=== PATIENT | male | born 1940 | race Caucasian/White ===

== ENCOUNTER 2017-07-24 05:40 | Inpatient (IN) | payer OTHER ==
[~2017-07-24] VITALS: Ht 185.4 cm; Wt 111.0 kg
[2017-07-24] VITALS (10 sets, daily range): BP systolic 148–201; BP diastolic 68–97; PULSE 90–119; TEMP 36.9–38.6; O2SAT 91–95; Ht 185.4 cm; Wt 111.0 kg
[~2017-07-24 05:40] MED LIST: AMLO-110 PO; CARB25TA12 PO; CHOL200010 PO; IBUP-1450 PO; TERA1CAP63 PO; TRAM-10 PO
[2017-07-24 06:09] LABS: BASO % 0.4 %; BASO ABS # 0.04 K/uL (0-0.2); EOS % 0.2 %; EOS ABS # 0.02 K/uL (0-0.5); HEMOGLOBIN 15.6 g/dL (14.0-18.0); IG# 0.03 K/uL (0.00-0.02); MEAN CELL VOLUME 90.3 fL (80-100); MEAN CORPUSCULAR HGB CONC 35.5 g/dl (32-36); MEAN PLATELET VOLUME 9.7 fL (7.4-10.4); MONO % 15.1 %; MONO ABS # 1.52 K/uL (0.11-0.59); NEUT ABS # 7.23 K/uL (1.4-6.5); PLATELET COUNT 113 K/uL (130-400); RED CELL DISTRIBUTION WIDTH CV 13.7 % (11.5-14.5); RED CELL DISTRIBUTION WIDTH SD 45.1 fL (36.4-46.3); WHITE BLOOD COUNT 10.04 K/uL (4.8-10.8)
[2017-07-24 06:17] LABS: INR 1.1 (0.9-1.1)
[2017-07-24 06:27] LABS: ALBUMIN 3.6 gm/dl (3.4-5.0); ALT/SGPT 40 U/L (12-78); AST/SGOT 33 U/L (15-37); BLOOD UREA NITROGEN 20 mg/dl (7-18); CALCIUM 8.7 mg/dl (8.5-10.1); CARBON DIOXIDE 23 mmol/L (21-32); CREATININE 1.28 mg/dl (0.60-1.40); GLUCOSE 167 mg/dl (70-99); POTASSIUM 3.7 mmol/L (3.5-5.1); SODIUM 135 mmol/L (136-145)
[2017-07-24 06:38] LABS: ALKALINE PHOSPHATASE 57 U/L (45-117); TOTAL PROTEIN 7.5 gm/dl (6.4-8.2)
[2017-07-24] MEDS ORDERED: ALBUT/IPRATROP 3MG/0.5MG NEB 3 ML VIAL INH STA (06:56)
--- NOTE | 2017-07-24 06:56 | EMERGENCY ROOM VISIT NOTE ---
History Report prepared by Raul: Kasey Kimball Under the Supervision of: Johnie GrijalvaO. First contact with patient: 06:01 Chief Complaint: WEAKNESS Stated Complaint: BALANCE ISSUES,RESPIRATORY ISSUES Nursing Triage Summary: Pt reports balance issues with dizziness for the past 4 days. Denies falls, reporting "I am careful and haven't actually fallen". Pt also complaining of cough and chills for four days. Denies chest pain, SOB, or any other pains/complaints. History of Present Illness The patient is a 77 year old male who presents to the Emergency Room with complaints of persistent general weakness for four days. He also reports shortness of breath for four days as well. He reports balance issues and overdrive. He has a history of osteoarthritis. He reports respiratory issues. He denies any history of balance issues in the past. He notes that he normally uses a cane to assist in ambulating. He notes that getting up is the worst part , but then he sways from side to side when he initially stands. He notes that once he begins walking it gets easier. He notes a loose cough. He notes chills, though he has not recorded his body temperature. He denies any sensation of the room spinning. He denies any numbness or tingling. He denies any changes to his vision. He reports a family history of heart problems, though denies any personal history. He denies any recent diarrhea, black stools, bloody stools, stuffy nose, or congestion. He denies any urinary symptoms or leg swelling. He takes Tramadol. He denies any asthma or lung problems. He denies any history of smoking, though notes exposure to second hand smoke in his past. He denies any blood thinner use. He regularly takes Amlodipine. Source of History: patient Onset: four days Position: other (general) Quality: other (weakness) Timing: other (persistent) Associated Symptoms: + chills, + cough, + SOB, No diarrhea, No urinary symptoms, No numbness Note: He denies any sensation of the room spinning. He denies any tingling or changes to his vision. He denies any black stools, bloody stools, stuffy nose, leg swelling, or congestion Review of Systems See HPI for pertinent positives & negatives. A total of 10 systems reviewed and were otherwise negative. Past Medical & Surgical Medical Problems: (1) Hypertension (2) Osteoarthritis (3) Sinusitis Surgical Problems: (1) Hx of inguinal hernia repair (2) Hx of sinus surgery Family History Hypertension Social History Smoking Status: Never Smoker Smokeless Tobacco Use: No Alcohol Use: none Drug Use: none Marital Status: Housing Status: lives with family Occupation Status: employed Current/Historical Medications Scheduled Amlodipine (Norvasc), 5 MG PO AFTERNOON Cholecalciferol (Vitamin D), 2,000 INTUNIT PO AFTERNOON Fluticasone Propionate (Nasal) (Flonase Allergy Relief), 2 SPRAY KARI DAILY Terazosin Hcl (Hytrin), 10 MG PO AFTERNOON Scheduled PRN Tramadol (Ultram), 50 MG PO Q6 PRN for Pain Allergies Coded Allergies: Lisinopril (Unverified Allergy, Severe, UNKNOWN, 07/24/17) Aspirin (Verified Allergy, Mild, DYSPHAGIA/TROUBLE STANDING STRAIGHT UP, ) GLO Inhibitors (Verified Allergy, Unknown, ANGIOEDEMA/MYLAGIAS, 07/24/17) Physical Exam Vital Signs Date Time Temp Pulse Resp B/P (MAP) Pulse Ox O2 Delivery O2 Flow Rate FiO2 07/24/17 10:36 103 20 93 07/24/17 10:31 189/96 07/24/17 10:06 100 20 143/90 92 07/24/17 09:36 101 20 93 07/24/17 09:31 172/87 07/24/17 09:06 102 19 94 07/24/17 09:01 166/79 07/24/17 08:45 157/92 07/24/17 08:36 113 18 93 07/24/17 08:28 100/87 07/24/17 08:27 164/93 07/24/17 08:27 101 21 164/93 108 100/87 07/24/17 08:06 110 21 96 07/24/17 08:01 149/76 07/24/17 07:45 109 25 93 07/24/17 07:31 129/76 07/24/17 07:15 105 23 93 07/24/17 07:05 151/70 07/24/17 06:53 92 Room Air 07/24/17 06:49 109 26 164/84 93 Room Air 07/24/17 06:45 113 18 94 07/24/17 06:06 110 07/24/17 06:05 95 23 148/90 96 Room Air 07/24/17 05:45 36.8 108 20 147/74 93 Room Air Physical Exam GENERAL: alert, well appearing, well nourished, no distress, non-toxic EYE EXAM: normal conjunctiva, PERRL and EOM's grossly intact OROPHARYNX: no exudate, no erythema, lips, buccal mucosa, and tongue normal and mucous membranes are moist NECK: supple, no nuchal rigidity, no adenopathy, non-tender LUNGS: Clear to auscultation. Normal chest wall mechanics. No wheezes, rhonchi, or rales. HEART: no murmurs, S1 normal and S2 normal, tachycardia ABDOMEN: abdomen soft, non-tender, normo-active bowel sounds, no masses, no rebound or guarding. BACK: Back is symmetrical on inspection and there is no deformity, no midline tenderness, no CVA tenderness. SKIN: no rashes and no bruising UPPER EXTREMITIES: upper extremities are grossly normal. Full range of motion, normal pulses. LOWER EXTREMITIES: No pitting edema. Full range of motion, normal pulses. NEURO EXAM: Normal sensorium, cranial nerves II-XII grossly intact, normal speech, no gross weakness of arms, no gross weakness of legs. No pronator drift noted, patient with difficulty with finger to nose on the left, difficulty with heel to wells left to right. No facial droop. Medical Decision & Procedures ER Provider Diagnostic Interpretation: HEAD CT NONCONTRAST CT DOSE: 1459.56 mGycm HISTORY: off balance TECHNIQUE: Multiaxial CT images of the head were performed without the use of intravenous contrast. Automated exposure control was utilized for this study. A dose lowering technique was utilized adhering to the principles of ALARA. Comparison: None. Findings: Small fluid level within the right maxillary sinus. Partial opacification of the ethmoid air cells and mild mucosal thickening within the left maxillary sinus. The mastoid air cells are clear. Motion artifact. Prominence of the right retrocerebellar space which measures 4.9 x 1.9 cm. This is consistent with an arachnoid cyst. The calvarium and skull base are intact. The ventricles and sulci are within normal limits. There is no mass, hematoma, midline shift, or acute infarct. Impression: 1. Motion artifact. No definite acute intracranial abnormality. 2. Mild acute on chronic paranasal sinusitis. Electronically signed by: Enzo Hancock M.D. 07/24/2017 7:07 AM Dictated Date/Time: 07/24/2017 7:04 AM CHEST 2 VIEWS ROUTINE CLINICAL HISTORY: cough, dizziness COMPARISON STUDY: October 2008 FINDINGS: The cardiac and mediastinal contours are normal. There is no evidence of focal pulmonary consolidation. There is no evidence of failure. No pleural effusions are visualized.[ IMPRESSION: No active disease in the chest. Electronically signed by: Judson Vogt M.D. 07/24/2017 6:48 AM Dictated Date/Time: 07/24/2017 6:48 AM Laboratory Results Test 07/24/17 06:02 07/24/17 06:10 07/24/17 06:50 07/24/17 08:50 Prothrombin Time 11.4 SECONDS (9.0-12.0) Prothromb Time International Ratio 1.1 (0.9-1.1) D-Dimer 490 ug/L FEU (0-500) Estimated Average Glucose 123 mg/dl Hemoglobin A1c 5.9 % (4.5-5.6) Magnesium Level 1.9 mg/dl (1.8-2.4) Troponin I < 0.015 ng/ml (0-0.045) Pro-B-Type Natriuretic Peptide 200 pg/ml (0-1800) Thyroid Stimulating Hormone (TSH) 1.850 uIu/ml (0.300-4.500) Bedside Lactic Acid Venous 1.29 mmol/L (0.90-1.70) Influenza Type A Antigen Neg for Influ A (NEG) Influenza Type B Antigen Neg for Influ B (NEG) Urine Color DK YELLOW Urine Appearance CLEAR (CLEAR) Urine pH 5.0 (4.5-7.5) Urine Specific Geary 1.027 (1.000-1.030) Urine Protein NEG (NEG) Urine Glucose (UA) NEG (NEG) Urine Ketones NEG (NEG) Urine Occult Blood NEG (NEG) Urine Nitrite NEG (NEG) Urine Bilirubin NEG (NEG) Urine Urobilinogen NEG (NEG) Urine Leukocyte Esterase NEG (NEG) Urine Opiates Screen NEG (NEG) Urine Methadone, Qualitative NEG (NEG) Urine Barbiturates NEG (NEG) Urine Phencyclidine (PCP) Level NEG (NEG) Ur Amphetamine/Methamphetamine NEG (NEG) MDMA (Ecstasy) Screen NEG (NEG) Urine Benzodiazepines Screen NEG (NEG) Urine Cocaine Metabolite NEG (NEG) Urine Marijuana (THC) NEG (NEG) Laboratory results per my review. Medications Administered Medications (Trade) Dose Ordered Sig/Diana Route Start Time Stop Time Status Last Admin Dose Admin Albuterol/ Ipratropium (Duoneb) 3 ml NOW STAT INH 07/24/17 06:56 07/24/17 06:57 DC 07/24/17 07:16 3 ML Sodium Chloride 1,000 ml @ 125 mls/hr Q8H STAT IV 07/24/17 08:37 07/24/17 17:13 DC 07/24/17 09:12 125 MLS/HR ECG Per My Interpretation Indication: weakness Rate (beats per minute): 112 Rhythm: sinus tachycardia Findings: PVC, no acute ischemic change, other (Normal axis. Normal intervals. Baseline artifact noted. ) ED Course 0617: The patient was evaluated in room A11B. A complete history and physical exam was performed. 0656: Ordered DuoNeb 3 ml INH 0816: Patient states no change following nebulizer treatment. Updated on results so far as well as delays in radiology reading. 0855: Patient with orthostatic changes on bedside testing. Patient felt very off balance with standing. Initial blood pressure dropped, however quickly improved after sitting for several minutes. Patient was able to stand with assistance in order to provide a urine specimen. Discussed with patient concern given worsening symptoms of being off balance, as well as findings on neuro exam at bedside. Discussed possible need for additional neuro testing to rule out TIA/CVA. Will attempt to gently hydrate the patient in the interim. Patient denies ever having prior echo or other cardiac testing also. Medical Decision Prior records/ancillary studies reviewed. Triage Nursing notes reviewed. The patient's history was concerning for respiratory difficulties. Differential diagnosis: Etiologies such as infections, reactive airway disease, pneumonia, pneumothorax , COPD, CHF, cardiac ischemia, pulmonary embolism, musculoskeletal, gastrointestinal, as well as others were entertained. Differential diagnosis: Etiologies such as metabolic, infection, hypo/hyperglycemia, electrolyte abnormalities, cardiac sources, intracerebral event, toxicologic, neurologic, as well as others were entertained. Patient with concerning presentation for worsening ataxia and difficulty walking over the last 4 days. Patient noted to have orthostatic hypotension, however did not appear clinically dehydrated, have prerenal azotemia, and stated he was eating and drinking normally. Patient with issues of chronic sinusitis, however denied having lightheadedness/dizziness/vertigo associated with this previously. States this is a chronic problem. Patient's other labs reassuring, no evidence of acute infectious etiology, negative chest x-ray negative urine. I do not suspect bacteremia/sepsis. Given patient with slight difficulty with finger to nose and heel to wells testing, concern for possible TIA/CVA or posterior circulation problem. Discussed with patient concern for need for additional evaluation and likely imaging to better evaluate vasculature and cerebellum. Discussed possible need for additional cardiology evaluation to unlikely echo. Patient states has never had chest pain/ palpitations/shortness of breath with any of the lightheadedness or dizziness, no prior history of coronary artery disease or dysrhythmia. No dysrhythmia noted on telemetry. Troponin and EKG negative and I do not suspect ACS. Patient with no other symptoms to suggest acute vascular etiology such as dissection or leaking AAA. Patient with equal pulses bilaterally, no blood pressure discrepancies, and no other symptoms more suggestive of this diagnosis. Patient with mild persistent tachycardia, which seemed initially possibly related to patient's nervousness about being here. Following orthostatic vital signs, perhaps more related to occult dehydration. I do not suspect cough related to congestive heart failure or PE. Patient without hypoxia. No other recent travel or other infectious disease exposures. Patient not otherwise amino compromise. Patient and family agreeable with plan for additional evaluation, as they are concerned that if he would return home he may fall and get hurt due to his worsening ataxia. Medication Reconcilliation Current Medication List: was personally reviewed by me Blood Pressure Screening Patient's blood pressure: Elevated blood pressure Blood pressure disposition: Referred to PCP Impression Primary Impression: Lightheadedness Additional Impressions: Upper respiratory infection Orthostatic hypotension Ataxia Scribe Attestation The scribe's documentation has been prepared under my direction and personally reviewed by me in its entirety. I confirm that the note above accurately reflects all work, treatment, procedures, and medical decision making performed by me. Departure Information Referrals Dino Rajan M.D. (PCP) Patient Instructions My [facility] Problem Qualifiers Additional Impressions: Upper respiratory infection URI type: unspecified URI Qualified Codes: J06.9 - Acute upper respiratory infection, unspecified
[2017-07-24 07:31] LABS: INFLUENZA B ANTIGEN Neg for Influ B (NEG)
[2017-07-24] MEDS ORDERED: FLUT0.15 NAE (07:49)
[2017-07-24] MEDS ORDERED: TRAM-10 PO (07:51)
[2017-07-24] MEDS ORDERED: SODIUM CHLORIDE 0.9% 1000ML 1,000 ML IV STA (08:37)
--- NOTE | 2017-07-24 08:38 | DIAGNOSTIC IMAGING REPORT ---
HEAD CT NONCONTRAST CT DOSE: 1459.56 mGycm HISTORY: off balance TECHNIQUE: Multiaxial CT images of the head were performed without the use of intravenous contrast. Automated exposure control was utilized for this study. A dose lowering technique was utilized adhering to the principles of ALARA. Comparison: None. Findings: Small fluid level within the right maxillary sinus. Partial opacification of the ethmoid air cells and mild mucosal thickening within the left maxillary sinus. The mastoid air cells are clear. Motion artifact. Prominence of the right retrocerebellar space which measures 4.9 x 1.9 cm. This is consistent with an arachnoid cyst. The calvarium and skull base are intact. The ventricles and sulci are within normal limits. There is no mass, hematoma, midline shift, or acute infarct. Impression: 1. Motion artifact. No definite acute intracranial abnormality. 2. Mild acute on chronic paranasal sinusitis. Electronically signed by: Enzo Hancock M.D. 07/24/2017 7:07 AM Dictated Date/Time: 07/24/2017 7:04 AM
--- NOTE | 2017-07-24 08:38 | DIAGNOSTIC IMAGING REPORT ---
CHEST 2 VIEWS ROUTINE CLINICAL HISTORY: cough, dizziness COMPARISON STUDY: October 2008 FINDINGS: The cardiac and mediastinal contours are normal. There is no evidence of focal pulmonary consolidation. There is no evidence of failure. No pleural effusions are visualized.[ IMPRESSION: No active disease in the chest. Electronically signed by: Judson Vogt M.D. 07/24/2017 6:48 AM Dictated Date/Time: 07/24/2017 6:48 AM
[2017-07-24] MEDS ORDERED: LORAZEPAM 2 MG/ML 1 ML VIAL IV PRN (10:45)
[2017-07-24] MEDS ORDERED: ONDANSETRON INJ 2 MG/ML 2 ML VIAL IV PRN (10:45)
[2017-07-24] MEDS ORDERED: POLYETHYLENE (MIRALAX) 17 GM PACK PO PRN (10:45)
[2017-07-24] MEDS ORDERED: NITROGLYCERIN 0.4 MG SL PER TAB CHARGE SL PRN (10:45)
[2017-07-24] MEDS ORDERED: PHARMACIST DISCHARGE MED REC CONSULT PRN (10:45)
[2017-07-24] MEDS ORDERED: GLUCOSE 10 TABS/TUBE PO PRN (11:00)
[2017-07-24] MEDS ORDERED: DEXTROSE 50% 50 ML SYR IV PRN (11:00)
[2017-07-24] MEDS ORDERED: GLUCAGON FOR INJ 1 MG VIAL SQ PRN (11:00)
[2017-07-24] MEDS ORDERED: GLUCOSE 40% GEL 15 GM TUBE PO PRN (11:00)
[2017-07-24] MEDS ORDERED: TRAMADOL HCL 50 MG TAB PO PRN (11:15)
[2017-07-24] MEDS ORDERED: ACETAMINOPHEN 325 MG TAB ONE (11:20)
--- NOTE | 2017-07-24 11:52 | DIAGNOSTIC IMAGING REPORT ---
BILATERAL CAROTID DOPPLER STUDY HISTORY: Stroke COMPARISON: None. TECHNIQUE: Real-time, grayscale, and color Doppler sonography of the carotid arteries was performed. Imaging reviewed in the transverse and longitudinal planes. All measurements were calculated based on NASCET criteria. FINDINGS: Antegrade flow is seen in the bilateral vertebral arteries. The brachial pressures were not performed. Mild calcified plaque within the bilateral carotid bifurcations. There are few enlarged and abnormal appearing left lymph nodes. The largest measures 1.8 x 1.2 x 1.0 cm and is partially necrotic The peak systolic velocity within the right ICA is 63 cm/s. The right systolic ratio is 0.7. The peak systolic velocity within the left ICA is 101 cm/s. The left systolic ratio is 1.1. Mild stenosis within the bilateral external carotid arteries demonstrating pieces systolic velocities of 141 cm/s on the right and 136 cm/s on the left. IMPRESSION: 1. No hemodynamically significant stenosis seen within the bilateral common or internal carotid arteries. 2. Left cervical lymphadenopathy. The dominant lymph node is partially necrotic. Dedicated neck CT is recommended for further evaluation and to exclude a malignancy. In addition, ultrasound-guided fine-needle aspiration of the dominant lymph node could also be performed. 3. These findings were called/faxed to the referring physician following dictation. Electronically signed by: Enzo Hancock M.D. 07/24/2017 11:50 AM Dictated Date/Time: 07/24/2017 11:47 AM
[2017-07-24 11:53] LABS: HEMOGLOBIN A1C 5.9 % (4.5-5.6)
[2017-07-24] MEDS ORDERED: SODIUM CHLORIDE 0.9% 1000ML 1,000 ML IV SCH ×2 (13:15→13:45)
--- NOTE | 2017-07-24 14:33 | History and Physical ---
History & Physical Date & Time of Service: Jul 24, 2017 at 11:08 Chief Complaint: Balance Issues,Respiratory Issues Primary Care Physician: Dino Rajan M.D. History of Present Illness Source: patient, clinic records, hospital records Pt is 77 y/o M with PMH chronic sinusitis, HTN, BPH presented to ER with complaint of feeling off balance. Patient reports for approximately 6 months has noticed some off balance with walking. Reports history of right knee OA & sometimes uses a cane to assist in ambulation. Patient states the past 4 days has noticed he has been having increased balance problems even with using cane. Has not noticed more off balanced tp one side or the other, he feels it is both sides. Sometimes he he walks into the huyn[place]. Denies falls or head injury. Patient with history of chronic sinusitis and postnasal drip and chronic cough. Denies any increased symptoms. 05/16/17 treated with Augmentin for acute sinusitis and patient reports improvement of sinus symptoms. Patient denies any recent known fever or chills. Denies other recent illnesses. History shingles 2001. Patient reports chronic rash to bilateral arms during the wintertime. Denies any other rashes. Denies any recent travel, Denies headache , facial/temporal pain dizziness, vision changes, ear pain, tinnitus, diaphoresis, N/V/D/C, lightheadedness, syncope, neck pain, CP, SOB, orthopnea, palpitations, hemoptysis, epistaxis, sore throat, choking, otalgia, rhinorrhea, abdominal pain, paresthesias, weakness, extremity weakness, extremity edema, urinary symptoms. No hx previous brain imaging. Hx sinus CT 09/2015: FINDINGS: Visualized portions of the intracranial contents demonstrate a vangie cisterna magna or arachnoid cyst within the posterior fossa which is of no clinical significance. Past Medical/Surgical History Medical Problems: (1) Hypertension Status: Chronic (2) Osteoarthritis Status: Chronic (3) Sinusitis Status: Chronic Surgical Problems: (1) Hx of inguinal hernia repair Status: Resolved (2) Hx of sinus surgery Status: Resolved Family History FH: thyroid disease Hypertension Stroke Social History Smoking Status: Never Smoker Smokeless Tobacco Use: No Alcohol Use: none Drug Use: none Marital Status: Housing status: lives with family Occupational Status: employed Immunizations History of Influenza Vaccine: No History of Tetanus Vaccine?: Unknown History of Pneumococcal: Yes History of Hepatitis B Vaccine: No Allergies Coded Allergies: Lisinopril (Unverified Allergy, Severe, UNKNOWN, 07/24/17) Aspirin (Verified Allergy, Mild, DYSPHAGIA/TROUBLE STANDING STRAIGHT UP, ) GLO Inhibitors (Verified Allergy, Unknown, ANGIOEDEMA/MYLAGIAS, 07/24/17) Home Medications Scheduled Amlodipine (Norvasc), 5 MG PO AFTERNOON Cholecalciferol (Vitamin D), 2,000 INTUNIT PO AFTERNOON Fluticasone Propionate (Nasal) (Flonase Allergy Relief), 2 SPRAY KARI DAILY Terazosin Hcl (Hytrin), 10 MG PO AFTERNOON Scheduled PRN Tramadol (Ultram), 50 MG PO Q6 PRN for Pain Review of Systems See HPI for pertinent positives & negatives. All other systems reviewed and were otherwise negative Physical Exam Vital Signs Date Time Temp Pulse Resp B/P (MAP) Pulse Ox O2 Delivery O2 Flow Rate FiO2 07/24/17 10:36 103 20 93 07/24/17 10:31 189/96 07/24/17 10:06 100 20 143/90 92 07/24/17 09:36 101 20 93 07/24/17 09:31 172/87 07/24/17 09:06 102 19 94 07/24/17 09:01 166/79 07/24/17 08:45 157/92 07/24/17 08:36 113 18 93 07/24/17 08:28 100/87 07/24/17 08:27 164/93 07/24/17 08:27 101 21 164/93 108 100/87 07/24/17 08:06 110 21 96 07/24/17 08:01 149/76 07/24/17 07:45 109 25 93 07/24/17 07:31 129/76 07/24/17 07:15 105 23 93 07/24/17 07:05 151/70 07/24/17 06:53 92 Room Air 07/24/17 06:49 109 26 164/84 93 Room Air 07/24/17 06:45 113 18 94 07/24/17 06:06 110 07/24/17 06:05 95 23 148/90 96 Room Air 07/24/17 05:45 36.8 108 20 147/74 93 Room Air General Appearance: WD/WN, no apparent distress Head: normocephalic, atraumatic Eyes: normal inspection, PERRL, EOMI, sclerae normal ENT: hearing grossly normal, pharynx normal, + pertinent finding (mildly dry mucous membranes) Neck: supple, no JVD, trachea midline Respiratory/Chest: lungs clear, normal breath sounds, no respiratory distress, no accessory muscle use Cardiovascular: no murmur, + tachycardia (104) Abdomen/GI: normal bowel sounds, non tender, soft Extremities/Musculoskelatal: no calf tenderness, normal capillary refill, no pedal edema, normal range of motion, non-tender Neurologic/Psych: alert, normal mood/affect, oriented x 3, + pertinent finding (No aphasia, no facial drooping, no extremity weakness. negative romberg. slow with finger to nose and heel to wells bilaterally. slow gait without over ataxia during time of exam) Skin: normal color, warm/dry, + pertinent finding (+papules to bilateral forearms) Diagnostics Laboratory Results Results Past 24 Hours Test 07/24/17 06:02 07/24/17 06:10 07/24/17 06:50 07/24/17 08:50 Range/Units White Blood Count 10.04 4.8-10.8 K/uL Red Blood Count 4.87 4.7-6.1 M/uL Hemoglobin 15.6 14.0-18.0 g/dL Hematocrit 44.0 42-52 % Mean Corpuscular Volume 90.3 80-100 fL Mean Corpuscular Hemoglobin 32.0 25-34 pg Mean Corpuscular Hemoglobin Concent 35.5 32-36 g/dl Platelet Count 113 130-400 K/uL Mean Platelet Volume 9.7 7.4-10.4 fL Neutrophils (%) (Auto) 72.0 % Lymphocytes (%) (Auto) 12.0 % Monocytes (%) (Auto) 15.1 % Eosinophils (%) (Auto) 0.2 % Basophils (%) (Auto) 0.4 % Neutrophils # (Auto) 7.23 1.4-6.5 K/uL Lymphocytes # (Auto) 1.20 1.2-3.4 K/uL Monocytes # (Auto) 1.52 0.11-0.59 K/uL Eosinophils # (Auto) 0.02 0-0.5 K/uL Basophils # (Auto) 0.04 0-0.2 K/uL RDW Standard Deviation 45.1 36.4-46.3 fL RDW Coefficient of Variation 13.7 11.5-14.5 % Immature Granulocyte % (Auto) 0.3 % Immature Granulocyte # (Auto) 0.03 0.00-0.02 K/uL Prothrombin Time 11.4 9.0-12.0 SECONDS Prothromb Time International Ratio 1.1 0.9-1.1 D-Dimer 490 0-500 ug/L FEU Sodium Level 135 136-145 mmol/L Potassium Level 3.7 3.5-5.1 mmol/L Chloride Level 103 98-107 mmol/L Carbon Dioxide Level 23 21-32 mmol/L Anion Gap 9.0 3-11 mmol/L Blood Urea Nitrogen 20 7-18 mg/dl Creatinine 1.28 0.60-1.40 mg/dl Estimated GFR () 61.3 Estimated GFR (Non- 52.9 BUN/Creatinine Ratio 15.5 10-20 Random Glucose 167 70-99 mg/dl Calcium Level 8.7 8.5-10.1 mg/dl Magnesium Level 1.9 1.8-2.4 mg/dl Total Bilirubin 0.7 0.2-1 mg/dl Aspartate Amino Transf (AST/SGOT) 33 15-37 U/L Alanine Aminotransferase (ALT/SGPT) 40 12-78 U/L Alkaline Phosphatase 57 45-117 U/L Troponin I < 0.015 0-0.045 ng/ml Pro-B-Type Natriuretic Peptide 200 0-1800 pg/ml Total Protein 7.5 6.4-8.2 gm/dl Albumin 3.6 3.4-5.0 gm/dl Globulin 3.9 2.5-4.0 gm/dl Albumin/Globulin Ratio 0.9 0.9-2 Thyroid Stimulating Hormone (TSH) 1.850 0.300-4.500 uIu/ml Bedside Lactic Acid Venous 1.29 0.90-1.70 mmol/L Influenza Type A Antigen Neg for Influ A NEG Influenza Type B Antigen Neg for Influ B NEG Urine Color DK YELLOW Urine Appearance CLEAR CLEAR Urine pH 5.0 4.5-7.5 Urine Specific Walnut 1.027 1.000-1.030 Urine Protein NEG NEG Urine Glucose (UA) NEG NEG Urine Ketones NEG NEG Urine Occult Blood NEG NEG Urine Nitrite NEG NEG Urine Bilirubin NEG NEG Urine Urobilinogen NEG NEG Urine Leukocyte Esterase NEG NEG Test 07/24/17 10:16 Range/Units Diagnostic Radiology CT HEAD: Findings: Small fluid level within the right maxillary sinus. Partial opacification of the ethmoid air cells and mild mucosal thickening within the left maxillary sinus. The mastoid air cells are clear. Motion artifact. Prominence of the right retrocerebellar space which measures 4.9 x 1.9 cm. This is consistent with an arachnoid cyst. The calvarium and skull base are intact. The ventricles and sulci are within normal limits. There is no mass, hematoma, midline shift, or acute infarct. CXR: IMPRESSION: No active disease in the chest. EKG EKG: sinus tachycardia, rate 112, PVCs Impression Assessment and Plan ATAXIA Pt reports ataxia x 6 months, worsening past 4 days. Denies headache, dizziness , syncope, head injury. Noted to have orthostatic hypotension in ER. CT HEAD: Motion artifact. Prominence of the right retrocerebellar space which measures 4.9 x 1.9 cm, consistent with an arachnoid cyst. There is no hematoma, midline shift, or acute infarct. -MRI, U/S carotids to r/o stroke -B12, thiamine, folate labs, RPR, Tox screen added -Neurology consult -Spoke with Dr. Oakley -neurosurgery at [facility] [place] who suggested no acute surgical intervention, likely repeat head imaging in 3 months, and follow-up with neurotrauma after hospital discharge ORTHOSTATIC HYPOTENSION Patient noticed to be orthostatic in the ER, IVF started -IVF -Continue to monitor FEVER Possible acute sinusitis. Patient developed temp 38.3 C in ER. CXR: No infiltrate. WBC: 10. U/A: Negative. -Blood cultures added -CBC in a.m. -Augmentin -Continue to follow POSSIBLE ACUTE SINUSITIS ON CHRONIC SINUSITIS Pt reports chronic postnasal drip and cough, denies worsening. Treated with Augmentin on 05/19/17 for acute sinusitis. History sinus surgery in the past, followed by Dr. Espitia. CT head: Acute on chronic paranasal sinusitis -Augmentin HYPERGLYCEMIA Glucose 167 -HA1c added -NovoLog sliding scale per protocol HTN -Continue amlodipine BPH -Continue terazosin OA RIGHT KNEE -Continue tramadol as needed pain DVT Prophylaxis -SCD Disposition admit tele Full Code as per discussion with pt Follows with Dr Rajan for routine care Pt was seen with Dr Shah. See addendum Dr. Shah addendum I have seen and examined the patient and have discussed with HAI Valderrama in regard to the patient's neurological workup for the ataxia and spoke with Dr. Baltazar in regards to patient's arachnoid cyst. At this time, labs have been sent to attempt to identify vitamin deficiencies vs RPR that could relate to the ataxia. Patient reports that he cannot tolerate MRI studies despite being offered Ativan. No obvious ataxia on physical exam today and patient reports that he is walking better. Neurology inpatient consult also requested. However patient also having leukocytosis above 11,000, fever, tachycardia, hypertension. Patient initially given Augmentin for possible acute sinuitis. Will expand to Zosyn as it is unclear to another source of infection. No meningeal signs for meningitis. No pneumonia on chest X ray. No bacteria in urine. Echocardiogram does not show vegetations. Will send CT neck as ultrasound carotid concerning for "necrotic" lymph node. Check lactic acid and procalcitonin Have re-affirmed code status with patient as full code. Patient's son Raoul , at bedside Resuscitation Status Full Code VTE Prophylaxis Will order VTE Prophylaxis: Yes Additional Copies To Dino Rajan M.D.
--- NOTE | 2017-07-24 14:53 | ECHOCARDIOGRAM REPORT ---
*NOTICE TO RECEIVING [employer] This information is strictly Confidential and protected under [place] law. [place] law prohibits you from making any further disclosure of this information unless further disclosure is expressly permitted by the written consent of the person to whom it pertains or is authorized by law. A general authorization for the release of medical or other information is not sufficient for this purpose. Hospital accepts no responsibility if the information is made available to any other person, INCLUDING THE PATIENT. Interpretation Summary * Name: BETTINA HOOVER Study Date: 07/24/2017 01:13 PM BP: 150/80 mmHg * Patient Location: [facility]\S\[id number]\S\[id number] HR: 91 * : 1940 (M/d/yyyy) Gender: Male Height: 73 in * Age: 77 yrs Ethnicity: [place] Weight: 248 lb * Ordering Physician: Cait Valderrama * Referring Physician: Self, Referred * Performed By: Anjelica Garza RCS * * Reason For Study: ATAXIA / R/O STROKE * BSA: 2.4 m2 * -- Conclusions -- * Normal LV chamber size with moderate concentric LVH. * Normal LV systolic function, EF 55-60%. * No segmental left ventricular wall motion abnormalities are noted. * Grade I diastolic dysfunction. * No significant valvular pathology. * A patent foramen ovale is present and there is low risk for embolism. Procedure Details * A complete two-dimensional transthoracic echocardiogram was performed (2D, M-mode, Doppler and color flow Doppler). * A saline contrast injection was performed to assess for cardiac shunting. * The injection was performed through an intravenous line in the right arm. * The attending nurse who injected the saline contrast was CUCA THOMPSON RN. * A total of 20 cc of agitated saline was given. Left Ventricle * The left ventricle is normal in size. * There is moderate concentric left ventricular hypertrophy. * Left ventricular systolic function is normal. * No segmental left ventricular wall motion abnormalities are noted. * Ejection Fraction = 60-65%. * The left ventricular wall motion is normal. Right Ventricle * The right ventricular cavity size is normal (basal dimension <4.2 cm in right ventricular apical 4-chamber view). * The right ventricular systolic function is normal as assessed by tricuspid annular plane systolic excursion (TAPSE) (normal >1.5 cm). Atria * The left atrial size is normal. * Right atrial size is normal. * A patent foramen ovale is present. * A patent foramen ovale is present and there is low risk for embolism. * Injection of contrast documented an interatrial shunt. Mitral Valve * The mitral valve is normal in structure and function. Tricuspid Valve * The tricuspid valve is normal in structure and function. Aortic Valve * The aortic valve is normal in structure and function. Pulmonic Valve * The pulmonary valve is not well seen, but the Doppler examination is normal without significant regurgitation or stenosis. Great Vessels * The aortic root is normal size. Pericardium/Pleural * There is no pericardial effusion. Left Ventricular Diastolic Function * Grade I diastolic dysfunction, (abnormal relaxation pattern). MMode 2D Measurements and Calculations IVSd 1.6 cm IVSs 2.3 cm LVIDd 4.2 cm LVIDs 3.2 cm LVPWd 1.5 cm LVPWs 1.5 cm IVS/LVPW 1.0 FS 24.3 % EDV(Teich) 77.4 ml ESV(Teich) 39.7 ml EF(Teich) 48.7 % EDV(cubed) 72.7 ml ESV(cubed) 31.5 ml EF(cubed) 56.6 % % IVS thick 48.3 % % LVPW thick -4.10 % LV mass(C)d 261.2 grams LV mass(C)dI 110.8 grams/m\S\2 LV mass(C)s 254.5 grams LV mass(C)sI 107.9 grams/m\S\2 SV(Teich) 37.7 ml SI(Teich) 16.0 ml/m\S\2 SV(cubed) 41.2 ml SI(cubed) 17.5 ml/m\S\2 Ao root diam 3.7 cm Ao root area 11.0 cm\S\2 ACS 2.3 cm LA dimension 3.2 cm LA/Ao 0.86 LVOT diam 2.1 cm LVOT area 3.3 cm\S\2 LVAd ap4 38.4 cm\S\2 LVLd ap4 9.1 cm EDV(MOD-sp4) 128.7 ml EDV(sp4-el) 138.0 ml LVAs ap4 23.9 cm\S\2 LVLs ap4 7.3 cm ESV(MOD-sp4) 63.7 ml ESV(sp4-el) 66.3 ml EF(MOD-sp4) 50.5 % EF(sp4-el) 52.0 % LVAd ap2 35.0 cm\S\2 LVLd ap2 8.4 cm EDV(MOD-sp2) 117.9 ml EDV(sp2-el) 123.5 ml LVAs ap2 22.6 cm\S\2 LVLs ap2 7.3 cm ESV(MOD-sp2) 60.0 ml ESV(sp2-el) 59.8 ml EF(MOD-sp2) 49.1 % EF(sp2-el) 51.6 % LVLd %diff -8.03 % EDV(MOD-bp) 127.3 ml LVLs %diff -0.60 % ESV(MOD-bp) 61.3 ml EF(MOD-bp) 51.8 % SV(MOD-sp4) 65.0 ml SI(MOD-sp4) 27.6 ml/m\S\2 SV(MOD-sp2) 57.9 ml SI(MOD-sp2) 24.5 ml/m\S\2 SV(MOD-bp) 66.0 ml SI(MOD-bp) 28.0 ml/m\S\2 SV(sp4-el) 71.7 ml SI(sp4-el) 30.4 ml/m\S\2 SV(sp2-el) 63.7 ml SI(sp2-el) 27.0 ml/m\S\2 Doppler Measurements and Calculations MV E max marcy 59.3 cm/sec MV A max marcy 67.4 cm/sec MV E/A 0.88 MV P1/2t max marcy 71.3 cm/sec MV P1/2t 81.6 msec MVA(P1/2t) 2.7 cm\S\2 MV dec slope 255.8 cm/sec\S\2 MV dec time 0.31 sec Ao V2 max 120.4 cm/sec Ao max PG 5.8 mmHg Ao max PG (full) 3.1 mmHg YAYA(V,A) 2.3 cm\S\2 YAYA(V,D) 2.3 cm\S\2 AI max marcy 462.3 cm/sec AI max PG 85.5 mmHg AI dec slope 289.6 cm/sec\S\2 AI P1/2t 467.6 msec LV V1 max PG 2.7 mmHg LV V1 max 82.6 cm/sec PA V2 max 114.4 cm/sec PA max PG 5.3 mmHg PI max marcy 202.2 cm/sec PI max PG 16.4 mmHg PI dec slope 222.3 cm/sec\S\2 PI P1/2t 266.5 msec
[2017-07-24] MEDS: AMLODIPINE BESYLATE 5 MG TAB PO SCH (15:41)
[2017-07-24] MEDS: FLUTICASONE PROPIONATE NA SPR 16 GM BTL NAE SCH (15:42)
[2017-07-24] MEDS: CHOLECALCIFEROL 1000 INTER.UNIT TAB PO SCH (15:42)
[2017-07-24] MEDS ORDERED: AMOXICILLIN/CLAVULANATE TAB 875 MG TAB PO SCH (17:00)
[2017-07-24] MEDS: ACETAMINOPHEN 325 MG TAB PO PRN ×2 (17:02→21:21)
[2017-07-24] MEDS: INSULIN ASPART 100 UNITS/ML 3 ML PEN SC SCH ×2 (17:03→20:33)
[2017-07-24] MEDS ORDERED: HYDROCHLOROTHIAZIDE 25 MG TAB PO STA (17:13)
[2017-07-24] MEDS ORDERED: HydrALAZINE HCL 20 MG/ML VIAL IV. PRN (17:15)
[2017-07-24] MEDS ORDERED: COUGH DROP (SUGAR FREE) LOZ 24 LOZ/1 BOX LOZ ONE (18:19)
[2017-07-24] MEDS ORDERED: PIPERACILL/TAZOBAC CONSULT ACTIVE PRN (18:45)
[2017-07-24] MEDS ORDERED: OPTIRAY 320 IV PRN (19:00)
[2017-07-24] MEDS ORDERED: PIPERACILL/TAZOBAC IV 3.375 GM in NSS 100 ML IV STA (19:05)
[2017-07-24 19:30] LABS: BASO % 0.4 %; BASO ABS # 0.04 K/uL (0-0.2); EOS % 0.2 %; EOS ABS # 0.02 K/uL (0-0.5); HEMATOCRIT 40.8 % (42-52); HEMOGLOBIN 14.4 g/dL (14.0-18.0); IG# 0.03 K/uL (0.00-0.02); LYMPH % 14.3 %; LYMPH ABS # 1.32 K/uL (1.2-3.4); MEAN CELL VOLUME 90.7 fL (80-100); MEAN PLATELET VOLUME 9.9 fL (7.4-10.4); MONO ABS # 1.11 K/uL (0.11-0.59); NEUT % 72.8 %; NEUT ABS # 6.72 K/uL (1.4-6.5); PLATELET COUNT 117 K/uL (130-400); RED CELL DISTRIBUTION WIDTH CV 13.6 % (11.5-14.5); RED CELL DISTRIBUTION WIDTH SD 45.3 fL (36.4-46.3); WHITE BLOOD COUNT 9.24 K/uL (4.8-10.8)
--- NOTE | 2017-07-24 19:39 | NEUROLOGY CONSULTATION ---
DATE OF CONSULTATION: 07/24/2017 PRIMARY PHYSICIAN: Dr. Rajan. REASON FOR CONSULTATION: Instability. Mr. Del Valle is a 77-year-old right-handed male with a history of chronic sinusitis, hypertension, BPH. He has noted for at least 6 months a sense of being off balance. He does report some difficulty getting out of chairs, climbing stairs, but notes no difficulty with proximal muscle tasks of the upper extremities. He indicates that he will lose his balance non-unidirectionally, it is not associated with any lightheadedness or vertigo. He denies any numbness or tingling in his feet. Denies any significant spine pain. There is no incontinence of urine or stool. No diplopia, dysarthria, dysphagia, unilateral weakness, numbness, hearing loss. His weight has been stable. He has had a cough for about a day or two. No headache. No chest pain, palpitation, shortness of breath. The patient has previously had CT imaging of the sinuses 09/2015, which showed negative cisterna magna or arachnoid cyst. MEDICAL HISTORY: Hypertension, osteoarthritis, sinusitis, inguinal hernia repair, history of sinus surgery. FAMILY HISTORY: No family history of imbalance. Family history of thyroid disease, hypertension, stroke. SOCIAL HISTORY: The patient is a nonsmoker, nondrinker. ALLERGIES: LISINOPRIL, ASPIRIN, GLO INHIBITORS. HOME MEDICATIONS: Hytrin, Flonase, vitamin D, Norvasc, p.r.n. tramadol. CT of the head noncontrast appears to show a giant cisterna magna on the right versus an arachnoid cyst. Carotid ultrasound shows mild calcified plaque, few enlarged and abnormal appearing left lymph nodes. The patient indicates he has had a prior biopsy of a lymph node on the left side. White count 10.0, 15.6/44, platelet count 113. PT 11.4, INR 1.1. Chemistry profile, hemoglobin A1c 5.9, random glucose 167, sodium 135. TSH 1.85. B12 of 492, folate 8.52, thiamine is pending. Urinalysis negative. Toxicology negative. Influenza A and B are negative. PHYSICAL EXAMINATION: GENERAL: The patient is awake and alert. Speech and language are unremarkable. VITAL SIGNS: 37.7, 109, 201/90. NECK: No carotid bruits. A left cervical mass is appreciated which the patient indicates is the site of the prior biopsy. NEUROLOGIC: Pupils are equal. Optic nerves difficult to visualize. Normal royal, motility. No nystagmus. Normal facial sensation and facial symmetry. Gross hearing intact. Tongue is midline. Speech is nondysarthric. Motor, some distal atrophy of the lower extremities. Feet are high arched and there are bilateral hammertoes. His reflexes are mildly brisk at the triceps. Knee jerks are trace. Ankle jerks absent. Toes downgoing. Proprioception is poor in the toes. Vibration sense is present at the ankles. There is mid calf level to temperature. Llmtew-iw-kady is tremulous. Xojj-gk-okzy is dystaxic consistent with sensory dystaxia. Gait is fairly unremarkable. Romberg is positive. IMPRESSION: This patient appears to have a neuropathy as the etiology for his imbalance. B12 is normal. We will check methylmalonic acid, immunofixation, CHRISTIAN, await the results of TSH and folic acid. This could be a heritable neuropathy given the chronic changes in his legs, although he has no family history of the same. I doubt this is of central etiology,he is not symptomatic for the posterior fossa cyst or giant cisterna magna but I do believe the patient needs an MRI at some point. He categorically denies an MRI while an inpatient in our facility and it may be reasonable to have him have a followup MRI of the brain as an outpatient in an open unit. The patient will also likely need a nerve conduction EMG as an outpatient. Essential tremor, not specifically discussed. WILFREDO Bassett MD [facility]
[2017-07-24 19:41] LABS: MEAN CORPUSCULAR HGB CONC 35.3 g/dl (32-36)
[2017-07-24 20:05] LABS: ALBUMIN 3.3 gm/dl (3.4-5.0); CALCIUM 8.6 mg/dl (8.5-10.1); CREATININE 1.22 mg/dl (0.60-1.40); POTASSIUM 3.6 mmol/L (3.5-5.1)
[2017-07-24 20:06] LABS: TOTAL PROTEIN 6.9 gm/dl (6.4-8.2)
--- NOTE | 2017-07-24 21:16 | DIAGNOSTIC IMAGING REPORT ---
SOFT TISSUE NECK WITH CLINICAL HISTORY: 77 years-old Male presenting with lymphadenopathy. TECHNIQUE: Multidetector CT of the neck was performed after the administration of intravenous contrast. IV contrast: 117 mL of Optiray 320. A dose lowering technique was used consistent with the principles of ALARA (as low as reasonably achievable). COMPARISON: None. CT DOSE (mGy.cm): The estimated cumulative dose is 653.38 mGy.cm. FINDINGS: Serger topogram: Unremarkable. A marker is noted over the left submandibular region. At this site, there is subcutaneous infiltration and multiple pathologically enlarged avidly enhancing lymph nodes in the submandibular station. The largest node measures 2 x 2.3 cm. These nodes have a globular morphology without a normal fatty hilum. Prominent but not pathologically enlarged lymph nodes noted in the right submandibular region. Pathologically enlarged lymph nodes noted more inferiorly in the left neck measuring up to 1.5 cm in the long axis (series 3 image 237). These involve wilfrid levels 1B, 2, 3, and 5A on the left. No pathologically enlarged lymph nodes on the right by CT size criteria. No suspicious nodular enhancement along the airway allowing for degradation of evaluation of the oral cavity due to amalgam. No effacement of the valleculae or piriform sinuses. The vocal folds are symmetric. Cervical spine normal. 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 Extensive mucosal thickening in the paranasal sinuses without evidence of osseous erosion or sclerosis. IMPRESSION: 1. Pathologically enlarged lymph nodes in the left neck as detailed above, including at the site of clinical concern. This is most suspicious for metastatic involvement of lymph nodes due to a head and neck primary malignancy. However, no suspicious nodular enhancement is identified to suggest a site of primary disease. Less likely, this could be reactive or due to lymphoproliferative disease. Fine-needle aspiration to be considered as well as ENT consult. 2. Extensive paranasal sinus mucosal thickening. Acute sinusitis is not excluded. Electronically signed by: Orestes Salas M.D. 07/24/2017 9:15 PM Dictated Date/Time: 07/24/2017 9:04 PM
[2017-07-25] MEDS ORDERED: PIPERACILL/TAZOBAC IV 3.375 GM in DEXTROSE 5% 100ML 100 ML IV SCH (02:00)
[2017-07-25] MEDS: PIPERACILL/TAZOBAC IV 3.375 GM in SODIUM CHLORIDE 0.9% 100ML 100 ML IV SCH ×2 (02:16→09:42)
[2017-07-25 04:42] VITALS: BP_SYST 109; BP_SYST 113; BP_SYST 131; BP_DIAS 67; BP_DIAS 70; PULSE 100; PULSE 103; PULSE 94; TEMP 37; O2SAT 90
[2017-07-25 06:46] LABS: BASO % 0.3 %; BASO ABS # 0.03 K/uL (0-0.2); EOS % 0.6 %; EOS ABS # 0.06 K/uL (0-0.5); HEMATOCRIT 40.3 % (42-52); HEMOGLOBIN 14.1 g/dL (14.0-18.0); IG# 0.01 K/uL (0.00-0.02); LYMPH % 16.7 %; MEAN CORPUSCULAR HEMOGLOBIN 31.8 pg (25-34); MEAN PLATELET VOLUME 9.9 fL (7.4-10.4); MONO % 15.8 %; MONO ABS # 1.52 K/uL (0.11-0.59); NEUT % 66.5 %; NEUT ABS # 6.37 K/uL (1.4-6.5); PLATELET COUNT 122 K/uL (130-400); RED CELL DISTRIBUTION WIDTH CV 13.7 % (11.5-14.5); WHITE BLOOD COUNT 9.59 K/uL (4.8-10.8)
[2017-07-25 07:09] VITALS: BP_SYST 126; BP_SYST 152; BP_DIAS 69; BP_DIAS 72; BP_DIAS 78; PULSE 101; PULSE 105; PULSE 95; TEMP 37; O2SAT 90
[2017-07-25 07:15] LABS: CALCIUM 8.4 mg/dl (8.5-10.1); CREATININE 1.06 mg/dl (0.60-1.40); POTASSIUM 3.3 mmol/L (3.5-5.1)
[2017-07-25] MEDS: INSULIN ASPART 100 UNITS/ML 3 ML PEN SC SCH (08:20)
[2017-07-25] MEDS: AMLODIPINE BESYLATE 5 MG TAB PO SCH (08:20)
[2017-07-25] MEDS: FLUTICASONE PROPIONATE NA SPR 16 GM BTL NAE SCH (08:21)
[2017-07-25] MEDS ORDERED: FLUTICASONE PROPIONATE NA SPR 16 GM BTL NAE SCH (09:00)
[2017-07-25 11:14] VITALS: BP 116/72; PULSE 98; TEMP 36.8; O2SAT 93
[2017-07-25] MEDS ORDERED: POTASSIUM CHLORIDE 20 MEQ TABCR PO STA (12:33)
--- NOTE | 2017-07-25 13:11 | Neurology Progress Notes ---
Neurology Progress Note Date of Service Jul 25, 2017. Subjective Oliverio is a 77 year old male PMH chronic sinusitis, HTN, BPH He has noted for at least 6 months a sense of being off balance. He does report some difficulty getting out of chairs, climbing stairs, but no UE weakness. denies CP, SOB abdominal pain, No diplopia, dysarthria, dysphagia, unilateral weakness, numbness, hearing loss.headache, vision changes, N, V, falls. Today he states he is feeling better PT/OT worked with him today and was able to ambulate with a walker and cane up stairs with minimal difficulty. Objective Date Time Temp Pulse Resp B/P (MAP) Pulse Ox O2 Delivery O2 Flow Rate FiO2 07/25/17 12:02 Room Air 07/25/17 11:14 36.8 98 18 116/72 (87) 93 Room Air 07/25/17 08:01 Room Air 07/25/17 07:09 37.0 95 18 152/78 (102) 90 Room Air 101 126/72 (90) 105 126/69 (88) 07/25/17 04:42 37.0 94 20 131/70 (90) 90 Room Air 100 113/67 (82) 103 109/67 (81) 07/25/17 04:00 Room Air 07/25/17 00:00 Room Air 07/24/17 23:08 36.9 110 18 151/71 (97) 91 Room Air 07/24/17 22:22 37.7 07/24/17 20:00 Room Air 07/24/17 19:44 38.6 119 22 174/81 (112) 91 Room Air 07/24/17 18:06 38.0 94 20 158/68 (98) 92 07/24/17 17:10 201/90 (127) 07/24/17 16:58 37.7 07/24/17 16:10 109 198/97 (130) 07/24/17 16:10 118 185/83 (117) 07/24/17 16:09 107 174/74 (107) 07/24/17 16:00 Room Air 07/24/17 15:24 37.0 90 18 165/81 (109) 95 Room Air 07/24/17 13:00 37.4 98 18 148/80 94 Room Air Last 24 Hours Test 07/24/17 13:00 4/5/18 13:01 07/24/17 16:20 07/24/17 17:45 Vitamin B12 Level 492 pg/mL Folate 8.52 ng/mL Bedside Glucose 185 mg/dl Test 07/24/17 19:20 07/24/17 20:27 07/25/17 05:57 White Blood Count 9.24 K/uL 9.59 K/uL Red Blood Count 4.50 M/uL 4.43 M/uL Hemoglobin 14.4 g/dL 14.1 g/dL Hematocrit 40.8 % 40.3 % Mean Corpuscular Volume 90.7 fL 91.0 fL Mean Corpuscular Hemoglobin 32.0 pg 31.8 pg Mean Corpuscular Hemoglobin Concent 35.3 g/dl 35.0 g/dl Platelet Count 117 K/uL 122 K/uL Mean Platelet Volume 9.9 fL 9.9 fL Neutrophils (%) (Auto) 72.8 % 66.5 % Lymphocytes (%) (Auto) 14.3 % 16.7 % Monocytes (%) (Auto) 12.0 % 15.8 % Eosinophils (%) (Auto) 0.2 % 0.6 % Basophils (%) (Auto) 0.4 % 0.3 % Neutrophils # (Auto) 6.72 K/uL 6.37 K/uL Lymphocytes # (Auto) 1.32 K/uL 1.60 K/uL Monocytes # (Auto) 1.11 K/uL 1.52 K/uL Eosinophils # (Auto) 0.02 K/uL 0.06 K/uL Basophils # (Auto) 0.04 K/uL 0.03 K/uL RDW Standard Deviation 45.3 fL 46.0 fL RDW Coefficient of Variation 13.6 % 13.7 % Immature Granulocyte % (Auto) 0.3 % 0.1 % Immature Granulocyte # (Auto) 0.03 K/uL 0.01 K/uL Sodium Level 136 mmol/L 136 mmol/L Potassium Level 3.6 mmol/L 3.3 mmol/L Chloride Level 106 mmol/L 104 mmol/L Carbon Dioxide Level 23 mmol/L 24 mmol/L Anion Gap 7.0 mmol/L 8.0 mmol/L Blood Urea Nitrogen 19 mg/dl 16 mg/dl Creatinine 1.22 mg/dl 1.06 mg/dl Est Creatinine Clear Calc Drug Dose 64.6 ml/min 73.8 ml/min Estimated GFR () 65.0 77.0 Estimated GFR (Non- 56.0 66.4 BUN/Creatinine Ratio 15.2 14.9 Random Glucose 125 mg/dl 117 mg/dl Lactic Acid Level 1.1 mmol/L Calcium Level 8.6 mg/dl 8.4 mg/dl Total Bilirubin 0.5 mg/dl Aspartate Amino Transf (AST/SGOT) 27 U/L Alanine Aminotransferase (ALT/SGPT) 34 U/L Alkaline Phosphatase 51 U/L Total Protein 6.9 gm/dl Albumin 3.3 gm/dl Globulin 3.6 gm/dl Albumin/Globulin Ratio 0.9 Procalcitonin 0.28 ng/ml Lyme Disease IgG Antibody POS Lyme Disease IgM Antibody NEG Bedside Glucose 123 mg/dl Triglycerides Level 69 mg/dl Cholesterol Level 136 mg/dl HDL Cholesterol 41 mg/dl LDL Cholesterol, Calculated 81 mg/dl VLDL Cholesterol, Calculated 14 mg/dl Cholesterol/HDL Ratio 3.3 Imaging: CT head and neck- . Pathologically enlarged lymph nodes in the left neck as detailed above, including at the site of clinical concern. This is most suspicious for metastatic involvement of lymph nodes due to a head and neck primary malignancy.However, no suspicious nodular enhancement is identified to suggest a site of primary disease. Less likely, this could be reactive or due to lymphoproliferative disease. Fine-needle aspiration to be considered as well as ENT consult. Extensive paranasal sinus mucosal thickening. Acute sinusitis is not excluded. carotid doppler- . No hemodynamically significant stenosis seen within the bilateral common or internal carotid arteries. Left cervical lymphadenopathy. The dominant lymph node is partially necrotic. Dedicated neck CT is recommended for further evaluation and to exclude a malignancy. In addition, ultrasound- guided fine-needle aspiration of the dominant lymph node could also be performed. These findings were called/faxed to the referring physician following dictation. TTE- Normal LV chamber size with moderate concentric LVH. * Normal LV systolic function, EF 55-60%. * No segmental left ventricular wall motion abnormalities are noted. * Grade I diastolic dysfunction. * No significant valvular pathology. * A patent foramen ovale is present and there is low risk for embolism. Exam: Physical Exam: Constitutional:appearance nourished, healthy and normal Ears, Nose, Mouth and Throat: mucous membranes moist, no injection and skin normal, eyes normal Cardiovascular: normal S-1 and S-2 and regular rate and rhythm Respiratory: clear to auscultation (CTA) and no rales, rhonchi or wheeze Musculoskeletal: no peripheral edema and distant distal pulses Skin: no stigmata of neurocutaneous disease noted and normal and intact Eyes: extraocular muscles intact (EOMI) and pupils equal, round and reactive to light (PERRL) NEUROLOGIC EXAMINATION: Mental status: Alert and interactive Oriented to full date and location Oriented to person Speech fluent with no evidence of aphasia Cranial Nerves smile eye brow raise symmetric Sensory: decrease sensation vibration ankles to toes, GT proprioception absent, light touch intact cool touch to wells Coordination: finger to nose no bi pass Gait/Stance: Posture sitting in bed Motor: Negative for pronator drift of out stretched arms with eyes closed. 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 5/5 bilaterally, hip flex plantar flex ext 5/5 bilaterally Current Inpatient Medications Medications (Trade) Dose Ordered Sig/Diana Route Start Time Stop Time Status Last Admin Dose Admin Acetaminophen (Tylenol Tab) 650 mg Q4H PRN PO 07/24/17 10:45 08/23/17 10:44 07/24/17 21:21 650 MG Ondansetron HCl (Zofran Inj) 4 mg Q6H PRN IV 07/24/17 10:45 08/23/17 10:44 Nitroglycerin (Nitrostat Tab) 0.4 mg UD PRN SL 07/24/17 10:45 08/23/17 10:44 Polyethylene (Miralax Powder Packet) 17 gm DAILY PRN PO 07/24/17 10:45 08/23/17 10:44 Lorazepam (Ativan Inj) 1 mg Q8 PRN IV 07/24/17 10:45 08/23/17 10:44 Amlodipine Besylate (Norvasc Tab) 5 mg DAILY PO 07/24/17 13:45 08/23/17 13:44 07/25/17 08:20 5 MG Terazosin HCl (Hytrin Cap) 10 mg DAILY PO 07/24/17 14:00 08/23/17 13:59 07/25/17 08:20 10 MG Tramadol HCl (Ultram Tab) 50 mg Q6 PRN PO 07/24/17 11:15 08/23/17 11:14 07/24/17 15:48 50 MG Cholecalciferol (Vitamin D Tab) 2,000 inter.unit DAILY@1500 PO 07/24/17 15:00 08/23/17 14:59 07/24/17 15:42 2,000 INTER.UNIT Fluticasone Propionate (Flonase Nasal [place]) 2 sprays DAILY KARI 07/24/17 15:00 08/24/17 14:59 07/25/17 08:21 2 SPRAYS Hydralazine HCl (HydrALAZINE INJ) 10 mg Q6H PRN IV. 07/24/17 17:15 08/23/17 17:14 07/24/17 17:41 10 MG Miscellaneous Information (Consult) 1 ea UD PRN N/A 07/24/17 18:45 08/23/17 18:44 Ioversol (Optiray 320) 100 ml UD PRN IV 07/24/17 19:00 07/28/17 18:59 Piperacillin Sod/ Tazobactam Sod 3.375 gm/Sodium Chloride 115 ml @ 28.75 mls/ hr Q8H IV 07/25/17 02:00 07/27/17 01:59 07/25/17 09:42 28.75 MLS/HR Impression 77 year old male with progress gait dysfunction Plan 1. peripheral neuropathy - out patient EMG 2. PT/OT for discharge needs 3. CHRISTIAN, immunofixation, methylmalonic acid, pending 4. - RPR, lyme +previous infection - acute, folate, B12 normal 5. work up needed for lymph node findings. no acute weight loss reported 6. out patient MRI - patient refusing in hospital due to claustrophobia 7. TTE- small ASD 8. will continue to follow I have seen and discussed above patient with Dr Nani Bassett, neurology pt seen and examined. Please sched outpt eval in 2-3 weeks with my office. I will likely order an MRI brain in open unit to [facility] for central etiology of gait dysfunction. The giant cisterna magna or arachnoid cyst is not responsible for his gait disorder. Etiology of neuropathy, unclear, on exam he has distal atrophy and high-arched feet suggestive of chronicity. This could be paraneoplastic so agree with further pursuit of adenopathy. WILFREDO Bassett MD
--- NOTE | 2017-07-25 13:57 | Progress Note ---
Progress Note Date of Service Jul 25, 2017. Progress Note ID Consult Dictated #[id number] A/P: 1. Fever 2. Lymphadenopathy - suspicious for metastatic disease -Can continue abx pending culture but concerned for non infectious cause -Will need biopsy lymph node, -Can narrow to Augmentin if concerned for sinusitis -thank you
--- NOTE | 2017-07-25 14:36 | INFECT. DISEASE CONSULTATION ---
DATE OF CONSULTATION: 07/25/2017 HISTORY OF PRESENT ILLNESS: This is a 77-year-old gentleman who was admitted to the hospital after he was noticing some ataxia with ambulation. This has been ongoing for some months. He is currently using a cane with ambulation. He also has had recent sinusitis and was treated with Augmentin earlier in 2018. He is also complaining of a dry nonproductive cough, which was relatively acute. Since admission to the hospital, he has been found to be febrile with a T-max of 38.3. Overnight, he has had persistently elevated temperatures, but denies any fevers at home. He has been taking [id number] cold medicine and he thinks that this may have been masking his symptoms. He denies any hemoptysis. He denies any weight loss. He denies any difficulty with eating or swallowing. He denies any headache or visual complaints. He denies any shortness of breath or wheezing. He has no chest pain. He has no nausea, vomiting or diarrhea. Currently, he states he is feeling better and he is anxious to be discharged. He is also being followed by neurology. In the ER, his flu swab was negative. A chest x-ray was negative and RPR was negative. Urinalysis was negative. His white blood cell count is normal at 9.5. He was placed empirically on Zosyn after a carotid ultrasound showed a necrotic lymph node. He then had a CAT scan of the neck, which showed pathologic lymphadenopathy in the left side of the neck which is concerning for metastatic disease from a primary head and neck cancer. Fine needle aspiration was recommended. His remaining review of systems is unremarkable. PAST MEDICAL HISTORY: Significant for hypertension, osteoarthritis, and recent sinusitis. PAST SURGICAL HISTORY: Significant for hernia repair and sinus surgery. FAMILY HISTORY: Noncontributory. SOCIAL HISTORY: Negative for tobacco use, alcohol use or drug use. ALLERGIES: HE HAS ALLERGIES TO LISINOPRIL AND ASPIRIN. MEDICATIONS: Include Zosyn, hydralazine, vitamin D, Flonase, Hytrin, Norvasc, Ultram, Tylenol, Zofran, MiraLax and Ativan. PHYSICAL EXAMINATION: VITAL SIGNS: He currently is afebrile. His T-max is 38.6, pulse 90, respiratory rate 18, blood pressure 116/72, and oxygen saturation is 93% on room air. GENERAL: He is awake, alert and oriented x3. He is in no acute distress. HEENT: Mucous membranes are moist. There is left-sided neck swelling. HEART: Regular. LUNGS: Clear. ABDOMEN: Soft. EXTREMITIES: There is no edema. SKIN: Without rash. LABORATORY STUDIES: CBC reveals a white blood cell count 9.5, hemoglobin 14.1 and platelets are 122. Chemistry panel reveals a sodium of 136, potassium 3.3, chloride 104, bicarbonate 24, BUN 16, creatinine 1, and glucose 117. LFTs were normal. UA is negative. Urine drug screen is negative. An RPR is negative. Flu swab is negative. Lyme IgG screen was positive and IgM was negative. Blood cultures are pending. IMAGING: As above. ASSESSMENT AND PLAN: Lymphadenopathy, concerning for metastatic disease. I do not see any indication to continue antibiotics at this time; however, if there is a concern for sinusitis, certainly he could be transitioned to oral Augmentin; however, additional workup of his lymph node with biopsy is recommended.
[2017-07-25 15:12] VITALS: BP_SYST 122; BP_SYST 128; BP_SYST 129; BP_DIAS 65; BP_DIAS 71; BP_DIAS 74; PULSE 101; PULSE 105; PULSE 92; TEMP 36.8; O2SAT 92
--- NOTE | 2017-07-25 15:53 | Progress Note ---
Internal Med Progress Note Date of Service: Jul 25, 2017. Provider Documentation: SUBJECTIVE: No acute distress. Patient able to ambulate in the hallway with walker. OBJECTIVE: General Appearance: no apparent distress Head: normocephalic, atraumatic Eyes: normal inspection, EOMI, sclerae normal ENT: hearing grossly normal, pharynx normal Neck: left cervical lymph node, no JVD, trachea midline Respiratory/Chest: lungs clear, normal breath sounds, no respiratory distress, no accessory muscle use Cardiovascular: 95 bpm, no murmur Abdomen/GI: normal bowel sounds, non tender, soft Extremities/Musculoskelatal: no calf tenderness, normal capillary refill, no pedal edema, normal range of motion, non-tender Neurologic/Psych: alert, normal mood/affect, oriented x 3, no focal deficits, ambulatory without falling Skin: normal color, warm/dry ASSESSMENT & PLAN: Head CT 07/24/17 Small fluid level within the right maxillary sinus. Partial opacification of the ethmoid air cells and mild mucosal thickening within the left maxillary sinus. The mastoid air cells are clear. Motion artifact. Prominence of the right retrocerebellar space which measures 4.9 x 1.9 cm. This is consistent with an arachnoid cyst. The calvarium and skull base are intact. The ventricles and sulci are within normal limits. There is no mass, hematoma, midline shift, or acute infarct. Carotid Ultrasound 07/24/17 1. No hemodynamically significant stenosis seen within the bilateral common or internal carotid arteries. 2. Left cervical lymphadenopathy. The dominant lymph node is partially necrotic. Dedicated neck CT is recommended for further evaluation and to exclude a malignancy. In addition, ultrasound-guided fine-needle aspiration of the dominant lymph node could also be performed Neck CT A marker is noted over the left submandibular region. At this site, there is subcutaneous infiltration and multiple pathologically enlarged avidly enhancing lymph nodes in the submandibular station. The largest node measures 2 x 2.3 cm. These nodes have a globular morphology without a normal fatty hilum. Prominent but not pathologically enlarged lymph nodes noted in the right submandibular region. Pathologically enlarged lymph nodes noted more inferiorly in the left neck measuring up to 1.5 cm in the long axis (series 3 image 237). These involve wilfrid levels 1B, 2, 3, and 5A on the left. No pathologically enlarged lymph nodes on the right by CT size criteria. No suspicious nodular enhancement along the airway allowing for degradation of evaluation of the oral cavity due to amalgam. No effacement of the valleculae or piriform sinuses. The vocal folds are symmetric. Cervical spine normal. 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 Extensive mucosal thickening in the paranasal sinuses without evidence of osseous erosion or sclerosis. CXR 07/24/17: No active disease in the chest Echocardiogram 07/24/17 * Normal LV chamber size with moderate concentric LVH. * Normal LV systolic function, EF 55-60%. * No segmental left ventricular wall motion abnormalities are noted. * Grade I diastolic dysfunction. * No significant valvular pathology. * A patent foramen ovale is present and there is low risk for embolism. Hospital Course: 77 y/o M with PMH chronic sinusitis, HTN, BPH presented to ER on 07/25/17 with complaint of feeling off balance. In initial evaluation the ED provider was concerned that this presentation was for worsening ataxia and difficulty walking over the last 4 days. However on physical exam by hospitalist medical team to admit the patient, the patient did not have obvious ataxic gait. Patient was noted on head CT to have prominence of the right retrocerebellar space which measures 4.9 x 1.9 cm consistent with an arachnoid cyst and case discussed by telephone with neurosurgeon Dr. Baltazar of [facility] in [place] whether this is clinically relevant to the patient's possible ataxia. Dr. Baltazar recommended no acute surgical intervention, and likely repeat head imaging in 3 months, and follow-up with neurotrauma after hospital discharge When patient was transitioned from the emergency room to the medical stafford patient was noted to have febrile temperature 38.3 Celsius (100.9 F), tachycardic, and hypertensive. No bacteria in the urine. Echocardiogram did not show obvious vegetations. Patient subsequently started on Zosyn with blood cultures drawn. Patient's vital signs normalized over night. He also felt that since being evaluated in the hospital his walking has been better. As per Physical Therapy evaluation 07/25/17: pt doing much better ataxia has resolved. Recommend he return home, should walk halls as angela until d/c. No further PT indicated. Patient was evaluated by Neurology service. Patient declined MRI of brain for the ataxia workup due to claustrophobia. Neurology service recommends outpatient MRI if tolerated. Neurology service recommends outpatient EMG for peripheral neuropathy Pertinent neurology labs (negative RPR, previous Lyme exposure as IgG positive but IgM negative, normal folate and B12 levels, pending CHRISTIAN, immunofixation, methylmalonic acid) Infectious disease service does not recommend continuing IV antibiotics as patient was found to have left cervical lymphadenopathy and there is potential concern for malignancy Patient does have a palpable left cervical mass likely lymph node that as per patient has been present for a long time. He reports of having that area biopsied and there is an outpatient report of a lymph node biopsy submitted by Dr. Brett Chandra of ENT which found the specimen to be benign. Patient never had surgical excision of the mass. While various radiographic impressions have recommended for biopsy of current imaging findings of left cervical lymphadenopathyin the hospital, the patient at this time have discussed with hospitalist physician that he would like to think about whether he would want to pursue biopsy workup and discuss with the primary care doctor. Patient is feeling better with his walking and would like to be discharged. Patient is advised that if he experiences any acute symptoms of fever, headache , or shortness of breath, he should return to the hospital emergency room immediately. His blood culture results have not returned yet and he will follow up these results as outpatient. Will discharge with prescription for Augmentin in case there is a bacterial sinusitis or upper airway/above the neck infection Discharge Instructions 07/29/2017 1:20 PM Rashawn Shepard MD [facility] appointment line neurotrauma (neurosurgery appointment) tentatively for 08/13/17 at 9:15 AM at [facility] on [address] [place] [address] (take the D elevator to the 2nd Floor) Patient is advised that if he experiences any acute symptoms of fever, headache , or shortness of breath, he should return to the hospital emergency room immediately. His blood culture results have not returned yet and he will follow up these results as outpatient. Vital Signs: Date Time Temp Pulse Resp B/P (MAP) Pulse Ox O2 Delivery O2 Flow Rate FiO2 07/25/17 15:12 36.8 92 18 122/65 (84) 92 Room Air 101 129/74 (92) 105 128/71 (90) 07/25/17 12:02 Room Air 07/25/17 11:14 36.8 98 18 116/72 (87) 93 Room Air 07/25/17 08:01 Room Air 07/25/17 07:09 37.0 95 18 152/78 (102) 90 Room Air 101 126/72 (90) 105 126/69 (88) 07/25/17 04:42 37.0 94 20 131/70 (90) 90 Room Air 100 113/67 (82) 103 109/67 (81) 07/25/17 04:00 Room Air 07/25/17 00:00 Room Air 07/24/17 23:08 36.9 110 18 151/71 (97) 91 Room Air 07/24/17 22:22 37.7 07/24/17 20:00 Room Air 07/24/17 19:44 38.6 119 22 174/81 (112) 91 Room Air 07/24/17 18:06 38.0 94 20 158/68 (98) 92 07/24/17 17:10 201/90 (127) Lab Results: Results Past 24 Hours Test 07/24/17 17:45 07/24/17 19:20 07/24/17 20:27 07/25/17 05:57 Range/Units White Blood Count 9.24 9.59 4.8-10.8 K/uL Red Blood Count 4.50 4.43 4.7-6.1 M/uL Hemoglobin 14.4 14.1 14.0-18.0 g/dL Hematocrit 40.8 40.3 42-52 % Mean Corpuscular Volume 90.7 91.0 80-100 fL Mean Corpuscular Hemoglobin 32.0 31.8 25-34 pg Mean Corpuscular Hemoglobin Concent 35.3 35.0 32-36 g/dl Platelet Count 117 122 130-400 K/uL Mean Platelet Volume 9.9 9.9 7.4-10.4 fL Neutrophils (%) (Auto) 72.8 66.5 % Lymphocytes (%) (Auto) 14.3 16.7 % Monocytes (%) (Auto) 12.0 15.8 % Eosinophils (%) (Auto) 0.2 0.6 % Basophils (%) (Auto) 0.4 0.3 % Neutrophils # (Auto) 6.72 6.37 1.4-6.5 K/uL Lymphocytes # (Auto) 1.32 1.60 1.2-3.4 K/uL Monocytes # (Auto) 1.11 1.52 0.11-0.59 K/uL Eosinophils # (Auto) 0.02 0.06 0-0.5 K/uL Basophils # (Auto) 0.04 0.03 0-0.2 K/uL RDW Standard Deviation 45.3 46.0 36.4-46.3 fL RDW Coefficient of Variation 13.6 13.7 11.5-14.5 % Immature Granulocyte % (Auto) 0.3 0.1 % Immature Granulocyte # (Auto) 0.03 0.01 0.00-0.02 K/uL Sodium Level 136 136 136-145 mmol/L Potassium Level 3.6 3.3 3.5-5.1 mmol/L Chloride Level 106 104 98-107 mmol/L Carbon Dioxide Level 23 24 21-32 mmol/L Anion Gap 7.0 8.0 3-11 mmol/L Blood Urea Nitrogen 19 16 7-18 mg/dl Creatinine 1.22 1.06 0.60-1.40 mg/dl Est Creatinine Clear Calc Drug Dose 64.6 73.8 ml/min Estimated GFR () 65.0 77.0 Estimated GFR (Non- 56.0 66.4 BUN/Creatinine Ratio 15.2 14.9 10-20 Random Glucose 125 117 70-99 mg/dl Lactic Acid Level 1.1 0.4-2.0 mmol/L Calcium Level 8.6 8.4 8.5-10.1 mg/dl Total Bilirubin 0.5 0.2-1 mg/dl Aspartate Amino Transf (AST/SGOT) 27 15-37 U/L Alanine Aminotransferase (ALT/SGPT) 34 12-78 U/L Alkaline Phosphatase 51 45-117 U/L Total Protein 6.9 6.4-8.2 gm/dl Albumin 3.3 3.4-5.0 gm/dl Globulin 3.6 2.5-4.0 gm/dl Albumin/Globulin Ratio 0.9 0.9-2 Procalcitonin 0.28 0-0.5 ng/ml Lyme Disease IgG Antibody POS NEG Lyme Disease IgM Antibody NEG NEG Bedside Glucose 123 70-99 mg/dl Triglycerides Level 69 0-150 mg/dl Cholesterol Level 136 0-200 mg/dl HDL Cholesterol 41 mg/dl LDL Cholesterol, Calculated 81 mg/dl VLDL Cholesterol, Calculated 14 mg/dl Cholesterol/HDL Ratio 3.3
[2017-07-25] MEDS: CHOLECALCIFEROL 1000 INTER.UNIT TAB PO SCH (16:14)
--- NOTE | 2017-07-25 16:58 | Discharge Instructions ---
Discharge Instructions Date of Service Jul 25, 2017. Admission Reason for Admission: Ataxia Discharge Discharge Diagnosis / Problem: balance problem, left cervical lymphadenopathy, fever, HTN Discharge Goals Goal(s): Improve function Activity Recommendations Activity Limitations: per Instructions/Follow-up section Exercise/Sports Limitations: until after follow-up appointment Shower/Bathe: no limitations . Instructions / Follow-Up Instructions / Follow-Up Head CT 07/24/17 Small fluid level within the right maxillary sinus. Partial opacification of the ethmoid air cells and mild mucosal thickening within the left maxillary sinus. The mastoid air cells are clear. Motion artifact. Prominence of the right retrocerebellar space which measures 4.9 x 1.9 cm. This is consistent with an arachnoid cyst. The calvarium and skull base are intact. The ventricles and sulci are within normal limits. There is no mass, hematoma, midline shift, or acute infarct. Carotid Ultrasound 07/24/17 1. No hemodynamically significant stenosis seen within the bilateral common or internal carotid arteries. 2. Left cervical lymphadenopathy. The dominant lymph node is partially necrotic. Dedicated neck CT is recommended for further evaluation and to exclude a malignancy. In addition, ultrasound-guided fine-needle aspiration of the dominant lymph node could also be performed Neck CT A marker is noted over the left submandibular region. At this site, there is subcutaneous infiltration and multiple pathologically enlarged avidly enhancing lymph nodes in the submandibular station. The largest node measures 2 x 2.3 cm. These nodes have a globular morphology without a normal fatty hilum. Prominent but not pathologically enlarged lymph nodes noted in the right submandibular region. Pathologically enlarged lymph nodes noted more inferiorly in the left neck measuring up to 1.5 cm in the long axis (series 3 image 237). These involve wilfrid levels 1B, 2, 3, and 5A on the left. No pathologically enlarged lymph nodes on the right by CT size criteria. No suspicious nodular enhancement along the airway allowing for degradation of evaluation of the oral cavity due to amalgam. No effacement of the valleculae or piriform sinuses. The vocal folds are symmetric. Cervical spine normal. 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 Extensive mucosal thickening in the paranasal sinuses without evidence of osseous erosion or sclerosis. CXR 07/24/17: No active disease in the chest Echocardiogram 07/24/17 * Normal LV chamber size with moderate concentric LVH. * Normal LV systolic function, EF 55-60%. * No segmental left ventricular wall motion abnormalities are noted. * Grade I diastolic dysfunction. * No significant valvular pathology. * A patent foramen ovale is present and there is low risk for embolism. Hospital Course: 77 y/o M with PMH chronic sinusitis, HTN, BPH presented to ER on 07/25/17 with complaint of feeling off balance. In initial evaluation the ED provider was concerned that this presentation was for worsening ataxia and difficulty walking over the last 4 days. However on physical exam by hospitalist medical team to admit the patient, the patient did not have obvious ataxic gait. Patient was noted on head CT to have prominence of the right retrocerebellar space which measures 4.9 x 1.9 cm consistent with an arachnoid cyst and case discussed by telephone with neurosurgeon Dr. Baltazar of [facility] in [place] whether this is clinically relevant to the patient's possible ataxia. Dr. Baltazar recommended no acute surgical intervention, and likely repeat head imaging in 3 months, and follow-up with neurotrauma after hospital discharge When patient was transitioned from the emergency room to the medical stafford patient was noted to have febrile temperature 38.3 Celsius (100.9 F), tachycardic, and hypertensive. No bacteria in the urine. Echocardiogram did not show obvious vegetations. Patient subsequently started on Zosyn with blood cultures drawn. Patient's vital signs normalized over night. He also felt that since being evaluated in the hospital his walking has been better. As per Physical Therapy evaluation 07/25/17: pt doing much better ataxia has resolved. Recommend he return home, should walk halls as angela until d/c. No further PT indicated. Patient was evaluated by Neurology service. Patient declined MRI of brain for the ataxia workup due to claustrophobia. Neurology service recommends outpatient MRI if tolerated. Neurology service recommends outpatient EMG for peripheral neuropathy Pertinent neurology labs (negative RPR, previous Lyme exposure as IgG positive but IgM negative, normal folate and B12 levels, pending CHRISTIAN, immunofixation, methylmalonic acid) Infectious disease service does not recommend continuing IV antibiotics as patient was found to have left cervical lymphadenopathy and there is potential concern for malignancy Patient does have a palpable left cervical mass likely lymph node that as per patient has been present for a long time. He reports of having that area biopsied and there is an outpatient report of a lymph node biopsy submitted by Dr. Brett Chandra of ENT which found the specimen to be benign. Patient never had surgical excision of the mass. While various radiographic impressions have recommended for biopsy of current imaging findings of left cervical lymphadenopathyin the hospital, the patient at this time have discussed with hospitalist physician that he would like to think about whether he would want to pursue biopsy workup and discuss with the primary care doctor. Patient is feeling better with his walking and would like to be discharged. Patient is advised that if he experiences any acute symptoms of fever, headache , or shortness of breath, he should return to the hospital emergency room immediately. His blood culture results have not returned yet and he will follow up these results as outpatient. Will discharge with prescription for Augmentin in case there is a bacterial sinusitis or upper airway/above the neck infection Discharge Instructions 07/29/2017 1:20 PM Rashawn Shepard MD [facility] appointment line neurotrauma (neurosurgery appointment) tentatively for 08/13/17 at 9:15 AM at [facility] on [address] [place] [address] (take the D elevator to the 2nd Floor) Patient is advised that if he experiences any acute symptoms of fever, headache , or shortness of breath, he should return to the hospital emergency room immediately. His blood culture results have not returned yet and he will follow up these results as outpatient. Current Hospital Diet Patient's current hospital diet: Regular Diet Discharge Diet Recommended Diet: Regular Diet Pending Studies Studies pending at discharge: yes List of pending studies: pending CHRISTIAN, immunofixation, methylmalonic acid, blood cultures Laboratory Results Hemoglobin A1c Test 07/24/17 06:02 Range/Units Estimated Average Glucose 123 mg/dl Hemoglobin A1c 5.9 H 4.5-5.6 % Lipid Panel Test 07/25/17 05:57 Range/Units Triglycerides Level 69 0-150 mg/dl Cholesterol Level 136 0-200 mg/dl HDL Cholesterol 41 mg/dl Cholesterol/HDL Ratio 3.3 LDL Cholesterol, Calculated 81 mg/dl Medical Emergencies . Who to Call and When: Medical Emergencies: If at any time you feel your situation is an emergency, please call 911 immediately. . Non-Emergent Contact Non-Emergency issues call your: Primary Care Provider Call Non-Emergent contact if: you have any medication questions . . "Provider Documentation" section prepared by Last Shah. .
[2017-07-25] MEDS ORDERED: AMOX500T PO (17:02)
--- NOTE | 2017-07-25 17:15 | Discharge Summary ---
Discharge Summary Date of Service Jul 25, 2017. Discharge Summary Admission Date: Jul 24, 2017 at 10:43 Discharge Date: Jul 25, 2017 Discharge Disposition: Home Principal Diagnosis: balance problem, left cervical lymphadenopathy, fever, HTN, chronic sinusitis Pending Studies/Follow-Up: pending CHRISTIAN, immunofixation, methylmalonic acid, blood cultures Medication Reconciliation New Medications: Amoxicillin & Pot Clavulanate (Augmentin 500MG) 1 Tab Tab 500 MG PO Q8H for 5 Days, #15 TAB Continued Medications: Amlodipine (Norvasc) 5 Mg Tab 5 MG PO AFTERNOON Cholecalciferol (Vitamin D) 2,000 Unit Cap 2000 INTUNIT PO AFTERNOON Fluticasone Propionate (Nasal) (Flonase Allergy Relief) 50 Mcg/Act Spr 2 SPRAY KARI DAILY Terazosin Hcl (Hytrin) 10 Mg Cap 10 MG PO AFTERNOON Tramadol (Ultram) 50 Mg Tab 50 MG PO Q6 PRN for Pain Admission Information HPI (per Admitting provider): Pt is 77 y/o M with PMH chronic sinusitis, HTN, BPH presented to ER with complaint of feeling off balance. Patient reports for approximately 6 months has noticed some off balance with walking. Reports history of right knee OA & sometimes uses a cane to assist in ambulation. Patient states the past 4 days has noticed he has been having increased balance problems even with using cane. Has not noticed more off balanced tp one side or the other, he feels it is both sides. Sometimes he he walks into the [place]. Denies falls or head injury. Patient with history of chronic sinusitis and postnasal drip and chronic cough. Denies any increased symptoms. 05/16/17 treated with Augmentin for acute sinusitis and patient reports improvement of sinus symptoms. Patient denies any recent known fever or chills. Denies other recent illnesses. History shingles 2001. Patient reports chronic rash to bilateral arms during the wintertime. Denies any other rashes. Denies any recent travel, Denies headache , facial/temporal pain dizziness, vision changes, ear pain, tinnitus, diaphoresis, N/V/D/C, lightheadedness, syncope, neck pain, CP, SOB, orthopnea, palpitations, hemoptysis, epistaxis, sore throat, choking, otalgia, rhinorrhea, abdominal pain, paresthesias, weakness, extremity weakness, extremity edema, urinary symptoms. No hx previous brain imaging. Hx sinus CT 09/2015: FINDINGS: Visualized portions of the intracranial contents demonstrate a vangie cisterna magna or arachnoid cyst within the posterior fossa which is of no clinical significance. Physical Exam (per Admitting): General Appearance: WD/WN, no apparent distress Head: normocephalic, atraumatic Eyes: normal inspection, PERRL, EOMI, sclerae normal ENT: hearing grossly normal, pharynx normal, + pertinent finding (mildly dry mucous membranes) Neck: supple, no JVD, trachea midline Respiratory/Chest: lungs clear, normal breath sounds, no respiratory distress, no accessory muscle use Cardiovascular: no murmur, + tachycardia (104) Abdomen/GI: normal bowel sounds, non tender, soft Extremities/Musculoskelatal: no calf tenderness, normal capillary refill, no pedal edema, normal range of motion, non-tender Neurologic/Psych: alert, normal mood/affect, oriented x 3, + pertinent finding (No aphasia, no facial drooping, no extremity weakness. negative romberg. slow with finger to nose and heel to wells bilaterally. slow gait without over ataxia during time of exam) Skin: normal color, warm/dry, + pertinent finding (+papules to bilateral forearms) Hospital Course Head CT 07/24/17 Small fluid level within the right maxillary sinus. Partial opacification of the ethmoid air cells and mild mucosal thickening within the left maxillary sinus. The mastoid air cells are clear. Motion artifact. Prominence of the right retrocerebellar space which measures 4.9 x 1.9 cm. This is consistent with an arachnoid cyst. The calvarium and skull base are intact. The ventricles and sulci are within normal limits. There is no mass, hematoma, midline shift, or acute infarct. Carotid Ultrasound 07/24/17 1. No hemodynamically significant stenosis seen within the bilateral common or internal carotid arteries. 2. Left cervical lymphadenopathy. The dominant lymph node is partially necrotic. Dedicated neck CT is recommended for further evaluation and to exclude a malignancy. In addition, ultrasound-guided fine-needle aspiration of the dominant lymph node could also be performed Neck CT A marker is noted over the left submandibular region. At this site, there is subcutaneous infiltration and multiple pathologically enlarged avidly enhancing lymph nodes in the submandibular station. The largest node measures 2 x 2.3 cm. These nodes have a globular morphology without a normal fatty hilum. Prominent but not pathologically enlarged lymph nodes noted in the right submandibular region. Pathologically enlarged lymph nodes noted more inferiorly in the left neck measuring up to 1.5 cm in the long axis (series 3 image 237). These involve wilfrid levels 1B, 2, 3, and 5A on the left. No pathologically enlarged lymph nodes on the right by CT size criteria. No suspicious nodular enhancement along the airway allowing for degradation of evaluation of the oral cavity due to amalgam. No effacement of the valleculae or piriform sinuses. The vocal folds are symmetric. Cervical spine normal. 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 Extensive mucosal thickening in the paranasal sinuses without evidence of osseous erosion or sclerosis. CXR 07/24/17: No active disease in the chest Echocardiogram 07/24/17 * Normal LV chamber size with moderate concentric LVH. * Normal LV systolic function, EF 55-60%. * No segmental left ventricular wall motion abnormalities are noted. * Grade I diastolic dysfunction. * No significant valvular pathology. * A patent foramen ovale is present and there is low risk for embolism. Hospital Course: 77 y/o M with PMH chronic sinusitis, HTN, BPH presented to ER on 07/25/17 with complaint of feeling off balance. In initial evaluation the ED provider was concerned that this presentation was for worsening ataxia and difficulty walking over the last 4 days. However on physical exam by hospitalist medical team to admit the patient, the patient did not have obvious ataxic gait. Patient was noted on head CT to have prominence of the right retrocerebellar space which measures 4.9 x 1.9 cm consistent with an arachnoid cyst and case discussed by telephone with neurosurgeon Dr. Baltazar of [facility] in [place] whether this is clinically relevant to the patient's possible ataxia. Dr. Baltazar recommended no acute surgical intervention, and likely repeat head imaging in 3 months, and follow-up with neurotrauma after hospital discharge When patient was transitioned from the emergency room to the medical stafford patient was noted to have febrile temperature 38.3 Celsius (100.9 F), tachycardic, and hypertensive. No bacteria in the urine. Echocardiogram did not show obvious vegetations. Patient subsequently started on Zosyn with blood cultures drawn. Patient's vital signs normalized over night. He also felt that since being evaluated in the hospital his walking has been better. As per Physical Therapy evaluation 07/25/17: pt doing much better ataxia has resolved. Recommend he return home, should walk halls as angela until d/c. No further PT indicated. Patient was evaluated by Neurology service. Patient declined MRI of brain for the ataxia workup due to claustrophobia. Neurology service recommends outpatient MRI if tolerated. Neurology service recommends outpatient EMG for peripheral neuropathy Pertinent neurology labs (negative RPR, previous Lyme exposure as IgG positive but IgM negative, normal folate and B12 levels, pending CHRISTIAN, immunofixation, methylmalonic acid) Infectious disease service does not recommend continuing IV antibiotics as patient was found to have left cervical lymphadenopathy and there is potential concern for malignancy Patient does have a palpable left cervical mass likely lymph node that as per patient has been present for a long time. He reports of having that area biopsied and there is an outpatient report of a lymph node biopsy submitted by Dr. Brett Chandra of ENT which found the specimen to be benign. Patient never had surgical excision of the mass. While various radiographic impressions have recommended for biopsy of current imaging findings of left cervical lymphadenopathyin the hospital, the patient at this time have discussed with hospitalist physician that he would like to think about whether he would want to pursue biopsy workup and discuss with the primary care doctor. Patient is feeling better with his walking and would like to be discharged. Patient is advised that if he experiences any acute symptoms of fever, headache , or shortness of breath, he should return to the hospital emergency room immediately. His blood culture results have not returned yet and he will follow up these results as outpatient. Will discharge with prescription for Augmentin in case there is a bacterial sinusitis or upper airway/above the neck infection Discharge Instructions 07/29/2017 1:20 PM Rashawn Shepard MD [facility] appointment line neurotrauma (neurosurgery appointment) tentatively for 08/13/17 at 9:15 AM at [facility] on [address] [place] [address] (take the D elevator to the 2nd Floor) Patient is advised that if he experiences any acute symptoms of fever, headache , or shortness of breath, he should return to the hospital emergency room immediately. His blood culture results have not returned yet and he will follow up these results as outpatient. Total time spent on discharge = 40 minutes This includes examination of the patient, discharge planning, medication reconciliation, and communication with other providers. Discharge Instructions see above
[2017-07-25 17:20] VITALS: BP 128/71; PULSE 105; TEMP 36.8; O2SAT 92
== END 2017-07-25 18:15 | disposition home or self-care (01) | DRG 153 ==
LOC: C.EDB 05:42 → C.MED 10:43 → EDBEDREQ 11:04 → ENRESERV 11:19
PROVIDERS: ADMIT Hospitalist; ATTEND Hospitalist
DX: J01.90 Acute sinusitis, unspecified (principal); R27.0 Ataxia, unspecified; R50.9 Fever, unspecified; R73.9 Hyperglycemia, unspecified; I10 Essential (primary) hypertension; M17.11 Unilateral primary osteoarthritis, right knee; R59.1 Generalized enlarged lymph nodes; Z82.49 Family history of ischemic heart disease and other diseases of the circulatory system; Z82.3 Family history of stroke

== ENCOUNTER 2017-08-03 23:54 | Inpatient (IN) | payer OTHER ==
[~2017-08-03] VITALS: Ht 185.4 cm; Wt 111.2 kg
[~2017-08-03 23:54] MED LIST changes: -CARB25TA12 PO; +FLUT0.15 NAE; -IBUP-1450 PO
[2017-08-04] MEDS ORDERED: SODIUM CHLORIDE 0.9% 500ML 500 ML IV STA (00:16)
[2017-08-04] MEDS ORDERED: HYDROCODONE/HOMATROPINE SYRUP 5MG/1.5MG 5ML UDP PO STA (00:16)
--- NOTE | 2017-08-04 00:22 | EMERGENCY ROOM VISIT NOTE ---
History Report prepared by Raul: Kasey Kimball Under the Supervision of: Dr. Jordan Banda M.D. First contact with patient: 00:09 Chief Complaint: COUGH Stated Complaint: COUGH History of Present Illness The patient is a 77 year old male who presents to the Emergency Room with complaints of worsening general cough for one week. He was recently seen in the ED for two day due to weakness and balance issues. He reports having the cough while here in the ED, though it was untreated. He denies taking any cough medication. He reports his cough is worsened when he lies down. He denies any shortness of breath, abdominal pain, calf pain, or leg swelling. He has a history of chronic sinusitis. He denies any personal or family history of blood clots. He denies any history of smoking. He denies any history of DM. He has been on Augmentin. Source of History: patient Onset: one week Position: other (general ) Quality: other (cough) Timing: worsening Modifying Factors (Worsening): other (lying down) Associated Symptoms: No SOB, No abdominal pain Note: Denies any leg swelling or calf pain. Review of Systems See HPI for pertinent positives & negatives. A total of 10 systems reviewed and were otherwise negative. Past Medical & Surgical Medical Problems: (1) Hypertension (2) Osteoarthritis (3) Sinusitis Surgical Problems: (1) H/O hernia repair (2) Hx of inguinal hernia repair (3) Hx of sinus surgery Family History FH: thyroid disease FHx: heart disease Hypertension Stroke Social History Smoking Status: Former Smoker Alcohol Use: none Drug Use: none Marital Status: Housing Status: lives with family Occupation Status: employed Current/Historical Medications Scheduled Amlodipine (Norvasc), 5 MG PO AFTERNOON Cholecalciferol (Vitamin D), 2,000 INTUNIT PO AFTERNOON Fluticasone Propionate (Nasal) (Flonase Allergy Relief), 2 SPRAY KARI DAILY Terazosin Hcl (Hytrin), 10 MG PO AFTERNOON Scheduled PRN Tramadol (Ultram), 50 MG PO Q6 PRN for Pain Allergies Coded Allergies: Lisinopril (Unverified Allergy, Severe, UNKNOWN, 07/24/17) Aspirin (Verified Allergy, Mild, DYSPHAGIA/TROUBLE STANDING STRAIGHT UP, ) GLO Inhibitors (Verified Allergy, Unknown, ANGIOEDEMA/MYLAGIAS, 07/24/17) Physical Exam Vital Signs Date Time Temp Pulse Resp B/P (MAP) Pulse Ox O2 Delivery O2 Flow Rate FiO2 08/04/17 02:12 92 Nasal Cannula 2.0 08/04/17 02:11 103 20 151/67 90 Room Air 08/04/17 01:05 101 24 154/64 91 Room Air 08/04/17 00:08 92 Room Air 08/03/17 23:56 37.3 111 20 143/71 92 Room Air Physical Exam GENERAL: Patient is elderly and mildly anxious-appearing and in no acute distress. EYES: No scleral icterus, unremarkable pupils. ENT: Mucous membranes moist, no nasal congestion. Mild pharyngitis with posterior pharyngeal exudate/phlegm. NECK: No masses appreciated, no meningismus, trachea is midline. RESPIRATORY: No dyspnea. Productive cough with junky lung sounds bilateral bases. CARDIOVASCULAR: Tachycardic rate and regular rhythm. No murmurs, rubs, gallops appreciated. GASTROINTESTINAL: Abdomen soft, nontender, no peritonitis. Bowel sounds positive. No masses appreciated. BACK: No midline tenderness, no CVA tenderness EXTREMITIES: Normal motion all extremities, no cyanosis, no edema. NEUROLOGIC: Alert and oriented, no acute motor or sensory deficits, no focal weakness, cranial nerves grossly intact. SKIN: No rash, no jaundice, no diaphoresis. Medical Decision & Procedures ER Provider Diagnostic Interpretation: Radiology results and stated below per my review and radiologist interpretation: CTA CHEST: No pulmonary embolism. Left lower lobe opacity likely representing aspiration/pneumonia. Supraclavicular, level II neck, and mediastinal lymph node enlargement, likely reactive. Radiologist: Renetta Donato MD Study ready at 01:01 and initial results transmitted at 01:11 Laboratory Results 08/04/17 00:30 Red Blood Count 4.48, Mean Corpuscular Volume 91.1, Mean Corpuscular Hemoglobin 32.6, Mean Corpuscular Hemoglobin Concent 35.8, Mean Platelet Volume 10.1, Neutrophils (%) (Auto) 77.5, Lymphocytes (%) (Auto) 11.0, Monocytes (%) (Auto) 9.6, Eosinophils (%) (Auto) 1.4, Basophils (%) (Auto) 0.2, Neutrophils # (Auto) 11.09, Lymphocytes # (Auto) 1.57, Monocytes # (Auto) 1.37, Eosinophils # (Auto) 0.20, Basophils # (Auto) 0.03 08/04/17 00:30 Test 08/04/17 00:30 08/04/17 00:38 08/04/17 01:36 White Blood Count 14.30 K/uL (4.8-10.8) Red Blood Count 4.48 M/uL (4.7-6.1) Hemoglobin 14.6 g/dL (14.0-18.0) Hematocrit 40.8 % (42-52) Mean Corpuscular Volume 91.1 fL (80-100) Mean Corpuscular Hemoglobin 32.6 pg (25-34) Mean Corpuscular Hemoglobin Concent 35.8 g/dl (32-36) Platelet Count 180 K/uL (130-400) Mean Platelet Volume 10.1 fL (7.4-10.4) Neutrophils (%) (Auto) 77.5 % Lymphocytes (%) (Auto) 11.0 % Monocytes (%) (Auto) 9.6 % Eosinophils (%) (Auto) 1.4 % Basophils (%) (Auto) 0.2 % Neutrophils # (Auto) 11.09 K/uL (1.4-6.5) Lymphocytes # (Auto) 1.57 K/uL (1.2-3.4) Monocytes # (Auto) 1.37 K/uL (0.11-0.59) Eosinophils # (Auto) 0.20 K/uL (0-0.5) Basophils # (Auto) 0.03 K/uL (0-0.2) RDW Standard Deviation 44.4 fL (36.4-46.3) RDW Coefficient of Variation 13.4 % (11.5-14.5) Immature Granulocyte % (Auto) 0.3 % Immature Granulocyte # (Auto) 0.04 K/uL (0.00-0.02) Est Creatinine Clear Calc Drug Dose 64.4 ml/min Estimated GFR () 65.0 Estimated GFR (Non- 56.0 BUN/Creatinine Ratio 17.1 (10-20) Calcium Level 9.1 mg/dl (8.5-10.1) Troponin I < 0.015 ng/ml (0-0.045) Procalcitonin 0.21 ng/ml (0-0.5) Bedside Hemoglobin 14.6 g/dl (14.0-18.0) Bedside Hematocrit 43 % (42-52) Bedside Sodium 138 mEq/L (135-144) Bedside Potassium 4.0 mEq/L (3.3-5.0) Bedside Chloride 102 mEq/L (101-112) Bedside Total CO2 24 mEq/l (24-31) Anion Gap 17.0 mmol/L (16-25) Bedside Blood Urea Nitrogen 22 mg/dl (7-18) Bedside Creatinine 1.1 mg/dl (0.6-1.3) Bedside Glucose (other) 135 mg/dl (70-99) Bedside Ionized Calcium (Lex) 1.13 mmol/l (1.12-1.32) Bedside Lactic Acid Venous 1.01 mmol/L (0.90-1.70) Laboratory results as reviewed by me. Medications Administered Medications (Trade) Dose Ordered Sig/Diana Route Start Time Stop Time Status Last Admin Dose Admin Sodium Chloride 500 ml @ 999 mls/hr Q31M STAT IV 08/04/17 00:16 08/04/17 00:46 DC 08/04/17 00:31 999 MLS/HR Hydrocodone Bit/ Homatropine Methylb (Hycodan Syrup) 5 ml NOW STAT PO 08/04/17 00:16 08/04/17 00:18 DC 08/04/17 00:31 5 ML Levofloxacin (Levaquin / D5W) 750 mg NOW STAT IV 08/04/17 01:17 08/04/17 01:18 DC 08/04/17 01:55 750 MG Vancomycin HCl 2000 mg/Sodium Chloride 540 ml @ 200 mls/hr ONE STAT IV 08/04/17 01:17 08/04/17 03:58 DC 08/04/17 02:27 200 MLS/HR ED Course 0011: The patient was evaluated in room A3. A complete history and physical exam was performed. 0120: I reassessed the patient at this time. He said his cough is mildly improved, though he is feeling slightly short of breath. 0131: I spoke with Dr. Nj, [facility] hospitalist. We discussed the patient' s case. The [facility] for further [facility]. Medical Decision Differential: Infectious, Reactive Airway Disease, Pneumonia, Pneumothorax, COPD , CHF, ACS, Pulmonary Embolism, MSK, GI, Dissection, amongst other etiologies entertained. 77 yr old male arrives for evaluation of worsening cough. Recent admission for generalized weakness without clear findings though since with increasing cough along with worse weakness to point where cough is keeping from sleeping. He is tachycardic, mildly hypoxic and has recent admission thus went directly to CT PE as need to rule out PE. This reveals LLL infiltrate. In setting of above vitals, wbc elevation and infection he is septic though no evidence septic shock. Blood cultures and Lactic acid obtained. With normal LA and not hypotensive he does not meet 30ml/kg fluid resus criteria which I feel would be inappropriate fluid bolus. He has already been on augmentin without improvement. He was started in Vanco/Levaquin for broad spectrum coverage. Hospitalist consulted for further management and evaluation. Medication Reconcilliation Current Medication List: was personally reviewed by me Blood Pressure Screening Patient's blood pressure: Elevated blood pressure Monitored by hospitalist Consults Time Called: 0122 Consulting Physician: Dr. Nj [facility] Returned Call: [phone] Nj [facility]. We discussed the patient's case. The patient will be [facility] for further management. Impression Primary Impression: PNA (pneumonia) Additional Impressions: Sepsis Failure of outpatient treatment Scribe Attestation The scribe's documentation has been prepared under my direction and personally reviewed by me in its entirety. I confirm that the note above accurately reflects all work, treatment, procedures, and medical decision making performed by me. Departure Information Dispostion Being Evaluated By Hospitalist Referrals Dino Rajan M.D. (PCP) Patient Instructions My [facility] Problem Qualifiers
[2017-08-04] MEDS ORDERED: OPTIRAY 320 IV PRN (00:30)
[2017-08-04 00:46] LABS: BASO % 0.2 %; BASO ABS # 0.03 K/uL (0-0.2); EOS % 1.4 %; HEMATOCRIT 40.8 % (42-52); HEMOGLOBIN 14.6 g/dL (14.0-18.0); IG# 0.04 K/uL (0.00-0.02); LYMPH ABS # 1.57 K/uL (1.2-3.4); MEAN CELL VOLUME 91.1 fL (80-100); MEAN CORPUSCULAR HEMOGLOBIN 32.6 pg (25-34); MEAN CORPUSCULAR HGB CONC 35.8 g/dl (32-36); MEAN PLATELET VOLUME 10.1 fL (7.4-10.4); MONO % 9.6 %; MONO ABS # 1.37 K/uL (0.11-0.59); NEUT % 77.5 %; NEUT ABS # 11.09 K/uL (1.4-6.5); PLATELET COUNT 180 K/uL (130-400); RED CELL DISTRIBUTION WIDTH CV 13.4 % (11.5-14.5); RED CELL DISTRIBUTION WIDTH SD 44.4 fL (36.4-46.3)
[2017-08-04 00:52] LABS: ISTAT CREATININE 1.1 mg/dl (0.6-1.3); ISTAT IONIZED CALCIUM 1.13 mmol/l (1.12-1.32)
[2017-08-04 01:04] LABS: BLOOD UREA NITROGEN 21 mg/dl (7-18); CALCIUM 9.1 mg/dl (8.5-10.1); CARBON DIOXIDE 25 mmol/L (21-32); CREATININE 1.22 mg/dl (0.60-1.40); GLUCOSE 130 mg/dl (70-99); SODIUM 136 mmol/L (136-145)
[2017-08-04] MEDS ORDERED: VANCOMYCIN IV 2,000 MG in SODIUM CHLORIDE 0.9% 500ML 500 ML IV STA (01:17)
[2017-08-04] MEDS ORDERED: LEVAQUIN 750MG / 150ML D5W IV STA (01:17)
[2017-08-04] MEDS ORDERED: VANCOMYCIN CONSULT ACTIVE PRN ×2 (01:30→02:30)
--- NOTE | 2017-08-04 01:33 | History and Physical ---
History & Physical Date & Time of Service: Aug 04, 2017 at 01:32 Chief Complaint: COUGH Primary Care Physician: Dino Rajan M.D. History of Present Illness Source: patient Pt is a 77 yr male with PMH chronic sinusitis, HTN, BPH, chronic balance issues , Left cervical lymphadenopathy and other problems presents with history of persistent cough since 2 weeks duration. Patient was recently discharged from [facility] after being evaluated for balance issues/Ataxia. Patient states since prior admission, patient has been having persistent cough with clear expectoration. Patient was discharged on Augmentin for sinusitis and he reports completing the course. Patient states having low-grade intermittent fever associated with chills. Denies any history of chest pain, SOB, dizziness, pedal edema, diaphoresis, wheezing, hemoptysis, headache, change in vision, nausea, vomiting, abdominal pain, diarrhea, dysuria, recent travel, sick contact. Past Medical/Surgical History Medical Problems: (1) Ataxia (2) Disc herniation (3) Hypertension (4) Lightheadedness (5) Orthostatic hypotension (6) Osteoarthritis (7) Paresthesia and pain of left extremity (8) Sinusitis (9) Sleep difficulties (10) Spinal stenosis (11) Upper respiratory infection Surgical Problems: (1) Hx of inguinal hernia repair (2) Hx of sinus surgery Family History FH: thyroid disease Hypertension Stroke Reviewed as above Social History Smoking Status: Former Smoker Smokeless Tobacco Use: No Alcohol Use: none Drug Use: none Marital Status: Housing status: lives with family Occupational Status: employed Immunizations History of Influenza Vaccine: No History of Tetanus Vaccine?: Unknown History of Pneumococcal: Yes History of Hepatitis B Vaccine: No Allergies Coded Allergies: Lisinopril (Unverified Allergy, Severe, UNKNOWN, 07/24/17) Aspirin (Verified Allergy, Mild, DYSPHAGIA/TROUBLE STANDING STRAIGHT UP, ) GLO Inhibitors (Verified Allergy, Unknown, ANGIOEDEMA/MYLAGIAS, 07/24/17) Home Medications Scheduled Amlodipine (Norvasc), 5 MG PO AFTERNOON Cholecalciferol (Vitamin D), 2,000 INTUNIT PO AFTERNOON Fluticasone Propionate (Nasal) (Flonase Allergy Relief), 2 SPRAY KARI DAILY Terazosin Hcl (Hytrin), 10 MG PO AFTERNOON Scheduled PRN Tramadol (Ultram), 50 MG PO Q6 PRN for Pain Review of Systems See HPI for pertinent positives & negatives. A total of 10 systems reviewed and were otherwise negative. Physical Exam Vital Signs Date Time Temp Pulse Resp B/P (MAP) Pulse Ox O2 Delivery O2 Flow Rate FiO2 08/04/17 00:08 92 Room Air 08/03/17 23:56 37.3 111 20 143/71 92 Room Air General Appearance: WD/WN, no apparent distress Head: normocephalic, atraumatic Eyes: normal inspection, PERRL, EOMI, sclerae normal ENT: normal ENT inspection, hearing grossly normal Neck: supple, trachea midline Respiratory/Chest: normal breath sounds, no respiratory distress, no accessory muscle use Cardiovascular: regular rate, rhythm, no edema, no murmur, + tachycardia Abdomen/GI: normal bowel sounds, non tender, soft Back: normal inspection Extremities/Musculoskelatal: normal inspection, no pedal edema Neurologic/Psych: director life insurance II-XII nml as tested, no motor/sensory deficits, alert, normal mood/affect, oriented x 3 Skin: normal color, warm/dry Diagnostics Laboratory Results Results Past 24 Hours Test 08/04/17 00:30 08/04/17 00:38 Range/Units White Blood Count 14.30 4.8-10.8 K/uL Red Blood Count 4.48 4.7-6.1 M/uL Hemoglobin 14.6 14.0-18.0 g/dL Hematocrit 40.8 42-52 % Mean Corpuscular Volume 91.1 80-100 fL Mean Corpuscular Hemoglobin 32.6 25-34 pg Mean Corpuscular Hemoglobin Concent 35.8 32-36 g/dl Platelet Count 180 130-400 K/uL Mean Platelet Volume 10.1 7.4-10.4 fL Neutrophils (%) (Auto) 77.5 % Lymphocytes (%) (Auto) 11.0 % Monocytes (%) (Auto) 9.6 % Eosinophils (%) (Auto) 1.4 % Basophils (%) (Auto) 0.2 % Neutrophils # (Auto) 11.09 1.4-6.5 K/uL Lymphocytes # (Auto) 1.57 1.2-3.4 K/uL Monocytes # (Auto) 1.37 0.11-0.59 K/uL Eosinophils # (Auto) 0.20 0-0.5 K/uL Basophils # (Auto) 0.03 0-0.2 K/uL RDW Standard Deviation 44.4 36.4-46.3 fL RDW Coefficient of Variation 13.4 11.5-14.5 % Immature Granulocyte % (Auto) 0.3 % Immature Granulocyte # (Auto) 0.04 0.00-0.02 K/uL Sodium Level 136 136-145 mmol/L Potassium Level 4.0 3.5-5.1 mmol/L Chloride Level 104 98-107 mmol/L Carbon Dioxide Level 25 21-32 mmol/L Anion Gap 7.0 17.0 16-25 mmol/L Blood Urea Nitrogen 21 7-18 mg/dl Creatinine 1.22 0.60-1.40 mg/dl Est Creatinine Clear Calc Drug Dose 64.4 ml/min Estimated GFR () 65.0 Estimated GFR (Non- 56.0 BUN/Creatinine Ratio 17.1 10-20 Random Glucose 130 70-99 mg/dl Calcium Level 9.1 8.5-10.1 mg/dl Troponin I < 0.015 0-0.045 ng/ml Bedside Hemoglobin 14.6 14.0-18.0 g/dl Bedside Hematocrit 43 42-52 % Bedside Sodium 138 135-144 mEq/L Bedside Potassium 4.0 3.3-5.0 mEq/L Bedside Chloride 102 101-112 mEq/L Bedside Total CO2 24 24-31 mEq/l Bedside Blood Urea Nitrogen 22 7-18 mg/dl Bedside Creatinine 1.1 0.6-1.3 mg/dl Bedside Glucose (other) 135 70-99 mg/dl Bedside Ionized Calcium (Lex) 1.13 1.12-1.32 mmol/l Microbiology Results 08/04/17 Blood Culture, Ordered Pending 08/04/17 Blood Culture, Ordered Pending Diagnostic Radiology CT chest: Preliminary reading suggestive of left lower lobe pneumonia Impression Assessment and Plan HCAP SIRS H/O chronic sinusitis CT suggestive of left lower lobe pneumonia Failed outpatient Augmentin therapy Start broad spectrum IV Antibiotics (Vanco, Zosyn, Levaquin) Oxygen support PRN , Duonebs PRN Blood/Sputum cultures HTN: continue amlodipine BPH: continue Tamsulosin Chronic Ataxia/balance issues Fall precautions PT/OT Left cervical lymphadenopathy: Work up as outpatient DVT Px: Heparin SQ Code Status: Full Code Resuscitation Status VTE Prophylaxis Will order VTE Prophylaxis: Yes
[2017-08-04] MEDS ORDERED: SODIUM CHLORIDE 0.9% 1000ML 1,000 ML IV ONE (02:15)
[2017-08-04] MEDS ORDERED: ACETAMINOPHEN 325 MG TAB PO PRN (02:15)
[2017-08-04] MEDS ORDERED: LEVOFLOXACIN CONSULT ACTIVE PRN (02:27)
[2017-08-04] MEDS ORDERED: TRAMADOL HCL 50 MG TAB PO PRN (02:30)
[2017-08-04] MEDS ORDERED: SODIUM CHLORIDE 0.9% 500ML 500 ML IV ONE (02:30)
[2017-08-04] MEDS ORDERED: PIPERACILL/TAZOBAC CONSULT ACTIVE PRN (02:30)
[2017-08-04] MEDS ORDERED: ALBUT/IPRATROP 3MG/0.5MG NEB 3 ML VIAL INH PRN ×2 (02:30→04:00)
[2017-08-04] MEDS ORDERED: PIPERACILL/TAZOBAC IV 3.375 GM in NSS 100 ML IV ONE (03:15)
[2017-08-04 03:30] VITALS: BP 143/74; PULSE 97; TEMP 37.1; O2SAT 93; Ht 185.4 cm; Wt 111.2 kg
[2017-08-04] MEDS: SODIUM CHLORIDE 0.9% 1000ML 1,000 ML IV SCH ×3 (03:35→23:55)
[2017-08-04] MEDS ORDERED: NURSING VERBAL MED ORDER ONE (04:00)
[2017-08-04] MEDS: HEPARIN SOD 5000 UNIT/0.5 ML CARP SQ SCH ×3 (05:33→21:38)
--- NOTE | 2017-08-04 06:34 | DIAGNOSTIC IMAGING REPORT ---
CT ANGIOGRAM OF THE CHEST CLINICAL HISTORY: Tachycardia. Persistent cough. POSSIBLE PULMONARY EMBOLISM. COMPARISON STUDY: Chest x-ray dated 07/24/2017 TECHNIQUE: Following the IV administration of 92 mL of [id number]-320, CT angiogram of the thorax was performed from the thoracic inlet to the lung bases utilizing the pulmonary embolus protocol. Images are reviewed in the axial, sagittal, and coronal planes. IV contrast was administered without complication. MIP imaging was performed. A dose lowering technique was utilized adhering to the principles of ALARA. CT DOSE: 684.49 mGy.cm FINDINGS: There are mildly enlarged submental lymph nodes. There is a mildly enlarged 12 mm right paratracheal lymph node. There are mildly enlarged prevascular lymph nodes. There is a mildly enlarged subcarinal lymph node. There is a mildly enlarged lymph node located posterior to the distal descending thoracic aorta There was no evidence of thoracic aortic dilatation. There were no pulmonary artery filling defects to indicate acute pulmonary embolism. No pleural effusions are visualized. There are left lower lobe airspace opacity suspicious for pneumonia. There is a hiatal hernia. There is mild hepatic steatosis. There is mild left adrenal thickening. IMPRESSION: 1. No evidence of acute pulmonary embolism 2. Left lower lobe airspace opacities consistent with pneumonia 3. Mild adenopathy Electronically signed by: Judson Vogt M.D. 08/04/2017 6:33 AM Dictated Date/Time: 08/04/2017 6:28 AM
[2017-08-04 07:36] VITALS: BP 127/74; PULSE 91; TEMP 37.2; O2SAT 94
[2017-08-04] MEDS: AMLODIPINE BESYLATE 5 MG TAB PO SCH (07:41)
[2017-08-04] MEDS: FLUTICASONE PROPIONATE NA SPR 16 GM BTL NAE SCH ×2 (07:41→21:37)
[2017-08-04] MEDS: PIPERACILL/TAZOBAC IV 3.375 GM in NSS 100ML IV SCH ×3 (07:45→23:55)
--- NOTE | 2017-08-04 09:40 | Pharmacy Progress Note ---
Pharmacy Abx Initial Consult Date of Service Aug 04, 2017. Pharmacy Dosing Scope Date of Consult: 08/04/17 Consultation requested by: Dr. Nj Pharmacy is consulted to initiate vancomycin, Levaquin and Zosyn IV dosing therapy, order appropriate labs and adjust drug dose/frequency. Subjective The patient is a 77 year old male admitted on Aug 04, 2017 at 02:18. Objective Height (Feet): 6 Height (Inches): 1.00 Weight (Kilograms): 110.800 (BMI = 32.6) Vital Signs (Past 12Hrs) Vital Signs Past 12 Hours Date Time Temp Pulse Resp B/P (MAP) Pulse Ox O2 Delivery O2 Flow Rate FiO2 08/04/17 08:00 Room Air 08/04/17 07:36 37.2 91 18 127/74 (91) 94 Nasal Cannula 2.0 08/04/17 03:30 37.1 97 18 143/74 93 Nasal Cannula 2.0 08/04/17 02:12 92 Nasal Cannula 2.0 08/04/17 02:11 103 20 151/67 90 Room Air 08/04/17 01:05 101 24 154/64 91 Room Air 08/04/17 00:08 92 Room Air 08/03/17 23:56 37.3 111 20 143/71 92 Room Air Lab Results (24Hrs) Laboratory Tests (24 Hours) Test 08/04/17 00:30 White Blood Count 14.30 K/uL (4.8-10.8) H Red Blood Count 4.48 M/uL (4.7-6.1) L Hemoglobin 14.6 g/dL (14.0-18.0) Hematocrit 40.8 % (42-52) L Mean Corpuscular Volume 91.1 fL (80-100) Mean Corpuscular Hemoglobin 32.6 pg (25-34) Mean Corpuscular Hemoglobin Concent 35.8 g/dl (32-36) Platelet Count 180 K/uL (130-400) Mean Platelet Volume 10.1 fL (7.4-10.4) Neutrophils (%) (Auto) 77.5 % Lymphocytes (%) (Auto) 11.0 % Monocytes (%) (Auto) 9.6 % Eosinophils (%) (Auto) 1.4 % Basophils (%) (Auto) 0.2 % Neutrophils # (Auto) 11.09 K/uL (1.4-6.5) H Lymphocytes # (Auto) 1.57 K/uL (1.2-3.4) Monocytes # (Auto) 1.37 K/uL (0.11-0.59) H Eosinophils # (Auto) 0.20 K/uL (0-0.5) Basophils # (Auto) 0.03 K/uL (0-0.2) Procalcitonin 0.21 ng/ml (0-0.5) Micro Results Date/Time Source Procedure Growth Status 08/04/17 01:34 Blood Blood Culture Pending Received 08/04/17 01:30 Blood Blood Culture Pending Received Risk Factors for Resistance * Hospitalization for 48 hours or more within the past 90 days * Antimicrobial use within the last 90 days : Augmentin Assessment & Plan Assessment 77 year old male admitted for HAP, with risk factors for MDRO as noted above CTA of chest indicates pneumonia is present Procalcitonin 0.21 - literature would support that levels less than 0.25 may not require antibiotics but this could have been drawn too early Plan Vancomycin IV * Loading dose: 2000 mg (18 mg/kg) was given in the ER * Maintenance dose: 1750 mg IV (15.6 mg/kg) every 14 hours was initiated by overnight pharmacist * Goal trough level for pneumonia : 15 to 20 mcg/mL * Trough level ordered for 08/05/17 prior to the 4th dose * Okay to continue above dose but I have placed 08/05 @ 2000 dose on hold until the level is evaluated by pharmacy as level could be slightly supratherapeutic on this dose * MRSA swab ordered to evaluate if MRSA coverage is necessary Piperacillin/tazobactam * Continue 3.375 g IV extended infusion every 8 hours for CrCl greater than 20 mL/min Levaquin * 750 mg IV q24h for pneumonia and CrCl > 50 mL/min Consider trending procalcitonin levels to determine if antibiotics are indicated Pharmacy will continue to follow and will adjust dose/frequency as necessary. Thank you.
[2017-08-04 11:26] VITALS: BP 144/73; PULSE 87; TEMP 37.2; O2SAT 91
[2017-08-04 15:28] VITALS: BP 159/75; PULSE 92; TEMP 37.3; O2SAT 92
--- NOTE | 2017-08-04 15:44 | Progress Note ---
Subjective Date of Service: Aug 04, 2017. Subjective Pt evaluation today including: conversation w/ patient, physical exam, lab review, review of studies, review of inpatient medication list Saw/examined the patient in room 262 +coughing with little/no sputum production at times has coughing fits Feels fevers/chills +weakness and ambulatory issues persist from previous admission as well Denies chest pain/edema/palpitations/shortness of breath Problem List Medical Problems: (1) Ataxia Status: Acute (2) Disc herniation Status: Acute (3) Failure of outpatient treatment Status: Acute (4) Lightheadedness Status: Acute (5) Orthostatic hypotension Status: Acute (6) Paresthesia and pain of left extremity Status: Acute (7) PNA (pneumonia) Status: Acute (8) Sepsis Status: Acute (9) Sleep difficulties Status: Acute (10) Spinal stenosis Status: Acute (11) Upper respiratory infection Status: Acute Review of Systems Constitutional: + fever, + chills, + weakness, + fatigue Respiratory: + cough, No sputum, No wheezing, No shortness of breath, No dyspnea on exertion, No dyspnea at rest, No hemoptysis Cardiac: No chest pain, No orthopnea, No edema, No palpitations Abdomen: No pain, No nausea, No vomiting, No diarrhea, No constipation, No GI bleeding Neurologic: + weakness, + balance problems, No memory loss, No paralysis, No numbness/tingling, No vertigo Medications Current Inpatient Medications Medications (Trade) Dose Ordered Sig/Diana Route Start Time Stop Time Status Last Admin Dose Admin Ioversol (Optiray 320) 100 ml UD PRN IV 08/04/17 00:30 08/08/17 00:29 Heparin Sodium (Porcine) (Heparin Sq 5000 Unit/0.5ml) 5,000 unit Q8 SQ 08/04/17 06:00 09/03/17 05:59 Acetaminophen (Tylenol Tab) 650 mg Q4H PRN PO 08/04/17 02:15 09/03/17 02:14 Ondansetron HCl (Zofran Inj) 4 mg Q6H PRN IV 08/04/17 02:15 09/03/17 02:14 Sodium Chloride 1,000 ml @ 100 mls/hr Q10H IV 08/04/17 03:30 09/03/17 03:29 08/04/17 03:35 100 MLS/HR Levofloxacin (Consult) 1 ea DAILY PRN N/A 08/04/17 02:27 09/03/17 02:26 Amlodipine Besylate (Norvasc Tab) 5 mg DAILY PO 08/04/17 09:00 09/03/17 08:59 08/04/17 07:41 5 MG Fluticasone Propionate (Flonase Nasal [place]) 2 sprays BID KARI 08/04/17 09:00 09/03/17 08:59 08/04/17 07:41 2 SPRAYS Terazosin HCl (Hytrin Cap) 10 mg HS PO 08/04/17 21:00 09/03/17 20:59 Tramadol HCl (Ultram Tab) 50 mg Q6 PRN PO 08/04/17 02:30 09/03/17 02:29 Miscellaneous Information (Consult) 1 ea UD PRN N/A 08/04/17 02:30 09/03/17 02:29 Miscellaneous Information (Consult) 1 ea UD PRN N/A 08/04/17 02:30 09/03/17 02:29 Piperacillin Sod/ Tazobactam Sod 3.375 gm/Sodium Chloride 115 ml @ 28.75 mls/ hr Q8H IV 08/04/17 08:00 08/11/17 07:59 08/04/17 07:45 28.75 MLS/HR Levofloxacin 750 mg/Prmx 150 ml @ 100 mls/hr DAILY@0200 IV 08/05/17 02:00 08/10/17 03:29 Vancomycin HCl 1750 mg/Sodium Chloride 535 ml @ 200 mls/hr Q14H IV 08/04/17 16:00 08/11/17 15:59 Future Hold Albuterol/ Ipratropium (Duoneb) 3 ml QID PRN INH 08/04/17 04:00 09/03/17 03:59 Objective Vital Signs Date Time Temp Pulse Resp B/P (MAP) Pulse Ox O2 Delivery O2 Flow Rate FiO2 08/04/17 12:00 Room Air 08/04/17 11:26 37.2 87 20 144/73 (96) 91 Room Air 08/04/17 08:00 Room Air 08/04/17 07:36 37.2 91 18 127/74 (91) 94 Nasal Cannula 2.0 4/16/18 03:30 37.1 97 18 143/74 93 Nasal Cannula 2.0 08/04/17 02:12 92 Nasal Cannula 2.0 08/04/17 02:11 103 20 151/67 90 Room Air 08/04/17 01:05 101 24 154/64 91 Room Air 08/04/17 00:08 92 Room Air 08/03/17 23:56 37.3 111 20 143/71 92 Room Air Physical Exam General Appearance: WD/WN, no apparent distress Respiratory/Chest: chest non-tender, lungs clear, normal breath sounds, no respiratory distress, no accessory muscle use Cardiovascular: regular rate, rhythm, no edema, no murmur Abdomen: normal bowel sounds, non tender, soft Extremities: normal range of motion, non-tender, normal inspection, no pedal edema, no calf tenderness Neurologic/Psychiatric: no motor/sensory deficits, alert, normal mood/affect Laboratory Results Last 24 Hours Test 08/04/17 00:30 08/04/17 00:38 08/04/17 01:36 White Blood Count 14.30 K/uL Red Blood Count 4.48 M/uL Hemoglobin 14.6 g/dL Hematocrit 40.8 % Mean Corpuscular Volume 91.1 fL Mean Corpuscular Hemoglobin 32.6 pg Mean Corpuscular Hemoglobin Concent 35.8 g/dl Platelet Count 180 K/uL Mean Platelet Volume 10.1 fL Neutrophils (%) (Auto) 77.5 % Lymphocytes (%) (Auto) 11.0 % Monocytes (%) (Auto) 9.6 % Eosinophils (%) (Auto) 1.4 % Basophils (%) (Auto) 0.2 % Neutrophils # (Auto) 11.09 K/uL Lymphocytes # (Auto) 1.57 K/uL Monocytes # (Auto) 1.37 K/uL Eosinophils # (Auto) 0.20 K/uL Basophils # (Auto) 0.03 K/uL RDW Standard Deviation 44.4 fL RDW Coefficient of Variation 13.4 % Immature Granulocyte % (Auto) 0.3 % Immature Granulocyte # (Auto) 0.04 K/uL Sodium Level 136 mmol/L Potassium Level 4.0 mmol/L Chloride Level 104 mmol/L Carbon Dioxide Level 25 mmol/L Anion Gap 7.0 mmol/L 17.0 mmol/L Blood Urea Nitrogen 21 mg/dl Creatinine 1.22 mg/dl Est Creatinine Clear Calc Drug Dose 64.4 ml/min Estimated GFR () 65.0 Estimated GFR (Non- 56.0 BUN/Creatinine Ratio 17.1 Random Glucose 130 mg/dl Calcium Level 9.1 mg/dl Troponin I < 0.015 ng/ml Procalcitonin 0.21 ng/ml Bedside Hemoglobin 14.6 g/dl Bedside Hematocrit 43 % Bedside Sodium 138 mEq/L Bedside Potassium 4.0 mEq/L Bedside Chloride 102 mEq/L Bedside Total CO2 24 mEq/l Bedside Blood Urea Nitrogen 22 mg/dl Bedside Creatinine 1.1 mg/dl Bedside Glucose (other) 135 mg/dl Bedside Ionized Calcium (Lex) 1.13 mmol/l Bedside Lactic Acid Venous 1.01 mmol/L Assessment and Plan This is a 77 year old male with a past medical history of BPH, HTN, vitamin D deficiency, with recent admission to [facility] due to ambulatory dysfunction and discovery of lymphadenopathy with suspicion for metastatic disease; was discharged on Augmentin for sinusitis, presents today with worsening cough and found to have likely pneumonia HCAP - elevated white count, tachycardia - recent admission and failed outpatient abx. (Augmentin) - started on Zosyn, Vancomycin, Levaquin - MRSA nasal swab negative, will d/c Vanco, continue Zosyn + Levaquin for now - can likely transition to a single oral agent after 1-2 more days of IV abx. Ambulatory Dysfunction in the setting of Arachnoid Cyst - PT/OT - may need rehab placement - neurosurgery follow-up on August 13 for the arachnoid cyst - unlikely any further treatment necessary HTN - continue current medications Left Cervical Lymphadenopathy - Work up as outpatient DVT ppx - subq heparin FULL CODE
[2017-08-04] MEDS ORDERED: VANCOMYCIN IV 1,750 MG in SODIUM CHLORIDE 0.9% 500ML 500 ML IV SCH (16:00)
[2017-08-04] MEDS: ONDANSETRON INJ 2 MG/ML 2 ML VIAL IV PRN ×2 (16:01→22:41)
[2017-08-04 19:42] VITALS: BP 144/72; PULSE 99; TEMP 37.1; O2SAT 90
[2017-08-04 20:09] VITALS: O2SAT 90
[2017-08-05] VITALS (9 sets, daily range): BP systolic 144–179; BP diastolic 76–85; PULSE 85–94; TEMP 36.5–37.2; O2SAT 90–94
[2017-08-05] MEDS ORDERED: DEXTROMETHORPHAN POLYMR COMPLX 30 MG/5 ML UDP PO PRN (02:00)
[2017-08-05] MEDS ORDERED: LEVOFLOXACIN 750MG / D5W IV SCH ×2 (02:00→04:00)
[2017-08-05] MEDS: DEXTROMETHORPHAN POLYMR COMPLX 30 MG/5 ML UDP PO PRN ×3 (03:19→18:55)
[2017-08-05] MEDS: HEPARIN SOD 5000 UNIT/0.5 ML CARP SQ SCH ×3 (06:00→20:44)
[2017-08-05] MEDS: PIPERACILL/TAZOBAC IV 3.375 GM in NSS 100ML IV SCH ×3 (07:35→23:54)
[2017-08-05 07:44] LABS: HEMATOCRIT 38.2 % (42-52); HEMOGLOBIN 13.2 g/dL (14.0-18.0); MEAN CORPUSCULAR HEMOGLOBIN 31.4 pg (25-34); MEAN CORPUSCULAR HGB CONC 34.6 g/dl (32-36); MEAN PLATELET VOLUME 9.8 fL (7.4-10.4); PLATELET COUNT 180 K/uL (130-400); RED CELL DISTRIBUTION WIDTH CV 13.2 % (11.5-14.5); RED CELL DISTRIBUTION WIDTH SD 44.2 fL (36.4-46.3); WHITE BLOOD COUNT 9.11 K/uL (4.8-10.8)
[2017-08-05] MEDS: AMLODIPINE BESYLATE 5 MG TAB PO SCH (08:09)
[2017-08-05] MEDS: FLUTICASONE PROPIONATE NA SPR 16 GM BTL NAE SCH ×2 (08:09→20:42)
[2017-08-05 08:13] LABS: CALCIUM 8.6 mg/dl (8.5-10.1); CREATININE 0.98 mg/dl (0.60-1.40); POTASSIUM 3.9 mmol/L (3.5-5.1)
[2017-08-05] MEDS: SODIUM CHLORIDE 0.9% 1000ML 1,000 ML IV SCH ×2 (09:12→18:55)
--- NOTE | 2017-08-05 12:51 | Pulmonary Consultation ---
History General Date of Service: Aug 05, 2017. Stated Complaint: Pneumonia, Sepsis HPI Dear Dr. Stock: Thank you for your kind referral of Mr. Hardin to pulmonary service. This is 77 -year-old gentleman with a history of neuropathy recently admitted to the hospital for any imbalance, the patient spent 2 days in the hospital and discharge 6 days ago. The patient return back again to the hospital due to persistent cough and chills that has been ongoing for the past few days. The patient denies any fever at home. His cough was nonproductive. Denies any shortness of breath however he is minimally ambulatory due to his neuropathy. The patient did not have any chest pain orthopnea and no sputum production. There is no hemoptysis reported. Patient denies any URI symptoms. He lives with his at home neither 1 of them is a smoker. The patient did have history of smoking over 45 years ago. 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 The patient does not use any inhalers, nor oxygen. On his arrival, the patient was noted to have persistent cough, and he underwent extensive workup including chest x-ray followed by CAT scan which showed left lower lobe infiltrate. Minimal lymphadenopathy compatible with pneumonia. The patient did not have any fever but he does have leukocytosis. Left shift but no bandemia. He did not have pneumonia in the past. He has not been admitted to the hospital for respiratory issues. No history of asthma either has not been on inhalers in the past. Historian: patient, other (Records) Onset: last week Complaint Status: improved Review of Systems Constitutional: reports: no symptoms Eyes: reports: no symptoms ENT: reports: no symptoms Cardiovascular: reports: no symptoms Respiratory: reports: cough, shortness of breath Gastrointestinal: reports: no symptoms Genitourinary - Male: reports: no symptoms Integumentary: reports: no symptoms Neurologic: reports: no symptoms Psychiatric: reports: no symptoms Past Medical History Past Medical History: Gait imbalance, thought to be related to peripheral neuropathy, spinal stenosis , history of septal deviation corrected by ENT, denies any evaluation in the past for sleep apnea. Family History FH: thyroid disease FHx: heart disease Hypertension Stroke Social History Hx Tobacco Use In Past Year?: No Smoking Status: Never Smoker Marital status: Housing status: lives with family Occupational Status: employed Immunizations History of Influenza Vaccine: No History of Tetanus Vaccine?: Unknown History of Pneumococcal: Yes History of Hepatitis B Vaccine: No History of MDRO History of MDRO: No Allergies Coded Allergies: Lisinopril (Unverified Allergy, Severe, UNKNOWN, 07/24/17) Aspirin (Verified Allergy, Mild, DYSPHAGIA/TROUBLE STANDING STRAIGHT UP, ) GLO Inhibitors (Verified Allergy, Unknown, ANGIOEDEMA/MYLAGIAS, 07/24/17) Current Medications Reported Home Medications Medications Dose Route/Sig Max Daily Dose Days Date Category Ultram (Tramadol HCl) 50 Mg Tab 50 Mg PO Q6 PRN 07/24/17 Reported Flonase Allergy Relief (Fluticasone Propionate (Nasal)) 50 Mcg/Act Spr 2 [place] KARI DAILY 07/24/17 Reported Vitamin D (Cholecalciferol) 2,000 Unit Cap 2,000 Intunit PO AFTERNOON 12/04/15 Reported Norvasc (Amlodipine Besylate) 5 Mg Tab 5 Mg PO AFTERNOON 11/01/08 Reported Hytrin (Terazosin HCl) 10 Mg Cap 10 Mg PO AFTERNOON 10/25/08 Reported Physical Physical Exam Vital Signs: Date Time Temp Pulse Resp B/P (MAP) Pulse Ox O2 Delivery O2 Flow Rate FiO2 08/05/17 12:00 90 Room Air 08/05/17 11:07 37.1 89 20 158/78 (104) 90 Room Air 08/05/17 08:00 91 Room Air 08/05/17 07:07 37.0 87 19 151/83 (105) 91 Room Air 08/05/17 04:00 Room Air 08/05/17 04:00 36.5 85 19 147/79 (101) 92 Room Air 08/05/17 00:06 36.9 94 19 161/80 (107) 91 Room Air 08/05/17 00:00 Room Air 08/04/17 20:09 90 Room Air 08/04/17 19:42 37.1 99 18 144/72 (96) 90 Room Air 08/04/17 16:00 Room Air 08/04/17 15:28 37.3 92 159/75 (103) 92 Room Air General Appearance: WELL-APPEARING, NO APPARENT DISTRESS Eyes: PERRLA, EOMI ENT: NORMAL THROAT EXAM Neck: TRACHEA MIDLINE Respiratory: CLEAR TO AUSCULTATION Cardiovasular: NORMAL S1S2, NO M/G/R, NO MURMUR Abdomen: NON TENDER, NO MASSES, NO GUARDING Upper Extremities: NO EDEMA Neuro: ALERT, ORIENTED x 3, NORMAL MOTOR EXAM Psychiatric: NORMAL AFFECT Diagnostics Labs Results Past 24 Hours Test 08/05/17 07:24 Range/Units White Blood Count 9.11 4.8-10.8 K/uL Red Blood Count 4.20 4.7-6.1 M/uL Hemoglobin 13.2 14.0-18.0 g/dL Hematocrit 38.2 42-52 % Mean Corpuscular Volume 91.0 80-100 fL Mean Corpuscular Hemoglobin 31.4 25-34 pg Mean Corpuscular Hemoglobin Concent 34.6 32-36 g/dl RDW Standard Deviation 44.2 36.4-46.3 fL RDW Coefficient of Variation 13.2 11.5-14.5 % Platelet Count 180 130-400 K/uL Mean Platelet Volume 9.8 7.4-10.4 fL Sodium Level 139 136-145 mmol/L Potassium Level 3.9 3.5-5.1 mmol/L Chloride Level 109 98-107 mmol/L Carbon Dioxide Level 23 21-32 mmol/L Anion Gap 7.0 3-11 mmol/L Blood Urea Nitrogen 12 7-18 mg/dl Creatinine 0.98 0.60-1.40 mg/dl Est Creatinine Clear Calc Drug Dose 79.8 ml/min Estimated GFR () 84.6 Estimated GFR (Non- 73.0 BUN/Creatinine Ratio 12.0 10-20 Random Glucose 104 70-99 mg/dl Calcium Level 8.6 8.5-10.1 mg/dl Magnesium Level 2.3 1.8-2.4 mg/dl Microbiology Results 08/04/17 Gram Stain - Final, Resulted 08/04/17 Sputum Culture, Resulted Pending Diagnostic Radiology Chest x-ray and CAT scan of the chest both were reviewed personally which showed multiple areas of infiltrate mainly in the left lower lobe. Small lymphadenopathy in the mediastinum. Otherwise is normal. Impression Assessment and Plan 1. Left lower lobe pneumonia, the patient however spent only 2 days in the hospital but cannot rule out the possibility of healthcare acquired pneumonia. 2. The patient had persistent cough mainly at nighttime. It is concerning that the patient might have obstructive sleep apnea that has gone undiagnosed. It was brought up to him in the past and he underwent septal deviation surgery in which he felt his respiratory status has improved afterward. 3. Gait imbalance with peripheral neuropathy. Plan: 1. Continue with broad-spectrum antibiotic. 2. If the cultures are not revealing including sputum culture, the patient can be changed to Levaquin p.o. in 24 hours. 3. Afterward the patient can be discharged home for total of 7 days of antibiotics. 4. The patient will need home sleep study once he is discharged. 5. It can be arranged as an outpatient. 6. No need for bronchoscopy for evaluation of pneumonia.. Thank you for your kind referral.
[2017-08-05] MEDS ORDERED: VANCOMYCIN TROUGH ONE (19:30)
--- NOTE | 2017-08-05 20:13 | Progress Note ---
Progress Note Date of Service Aug 05, 2017. Progress Note subjective: Patient denies worsening shortness of breath. He is able to walk without significant problems This is a 77 year old male with a past medical history of BPH, HTN, vitamin D deficiency, with recent admission to [facility] due to ambulatory dysfunction and discovery of lymphadenopathy with suspicion for metastatic disease; was discharged on Augmentin for sinusitis, presents today with worsening cough and found to have pneumonia Pneumonia - community acquired vs hospital acquired (had recently been in the hospital for 2 days prior to this admission -on admission patient was on Zosyn /Vancomycin/ Levaquin and de-escalated to Zosyn and Levaquin as MRSA swab negative -blood culture negative -sputum culture with moderate gram negative bacilli - continue IV Zosyn, continue Levaquin -patient has been seen by pulmonary service and they did not recommend bronchoscopy at this time Left Cervical Lymphadenopathy: Work up as outpatient Ambulatory Dysfunction -previous hospital admission did not identify particular source of this problem -history of Arachnoid Cyst is benign as per previous neurosurgery consultation from last hospital visit, neurosurgery follow-up on August 13 for the arachnoid cyst - unlikely any further treatment necessary -patient appears to be walking well today - PT/OT HTN: continue current medications DVT ppx - subq heparin
[2017-08-06 00:03] VITALS: BP 147/80; PULSE 93
[2017-08-06 03:51] VITALS: BP 149/75; PULSE 83; TEMP 36.9; O2SAT 91
[2017-08-06] MEDS: SODIUM CHLORIDE 0.9% 1000ML 1,000 ML IV SCH (04:57)
[2017-08-06] MEDS: HEPARIN SOD 5000 UNIT/0.5 ML CARP SQ SCH ×2 (06:00→13:17)
[2017-08-06 07:17] VITALS: BP 148/80; PULSE 86; TEMP 36.7; O2SAT 91
[2017-08-06] MEDS: FLUTICASONE PROPIONATE NA SPR 16 GM BTL NAE SCH (07:53)
[2017-08-06] MEDS: AMLODIPINE BESYLATE 5 MG TAB PO SCH (07:53)
[2017-08-06 08:00] VITALS: O2SAT 91
[2017-08-06] MEDS: PIPERACILL/TAZOBAC IV 3.375 GM in NSS 100ML IV SCH (08:00)
[2017-08-06] MEDS ORDERED: LEVOFLOXACIN 750 MG TAB PO SCH (08:00)
--- NOTE | 2017-08-06 09:28 | Clinical Documentation Query ---
WALTER Agrawal : CLINICAL DOCUMENTATION QUERY Patient is a 77 year old male admitted for evaluation of worsening cough, subsequently determined to have pneumonia. Documentation currently stands at "community acquired vs hospital acquired". Although this is of etiologic, epidemiologic, and treatment pathway significance, this is information not amenable to coding. However, consideration of the possibility of a gram negative organism as the causal bacterium does impact accurate DRG assignment. As appropriate, whether CAP or HCAP, consider additional documenation as suggested below. Thank you. In your clinical opinion is this patient being managed for: ( ) (Possible/Suspected) Gram-negative CAP vs HCAP pneumonia ( ) Not Agree (x ) Other explanation of clinical findings (Please Explain) ( ) Unable to determine (Please Define) ( ) Need to Discuss I have spoken with pulmonary service and the gram negative sputum is normal oral sierra as per the final sputum reading. There is no positive blood culture to indicate identity of the bacteria which could have caused the pneumonia The HCAP diagnosis made because there is clinical correlation with recent hospital stay. In any case, pulmonary service recommends discharging the patient on oral antibiotic today The medical record reflects the following clinical findings, treatment, and risk factors. Clinical Indicators: As above Treatment: Zosyn, Levaquin, pulmonary consultation Risk Factors: Age, possible metastatic disease, recent antibiotics, recent hospital admission Please clarify and document your clinical opinion in the progress notes and discharge summary. Terms such as "probable", "suspected", "likely", "questionable", "possible", or "still to be ruled out" are acceptable. IF IN AGREEMENT, YOU MUST DOCUMENT ABOVE DIAGNOSTIC STATEMENT IN DAILY PROGRESS NOTES AND DISCHARGE SUMMARY. This document is not part of the patient's record. Thank You, Venkatesh Hernández, TONI [phone]
[2017-08-06] MEDS ORDERED: NURSING VERBAL MED ORDER ONE ×2 (10:30)
[2017-08-06 11:46] VITALS: BP 158/80; PULSE 84; TEMP 36.9; O2SAT 92
--- NOTE | 2017-08-06 12:22 | Pulmonology Progress Note ---
Pulmonary Progress Note Date of Service Aug 06, 2017. Attending Dr. Parikh Subjective The patient improved clinically, his cough has been occasional, he has no events overnight, denies any sputum production. He has been ambulatory. No chest pain reported. No fever and no constitutional symptoms. Cultures has been negative. Objective Physical exam of 08/06/2017, the patient has been asymptomatic today, vital signs were stable, he does have minimal crackles at the left base, the rest of his lungs are distant breath sounds. S1-S2 regular rate and rhythm. No JVP, no edema. Assessment & Plan 1. Left lower lobe pneumonia, received broad-spectrum antibiotics for over 24 hours, cultures negative, agree with changing to Levaquin p.o. 2. The patient has high probability to obstructive sleep apnea, he would need to be evaluated as an outpatient, although he did have septoplasty but it is not adequate to control his symptoms. 3. Discharge patient home. 4. Please arrange for outpatient pulmonary follow-up with sleep specialist. Thank you for your kind referral. Will sign off the case. Data Medications: Current Inpatient Medications Medications (Trade) Dose Ordered Sig/Diana Route Start Time Stop Time Status Last Admin Dose Admin Ioversol (Optiray 320) 100 ml UD PRN IV 08/04/17 00:30 08/08/17 00:29 Heparin Sodium (Porcine) (Heparin Sq 5000 Unit/0.5ml) 5,000 unit Q8 SQ 08/04/17 06:00 09/03/17 05:59 Acetaminophen (Tylenol Tab) 650 mg Q4H PRN PO 08/04/17 02:15 09/03/17 02:14 Ondansetron HCl (Zofran Inj) 4 mg Q6H PRN IV 08/04/17 02:15 09/03/17 02:14 08/04/17 22:41 4 MG Levofloxacin (Consult) 1 ea DAILY PRN N/A 08/04/17 02:27 09/03/17 02:26 Amlodipine Besylate (Norvasc Tab) 5 mg DAILY PO 08/04/17 09:00 09/03/17 08:59 08/06/17 07:53 5 MG Fluticasone Propionate (Flonase Nasal [place]) 2 sprays BID KARI 08/04/17 09:00 09/03/17 08:59 08/06/17 07:53 2 SPRAYS Terazosin HCl (Hytrin Cap) 10 mg HS PO 08/04/17 21:00 09/03/17 20:59 08/05/17 20:44 10 MG Tramadol HCl (Ultram Tab) 50 mg Q6 PRN PO 08/04/17 02:30 09/03/17 02:29 08/05/17 23:55 50 MG Albuterol/ Ipratropium (Duoneb) 3 ml QID PRN INH 08/04/17 04:00 09/03/17 03:59 Levofloxacin (Levaquin Tab) 750 mg DAILY@11 PO 08/06/17 08:00 08/10/17 11:01 08/06/17 07:53 750 MG Vital Signs: Date Time Temp Pulse Resp B/P (MAP) Pulse Ox O2 Delivery O2 Flow Rate FiO2 08/06/17 11:46 36.9 84 20 158/80 (106) 92 08/06/17 10:41 36.7 86 18 91 Room Air 08/06/17 08:00 91 Room Air 08/06/17 07:17 36.7 86 18 148/80 (102) 91 Room Air 08/06/17 04:00 Room Air 08/06/17 03:51 36.9 83 18 149/75 (99) 91 Room Air 08/06/17 00:40 Room Air 08/06/17 00:03 93 147/80 (102) 08/05/17 23:10 36.9 91 20 179/84 (115) 08/05/17 20:00 Room Air 08/05/17 19:52 37.2 89 20 170/85 (113) 94 Room Air 148/76 (100) 08/05/17 16:13 37.2 90 18 144/79 (100) 90 Room Air 08/05/17 16:00 Room Air
[2017-08-06] MEDS ORDERED: LVQ750 PO (12:37)
--- NOTE | 2017-08-06 12:45 | Progress Note ---
Internal Med Progress Note Date of Service: Aug 06, 2017. Provider Documentation: SUBJECTIVE: Patient denies acute shortness of breath or chest pain OBJECTIVE: General: no acute distress Lungs: breathing on room air, no wheezing, no use of accessory muscles Neck: no JVD Heart: regular rate Abdomen; soft, nontender, + bowel sounds Extremities; no gross edema ASSESSMENT & PLAN: Hospital Course and Plan admission CXR IMPRESSION: 1. No evidence of acute pulmonary embolism 2. Left lower lobe airspace opacities consistent with pneumonia 3. Mild adenopathy on admission patient was on Zosyn /Vancomycin/ Levaquin and de-escalated to Zosyn and Levaquin as MRSA swab negative -blood culture negative -sputum culture with moderate gram negative bacilli but final read is normal oral sierra This is a patient with left lower lobe pneumonia and received Zosyn and Levaquin during this hospital stay. 08/06/17: Pulmonary service recommends discharging the patient on oral Levaquin 08/06/17: Pulmonary service assessment that the patient has high probability to obstructive sleep apnea, he would need to be evaluated as an outpatient Other Health Issues Left Cervical Lymphadenopathy: Work up as outpatient Ambulatory Dysfunction -previous hospital admission did not identify particular source of this problem -history of Arachnoid Cyst is benign as per previous neurosurgery consultation from last hospital visit, neurosurgery follow-up as outpatient HTN: continue current medications Discharge home with follow up to 08/11/2017 11:00 AM Maria T Oden, [facility] Please call Pulmonary outpatient clinic associated [address], [address] [place] [id number] Friday through Friday, from 8:30 am to 5:00 pm Vital Signs: Date Time Temp Pulse Resp B/P (MAP) Pulse Ox O2 Delivery O2 Flow Rate FiO2 08/06/17 11:46 36.9 84 20 158/80 (106) 92 08/06/17 10:41 36.7 86 18 91 Room Air 08/06/17 08:00 91 Room Air 08/06/17 07:17 36.7 86 18 148/80 (102) 91 Room Air 08/06/17 04:00 Room Air 08/06/17 03:51 36.9 83 18 149/75 (99) 91 Room Air 08/06/17 00:40 Room Air 08/06/17 00:03 93 147/80 (102) 08/05/17 23:10 36.9 91 20 179/84 (115) 08/05/17 20:00 Room Air 08/05/17 19:52 37.2 89 20 170/85 (113) 94 Room Air 148/76 (100) 08/05/17 16:13 37.2 90 18 144/79 (100) 90 Room Air 08/05/17 16:00 Room Air
--- NOTE | 2017-08-06 13:27 | Consultant Recommendations ---
Golf Sales Manager Recommendations Date of Service Aug 06, 2017. Golf Sales Manager Recommendations Pulmonary Follow Up August 18, 2017 at 08:30am with Yaneli Mason PA-C, Dr. Stevens [facility] [place] [id number].
--- NOTE | 2017-08-06 13:32 | Discharge Instructions ---
Discharge Instructions Date of Service Aug 06, 2017. Admission Reason for Admission: Pneumonia, Sepsis Discharge Discharge Diagnosis / Problem: Pneumonia Discharge Goals Goal(s): Improve function, Increase independence, Improve disease control Activity Recommendations Activity Limitations: per Instructions/Follow-up section Shower/Bathe: no limitations . Instructions / Follow-Up Instructions / Follow-Up Hospital Course and Plan admission CXR IMPRESSION: 1. No evidence of acute pulmonary embolism 2. Left lower lobe airspace opacities consistent with pneumonia 3. Mild adenopathy on admission patient was on Zosyn /Vancomycin/ Levaquin and de-escalated to Zosyn and Levaquin as MRSA swab negative -blood culture negative -sputum culture with moderate gram negative bacilli but final read is normal oral sierra This is a patient with left lower lobe pneumonia and received Zosyn and Levaquin during this hospital stay. 08/06/17: Pulmonary service recommends discharging the patient on oral Levaquin 08/06/17: Pulmonary service assessment that the patient has high probability to obstructive sleep apnea, he would need to be evaluated as an outpatient Other Health Issues Left Cervical Lymphadenopathy: Work up as outpatient Ambulatory Dysfunction -previous hospital admission did not identify particular source of this problem -history of Arachnoid Cyst is benign as per previous neurosurgery consultation from last hospital visit, neurosurgery follow-up as outpatient HTN: continue current medications Discharge home with follow up to 08/11/2017 11:00 AM Maria T Oden DO [facility] Please call Pulmonary outpatient clinic associated [facility] - [address], [address] [place] [address] Friday through Friday, from 8:30 am to 5:00 pm Current Hospital Diet Patient's current hospital diet: AHA Diet (Heart Healthy) Discharge Diet Recommended Diet: AHA Diet (Heart Healthy) Pending Studies Studies pending at discharge: no Laboratory Results Hemoglobin A1c Test 07/24/17 06:02 Range/Units Estimated Average Glucose 123 mg/dl Hemoglobin A1c 5.9 H 4.5-5.6 % Lipid Panel Test 07/25/17 05:57 Range/Units Triglycerides Level 69 0-150 mg/dl Cholesterol Level 136 0-200 mg/dl HDL Cholesterol 41 mg/dl Cholesterol/HDL Ratio 3.3 LDL Cholesterol, Calculated 81 mg/dl Medical Emergencies . Who to Call and When: Medical Emergencies: If at any time you feel your situation is an emergency, please call 911 immediately. . Non-Emergent Contact Non-Emergency issues call your: Primary Care Provider, Supervisor Pigment Making Call Non-Emergent contact if: you have any medication questions . . "Provider Documentation" section prepared by [employer]. . Physical Metallurgist Recommendations Physical Metallurgist Recommendations: Pulmonary Follow Up August 18, 2017 at 08:30am with Yaneli Mason PA-C, Dr. Stevens [facility] [id number] [facility] [place] [id number]. [phone]
--- NOTE | 2017-08-06 13:34 | Discharge Summary ---
Discharge Summary Date of Service Aug 06, 2017. Discharge Summary Admission Date: Aug 04, 2017 at 02:18 Discharge Date: Aug 06, 2017 Discharge Disposition: Home Principal Diagnosis: left lower lobe pneumonia Secondary Diagnoses/Problems: Left Cervical Lymphadenopathy Ambulatory Dysfunction HTN Medication Reconciliation New Medications: Levofloxacin (Levofloxacin) 750 Mg Tab 750 MG PO DAILY@11 for 4 Days, #4 TAB Continued Medications: Amlodipine (Norvasc) 5 Mg Tab 5 MG PO AFTERNOON Cholecalciferol (Vitamin D) 2,000 Unit Cap 2000 INTUNIT PO AFTERNOON Fluticasone Propionate (Nasal) (Flonase Allergy Relief) 50 Mcg/Act Spr 2 SPRAY KARI DAILY Terazosin Hcl (Hytrin) 10 Mg Cap 10 MG PO AFTERNOON Tramadol (Ultram) 50 Mg Tab 50 MG PO Q6 PRN for Pain Admission Information HPI (per Admitting provider): Pt is a 77 yr male with PMH chronic sinusitis, HTN, BPH, chronic balance issues , Left cervical lymphadenopathy and other problems presents with history of persistent cough since 2 weeks duration. Patient was recently discharged from [facility] after being evaluated for balance issues/Ataxia. Patient states since prior admission, patient has been having persistent cough with clear expectoration. Patient was discharged on Augmentin for sinusitis and he reports completing the course. Patient states having low-grade intermittent fever associated with chills. Denies any history of chest pain, SOB, dizziness, pedal edema, diaphoresis, wheezing, hemoptysis, headache, change in vision, nausea, vomiting, abdominal pain, diarrhea, dysuria, recent travel, sick contact. Physical Exam (per Admitting): General Appearance: WD/WN, no apparent distress Head: normocephalic, atraumatic Eyes: normal inspection, PERRL, EOMI, sclerae normal ENT: normal ENT inspection, hearing grossly normal Neck: supple, trachea midline Respiratory/Chest: normal breath sounds, no respiratory distress, no accessory muscle use Cardiovascular: regular rate, rhythm, no edema, no murmur, + tachycardia Abdomen/GI: normal bowel sounds, non tender, soft Back: normal inspection Extremities/Musculoskelatal: normal inspection, no pedal edema Neurologic/Psych: steel loader II-XII nml as tested, no motor/sensory deficits, alert , normal mood/affect, oriented x 3 Skin: normal color, warm/dry Hospital Course Hospital Course and Plan admission CXR IMPRESSION: 1. No evidence of acute pulmonary embolism 2. Left lower lobe airspace opacities consistent with pneumonia 3. Mild adenopathy on admission patient was on Zosyn /Vancomycin/ Levaquin and de-escalated to Zosyn and Levaquin as MRSA swab negative -blood culture negative -sputum culture with moderate gram negative bacilli but final read is normal oral sierra This is a patient with left lower lobe pneumonia and received Zosyn and Levaquin during this hospital stay. 08/06/17: Pulmonary service recommends discharging the patient on oral Levaquin 08/06/17: Pulmonary service assessment that the patient has high probability to obstructive sleep apnea, he would need to be evaluated as an outpatient Other Health Issues Left Cervical Lymphadenopathy: Work up as outpatient Ambulatory Dysfunction -previous hospital admission did not identify particular source of this problem -history of Arachnoid Cyst is benign as per previous neurosurgery consultation from last hospital visit, neurosurgery follow-up as outpatient HTN: continue current medications Discharge home with follow up to 08/11/2017 11:00 AM Maria T Oden, [facility] Please call Pulmonary outpatient clinic associated [place] [id number] [facility], [address] [place] [address] Friday through Friday, from 8:30 am to 5:00 pm Total time spent on discharge = 40 minutes This includes examination of the patient, discharge planning, medication reconciliation, and communication with other providers. Discharge Instructions see above
== END 2017-08-06 16:32 | disposition home or self-care (01) | DRG 195 ==
LOC: C.EDB 23:55 → C.MS2W 08-04 02:18 → ENRESERV 08-04 02:33 → C.MS2W 08-04 02:48
PROVIDERS: ADMIT Internal Medicine; ATTEND Hospitalist
DX: J18.1 Lobar pneumonia, unspecified organism (principal); Y95 Nosocomial condition; J32.9 Chronic sinusitis, unspecified; G47.33 Obstructive sleep apnea (adult) (pediatric); I10 Essential (primary) hypertension; N40.0 Benign prostatic hyperplasia without lower urinary tract symptoms; G62.9 Polyneuropathy, unspecified; G93.0 Cerebral cysts; R26.0 Ataxic gait; R26.89 Other abnormalities of gait and mobility; R59.0 Localized enlarged lymph nodes; E55.9 Vitamin D deficiency, unspecified; Z87.891 Personal history of nicotine dependence; Z88.6 Allergy status to analgesic agent; Z88.8 Allergy status to other drugs, medicaments and biological substances; Z83.49 Family history of other endocrine, nutritional and metabolic diseases; Z82.49 Family history of ischemic heart disease and other diseases of the circulatory system; Z82.3 Family history of stroke

== ENCOUNTER 2021-05-15 13:37 | Inpatient (IN) ==
[2021-05-15 14:48] LABS: Basophils # (auto) 0.07 K/uL (0-0.2); Basophils % (auto) 1.3 %; Eosinophils # (auto) 0.29 K/uL (0-0.5); Eosinophils % (auto) 5.3 %; Hematocrit (blood only) 45.1 % (42-52); Hemoglobin 15.6 g/dL (14.0-18.0); Immature Granulocytes # (auto) 0.02 K/uL (0.00-0.02); Immature Granulocytes % (auto) 0.4 %; Lymphocytes # (auto) 1.91 K/uL (1.2-3.4); Lymphocytes % (auto) 34.7 %; Mean Corpuscular Hemoglobin 32.6 pg (25-34); Mean Corpuscular Hgb Conc 34.6 g/dL (32-36); Mean Corpuscular Volume 94.2 fL (80-100); Mean Platelet Volume 10.7 fL (7.4-10.4); Monocytes # (auto) 0.65 K/uL (0.11-0.59); Monocytes % (auto) 11.8 %; Neutrophils # (auto) 2.57 K/uL (1.4-6.5); Neutrophils % (auto) 46.5 %; Platelet Count 163 K/uL (130-400); RDW Coefficient of Variation 13.1 % (11.5-14.5); RDW Standard Deviation 45.4 fL (36.4-46.3); Red Blood Count 4.79 M/uL (4.7-6.1); White Blood Count 5.51 K/uL (4.8-10.8)
[2021-05-15 15:09] LABS: Albumin Globulin Ratio 1.5 (0.9-2); Albumin Level 4.3 gm/dl (3.4-5.0); BUN Creatinine Ratio 19.4 (10-20); Bilirubin,Total 0.5 mg/dl (0.2-1.0); Creatinine Clr Calc Pharmacy 78.4 ml/min; Est GFR (African American) 88.3 ml/min; Est GFR (Non-African American) 76.2 ml/min; Globulin 2.9 gm/dl (2.5-4.0); Potassium 4.1 mmol/L (3.5-5.1); Total Protein 7.2 gm/dl (6.0-8.3)
--- NOTE | 2021-05-15 16:12 | Emergency Department Note ---
Impression & Plan Left sided numbness, Hypertension, Impairment of balance ED Provider Note NAME: BETTINA HOOVER AGE: 80 SEX: M : 1940 ARRIVES VIA: Walk-In INFORMANT: [Patient] ED PROVIDER(S): [Emmanuel East MD] CHIEF COMPLAINT: Neuro symptoms HISTORY OF PRESENT ILLNESS: The patient is an 80-year-old male presents to the ER with about 2 days of left hand and left foot/toe numbness. He felt his left lower lip was numb for short time but that has resolved. No left arm or left leg weakness but he has noticed some worsening balance issues. The patient has not had a headache, there has been no cough, cold or congestion. No shortness of breath. No change in his urination. No diarrhea. The patient denies ever having a stroke. The patient has not noticed issues with facial drooping or speech slurring. His concentration seems normal. REVIEW OF SYSTEMS: See HPI for pertinent positives and negatives. A total of ten systems were reviewed and were otherwise negative. PMHx/PSHx: See Below SOCIAL HISTORY: See Below. PHYSICAL EXAM: GENERAL: Patient is in no acute distress. HEENT: No acute trauma, normocephalic atraumatic, mucous membranes moist, no babs al congestion, no scleral icterus. NECK: No stridor, no adenopathy, no meningismus, trachea is midline. LUNGS: Clear to auscultation bilaterally, no wheeze, no rhonchi, breath sounds equal. HEART: Without murmurs gallops or rubs, regular rate and rhythm. ABDOMEN: Soft, nontender, bowel sounds positive, no hernias, no peritonitis. EXTREMITIES: No cyanosis or edema, full range of motion of all the joints without pain or difficulty, no signs for acute trauma. NEUROLOGIC: Oriented x 3, no facial droop or speech slur. No cerebellar deficit or extremity drift. SKIN: No rash, no jaundice, no diaphoresis. DIFFERENTIAL DIAGNOSIS: Infection, UTI, dehydration, metabolic abnormality, hypo/hyperglycemia, electrolyte disturbance, anemia, hypoxia, cardiac sources, intracerebral event, toxicologic issues, stroke, TIA, as well as other pathologies. EMERGENCY DEPARTMENT COURSE/PROCEDURES: ECG: Indication was possible stroke. The ECG shows a sinus rhythm with a PVC. The rate is 60. LVH is present. There is no ST elevation. The QTc is 412. Continuous Cardiac Monitoring: An order was placed for continuous cardiac monit oring. The monitor shows a rate of 61 with normal sinus rhythm. MEDICAL DECISION MAKING: There is no leukocytosis or concerning anemia. There is a normal platelet count. No coagulopathy. No significant electrolyte abnormality or kidney failure. No concerning liver enzyme elevation. The patient appears to be in a euthyroid state. ECG shows a sinus rhythm with a PVC, no obvious ischemia. Cardiac enzyme testing x1 is not consistent with acute cardiac injury. Urinalysis does not show infection. Covid testing returned negative. Brain CT shows no acute bleed or mass-effect. CT angio of the head and neck did not show any significant stenosis or clot. On my exam, there were no focal neurologic findings. No speech slur. The patient presents with left arm and left leg numbness. He is clearly out of the window for TPA as his symptoms have been ongoing for a few days. A small stroke causing his numbness is the biggest concern. I do think further work-up in the hospital is warranted. The patient would benefit from a neurology consult and potentially an MRI. Patient is aware of his findings, he is currently resting on his stretcher. I did speak with case management, the on-call hospitalist was consulted. Past Med/Surg History Medical History BPH (benign prostatic hyperplasia) COVID-19 virus infection June 2020 Dermatitis, contact Disc herniation Glaucoma Hypertension Osteoarthritis Surgical History H/O hernia repair Family History Father Hypertension Mother Stroke Social History Smoking Status: Never smoker Tobacco Type: Cigarettes Hx Alcohol Use: No Preferred Language: Luxembourgish Feels Safe at Home: Yes Allergies Allergies Allergy/AdvReac Type Severity Reaction Status Date / Time lisinopril Allergy Severe UNKNOWN Verified 05/15/21 17:15 aspirin Allergy Mild DYSPHAGIA/TROUBLE Verified 05/15/21 17:15 STANDING STRAIGHT UP GLO Inhibitors Allergy Unknown ANGIOEDEMA/ Verified 05/15/21 17:15 MYLAGIAS Home Meds Home Medications Medication Instructions Recorded Confirmed terazosin 10 mg capsule 10 mg PO PM #0 10/25/08 05/15/21 amlodipine 5 mg tablet 5 mg PO PM #0 11/01/08 05/15/21 cholecalciferol (vitamin D3) 50 50 mcg PO PM #0 12/04/15 05/15/21 mcg (2,000 unit) tablet (Vitamin D3) colestipol 1 gram tablet 2 g PO DAILY 05/15/21 05/15/21 dutasteride 0.5 mg capsule 0.5 mg PO QPM 05/15/21 05/15/21 latanoprost 0.005 % eye drops 1 drp OPHTHALMIC (EYE) HS 05/15/21 05/15/21 Results & Data (ED) Vital Signs Vital Signs - 24 hr 05/15/21 13:44 05/15/21 15:52 05/15/21 16:41 Temperature 37.0 C Temperature Source Temporal Artery Scan Pulse Rate 82 Pulse Rate [Right Finger] 61 Pulse Rhythm [Right Finger] Regular Pulse Strength [Right Finger] Normal Respiratory Rate 18 18 Respiratory Effort / Characteristics Non-Labored Respiratory Depth Normal Respiratory Pattern Blood Pressure 149/87 H Blood Pressure [Right Arm] 178/81 H Blood Pressure Mean 107 Blood Pressure Mean [Right Arm] 113 Blood Pressure Position [Right Arm] Lying Pulse Oximetry 95 96 Oxygen Delivery Method Room Air Room Air Room Air Sepsis Recent Fever Within 48 Hours No Sepsis New/Unexplained Change in Mental Status N/A Sepsis Action Taken by Nursing No Action Required 05/15/21 17:00 Temperature Temperature Source Pulse Rate Pulse Rate [Right Finger] 75 Pulse Rhythm [Right Finger] Regular Pulse Strength [Right Finger] Normal Respiratory Rate 18 Respiratory Effort / Characteristics Non-Labored Respiratory Depth Normal Respiratory Pattern Regular Blood Pressure Blood Pressure [Right Arm] 162/79 H Blood Pressure Mean Blood Pressure Mean [Right Arm] 106 Blood Pressure Position [Right Arm] Lying Pulse Oximetry 96 Oxygen Delivery Method Room Air Sepsis Recent Fever Within 48 Hours Sepsis New/Unexplained Change in Mental Status Sepsis Action Taken by [facility] Medications Current Medication List: was personally reviewed by me Laboratory Data Attestation: I reviewed the patient's lab results. Result diagrams: 05/15/21 14:29 05/15/21 14:29 Lab Results 05/15/21 05/15/21 05/15/21 Range/Units 14:29 14:29 14:29 WBC 5.51 (4.8-10.8) K/uL RBC 4.79 (4.7-6.1) M/uL Hgb 15.6 (14.0-18.0) g/dL Hct 45.1 (42-52) % MCV 94.2 (80-100) fL MCH 32.6 (25-34) pg MCHC 34.6 (32-36) g/dL RDW Std Deviation 45.4 (36.4-46.3) fL RDW Coeff of Efren 13.1 (11.5-14.5) % Plt Count 163 (130-400) K/uL MPV 10.7 H (7.4-10.4) fL Immature Gran % (Auto) 0.4 % Neut % (Auto) 46.5 % Lymph % (Auto) 34.7 % Beaver % (Auto) 11.8 % Eos % (Auto) 5.3 % Baso % (Auto) 1.3 % Neut # (Auto) 2.57 (1.4-6.5) K/uL Lymph # (Auto) 1.91 (1.2-3.4) K/uL Beaver # (Auto) 0.65 H (0.11-0.59) K/uL Eos # (Auto) 0.29 (0-0.5) K/uL Baso # (Auto) 0.07 (0-0.2) K/uL Immature Gran # (Auto) 0.02 (0.00-0.02) K/uL PT (9.0-12.0) Seconds INR (0.9-1.1) APTT (21.0-31.0) Seconds PTT Ratio Sodium 141 (136-145) mmol/L Potassium 4.1 (3.5-5.1) mmol/L Chloride 106 (98-107) mmol/L Carbon Dioxide 29 (21-32) mmol/L Anion Gap 6 (3-11) BUN 18 (6-23) mg/dl Creatinine 0.93 (0.6-1.4) mg/dl Est Cr Clr Drug Dosing 78.4 ml/min Est GFR ( Amer) 88.3 ml/min Est GFR (Non-Af Amer) 76.2 ml/min BUN/Creatinine Ratio 19.4 (10-20) Glucose 81 (70-99(Fasting)) mg/dl Calcium 10.0 (8.5-10.1) mg/dl Magnesium 2.0 (1.7-2.4) mg/dl Total Bilirubin 0.5 (0.2-1.0) mg/dl AST 20 (13-39) U/L ALT 15 (7-52) U/L Alkaline Phosphatase 56 (34-104) U/L Troponin I < 0.03 (0-0.04) ng/ml Total Protein 7.2 (6.0-8.3) gm/dl Albumin 4.3 (3.4-5.0) gm/dl Globulin 2.9 (2.5-4.0) gm/dl Albumin/Globulin Ratio 1.5 (0.9-2) TSH (0.300-4.500) uIu/ml Urine Color Urine Appearance (Clear) Urine pH (4.5-7.5) Ur Specific [place] (1.000-1.030) Urine Protein (Negative) Urine Glucose (UA) (Negative) Urine Ketones (Negative) Urine Blood (Negative) Urine Nitrite (Negative) Urine Bilirubin (Negative) Urine Urobilinogen (Negative) Ur Leukocyte Esterase (Negative) SARS-CoV-2, RNA, NAAT (NEGATIVE) 05/15/21 05/15/21 05/15/21 Range/Units 14:29 14:29 16:50 WBC (4.8-10.8) K/uL RBC (4.7-6.1) M/uL Hgb (14.0-18.0) g/dL Hct (42-52) % MCV (80-100) fL MCH (25-34) pg MCHC (32-36) g/dL RDW Std Deviation (36.4-46.3) fL RDW Coeff of Efren (11.5-14.5) % Plt Count (130-400) K/uL MPV (7.4-10.4) fL Immature Gran % (Auto) % Neut % (Auto) % Lymph % (Auto) % Beaver % (Auto) % Eos % (Auto) % Baso % (Auto) % Neut # (Auto) (1.4-6.5) K/uL Lymph # (Auto) (1.2-3.4) K/uL Beaver # (Auto) (0.11-0.59) K/uL Eos # (Auto) (0-0.5) K/uL Baso # (Auto) (0-0.2) K/uL Immature Gran # (Auto) (0.00-0.02) K/uL PT 10.4 (9.0-12.0) Seconds INR 1.0 (0.9-1.1) APTT 28.1 (21.0-31.0) Seconds PTT Ratio 1.1 Sodium (136-145) mmol/L Potassium (3.5-5.1) mmol/L Chloride (98-107) mmol/L Carbon Dioxide (21-32) mmol/L Anion Gap (3-11) BUN (6-23) mg/dl Creatinine (0.6-1.4) mg/dl Est Cr Clr Drug Dosing ml/min Est GFR ( Amer) ml/min Est GFR (Non-Af Amer) ml/min BUN/Creatinine Ratio (10-20) Glucose (70-99(Fasting)) mg/dl Calcium (8.5-10.1) mg/dl Magnesium (1.7-2.4) mg/dl Total Bilirubin (0.2-1.0) mg/dl AST (13-39) U/L ALT (7-52) U/L Alkaline Phosphatase (34-104) U/L Troponin I (0-0.04) ng/ml Total Protein (6.0-8.3) gm/dl Albumin (3.4-5.0) gm/dl Globulin (2.5-4.0) gm/dl Albumin/Globulin Ratio (0.9-2) TSH 4.087 (0.300-4.500) uIu/ml Urine Color Urine Appearance (Clear) Urine pH (4.5-7.5) Ur Specific [place] (1.000-1.030) Urine Protein (Negative) Urine Glucose (UA) (Negative) Urine Ketones (Negative) Urine Blood (Negative) Urine Nitrite (Negative) Urine Bilirubin (Negative) Urine Urobilinogen (Negative) Ur Leukocyte Esterase (Negative) SARS-CoV-2, RNA, NAAT NEGATIVE (NEGATIVE) 05/15/21 Range/Units 17:57 WBC (4.8-10.8) K/uL RBC (4.7-6.1) M/uL Hgb (14.0-18.0) g/dL Hct (42-52) % MCV (80-100) fL MCH (25-34) pg MCHC (32-36) g/dL RDW Std Deviation (36.4-46.3) fL RDW Coeff of Efren (11.5-14.5) % Plt Count (130-400) K/uL MPV (7.4-10.4) fL Immature Gran % (Auto) % Neut % (Auto) % Lymph % (Auto) % Beaver % (Auto) % Eos % (Auto) % Baso % (Auto) % Neut # (Auto) (1.4-6.5) K/uL Lymph # (Auto) (1.2-3.4) K/uL Beaver # (Auto) (0.11-0.59) K/uL Eos # (Auto) (0-0.5) K/uL Baso # (Auto) (0-0.2) K/uL Immature Gran # (Auto) (0.00-0.02) K/uL PT (9.0-12.0) Seconds INR (0.9-1.1) APTT (21.0-31.0) Seconds PTT Ratio Sodium (136-145) mmol/L Potassium (3.5-5.1) mmol/L Chloride (98-107) mmol/L Carbon Dioxide (21-32) mmol/L Anion Gap (3-11) BUN (6-23) mg/dl Creatinine (0.6-1.4) mg/dl Est Cr Clr Drug Dosing ml/min Est GFR ( Amer) ml/min Est GFR (Non-Af Amer) ml/min BUN/Creatinine Ratio (10-20) Glucose (70-99(Fasting)) mg/dl Calcium (8.5-10.1) mg/dl Magnesium (1.7-2.4) mg/dl Total Bilirubin (0.2-1.0) mg/dl AST (13-39) U/L ALT (7-52) U/L Alkaline Phosphatase (34-104) U/L Troponin I (0-0.04) ng/ml Total Protein (6.0-8.3) gm/dl Albumin (3.4-5.0) gm/dl Globulin (2.5-4.0) gm/dl Albumin/Globulin Ratio (0.9-2) TSH (0.300-4.500) uIu/ml Urine Color Yellow Urine Appearance Clear (Clear) Urine pH 7.5 (4.5-7.5) Ur Specific [place] 1.031 H (1.000-1.030) Urine Protein Negative (Negative) Urine Glucose (UA) Negative (Negative) Urine Ketones Negative (Negative) Urine Blood Negative (Negative) Urine Nitrite Negative (Negative) Urine Bilirubin Negative (Negative) Urine Urobilinogen Negative (Negative) Ur Leukocyte Esterase Negative (Negative) SARS-CoV-2, RNA, NAAT (NEGATIVE) Administered Medications Discontinued Medications Ioversol (Optiray 320 125ml) 127 ml IV ONCE ONE Stop: 05/15/21 16:42 Last Admin: 05/15/21 16:42 Dose: 127 ml Documented by: [id number] Imaging Data Radiologist's Impression: Head CTA 05/15/21 15:58 CT angio head w con, CT head/brain wo con, CT angio neck with con CLINICAL HISTORY: stroke symptoms TECHNIQUE: Contiguous axial CT images of the head were acquired from the base of the skull to the vertex without intravenous contrast administration. CT angiography of the head and neck was performed following intravenous admini stration of iodinated contrast. Coronal and sagittal MIPS were obtained from the axial data set and were submitted for review. Automated dose lowering techniques and/or adjustment according to patient size were utilized for this examination. All measurements were calculated based on NASCET criteria. Comparison: None available at the time of this dictation. FINDINGS: CT head: There is no acute intracranial hemorrhage or evidence of acute territorial infarction. No shift of the midline structures, mass effect, or e xtra-axial abnormalities are shown. Mane cisterna magna is seen. 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 Bilateral maxillary and ethmoid sinus soft tissue thickening is seen. Lungs and soft tissues are unremarkable. CTA Neck: A 3 vessel aortic arch is shown. There is no significant atherosclerotic plaque in the aortic arch or the origins of the innominate, left common carotid, and left subclavian arteries. Bilateral atherosclerotic disease is seen in the carotid bulbs without hemodynamically significant stenosis. The left vertebral artery is dominant. CTA Head: The anterior and posterior cerebral circulations are patent. No hemodynamically significant stenosis, aneurysm, dissection, or arteriovenous malformation is shown. Atherosclerotic disease is noted. IMPRESSION: 1. No acute intracranial hemorrhage, evidence of acute territorial infarction, or other acute intracranial disease process. 2. No occlusion, hemodynamically significant stenosis, aneurysm, dissection, or arteriovenous malformation in the major intracranial arteries. 3. No occlusion, hemodynamically significant stenosis, or dissection in the major cervical arteries. Assessment of stenosis of the internal carotid arteries is based on NASCET criteria. ACT 112: Negative or not required by law. Electronically signed by: Anish Burton M.D. 05/15/2021 4:[address] 05/15/21 16:00 CT angio head w con, CT head/brain wo con, CT angio neck with con CLINICAL HISTORY: stroke symptoms TECHNIQUE: Contiguous axial CT images of the head were acquired from the base of the skull to the vertex without intravenous contrast administration. CT angiography of the head and neck was performed following intravenous administration of iodinated contrast. Coronal and sagittal MIPS were obtained from the axial data set and were submitted for review. Automated dose lowering techniques and/or adjustment according to patient size were utilized for this examination. All measurements were calculated based on NASCET criteria. Comparison: None available at the time of this dictation. FINDINGS: CT head: There is no acute intracranial hemorrhage or evidence of acute territorial infarction. No shift of the midline structures, mass effect, or extra-axial abnormalities are shown. Mane cisterna magna is seen. 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 Bilateral maxillary and ethmoid sinus soft tissue thickening is seen. Lungs and soft tissues are unremarkable. CTA Neck: A 3 vessel aortic arch is shown. There is no significant atherosclerotic plaque in the aortic arch or the origins of the innominate, left common carotid, and left subclavian arteries. Bilateral atherosclerotic disea se is seen in the carotid bulbs without hemodynamically significant stenosis. The left vertebral artery is dominant. CTA Head: The anterior and posterior cerebral circulations are patent. No hemodynamically significant stenosis, aneurysm, dissection, or arteriovenous malformation is shown. Atherosclerotic disease is noted. IMPRESSION: 1. No acute intracranial hemorrhage, evidence of acute territorial infarction, or other acute intracranial disease process. 2. No occlusion, hemodynamically significant stenosis, aneurysm, dissection, or arteriovenous malformation in the major intracranial arteries. 3. No occlusion, hemodynamically significant stenosis, or dissection in the major cervical arteries. Assessment of stenosis of the internal carotid arteries is based on NASCET criteria. ACT 112: Negative or not required by law. Electronically signed by: Anish Burton M.D. 05/15/2021 4:56 PM Neck CTA 05/15/21 16:00 CT angio head w con, CT head/brain wo con, CT angio neck with con CLINICAL HISTORY: stroke symptoms TECHNIQUE: Contiguous axial CT images of the head were acquired from the base of the skull to the vertex without intravenous contrast administration. CT angiography of the head and neck was performed following intravenous administration of iodinated contrast. Coronal and sagittal MIPS were obtained from the axial data set and were submitted for review. Automated dose lowering techniques and/or adjustment according to patient size were utilized for this examination. All measurements were calculated based on NASCET criteria. Comparison: None available at the time of this dictation. FINDINGS: CT head: There is no acute intracranial hemorrhage or evidence of acute territorial infarction. No shift of the midline structures, mass effect, or extra-axial abnormalities are shown. Mane cisterna magna is seen. 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 Bilateral maxillary and ethmoid sinus soft tissue thickening is seen. Lungs and soft tissues are unremarkable. CTA Neck: A 3 vessel aortic arch is shown. There is no significant ather osclerotic plaque in the aortic arch or the origins of the innominate, left common carotid, and left subclavian arteries. Bilateral atherosclerotic disease is seen in the carotid bulbs without hemodynamically significant stenosis. The left vertebral artery is dominant. CTA Head: The anterior and posterior cerebral circulations are patent. No hemodynamically significant stenosis, aneurysm, dissection, or arteriovenous malformation is shown. Atherosclerotic disease is noted. IMPRESSION: 1. No acute intracranial hemorrhage, evidence of acute territorial infarction, or other acute intracranial disease process. 2. No occlusion, hemodynamically significant stenosis, aneurysm, dissection, or arteriovenous malformation in the major intracranial arteries. 3. No occlusion, hemodynamically significant stenosis, or dissection in the major cervical arteries. Assessment of stenosis of the internal carotid arteries is based on NASCET criteria. ACT 112: Negative or not required by law. Electronically signed by: Anish Burton M.D. 05/15/2021 4:56 PM Discharge Plan Visit Data Chief Complaint: Neuro Symptoms/Deficit Stated Complaint: TINGLING AND NUMBNESS IN LEFT HAND AND FOOT ED Provider: Emmanuel East Discharge Problem: Left sided numbness, Hypertension, Impairment of balance Patient Disposition: Admitted As Inpatient Condition: Fair Discharge Instructions Interventions: ED Discharge Assessment Last Done: 05/15/21 20:15
[2021-05-15] MEDS ORDERED: OPTIRAY 320 125ml IV ONE (16:41)
--- NOTE | 2021-05-15 16:58 | CT Scan Report ---
CT angio head w con, CT head/brain wo con, CT angio neck with con CLINICAL HISTORY: stroke symptoms TECHNIQUE: Contiguous axial CT images of the head were acquired from the base of the skull to the johnson tressa without intravenous contrast administration. CT angiography of the head and neck was performed f ollowing intravenous administration of iodinated contrast. Coronal and sagittal MIPS were obtained fr om the axial data set and were submitted for review. Automated dose lowering techniques and/or adjus tment according to patient size were utilized for this examination. All measurements were calculated based on NASCET criteria. Comparison: None available at the time of this dictation. FINDINGS: CT head: There is no acute intracranial hemorrhage or evidence of acute territorial infarction. No sh ift of the midline structures, mass effect, or extra-axial abnormalities are shown. Mane cisterna mag na is seen. 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 Bilateral maxillary and ethmoid sinus soft tissue thickening is seen. Lungs and soft tissues are unremarkable. CTA Neck: A 3 vessel aortic arch is shown. There is no significant atherosclerotic plaque in the aor tic arch or the origins of the innominate, left common carotid, and left subclavian arteries. Bilat eral atherosclerotic disease is seen in the carotid bulbs without hemodynamically significant stenosi s. The left vertebral artery is dominant. CTA Head: The anterior and posterior cerebral circulations are patent. No hemodynamically significan t stenosis, aneurysm, dissection, or arteriovenous malformation is shown. Atherosclerotic disease is noted. IMPRESSION: 1. No acute intracranial hemorrhage, evidence of acute territorial infarction, or other acute intrac ranial disease process. 2. No occlusion, hemodynamically significant stenosis, aneurysm, dissection, or arteriovenous malfor mation in the major intracranial arteries. 3. No occlusion, hemodynamically significant stenosis, or dissection in the major cervical arteries. Assessment of stenosis of the internal carotid arteries is based on NASCET criteria. ACT 112: Negative or not required by law. Electronically signed by: Anish Burton M.D. 05/15/2021 4:56 PM
[2021-05-15 17:17] LABS: Partial Thromboplastin Ratio 1.1; Partial Thromboplastin Time 28.1 Seconds (21.0-31.0); Prothrombin Time 10.4 Seconds (9.0-12.0)
[2021-05-15 18:31] LABS: Appearance Urine Clear (Clear); Bilirubin Urine Negative (Negative); Blood Urine Negative (Negative); Color Urine Yellow; Glucose Urine UA Negative (Negative); Ketones Urine Negative (Negative); Leukocyte Esterase Urine Negative (Negative); Nitrite Urine Negative (Negative); Protein Urine Negative (Negative); Specific Gravity Urine 1.031 (1.000-1.030); Urobilinogen Urine Negative (Negative); pH Urine 7.5 (4.5-7.5)
--- NOTE | 2021-05-15 18:48 | History & Physical Report ---
Date of Service May 15, 2021 Assessment & Plan (1) Stroke-like symptoms: Plan: -Admit to telemetry -Patient presenting from home with reports of left fingers and left toes numbness x 3 days -In the ED, head CT, head and neck CTAs unremarkable for acute findings -Brain MRI, echo -Neurochecks -Check vitamin B12 and folate -Noted allergy to aspirin -Neurology consult, input appreciated (2) Hypertension: Plan: -BP mildly elevated, would allow for permissive HTN -continue amlodipine (3) BPH (benign prostatic hyperplasia): Plan: -Continue dutasteride (4) DVT prophylaxis: Plan: -SQ Lovenox History of Present Illness Chief Complaint: Left hand and left foot numbness Primary Care Provider: Dino Rajan MD 80-year-old male with PMH HTN, BPH, and other problems listed below who presents the ED for evaluation of left hand and left foot numbness. Patient reports symptoms began about 3 days ago. States that symptoms came on rather abruptly. Numbness and tingling seems to only involve the left fingers and left toes. Patient reports waxing and waning of the intensity of the numbness and tingling. Also reports some intermittent lip numbness and tingling. Denies weakness. No associated difficulty speaking or understanding. Patient denies facial droop. No headache or blurred vision. Patient denies any other recent illnesses, fevers, chills. Denies chest pain and shortness of breath. No lightheadedness, dizziness, diaphoresis, syncopal events. No urinary symptoms. In the ED, head CT, head and neck CTAs are unremarkable for acute findings. Patient is hemodynamically stable. Allergies Allergy/AdvReac Type Severity Reaction Status Date / Time lisinopril Allergy Severe UNKNOWN Verified 05/15/21 17:15 aspirin Allergy Mild DYSPHAGIA/TROUBLE Verified 05/15/21 17:15 STANDING STRAIGHT UP GLO Inhibitors Allergy Unknown ANGIOEDEMA/ Verified 05/15/21 17:15 MYLAGIAS Home Medications Medication Instructions Recorded Confirmed Type terazosin 10 mg capsule 10 mg PO PM #0 10/25/08 05/15/21 History amlodipine 5 mg tablet 5 mg PO PM #0 11/01/08 05/15/21 History cholecalciferol (vitamin D3) 50 50 mcg PO PM #0 12/04/15 05/15/21 History mcg (2,000 unit) tablet (Vitamin D3) colestipol 1 gram tablet 2 g PO DAILY 05/15/21 05/15/21 History dutasteride 0.5 mg capsule 0.5 mg PO QPM 05/15/21 05/15/21 History latanoprost 0.005 % eye drops 1 drp OPHTHALMIC (EYE) HS 05/15/21 05/15/21 History Past Med/Surg History Medical History BPH (benign prostatic hyperplasia) COVID-19 virus infection June 2020 Dermatitis, contact Disc herniation Glaucoma Hypertension Osteoarthritis Surgical History H/O hernia repair Family History Father Hypertension Mother Stroke Social History Smoking Status: Never smoker Tobacco Type: Cigarettes Hx Alcohol Use: No Preferred Language: Fijian Feels Safe at Home: Yes Review of Systems Review of Systems: ROS per HPI, all other systems reviewed and negative Physical Exam Physical Exam: Please refer to Dr. Menjivar's addendum for physical exam. Results & Data Results & Data ([facility]) Vital Signs (Past 12 Hours) Vital Signs Temp Pulse Pulse Resp BP BP Pulse Ox 05/15/21 17:00 75 18 162/79 H 96 05/15/21 15:52 61 18 178/81 H 96 05/15/21 13:44 37.0 C 82 18 149/87 H 95 Laboratory Results Short CBC 05/15/21 Range/Units 14:29 WBC 5.51 (4.8-10.8) K/uL Hgb 15.6 (14.0-18.0) g/dL Hct 45.1 (42-52) % Plt Count 163 (130-400) K/uL BMP 05/15/21 14:29 Sodium 141 Potassium 4.1 Chloride 106 Carbon Dioxide 29 BUN 18 Creatinine 0.93 Glucose 81 Calcium 10.0 Liver Function 05/15/21 Range/Units 14:29 Total Bilirubin 0.5 (0.2-1.0) mg/dl AST 20 (13-39) U/L ALT 15 (7-52) U/L Alkaline Phosphatase 56 (34-104) U/L Albumin 4.3 (3.4-5.0) gm/dl Urine 05/15/21 Range/Units 17:57 Urine Color Yellow Urine Appearance Clear (Clear) Urine pH 7.5 (4.5-7.5) Ur Specific [place] 1.031 H (1.000-1.030) Urine Protein Negative (Negative) Urine Glucose (UA) Negative (Negative) Diagnostic Findings Head CTA 05/15/21 15:58 CT angio head w con, CT head/brain wo con, CT angio neck with con CLINICAL HISTORY: stroke symptoms TECHNIQUE: Contiguous axial CT images of the head were acquired from the base of the skull to the vertex without intravenous contrast administration. CT angiography of the head and neck was performed following intravenous administration of iodinated contrast. Coronal and sagittal MIPS were obtained from the axial data set and were submitted for review. Automated dose lowering techniques and/or adjustment according to patient size were utilized for this examination. All measurements were calculated based on NASCET criteria. Comparison: None available at the time of this dictation. FINDINGS: CT head: There is no acute intracranial hemorrhage or evidence of acute territorial infarction. No shift of the midline structures, mass effect, or extra-axial abnormalities are shown. Mane cisterna magna is seen. 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 Bilateral maxillary and ethmoid sinus soft tissue thickening is seen. Lungs and soft tissues are unremarkable. CTA Neck: A 3 vessel aortic arch is shown. There is no significant atherosclerotic plaque in the aortic arch or the origins of the innominate, left common carotid, and left subclavian arteries. Bilateral atherosclerotic disease is seen in the carotid bulbs without hemodynamically significant stenosis. The left vertebral artery is dominant. CTA Head: The anterior and posterior cerebral circulations are patent. No hemodynamically significant stenosis, aneurysm, dissection, or arteriovenous malformation is shown. Atherosclerotic disease is noted. IMPRESSION: 1. No acute intracranial hemorrhage, evidence of acute territorial infarction, or other acute intracranial disease process. 2. No occlusion, hemodynamically significant stenosis, aneurysm, dissection, or arteriovenous malformation in the major intracranial arteries. 3. No occlusion, hemodynamically significant stenosis, or dissection in the major cervical arteries. Assessment of stenosis of the internal carotid arteries is based on NASCET criteria. ACT 112: Negative or not required by law. Electronically signed by: Anish Burton M.D. 05/15/2021 4:[address] 05/15/21 16:00 CT angio head w con, CT head/brain wo con, CT angio neck with con CLINICAL HISTORY: stroke symptoms TECHNIQUE: Contiguous axial CT images of the head were acquired from the base of the skull to the vertex without intravenous contrast administration. CT angiography of the head and neck was performed following intravenous administration of iodinated contrast. Coronal and sagittal MIPS were obtained from the axial data set and were submitted for review. Automated dose lowering techniques and/or adjustment according to patient size were utilized for this examination. All measurements were calculated based on NASCET criteria. Comparison: None available at the time of this dictation. FINDINGS: CT head: There is no acute intracranial hemorrhage or evidence of acute territorial infarction. No shift of the midline structures, mass effect, or extra-axial abnormalities are shown. Mane cisterna magna is seen. Encephalomalac ia is seen in the right occipital lobe likely representing chronic infarct. Bilateral maxillary and ethmoid sinus soft tissue thickening is seen. Lungs and soft tissues are unremarkable. CTA Neck: A 3 vessel aortic arch is shown. There is no significant atherosclerotic plaque in the aortic arch or the origins of the innominate, left common carotid, and left subclavian arteries. Bilateral atherosclerotic disease is seen in the carotid bulbs without hemodynamically significant stenosis. The left vertebral artery is dominant. CTA Head: The anterior and posterior cerebral circulations are patent. No hemodynamically significant stenosis, aneurysm, dissection, or arteriovenous malformation is shown. Atherosclerotic disease is noted. IMPRESSION: 1. No acute intracranial hemorrhage, evidence of acute territorial infarction, or other acute intracranial disease process. 2. No occlusion, hemodynamically significant stenosis, aneurysm, dissection, or arteriovenous malformation in the major intracranial arteries. 3. No occlusion, hemodynamically significant stenosis, or dissection in the major cervical arteries. Assessment of stenosis of the internal carotid arteries is based on NASCET criteria. ACT 112: Negative or not required by law. Electronically signed by: Anish Burton M.D. 05/15/2021 4:56 PM Neck CTA 05/15/21 16:00 CT angio head w con, CT head/brain wo con, CT angio neck with con CLINICAL HISTORY: stroke symptoms TECHNIQUE: Contiguous axial CT images of the head were acquired from the base of the skull to the vertex without intravenous contrast administration. CT angiography of the head and neck was performed following intravenous administration of iodinated contrast. Coronal and sagittal MIPS were obtained from the axial data set and were submitted for review. Automated dose lowering techniques and/or adjustment according to patient size were utilized for this examination. All measurements were calculated based on NASCET criteria. Comparison: None available at the time of this dictation. FINDINGS: CT head: There is no acute intracranial hemorrhage or evidence of acute territorial infarction. No shift of the midline structures, mass effect, or extra-axial abnormalities are shown. Mane cisterna magna is seen. 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 Bilateral maxillary and ethmoid sinus soft tissue thickening is seen. Lungs and soft tissues are unremarkable. CTA Neck: A 3 vessel aortic arch is shown. There is no significant ather osclerotic plaque in the aortic arch or the origins of the innominate, left common carotid, and left subclavian arteries. Bilateral atherosclerotic disease is seen in the carotid bulbs without hemodynamically significant stenosis. The left vertebral artery is dominant. CTA Head: The anterior and posterior cerebral circulations are patent. No hemodynamically significant stenosis, aneurysm, dissection, or arteriovenous malformation is shown. Atherosclerotic disease is noted. IMPRESSION: 1. No acute intracranial hemorrhage, evidence of acute territorial infarction, or other acute intracranial disease process. 2. No occlusion, hemodynamically significant stenosis, aneurysm, dissection, or arteriovenous malformation in the major intracranial arteries. 3. No occlusion, hemodynamically significant stenosis, or dissection in the major cervical arteries. Assessment of stenosis of the internal carotid arteries is based on NASCET criteria. ACT 112: Negative or not required by law. Electronically signed by: Anish Burton M.D. 05/15/2021 4:56 PM Code Status & VTE Plan Code Status Patient is a full code as per Dr. Menjivar's discussion with him. VTE Prophylaxis Plan VTE Prophylaxis will be ordered: Yes Supervising Physician Co-Signing Physician Notes Pt is a 80 M with hx of HTn, BPH, IBS, Insomnia, DJD admitted for acute onset of numbness/tingling on the L fingers, toes and lower L lip. -denied any extremity weakness, slur speech, blurry vision, facial droop or joint swelling -Denied any fever, rash or acute GI symptoms PE: NAD, well developed Cardiac: Normal S1/S2, no murmur Lungs: CTA, no wheezing, or crackles Abd: ND, NT, normal BS MSK: no LE edema Neuro: CN II-XII intact, normal motor strength, intact sensation, EOMI, and PERRLA Psych: AAOx3, normal Affect A/p Paresthesia: -2/2 TIA/CVA vs peripheral neuropathy vs vit def -CTA head/neck and CT head: no acute finding & no significant stenosis - normal neuro exam -will get echo, MRI brain, b12 and folate level and admit to tele - will get B12 and folate - pt is allergic to aspirin (likely SE than allergic reaction) HTN and BPH: -c/w home meds Agree with A/P by MERLIN Fatima (1) BPH (benign prostatic hyperplasia) Lower urinary tract symptom presence: unspecified whether lower urinary tract symptoms present Qualified Code(s): N40.0 - Benign prostatic hyperplasia without lower urinary tract symptoms
[2021-05-15] MEDS ORDERED: ACETAMINOPHEN 325 MG TAB PO PRN (20:20)
[2021-05-15] MEDS ORDERED: PHARMACIST DISCHARGE MED REC CONSULT PRN (20:20)
[2021-05-15 20:27] LABS: Troponin I < 0.03 ng/ml (0-0.04)
[2021-05-15 20:48] LABS: Folate (Folic Acid) 11.81 ng/ml (>5.38)
[2021-05-15] MEDS: amLODIPine BESYLATE 5 MG TAB PO SCH (22:07)
[2021-05-15] MEDS: TERAZOSIN HCL 5 MG CAP PO SCH (22:08)
[2021-05-15] MEDS: LATANOPROST 0.005% OP SOLN 2.5 ML BTL OP SCH (22:08)
[2021-05-15] MEDS: ENOXAPARIN INJ 40 MG/0.4 ML SYR SQ SCH (22:08)
[2021-05-15] MEDS ORDERED: LORazepam 0.25 MG/0.5 ML VIAL IV PRN (23:06)
[2021-05-16 05:20] LABS: Basophils # (auto) 0.07 K/uL (0-0.2); Basophils % (auto) 1.1 %; Eosinophils # (auto) 0.33 K/uL (0-0.5); Eosinophils % (auto) 5.2 %; Hematocrit (blood only) 42.6 % (42-52); Hemoglobin 14.5 g/dL (14.0-18.0); Immature Granulocytes # (auto) 0.01 K/uL (0.00-0.02); Immature Granulocytes % (auto) 0.2 %; Lymphocytes # (auto) 2.03 K/uL (1.2-3.4); Lymphocytes % (auto) 32.3 %; Mean Corpuscular Hemoglobin 32.2 pg (25-34); Mean Corpuscular Volume 94.5 fL (80-100); Mean Platelet Volume 10.4 fL (7.4-10.4); Monocytes # (auto) 0.81 K/uL (0.11-0.59); Monocytes % (auto) 12.9 %; Neutrophils # (auto) 3.04 K/uL (1.4-6.5); Neutrophils % (auto) 48.3 %; Platelet Count 167 K/uL (130-400); RDW Coefficient of Variation 13.1 % (11.5-14.5); RDW Standard Deviation 45.4 fL (36.4-46.3); Red Blood Count 4.51 M/uL (4.7-6.1); White Blood Count 6.29 K/uL (4.8-10.8)
[2021-05-16 05:46] LABS: BUN Creatinine Ratio 19.8 (10-20); Chol HDL Ratio 4.6 (0-5); Creatinine Clr Calc Pharmacy 84.8 ml/min; Est GFR (African American) 93.6 ml/min; Est GFR (Non-African American) 80.8 ml/min; Potassium 3.5 mmol/L (3.5-5.1)
[2021-05-16 07:12] LABS: Estimated Average Glucose 117 mg/dl; Hemoglobin A1C 5.7 % (4.5-5.6)
--- NOTE | 2021-05-16 07:26 | Magnetic Resonance Report ---
MRI OF THE BRAIN WITHOUT IV CONTRAST CLINICAL HISTORY: Strokelike symptoms. COMPARISON STUDY: CT of the brain dated 05/15/2021. TECHNIQUE: MRI of the brain was performed utilizing various T1 and T2-weighted sequences in the axial , sagittal, and coronal planes. IV contrast was not administered for this examination. FINDINGS: Brain parenchyma: There is an approximately 5 cm focus of restricted diffusion identified in the righ t occipital lobe. There is also restricted a large region of restricted diffusion the right subinsula r cortex, as well as small foci of restricted diffusion the right thalamus. This is consistent with a cute to subacute ischemia. There is age-related involutional change noting mild subcortical and periv entricular microangiopathic disease. No additional foci of restricted diffusion are identified. There is no hemorrhage or midline shift. No extra-axial fluid collection is seen. The cerebellar tonsils are normal in configuration. Ventricles, sulci, and cisterns: Prominent secondary to involutional change. Pituitary and sella: Unremarkable. Intracranial vasculature: Normal flow voids are maintained at the skull base. Orbits: The bony orbits are grossly intact. Orbital contents are normal in appearance. Sinuses and mastoids: There is evidence of previous paranasal sinus surgery. There is mild mucosal th ickening within the maxillary antra with a small air-fluid level on the right. There is also trace fl uid in the right sphenoid sinus. Mild mucosal thickening is also noted in the ethmoid sinuses. The ma stoid air cells are well pneumatized. Calvarium: Unremarkable. Cervical cord: Partially visualized cervical spinal cord is normal in morphology and signal intensity . IMPRESSION: 1. There is a large acute to subacute infarct of the right posterior cerebral artery territory as det shirin above. 2. There is no hemorrhage or mass effect. 3. No additional foci of acute ischemia are identified. ACT 112: Negative or not required by law. Electronically signed by: Emmanuel Beltran M.D. 05/16/2021 7:25 AM
[2021-05-16] MEDS: COLESTIPOL HCL 1 GM TAB PO SCH (12:00)
--- NOTE | 2021-05-16 12:39 | Neurology Consultation ---
Date of Consultation May 16, 2021 Assessment & Plan (1) CVA (cerebral vascular accident): 1. plavix 75 mg and aspirin 81 mg for 21 days then aspirin for life 2. optimize HTN, HLD, DM LDL <70 3. PT/OT - for discharge needs 4. covid + continue isolation 5. monitor for a fib and will need a ZIO as outpatient if not seen inpateint follow up in 4-6 weeks with Nani Turner PAC schedule (2) Left sided numbness: 1. stroke likely a 48 hours duration involving the left cerebellar hemisphere but with scattered probable embolic events in the posterior circulation including probable sensory fibers in the internal capsule which may explain the current set of symptoms He is fortunate in that he has no significant cerebellar hemispheric findings on exam This point the CT angiographic studies have shown no clear evidence for atheromatous involving the left vertebral artery or the basilar artery and an echocardiogram is pending, and EKG has shown no evidence for arrhythmias so we really have no evidence to suggest an embolic source other than to postulate potential paroxysmal atrial fibrillation He claims an aspirin allergy although the history surrounding this is very unusual. I would therefore simply place him on Plavix 75 mg daily and we will review the results of the echocardiogram etc. He has been seen by physical therapy and if he is certainly capable of safe ambulation and demonstrates no other significant neurologic deficits and he probably can go home on the Plavix with follow-up in our office for placement of a Zio patch We will check back tomorrow Jonnathan Thao MD Supervising Physician Co-Signing Physician Notes I have seen and discussed above patient with Dr Jonnathan Thao, neurology See above notes Jonnathan Thao MD History of Present Illness Reason for Consultation: stroke like symptoms Requesting Physician: Hever Putnam MD Attending Physician: Hever Putnam MD History of Present Illness Oliverio is a 80 year old male with PMH- HTN, BPH who presented to [facility] ED for evaluation of left hand and left foot numbness.Symptoms began about 3 days ago on was rather abrupt. Numbness and tingling seems to only involve the left fingers and left toes. There was waxing and waning of the intensity of the numbness and tingling.There was some intermittent lip numbness and tingling. tested covid + Allergies Allergy/AdvReac Type Severity Reaction Status Date / Time lisinopril Allergy Severe UNKNOWN Verified 05/15/21 17:15 aspirin Allergy Mild DYSPHAGIA/TROUBLE Verified 05/15/21 17:15 STANDING STRAIGHT UP GLO Inhibitors Allergy Unknown ANGIOEDEMA/ Verified 05/15/21 17:15 MYLAGIAS Home Medications Medication Instructions Recorded Confirmed Type terazosin 10 mg capsule 10 mg PO PM #0 10/25/08 05/15/21 History amlodipine 5 mg tablet 5 mg PO PM #0 11/01/08 05/15/21 History cholecalciferol (vitamin D3) 50 50 mcg PO PM #0 12/04/15 05/15/21 History mcg (2,000 unit) tablet (Vitamin D3) colestipol 1 gram tablet 2 g PO DAILY 05/15/21 05/15/21 History dutasteride 0.5 mg capsule 0.5 mg PO QPM 05/15/21 05/15/21 History latanoprost 0.005 % eye drops 1 drp OPHTHALMIC (EYE) HS 05/15/21 05/15/21 History Patient History Medical History BPH (benign prostatic hyperplasia) COVID-19 virus infection June 2020 Dermatitis, contact Disc herniation Glaucoma Hypertension Osteoarthritis Surgical History H/O hernia repair Family History Father Hypertension Mother Stroke Social History Smoking Status: Never smoker Tobacco Type: Cigarettes Second Hand Exposure: No; Do You Dip or Chew Tobacco: No; Hx Alcohol Use: No Hx Substance Use: No Preferred Language: Ugandan Communication Ability: Effective Psychopaedic Nurse Required: No Beliefs That Will Affect Care: None marital status: Unknown Current Living Situation: Family Current Living Situation Comment: Lives with son Feels Safe at Home: Yes Safety Concerns: Feels Safe At This Time Assistive Devices: Cane and Walker Review of Systems Review of Systems: He denies any palpitations prior events of a similar nature involving sensory loss in the left arm and leg but does admit to having has some problems with equilibrium and balance for years and tells me the current symptoms actually began about 2 days ago with the numbness and he thinks there may have been slightly more tendency for him to stagger to the left but not real marked nature The rest of his review of systems reveals no systemic complaints no new issues referable to HEENT, cardiovascular pulmonary gastrointestinal genitourinary musculoskeletal dermatologic or hematologic systems otherwise Physical Exam Physical Exam: Blood pressure is 143/71 pulse is 62 and regular respirations are 16 he has an oxygen saturation 96% on room air He is awake alert oriented in 3 spheres quite pleasant cooperative with nondysarthric speech normal eye movements no loss of facial sensation no facial asymmetry. Despite the presence of a cerebellar infarct on the left there is no clear cerebellar dysmetria on finger-nose [id number] testing with the left arm, no drift or pronation sign no tremor tics or choreiform activity reflexes are 1+ symmetrical toes downgoing no Andreina signs are seen. Sensory examinat ion is intact to light touch proprioception temperature pinprick and vibration. Results & Data ([facility]) Vital Signs (Past 12 Hours) Vital Signs Pulse Resp BP Pulse Ox 05/16/21 09:00 88 20 131/72 95 05/16/21 01:14 82 16 123/71 95 Laboratory Results Abnormal lab results 05/15/21 05/15/21 05/16/21 Range/Units 14:29 17:57 04:31 RBC 4.51 L (4.7-6.1) M/uL MPV 10.7 H (7.4-10.4) fL [place] # (Auto) 0.65 H 0.81 H (0.11-0.59) K/uL Hemoglobin A1c (4.5-5.6) % Triglycerides (0-150) mg/dl VLDL Cholesterol, Calc (0-30) mg/dl Ur Specific [place] 1.031 H (1.000-1.030) 05/16/21 05/16/21 Range/Units 04:31 04:31 RBC (4.7-6.1) M/uL MPV (7.4-10.4) fL [place] # (Auto) (0.11-0.59) K/uL Hemoglobin A1c 5.7 H (4.5-5.6) % Triglycerides 158 H (0-150) mg/dl VLDL Cholesterol, Calc 32 H (0-30) mg/dl Ur Specific [place] (1.000-1.030) Diagnostic Findings CTA head/neck-No acute intracranial hemorrhage, evidence of acute territorial infarction, or other acute intracranial disease process. No occlusion, hemodynamically significant stenosis, aneurysm, dissection, or arteriovenous malformation in the major intracranial arteries. No occlusion, hemodynamically significant stenosis, or dissection in the major cervical arteries. MRI brain-There is a large acute to subacute infarct of the right posterior cerebral artery territory as detailed above. . There is no hemorrhage or mass effect. . No additional foci of acute ischemia are identified.
--- NOTE | 2021-05-16 15:48 | Electrocardiogram Report ---
Test Reason : Blood Pressure : / mmHG Vent. Rate : 060 BPM Atrial Rate : 060 BPM P-R Int : 170 ms QRS Dur : 100 ms QT Int : 412 ms P-R-T Axes : -22 -18 011 degrees QTc Int : 412 ms Poor data quality, interpretation may be adversely affected Sinus rhythm with occasional Premature ventricular complexes Minimal voltage criteria for LVH, may be normal variant Borderline ECG When compared with ECG of 29-JUL-2020 11:18, Premature ventricular complexes are now Present Confirmed by Garrett Coronado ([id number]) on 05/16/2021 3:48:13 PM Referred By: REFERRED SELF Confirmed By:Eliu Coronado
--- NOTE | 2021-05-16 19:45 | Hospitalist Progress Note ---
Date of Service May 16, 2021 Assessment & Plan (1) CVA (cerebral vascular accident): (2) Left sided numbness: Plan: (1) Stroke Plan: -Admitted to telemetry -Patient presenting from home with reports of left fingers and left toes num bness x 3 days [employer] -In the ED, head CT, head and neck CTAs unremarkable for acute findings -Brain MRI - large acute to subacute infarct of the right posterior cerebral artery territory -Echo: Grade 1 diastolic dysfunction, EF 60 to 65%, PFO not assessed. -Neurochecks -Neurology on board, recommendations appreciated. -A1c 5.7, LDL 132, will start him on Lipitor low-dose, will need outpatient follow-up to achieve a goal of LDL less than 70. -We will need Zio patch as OP to rule out arrhythmia/A. fib. (2) Hypertension: Plan: -BP mildly elevated, -continue amlodipine (3) BPH (benign prostatic hyperplasia): Plan: -Continue dutasteride (4) DVT prophylaxis: Plan: -SQ Lovenox Admission and Anticipated Discharge Date Admission Date: May 15, 2021 Subjective Patient seen and examined at bedside for stroke x left-sided. Patient was lying in bed, on room air, NAD, no new acute events overnight. Patient reports numbness in his left hand getting better. Patient denies any fever/headache/chills/chest pain/palpitation/other review of symptoms. Physical Exam Physical Exam: GENERAL: Alert and oriented x3. NAD, on RA. HEENT: No pallor, no icterus. Pupils equal, round and reactive to light. Oral mucosa moist. NECK: No JVD, no neck masses. HEART: S1 and S2 heard. Regular rate and rhythm. No murmur, no gallop. RESPIRATORY SYSTEM: Normal AP diameter. No accessory muscle use. No wheezing, no crackles. ABDOMEN: Soft, bowel sounds present, nontender, no distention. CENTRAL NERVOUS SYSTEM: No facial droop. Speech is clear. Obeys simple commands. Moves extremities. EXTREMITIES: No edema, no erythema seen. Results & Data Results & Data ([facility]) Vital Signs (Past 12 Hours) Vital Signs Pulse Resp BP Pulse Ox Pulse Ox 05/16/21 16:00 67 16 143/77 H 96 05/16/21 14:00 62 16 143/71 H 96 05/16/21 12:56 97 05/16/21 09:00 88 20 131/72 95
[2021-05-16] MEDS ORDERED: MELATONIN 3 MG TAB PO PRN (20:41)
[2021-05-16] MEDS: TERAZOSIN HCL 5 MG CAP PO SCH (20:41)
[2021-05-16] MEDS: ENOXAPARIN INJ 40 MG/0.4 ML SYR SQ SCH (20:41)
[2021-05-16] MEDS: LATANOPROST 0.005% OP SOLN 2.5 ML BTL OP SCH (20:42)
[2021-05-16] MEDS: CLOPIDOGREL BISULFATE 75 MG TAB PO SCH (20:42)
[2021-05-16] MEDS: amLODIPine BESYLATE 5 MG TAB PO SCH (20:42)
[2021-05-16] MEDS ORDERED: ATORVASTATIN 20 MG TAB PO SCH (21:00)
[2021-05-17 05:47] LABS: Basophils # (auto) 0.06 K/uL (0-0.2); Basophils % (auto) 1.1 %; Eosinophils # (auto) 0.28 K/uL (0-0.5); Hematocrit (blood only) 43.6 % (42-52); Hemoglobin 15.2 g/dL (14.0-18.0); Immature Granulocytes # (auto) 0.01 K/uL (0.00-0.02); Immature Granulocytes % (auto) 0.2 %; Lymphocytes # (auto) 1.85 K/uL (1.2-3.4); Mean Corpuscular Hemoglobin 32.8 pg (25-34); Mean Corpuscular Hgb Conc 34.9 g/dL (32-36); Mean Platelet Volume 10.7 fL (7.4-10.4); Monocytes # (auto) 0.66 K/uL (0.11-0.59); Monocytes % (auto) 11.8 %; Neutrophils # (auto) 2.74 K/uL (1.4-6.5); Neutrophils % (auto) 48.9 %; Platelet Count 155 K/uL (130-400); RDW Coefficient of Variation 13.2 % (11.5-14.5); RDW Standard Deviation 45.5 fL (36.4-46.3); Red Blood Count 4.64 M/uL (4.7-6.1)
[2021-05-17 06:04] LABS: BUN Creatinine Ratio 23.1 (10-20); Calcium 8.9 mg/dl (8.5-10.1); Creatinine Clr Calc Pharmacy 67.5 ml/min; Est GFR (African American) 73.7 ml/min; Est GFR (Non-African American) 63.6 ml/min; Potassium 3.9 mmol/L (3.5-5.1)
[2021-05-17] MEDS: CLOPIDOGREL BISULFATE 75 MG TAB PO SCH (08:04)
[2021-05-17] MEDS: COLESTIPOL HCL 1 GM TAB PO SCH (11:16)
[2021-05-17] MEDS ORDERED: STROKE PATIENT DISCHARGE STA (13:04)
--- NOTE | 2021-05-17 13:52 | Pharmacy Report ---
Pharmacist Stroke Counseling - Date of Service May 17, 2021 - Scope: Pharmacy has been consulted to provide medication discharge counseling for this patient admitted with ischemic stroke as per the Pharmacist Discharge Counseling for Stroke Patients Protocol. - Medications on Discharge: Home Medications Medication Instructions Recorded Confirmed terazosin 10 mg capsule 10 mg PO PM #0 10/25/08 05/15/21 amlodipine 5 mg tablet 5 mg PO PM #0 11/01/08 05/15/21 cholecalciferol (vitamin D3) 50 50 mcg PO PM #0 12/04/15 05/15/21 mcg (2,000 unit) tablet (Vitamin D3) colestipol 1 gram tablet 2 g PO DAILY 05/15/21 05/15/21 dutasteride 0.5 mg capsule 0.5 mg PO QPM 05/15/21 05/15/21 latanoprost 0.005 % eye drops 1 drp OPHTHALMIC (EYE) HS 05/15/21 05/15/21 New Rx's Medication Instructions Recorded atorvastatin 20 mg tablet 20 mg PO HS #30 tab 05/17/21 clopidogrel 75 mg tablet 75 mg PO QAM #30 tab 05/17/21 - Action: The above medications, specifically ones for stroke treatment/prophylaxis, have been reviewed in detail with the patient and/or patient livestock sales representative(s) prior to discharge. This includes indication, common adverse reactions, drug interactions, and medication administration. Medication counseling has been employed using the teach-back method to ensure understanding. - Outcome: The patient and/or patient livestock sales representative(s) have demonstrated understanding of the medications. Thank you for allowing pharmacy to be involved in the care of this patient. Please call [phone] with any additional questions
--- NOTE | 2021-05-17 18:04 | Discharge Summary ---
Date of Service May 17, 2021 Admission HPI Per Admitting Provider 80-year-old male with PMH HTN, BPH, and other problems listed below who presents the ED for evaluation of left hand and left foot numbness. Patient reports symptoms began about 3 days ago. States that symptoms came on rather abruptly. Numbness and tingling seems to only involve the left fingers and left toes. Patient reports waxing and waning of the intensity of the numbness and tingling. Also reports some intermittent lip numbness and tingling. Denies weakness. No associated difficulty speaking or understanding. Patient denies facial droop. No headache or blurred vision. Patient denies any other recent illnesses, fevers, chills. Denies chest pain and shortness of breath. No lightheadedness, dizziness, diaphoresis, syncopal events. No urinary symptoms. In the ED, head CT, head and neck CTAs are unremarkable for acute findings. Patient is hemodynamically stable. Admission Exam Per Admitting Provider NAD, well developed Cardiac: Normal S1/S2, no murmur Lungs: CTA, no wheezing, or crackles Abd: ND, NT, normal BS MSK: no LE edema Neuro: CN II-XII intact, normal motor strength, intact sensation, EOMI, and PE RRLA Psych: AAOx3, normal Affect Principal Diagnosis Right posterior cerebral artery territory stroke - Large Discharge Exam GENERAL: Alert and oriented x3. NAD, on RA. HEENT: No pallor, no icterus. Pupils equal, round and reactive to light. Oral mucosa moist. NECK: No JVD, no neck masses. HEART: S1 and S2 heard. Regular rate and rhythm. No murmur, no gallop. RESPIRATORY SYSTEM: Normal AP diameter. No accessory muscle use. No wheezing, no crackles. ABDOMEN: Soft, bowel sounds present, nontender, no distention. CENTRAL NERVOUS SYSTEM: No facial droop. Speech is clear. Obeys simple commands. Moves extremities. EXTREMITIES: No edema, no erythema seen. Discharge Data Allergies Allergy/AdvReac Type Severity Reaction Status Date / Time lisinopril Allergy Severe UNKNOWN Verified 05/15/21 17:15 aspirin Allergy Mild DYSPHAGIA/TROUBLE Verified 05/15/21 17:15 STANDING STRAIGHT UP GLO Inhibitors Allergy Unknown ANGIOEDEMA/ Verified 05/15/21 17:15 MYLAGIAS Consultations 05/15/21 17:24 ED Decision to Admit Stat 05/15/21 20:20 Consult Neurology Routine Ordered Studies 05/15/21 15:58 CT angio head w con Stat 05/15/21 16:00 CT angio neck with con Stat CT head/brain wo con Stat 05/15/21 20:20 MR brain wo con Routine Hospital Course (1) CVA (cerebral vascular accident): (2) Left sided numbness: (1) Stroke Plan: -Admitted to telemetry -Patient presenting from home with reports of left fingers and left toes numbness x 3 days [employer] -In the ED, head CT, head and neck CTAs unremarkable for acute findings -Brain MRI - large acute to subacute infarct of the right posterior cerebral artery territory -Echo: Grade 1 diastolic dysfunction, EF 60 to 65%, PFO not assessed. -Neurochecks, patient reporting improvement in his tingling sensation. -Neurology on board, recommendations appreciated. -A1c 5.7, LDL 132, started him on Lipitor low-dose, will need outpatient follow- up to achieve a goal of LDL less than 70. Also needs outpatient LFT. Patient made aware. -We will need Zio patch as OP to rule out arrhythmia/A. fib. Neurology clinic is setting this up. (2) Hypertension: Plan: -BP mildly elevated, -continue amlodipine (3) BPH (benign prostatic hyperplasia): Plan: -Continue dutasteride (4) DVT prophylaxis: Plan: -SQ Lovenox Patient is being discharged to home with prescription for outpatient physical therapy [patient denied home health PT services recommended by inpatient PT] with following instruction at the point of discharge: Follow-up with your primary care physician within a week time. Follow-up with neurology office for placement of a Zio patch in the next few days. Follow-up with neurology office in 4 to 6 weeks as a follow-up of your stroke. You have been started on Plavix [as you have allergy to aspirin] only, continue with Plavix. You have been started on Lipitor at a small dose, you will need optimization of your statin therapy as an outpatient. Follow-up with your primary care physician for periodic lipid level check up in your need liver function test as an outpatient down the road as discussed at the bedside. Per shoe caser, you opted for physical therapy as an outpatient rather than home health physical therapy, you will be provided with a prescription for outpatient physical therapy. Recommend physical therapy. Take medications as prescribed. Risk Factors for Stroke: You can reduce your chances of stroke by working with your medical provider to adopt a healthy lifestyle. Some specific ways to lower your chance of stroke are: * If you are a smoker, now is the time to stop smoking cigarettes * If you are diabetic, improve the control of your blood sugars * Avoid excessive amounts of alcohol * Control high blood pressure * Lose weight if you are overweight * Be sure to lead an active lifestyle * Eat a healthy diet low in salt, cholesterol and fat You should know about other risk factors for stroke that you are unable to control. These include: * Age 55 years or older * Male gender * Certain racial groups: , or / * Family History of Stroke, Mini stroke or Heart Attack * Sickle Cell Disease Follow Up: It is important for you to keep your follow up appointments with your medical provider. Who to Call and When: Medical Emergencies: Call 911 immediately if you experience any of the following warning signs and symptoms of Stroke: * Sudden numbness or weakness of the face, arm or leg, especially on one side of the body * Sudden confusion, trouble speaking or understanding * Sudden trouble seeing in one or both eyes * Sudden trouble walking, dizziness, loss of balance or coordination * Sudden severe headache with no cause Do not delay calling 911 if you experience any warning signs or symptoms of a stroke. Delay in seeking medical attention may affect what treatments can be given to you. . Total Time Total Time Spent Total Time Spent (In Minutes): 40 Discharge Plan Discharge Items Patient Disposition: Home - Self-Care Reason For Visit: STROKE LIKE SYMPTOMS Discharge Diagnosis: Right posterior cerebral artery territory stroke - Large Condition on Discharge: Fair Activity: Resume your previous activity Non-emergency contact: Primary Care Provider Call non-emergency contact if: you have any medication questions, your symptoms worsen and your temperature is above 101 Follow-up/Referrals: Nani Turner PA-C [Physician Slot Editor] - (Date & Time 06/14/2021 11:20 AM Provider Nani Turner PA-C Department Neurology [facility] ) Dino Rajan MD [Primary Care Provider] - (Date & Time 05/22/2021 11:20 AM Provider Dino Rajan MD Department [facility] ) Diet: Heart Healthy Add Attending Provider Instructions: Follow-up with your primary care physician within a week time. Follow-up with neurology office for placement of a Zio patch in the next few days. Follow-up with neurology office in 4 to 6 weeks as a follow-up of your stroke. You have been started on Plavix [as you have allergy to aspirin] only, continue with Plavix. You have been started on Lipitor at a small dose, you will need optimization of your statin therapy as an outpatient. Follow-up with your primary care physician for periodic lipid level check up in your need liver function test as an outpatient down the road as discussed at the bedside. Per shoe caser, you opted for physical therapy as an outpatient rather than home health physical therapy, you will be provided with a prescription for outpatient physical therapy. Recommend physical therapy. Take medications as prescribed. Risk Factors for Stroke: You can reduce your chances of stroke by working with your medical provider to adopt a healthy lifestyle. Some specific ways to lower your chance of stroke are: * If you are a smoker, now is the time to stop smoking cigarettes * If you are diabetic, improve the control of your blood sugars * Avoid excessive amounts of alcohol * Control high blood pressure * Lose weight if you are overweight * Be sure to lead an active lifestyle * Eat a healthy diet low in salt, cholesterol and fat You should know about other risk factors for stroke that you are unable to control. These include: * Age 55 years or older * Male gender * Certain racial groups: , or / * Family History of Stroke, Mini stroke or Heart Attack * Sickle Cell Disease Follow Up: It is important for you to keep your follow up appointments with your medical provider. Who to Call and When: Medical Emergencies: Call 911 immediately if you experience any of the following warning signs and symptoms of Stroke: * Sudden numbness or weakness of the face, arm or leg, especially on one side of the body * Sudden confusion, trouble speaking or understanding * Sudden trouble seeing in one or both eyes * Sudden trouble walking, dizziness, loss of balance or coordination * Sudden severe headache with no cause Do not delay calling 911 if you experience any warning signs or symptoms of a stroke. Delay in seeking medical attention may affect what treatments can be given to you. . Pending Studies at Discharge: No Stand-Alone Forms: Medications to Prevent Stroke, My [facility], Smoking Cessation Medications and DC Order Prescriptions: New clopidogrel 75 mg Tablet 75 mg PO QAM Qty: 30 RF: 0 atorvastatin 20 mg Tablet 20 mg PO HS Qty: 30 RF: 0 Continued terazosin 10 mg Capsule 10 mg PO PM Qty: 0 RF: 0 amlodipine 5 mg Tablet 5 mg PO PM Qty: 0 RF: 0 cholecalciferol (vitamin D3) [Vitamin D3] 50 mcg (2,000 unit) Tablet 50 mcg PO PM Qty: 0 RF: 0 dutasteride 0.5 mg capsule 0.5 mg PO QPM RF: 0 latanoprost 0.005 % drops 1 drp ophthalmic (eye) HS RF: 0 colestipol 1 gram tablet 2 g PO DAILY RF: 0 Discharge Orders: Discharge Order (Routine); Ordered 05/17/21 Ordered By: Hever Putnam Admission Data Admit Date/Time: 05/15/21 18:10 Attending Provider: Hever Putnam Admit Provider: Jacquelyn Menjivar Primary Care Provider: Dino Rajan Other Providers: Jacquelyn Menjivar ; Jonnathan Thao Other Interventions: Discharge Summary Assessment (RN) Last Done: 05/17/21 15:15
== END 2021-05-17 15:15 | disposition home or self-care (01) | DRG 65 ==
LOC: ED 13:37 → EDINP 18:10 → SUATTDRO 18:10 → EDINP 20:15

== ENCOUNTER 2022-01-15 07:28 | Inpatient (IN) ==
[2022-01-15 08:20] LABS: iSTAT Hemoglobin 12.9 g/dl (14.0-18.0); iSTAT Ionized Calcium 1.27 mmol/l (1.12-1.32)
[2022-01-15 08:21] LABS: Hematocrit (blood only) 38.8 % (40.1-51.0); Hemoglobin 13.6 g/dl (14.0-18.0); Mean Corpuscular Hemoglobin 32.1 pg (25.0-34.0); Mean Corpuscular Hgb Conc 35.1 g/dL (32.0-36.0); Mean Corpuscular Volume 91.5 fL (80.0-100.0); Mean Platelet Volume 10.6 fL (9.4-12.4); Platelet Count 142 K/uL (130-400); RDW Coefficient of Variation 13.2 % (11.5-14.5); RDW Standard Deviation 44.7 fL (36.4-46.3); Red Blood Count 4.24 M/uL (4.63-6.08); White Blood Count 4.81 K/ul (4.8-10.8)
[2022-01-15] MEDS ORDERED: OPTIRAY 300 500mL IV ONE (08:22)
[2022-01-15 08:32] LABS: INR 1.1 (0.9-1.1); Partial Thromboplastin Time 28.5 Seconds (21.0-31.0); Prothrombin Time 11.3 Seconds (9.0-12.0)
[2022-01-15 08:34] LABS: Basophils # (auto) 0.07 K/uL (0-0.2); Basophils % (auto) 1.5 %; Eosinophils # (auto) 0.34 K/uL (0-0.50); Eosinophils % (auto) 7.1 %; Immature Granulocytes # (auto) 0.02 K/uL (0.00-0.02); Immature Granulocytes % (auto) 0.4 %; Lymphocytes % (auto) 22.9 %; Monocytes # (auto) 0.52 K/uL (0.24-0.82); Monocytes % (auto) 10.8 %; Neutrophils # (auto) 2.76 K/uL (1.4-6.5); Neutrophils % (auto) 57.3 %
[2022-01-15 08:41] LABS: Troponin I High Sensitivity 4.7 pg/ml (0-20)
[2022-01-15 08:51] LABS: Albumin Globulin Ratio 1.5 (0.9-2); Albumin Level 3.9 gm/dl (3.4-5.0); BUN Creatinine Ratio 21.2 (10-20); Bilirubin,Total 0.5 mg/dl (0.2-1.0); Calcium 9.1 mg/dl (8.5-10.1); Creatinine Clr Calc Pharmacy 66.1 ml/min; Est GFR (African American) 81.3 ml/min; Est GFR (Non-African American) 70.1 ml/min; Globulin 2.6 gm/dl (2.5-4.0); Magnesium 2.1 mg/dl (1.7-2.4); Total Protein 6.5 gm/dl (6.0-8.3)
--- NOTE | 2022-01-15 08:51 | CT Scan Report ---
UNENHANCED CT OF THE BRAIN; CT ANGIOGRAM OF THE BRAIN; CT ANGIOGRAM OF THE NECK CLINICAL HISTORY: Strokelike symptoms. COMPARISON STUDY: MRI of the brain dated 05/16/2021. CT angiogram of the head and neck dated 2. TECHNIQUE: Unenhanced axial CT scan of the brain is performed. Subsequently, following the IV adminis tration of 120 of Optiray 350, CT angiogram of the head and neck was performed from the aortic arch t o the vertex. Images are reviewed in the axial, sagittal, and coronal planes. 3-D MIPS images are cre ated and assessed. IV contrast was administered without complication. All measurements were calculate d based on NASCET criteria. A dose lowering technique was utilized adhering to the principles of ALA RA. CT DOSE: 1294.68 mGy.cm FINDINGS: Brain parenchyma: Right occipital encephalomalacia is consistent with a remote infarct. There is age- related involutional change noting mild microangiopathic disease. There is no hemorrhage, mass effect , or evidence of acute territorial ischemia by CT criteria. There is no evidence of enhancing mass le lucille on the angiogram phase images. The ventricles, sulci, and cisterns are prominent secondary to ad ditional change. Ervin-white matter differentiation is preserved. No extra-axial fluid collection is s een. Thoracic aorta: Visualized portions of the thoracic aorta are normal in caliber. The aortic arch demo nstrates standard 3-vessel anatomy. Right carotid arterial system: The right common carotid artery is widely patent. Advanced atheroscler otic plaque is seen in the carotid bulb. This causes less than 30% luminal narrowing of the proximal right internal carotid artery. The remainder of the right internal carotid artery is widely patent, a s is the right external carotid artery. Left carotid arterial system: The left common carotid artery is widely patent. Atherosclerotic plaque causes less than 50% luminal narrowing of the proximal left internal carotid artery 1.3 cm above the bifurcation. This is best seen on axial image #2 and 74. The remainder of the left internal carotid artery is widely patent, as is the left external carotid artery. 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 The vertebral arteries are otherwise widely patent bilaterally noting lef t-sided dominance. Subclavian arteries: Widely patent bilaterally. Intracranial vasculature: There is atherosclerotic calcification of the cavernous carotid and vertebr al arteries. The internal carotid arteries are patent at the skull base, as are the anterior and midd le cerebral arteries bilaterally. The basilar artery is diminutive. The vertebral arteries and basila r are patent at the skull base. The P1 segments are diminutive. There are bilateral posterior communi cating arteries. The left posterior cerebral artery is patent. The right posterior artery appears occ luded. The left vertebral artery is dominant. The right vertebral artery terminates as the PICA. No a neurysm is seen. Jugular veins: Patent bilaterally. Dural sinuses: The right transverse sinus is atretic versus chronically occluded. The right internal jugular vein is supplied by a large collateral vein, and this is unchanged from previous. The dural s inuses are otherwise patent. Lung apices: Partially visualized upper lobe lung parenchyma appears clear. Soft tissues: The visualized pharyngeal soft tissues are grossly normal in appearance noting angiogra phic phase technique. The oropharyngeal airway appears widely patent. The salivary and thyroid glands are normal in appearance. There are enlarged left superior cervical chain and submandibular lymph no renan with mild surrounding infiltration and fluid. The largest is seen on image #201 and measures 2.2 x 2.2 cm. Mildly enlarged mediastinal nodes are partially imaged. These measure up to 13 mm short axi s. Skeletal structures: The skeletal structures are osteopenic. The calvarium appears intact. The cervic al spine is maintained noting advanced multilevel spondylosis. No lytic or blastic lesion is seen. Orbits: The bony orbits are intact. Orbital contents are normal as visualized. Sinuses and mastoids: There is evidence of previous paranasal sinus surgery. There is moderate mucosa l thickening within the maxillary antra. A small air-fluid level seen on the right. Mild mucosal thic kening is noted in the frontal and ethmoid sinuses. The mastoid air cells are well pneumatized. IMPRESSION: 1. There is no hemorrhage, mass effect, or evidence of acute territorial ischemia by CT criteria. 2. Chronic right occipital lobe infarct. 3. 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 4. Otherwise unremarkable CT angiogram of the brain. 5. 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 This is unchanged. 6. Atherosclerotic plaque causes less than 50% luminal narrowing of the proximal internal carotid art eries bilaterally. There is no evidence of hemodynamically significant carotid stenosis. 7. There are pathologically enlarged left submandibular and superior cervical chain lymph nodes with mild surrounding infiltration and fluid. These are pathologically indeterminant, and neoplasm is not excluded. There are also mildly enlarged mediastinal nodes. Clinical correlation will be required. Fo llow-up is indicated. 8. Additional findings as above. ACT 112: Negative or not required by law. Electronically signed by: Emmanuel Beltran M.D. 01/15/2022 8:49 AM
[2022-01-15] MEDS: SODIUM CHLORIDE 0.9% 1000ML 1,000 ML IV SCH (09:07)
--- NOTE | 2022-01-15 09:18 | XRay Report ---
SINGLE VIEW CHEST CLINICAL HISTORY: Strokelike symptoms. FINDINGS: An AP, portable, upright chest radiograph is compared to study dated 07/24/2020. The heart is enlarged noting atherosclerotic calcification of the thoracic aorta. The pulmonary vasculature is no ncongested. Chronic interstitial thickening is similar to previous. There is bibasilar scarring/atele ctasis. The lungs and pleural spaces are otherwise clear. No pneumothorax is seen. The skeletal struc tures are osteopenic. The bony thorax is grossly intact. IMPRESSION: Cardiomegaly with no acute cardiopulmonary abnormality. ACT 112: Negative or not required by law. Electronically signed by: Emmanuel Beltran M.D. 01/15/2022 9:17 AM
[2022-01-15 09:44] LABS: Appearance Urine Clear (Clear); Bilirubin Urine Negative (Negative); Blood Urine Negative (Negative); Color Urine Yellow; Glucose Urine UA Negative (Negative); Ketones Urine Negative (Negative); Leukocyte Esterase Urine Negative (Negative); Nitrite Urine Negative (Negative); Protein Urine Negative (Negative); Specific Gravity Urine 1.038 (1.000-1.030); Urobilinogen Urine Negative (Negative)
--- NOTE | 2022-01-15 10:02 | History & Physical Report ---
Date of Service January 15, 2022 Assessment & Plan (1) Stroke-like symptoms: (2) BPH (benign prostatic hyperplasia): (3) Hypertension: (4) HLD (hyperlipidemia): (5) Left sided numbness: Plan Mr. Oliverio Del Valle is an 81 year old male who presented to the [facility] ED with his son after he started to experience numbness, tingling, and weakness in his LLE.Head CT, CTA head/neck, MRI brain, lumbar x-ray all negative for acute disease. Likely neuropathic in nature. Consider discharge in 24 hours if stable. Stoke Like Symptoms: Left sided numbness Neuropathy: was admitted in April 2021 for TIA/CVA; started on Plavix Telestroke called: Discussed with [facility] Dr. Guillen. No TNK as minimal symptoms CTA head and neck performed and negative head CT: Brain MRI: unremarkable. 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 lumbar xray showed some osteopenia and narrowing L5-S1. No acute impingement. Since MRI negative; continue Plavix Neurochecks ASA allergy PT/OT/dysphagia screen Neuro consult placed and Nani Becerril to see patient. HTN: Stable in ED; continue Amlodipine HLD: Takes Colestipol; continue 04/2021 Lipid panel: TG 158, LDL 112, HDL 40 Recheck in AM BPH: Continue Duasteride and Terazosin Disposition: PCP: VTE Prophylaxis: Code Status: Full code Point of Contact: Jerry hu [phone] I personally was able to review all current laboratory work and diagnostic images obtained in the ED. Additionally, I was able to review the patients past medication reconciliation and history with direct visualization in the patients chart. Collaborated with Dr. Nick regarding this pt's plan of care. History of Present Illness Chief Complaint: numbness/weakness in LLE Primary Care Provider: Dino Rajan MD Mr. Oliverio Del Valle is an 81 year old male who presented to the [facility] ED with his son after he started to experience numbness, tingling, and weakness in his LLE. A stroke alert was called and neuroconsultation was completed with Dr. Guillen at the [facility]. Due to his minimal symptoms he was deemed not a TNK candidate. A head CT and head and neck CTAs were performed and unremarkable for acute findings. This gentleman has a PMH that includes HTN, BPH, HLD, and CVA and numerous TIA's. He was recently inpatient in April 2021 for a RECORD CLERK infarct and was started on Plavix. Currently, patient denies facial droop. No headache or blurred vision. Patient denies any other recent illnesses, fevers, chills, urine changes. Pt denies chest pain and shortness of breath. No lightheadedness, dizziness, diaphoresis, syncopal events. 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 Please see A/P for further details. Allergies Allergy/AdvReac Type Severity Reaction Status Date / Time lisinopril Allergy Severe UNKNOWN Verified 08/22/21 09:54 aspirin Allergy Mild DYSPHAGIA/TROUBLE Verified 08/22/21 09:54 STANDING STRAIGHT UP GLO Inhibitors Allergy Unknown ANGIOEDEMA/ Verified 08/22/21 09:54 MYLAGIAS Home Medications Medication Instructions Recorded Confirmed Type terazosin 10 mg capsule 10 mg PO PM ##0 10/25/08 01/15/22 History amlodipine 5 mg tablet 5 mg PO PM ##0 11/01/08 01/15/22 History cholecalciferol (vitamin D3) 50 50 mcg PO PM ##0 12/04/15 01/15/22 History mcg (2,000 unit) tablet (Vitamin D3) colestipol 1 gram tablet 2 g PO DAILY 05/15/21 01/15/22 History latanoprost 0.005 % eye drops 1 drp ophthalmic (eye) HS 05/15/21 01/15/22 History atorvastatin 20 mg tablet 20 mg PO HS #30 tabs 05/17/21 01/15/22 Rx clopidogrel 75 mg tablet 75 mg PO QAM #30 tabs 05/17/21 01/15/22 Rx dutasteride 0.5 mg capsule 0.5 mg PO DAILY #90 caps 08/22/21 01/15/22 Rx fluticasone propionate 50 2 spray intranasal DAILY 08/22/21 01/15/22 History mcg/actuation nasal spray,suspension (Allergy Relief (fluticasone)) melatonin 10 mg capsule 10 mg PO HS PRN Sleep 08/22/21 01/15/22 History Past Med/Surg History Medical History (Updated 01/15/22 @ 14:41 by Jonnathan Garner MD) BPH (benign prostatic hyperplasia) COVID-19 virus infection June 2020 Dermatitis, contact Disc herniation Glaucoma HLD (hyperlipidemia) Hypertension Osteoarthritis Surgical History H/O hernia repair Family History Father Hypertension Mother Stroke Social History Smoking Status: Former smoker Tobacco Type: Cigarettes Smoking End Date: 1957; Second Hand Exposure: No; Hx Alcohol Use: No Hx Substance Use: No Preferred Language: Ukrainian Communication Ability: Effective 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 Beliefs That Will Affect Care: None marital status: Unknown Current Living Situation: Family Current Living Situation Comment: Lives with son Other Information That Helps Us Care for You: No Feels Safe at Home: Yes Safety Concerns: Feels Safe At This Time Assistive Devices: Brace/Splint/Immobilizer and Glasses Review of Systems Review of Systems: Neuro: (-) Falls, trauma, slurred speech HEENT: (-) THORNE, dizziness, dysphagia, visual or auditory changes CV: (-) CP, palpitations, swelling Resp: (-) SOB GI: (-) appetite changes, N/V/D, bowel changes : (-) urinary changes Skin: (-) rashes Psych: (-) anxiety, depression Physical Exam Physical Exam: Neuro: AAOx4, PERRLA, no aphagia, memory changes, CNII-XII grossly intact HEENT: head normocephalic, moist mucus membranes CV: S1/S2, (-) M/G/R, (-) edema, cap refill < 3 seconds Resp: Lungs CTA in all royal. On RA GI: Abdomen S/NT/ND, Ax4 bowel sounds, (-) CVA tenderness Musculoskeletal: 5/5 B/L UE strength, 5/5 B/L LE strength. No gait disturbance Skin: (-) rashes , (-) erythema. Psych: euthymic mood Results & Data Results & Data ([facility]) Vital Signs (Past 12 Hours) Vital Signs Temp Pulse Resp BP BP Pulse Ox O2 Del Method 01/15/22 07:41 Room Air 01/15/22 07:29 16 152/79 H 96 Room Air 01/15/22 07:30 36.5 C 81 16 166/64 H 96 Room Air O2 Flow Rate 01/15/22 07:41 0 01/15/22 07:29 01/15/22 07:30 Laboratory Results Short CBC 01/15/22 Range/Units 07:56 WBC 4.81 (4.8-10.8) K/ul Hgb 13.6 L (14.0-18.0) g/dl Hct 38.8 L (40.1-51.0) % Plt Count 142 (130-400) K/uL BMP 01/15/22 07:56 Sodium 139 Potassium 4.0 Chloride 109 H Carbon Dioxide 24 BUN 21 Creatinine 0.99 Glucose 183 H Calcium 9.1 Liver Function 01/15/22 Range/Units 07:56 Total Bilirubin 0.5 (0.2-1.0) mg/dl AST 17 (13-39) U/L ALT 16 (7-52) U/L Alkaline Phosphatase 48 (34-104) U/L Albumin 3.9 (3.4-5.0) gm/dl Urine 01/15/22 Range/Units 09:20 Urine Color Yellow Urine Appearance Clear (Clear) Urine pH 7.0 (4.5-7.5) Ur Specific Castana 1.038 H (1.000-1.030) Urine Protein Negative (Negative) Urine Glucose (UA) Negative (Negative) Diagnostic Findings Chest X-Ray 01/15/22 08:04 SINGLE VIEW CHEST CLINICAL HISTORY: Strokelike symptoms. FINDINGS: An AP, portable, upright chest radiograph is compared to study dated 07/24/2020. The heart is enlarged noting atherosclerotic calcification of the thoracic aorta. The pulmonary vasculature is noncongested. Chronic interstitial thickening is similar to previous. There is bibasilar scarring/atelectasis. The lungs and pleural spaces are otherwise clear. No pneumothorax is seen. The skeletal structures are osteopenic. The bony thorax is grossly intact. IMPRESSION: Cardiomegaly with no acute cardiopulmonary abnormality. ACT 112: Negative or not required by law. Electronically signed by: Emmanuel Beltran M.D. 01/15/2022 9:[address] 01/15/22 08:[address] OF THE BRAIN; CT ANGIOGRAM OF THE BRAIN; CT ANGIOGRAM OF THE NECK CLINICAL HISTORY: Strokelike symptoms. COMPARISON STUDY: MRI of the brain dated 05/16/2021. CT angiogram of the head and neck dated 05/15/2021. TECHNIQUE: Unenhanced axial CT scan of the brain is performed. Subsequently, following the IV administration of 120 of Optiray 350, CT angiogram of the head and neck was performed from the aortic arch to the vertex. Images are reviewed in the axial, sagittal, and coronal planes. 3-D MIPS images are created and assessed. IV contrast was administered without complication. All measurements were calculated based on NASCET criteria. A dose lowering technique was utilized adhering to the principles of ALARA. CT DOSE: 1294.68 mGy.cm FINDINGS: Brain parenchyma: Right occipital encephalomalacia is consistent with a remote infarct. There is age-related involutional change noting mild microangiopathic disease. There is no hemorrhage, mass effect, or evidence of acute territorial ischemia by CT criteria. There is no evidence of enhancing mass lesion on the angiogram phase images. The ventricles, sulci, and cisterns are prominent secondary to additional change. Ervin-white matter differentiation is preserved. No extra-axial fluid collection is seen. Thoracic aorta: Visualized portions of the thoracic aorta are normal in caliber. The aortic arch demonstrates standard 3-vessel anatomy. Right carotid arterial system: The right common carotid artery is widely patent. Advanced atherosclerotic plaque is seen in the carotid bulb. This causes less than 30% luminal narrowing of the proximal right internal carotid artery. The remainder of the right internal carotid artery is widely patent, as is the right external carotid artery. Left carotid arterial system: The left common carotid artery is widely patent. Atherosclerotic plaque causes less than 50% luminal narrowing of the proximal left internal carotid artery 1.3 cm above the bifurcation. This is best seen on axial image #2 and 74. The remainder of the left internal carotid artery is widely patent, as is the left external carotid artery. 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 The vertebral arteries are otherwise widely patent bilaterally noting left-sided dominance. Subclavian arteries: Widely patent bilaterally. Intracranial vasculature: There is atherosclerotic calcification of the cavernous carotid and vertebral arteries. The internal carotid arteries are patent at the skull base, as are the anterior and middle cerebral arteries bilaterally. The basilar artery is diminutive. The vertebral arteries and basilar are patent at the skull base. The P1 segments are diminutive. There are bilateral posterior communicating arteries. The left posterior cerebral artery is patent. The right posterior artery appears occluded. The left vertebral artery is dominant. The right vertebral artery terminates as the PICA. No aneurysm is seen. Jugular veins: Patent bilaterally. Dural sinuses: The right transverse sinus is atretic versus chronically occluded. The right internal jugular vein is supplied by a large collateral vein, and this is unchanged from previous. The dural sinuses are otherwise patent. Lung apices: Partially visualized upper lobe lung parenchyma appears clear. Soft tissues: The visualized pharyngeal soft tissues are grossly normal in appearance noting angiographic phase technique. The oropharyngeal airway appears widely patent. The salivary and thyroid glands are normal in appearance. There are enlarged left superior cervical chain and submandibular lymph nodes with mild surrounding infiltration and fluid. The largest is seen on image #201 and measures 2.2 x 2.2 cm. Mildly enlarged mediastinal nodes are partially imaged. These measure up to 13 mm short axis. Skeletal structures: The skeletal structures are osteopenic. The calvarium appears intact. The cervical spine is maintained noting advanced multilevel spondylosis. No lytic or blastic lesion is seen. Orbits: The bony orbits are intact. Orbital contents are normal as visualized. Sinuses and mastoids: There is evidence of previous paranasal sinus surgery. There is moderate mucosal thickening within the maxillary antra. A small air-f luid level seen on the right. Mild mucosal thickening is noted in the frontal and ethmoid sinuses. The mastoid air cells are well pneumatized. IMPRESSION: 1. There is no hemorrhage, mass effect, or evidence of acute territorial ischemia by CT criteria. 2. Chronic right occipital lobe infarct. 3. 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 4. Otherwise unremarkable CT angiogram of the brain. 5. 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 This is unchanged. 6. Atherosclerotic plaque causes less than 50% luminal narrowing of the proximal internal carotid arteries bilaterally. There is no evidence of hemodynamically significant carotid stenosis. 7. There are pathologically enlarged left submandibular and superior cervical chain lymph nodes with mild surrounding infiltration and fluid. These are pathologically indeterminant, and neoplasm is not excluded. There are also mildly enlarged mediastinal nodes. Clinical correlation will be required. Follow-up is indicated. 8. Additional findings as above. ACT 112: Negative or not required by law. Electronically signed by: Emmanuel Beltarn M.D. 01/15/2022 8:49 AM Head CTA 01/15/22 08:[address] OF THE BRAIN; CT ANGIOGRAM OF THE BRAIN; CT ANGIOGRAM OF THE NECK CLINICAL HISTORY: Strokelike symptoms. COMPARISON STUDY: MRI of the brain dated 05/16/2021. CT angiogram of the head and neck dated 05/15/2021. TECHNIQUE: Unenhanced axial CT scan of the brain is performed. Subsequently, following the IV administration of 120 of Optiray 350, CT angiogram of the head and neck was performed from the aortic arch to the vertex. Images are reviewed in the axial, sagittal, and coronal planes. 3-D MIPS images are created and assessed. IV contrast was administered without complication. All measurements were calculated based on NASCET criteria. A dose lowering technique was utilized adhering to the principles of ALARA. CT DOSE: 1294.68 mGy.cm FINDINGS: Brain parenchyma: Right occipital encephalomalacia is consistent with a remote infarct. There is age-related involutional change noting mild microangiopathic disease. There is no hemorrhage, mass effect, or evidence of acute territorial ischemia by CT criteria. There is no evidence of enhancing mass lesion on the angiogram phase images. The ventricles, sulci, and cisterns are prominent secondary to additional change. Ervin-white matter differentiation is preserved. No extra-axial fluid collection is seen. Thoracic aorta: Visualized portions of the thoracic aorta are normal in caliber. The aortic arch demonstrates standard 3-vessel anatomy. Right carotid arterial system: The right common carotid artery is widely patent. Advanced atherosclerotic plaque is seen in the carotid bulb. This causes less than 30% luminal narrowing of the proximal right internal carotid artery. The remainder of the right internal carotid artery is widely patent, as is the right external carotid artery. Left carotid arterial system: The left common carotid artery is widely patent. Atherosclerotic plaque causes less than 50% luminal narrowing of the proximal left internal carotid artery 1.3 cm above the bifurcation. This is best seen on axial image #2 and 74. The remainder of the left internal carotid artery is widely patent, as is the left external carotid artery. 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 The vertebral arteries are otherwise widely patent bilaterally noting left-sided dominance. Subclavian arteries: Widely patent bilaterally. Intracranial vasculature: There is atherosclerotic calcification of the cavernous carotid and vertebral arteries. The internal carotid arteries are patent at the skull base, as are the anterior and middle cerebral arteries bilaterally. The basilar artery is diminutive. The vertebral arteries and basilar are patent at the skull base. The P1 segments are diminutive. There are bilateral posterior communicating arteries. The left posterior cerebral artery is patent. The right posterior artery appears occluded. The left vertebral artery is dominant. The right vertebral artery terminates as the PICA. No aneurysm is seen. Jugular veins: Patent bilaterally. Dural sinuses: The right transverse sinus is atretic versus chronically occluded. The right internal jugular vein is supplied by a large collateral vein, and this is unchanged from previous. The dural sinuses are otherwise patent. Lung apices: Partially visualized upper lobe lung parenchyma appears clear. Soft tissues: The visualized pharyngeal soft tissues are grossly normal in appearance noting angiographic phase technique. The oropharyngeal airway appears widely patent. The salivary and thyroid glands are normal in appearance. There are enlarged left superior cervical chain and submandibular lymph nodes with mild surrounding infiltration and fluid. The largest is seen on image #201 and measures 2.2 x 2.2 cm. Mildly enlarged mediastinal nodes are partially imaged. These measure up to 13 mm short axis. Skeletal structures: The skeletal structures are osteopenic. The calvarium appears intact. The cervical spine is maintained noting advanced multilevel spondylosis. No lytic or blastic lesion is seen. Orbits: The bony orbits are intact. Orbital contents are normal as visualized. Sinuses and mastoids: There is evidence of previous paranasal sinus surgery. There is moderate mucosal thickening within the maxillary antra. A small air- fluid level seen on the right. Mild mucosal thickening is noted in the frontal and ethmoid sinuses. The mastoid air cells are well pneumatized. IMPRESSION: 1. There is no hemorrhage, mass effect, or evidence of acute territorial ischemia by CT criteria. 2. Chronic right occipital lobe infarct. 3. 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 4. Otherwise unremarkable CT angiogram of the brain. 5. 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 This is unchanged. 6. Atherosclerotic plaque causes less than 50% luminal narrowing of the proximal internal carotid arteries bilaterally. There is no evidence of hemodynamically significant carotid stenosis. 7. There are pathologically enlarged left submandibular and superior cervical chain lymph nodes with mild surrounding infiltration and fluid. These are pathologically indeterminant, and neoplasm is not excluded. There are also mildly enlarged mediastinal nodes. Clinical correlation will be required. Follow-up is indicated. 8. Additional findings as above. ACT 112: Negative or not required by law. Electronically signed by: Emmanuel Beltran M.D. 01/15/2022 8:49 AM Neck CTA 01/15/22 08:[address] OF THE BRAIN; CT ANGIOGRAM OF THE BRAIN; CT ANGIOGRAM OF THE NECK CLINICAL HISTORY: Strokelike symptoms. COMPARISON STUDY: MRI of the brain dated 05/16/2021. CT angiogram of the head and neck dated 05/15/2021. TECHNIQUE: Unenhanced axial CT scan of the brain is performed. Subsequently, following the IV administration of 120 of Optiray 350, CT angiogram of the head and neck was performed from the aortic arch to the vertex. Images are reviewed in the axial, sagittal, and coronal planes. 3-D MIPS images are created and assessed. IV contrast was administered without complication. All measurements were calculated based on NASCET criteria. A dose lowering technique was utilized adhering to the principles of ALARA. CT DOSE: 1294.68 mGy.cm FINDINGS: Brain parenchyma: Right occipital encephalomalacia is consistent with a remote infarct. There is age-related involutional change noting mild microangiopathic disease. There is no hemorrhage, mass effect, or evidence of acute territorial ischemia by CT criteria. There is no evidence of enhancing mass lesion on the angiogram phase images. The ventricles, sulci, and cisterns are prominent secondary to additional change. Ervin-white matter differentiation is preserved. No extra-axial fluid collection is seen. Thoracic aorta: Visualized portions of the thoracic aorta are normal in caliber. The aortic arch demonstrates standard 3-vessel anatomy. Right carotid arterial system: The right common carotid artery is widely patent. Advanced atherosclerotic plaque is seen in the carotid bulb. This causes less than 30% luminal narrowing of the proximal right internal carotid artery. The remainder of the right internal carotid artery is widely patent, as is the right external carotid artery. Left carotid arterial system: The left common carotid artery is widely patent. Atherosclerotic plaque causes less than 50% luminal narrowing of the proximal left internal carotid artery 1.3 cm above the bifurcation. This is best seen on axial image #2 and 74. The remainder of the left internal carotid artery is widely patent, as is the left external carotid artery. 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 The vertebral arteries are otherwise widely patent bilaterally noting left-sided dominance. Subclavian arteries: Widely patent bilaterally. Intracranial vasculature: There is atherosclerotic calcification of the cavernous carotid and vertebral arteries. The internal carotid arteries are patent at the skull base, as are the anterior and middle cerebral arteries bilaterally. The basilar artery is diminutive. The vertebral arteries and basilar are patent at the skull base. The P1 segments are diminutive. There are bilateral posterior communicating arteries. The left posterior cerebral artery is patent. The right posterior artery appears occluded. The left vertebral artery is dominant. The right vertebral artery terminates as the PICA. No aneurysm is seen. Jugular veins: Patent bilaterally. Dural sinuses: The right transverse sinus is atretic versus chronically occluded. The right internal jugular vein is supplied by a large collateral vein, and this is unchanged from previous. The dural sinuses are otherwise patent. Lung apices: Partially visualized upper lobe lung parenchyma appears clear. Soft tissues: The visualized pharyngeal soft tissues are grossly normal in appearance noting angiographic phase technique. The oropharyngeal airway appears widely patent. The salivary and thyroid glands are normal in appearance. There are enlarged left superior cervical chain and submandibular lymph nodes with mild surrounding infiltration and fluid. The largest is seen on image #201 and measures 2.2 x 2.2 cm. Mildly enlarged mediastinal nodes are partially imaged. These measure up to 13 mm short axis. Skeletal structures: The skeletal structures are osteopenic. The calvarium appears intact. The cervical spine is maintained noting advanced multilevel spondylosis. No lytic or blastic lesion is seen. Orbits: The bony orbits are intact. Orbital contents are normal as visualized. Sinuses and mastoids: There is evidence of previous paranasal sinus surgery. There is moderate mucosal thickening within the maxillary antra. A small air- fluid level seen on the right. Mild mucosal thickening is noted in the frontal and ethmoid sinuses. The mastoid air cells are well pneumatized. IMPRESSION: 1. There is no hemorrhage, mass effect, or evidence of acute territorial ischemia by CT criteria. 2. Chronic right occipital lobe infarct. 3. 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 4. Otherwise unremarkable CT angiogram of the brain. 5. 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 This is unchanged. 6. Atherosclerotic plaque causes less than 50% luminal narrowing of the proximal internal carotid arteries bilaterally. There is no evidence of hemodynamically significant carotid stenosis. 7. There are pathologically enlarged left submandibular and superior cervical chain lymph nodes with mild surrounding infiltration and fluid. These are pathologically indeterminant, and neoplasm is not excluded. There are also mildly enlarged mediastinal nodes. Clinical correlation will be required. Follow-up is indicated. 8. Additional findings as above. ACT 112: Negative or not required by law. Electronically signed by: Emmanuel Beltran M.D. 01/15/2022 8:49 AM Code Status & VTE Plan Code Status Full Code in the event of cardiac or respiratory arrest VTE Prophylaxis Plan VTE Prophylaxis will be ordered: Yes Supervising Physician Co-Signing Physician Notes Pt was seen and examined. Agreed with Ciara REYES exam, assessment and plan. 81 year old male with HTN, BPH, HLD, and CVA who presented to the ER with c/o of numbness, tingling, and weakness in his LLE. Pt said that symptoms started early this morning around 6:30am. He said that his symptoms improved while in the ER. A stroke alert was called and neuro tele stroke was done by the [facility]. CT head showed no acute intracranial abnormality. Pt did not meet the criteria for TPA since his symptoms improved. CTA head and neck showed no hemorrhage, mass effect, or evidence of acute territorial ischemia. Need to r/o Acute CVA. Will get a MRI head and echo. Will consult neuro. Con tinue Plavix and statin for now. PT/OT eval. Fall precaution. Will continue monitor closely in tele. MD Sandoval (1) BPH (benign prostatic hyperplasia) Lower urinary tract symptom presence: unspecified whether lower urinary tract symptoms present Qualified Code(s): N40.0 - Benign prostatic hyperplasia without lower urinary tract symptoms (2) Hypertension Hypertension type: unspecified Qualified Code(s): I10 - Essential (primary) hypertension
[2022-01-15] MEDS ORDERED: LORazepam 2 MG/2 ML SYR IV PRN (10:50)
[2022-01-15] MEDS ORDERED: PHARMACIST DISCHARGE MED REC CONSULT PRN (12:37)
[2022-01-15] MEDS ORDERED: MELATONIN 3 MG TAB PO PRN (12:37)
--- NOTE | 2022-01-15 12:52 | Magnetic Resonance Report ---
MRI OF THE BRAIN WITHOUT IV CONTRAST CLINICAL HISTORY: Strokelike symptoms. COMPARISON STUDY: CT of the brain dated 01/15/2022. TECHNIQUE: MRI of the brain was performed utilizing various T1 and T2-weighted sequences in the axial , sagittal, and coronal planes. IV contrast was not administered for this examination. FINDINGS: Brain parenchyma: There is age-related involutional change noting mild subcortical and periventricula r microangiopathic disease. Right occipital encephalomalacia is consistent with a remote infarct. A s mall chronic lacunar infarct is noted in the right cerebellar hemisphere. There is no hemorrhage or m ass effect. There is no restricted diffusion typical for acute ischemia. Ervin-white matter differenti ation is preserved. No extra-axial fluid collection is seen. The cerebellar tonsils are normal in con figuration. Ventricles, sulci, and cisterns: Prominent secondary to involutional change. Pituitary and sella: Unremarkable. Intracranial vasculature: Normal flow voids are maintained at the skull base. Orbits: The bony orbits are grossly intact. Orbital contents are normal in appearance. Sinuses and mastoids: There is evidence of previous paranasal sinus surgery. Mucosal thickening is no leo in the maxillary antra with an air-fluid level on the right. Mild mucosal thickening is also seen in the frontal and ethmoid sinuses. There is trace right mastoid effusion Calvarium: Unremarkable. Cervical cord: Partially visualized cervical spinal cord is normal in morphology and signal intensity . IMPRESSION: Chronic changes as above with no acute intracranial abnormality. ACT 112: Negative or not required by law. Electronically signed by: Emmanuel Beltran M.D. 01/15/2022 12:51 PM
[2022-01-15 14:15] LABS: Estimated Average Glucose 126 mg/dl
--- NOTE | 2022-01-15 14:18 | XRay Report ---
LUMBAR SPINE 3 VIEWS CLINICAL HISTORY: Lower extremity numbness. FINDINGS: 3 views of the lumbar spine are correlated with CT of the lumbar spine dated 11/28/2015. The skeletal structures are osteopenic. There is no radiographic evidence of fracture or malalignment. Ve rtebral body height is maintained throughout the lumbar spine. There is minimal anterolisthesis at L4 -L5. Alignment is otherwise preserved. Anterior and lateral marginal osteophytes are seen throughout. The transverse and spinous processes appear intact. There is advanced facet arthropathy in the lower lumbar region. Advanced disc space narrowing with endplate sclerosis seen at L5-S1. Mild disc space narrowing is seen at the remaining lumbar levels. The bony pelvis is intact as visualized. Mild degen erative changes seen in the hips. There is no bowel obstruction. Moderate fecal retention is seen thr oughout the colon. The bladder is distended with excreted IV contrast. Phleboliths are seen in the pe lvis. IMPRESSION: 1. No acute bony abnormality is seen involving the lumbar spine. 2. Osteopenia and spondylitic change as above. Dictated: 01/15/2022 1:08 PM Transcribed: 01/15/2022 2:09 PM Mandie [id number] [email or web address] Electronically signed by: Emmanuel Beltran M.D. 01/15/2022 2:17 PM
--- NOTE | 2022-01-15 14:41 | Emergency Department Note ---
Impression & Plan Stroke-like symptoms ED Provider Note INFORMANT: Patient and family ED PROVIDER(S): Jonnathan Garner MD CHIEF COMPLAINT: Strokelike symptoms PLAN: Disposition: Admitted Condition: Good Outpatient prescription management: none Referral: None MEDICAL DECISION MAKING: Patient presented because of strokelike symptoms. He was made a stroke alert. He was evaluated. He had improved since arrival. He was sent for CT imaging. On reassessment after CT imaging he was even more improved. He had minimal symptoms. [facility] did evaluate the patient. He agreed the patient was not a TNKase candidate. He recommended admission and work-up with MR imaging including MR imaging of the lumbar spine. Patient was in agreement. His chest x-ray was unremarkable. Patient has sinus rhythm on his ECG. His CT and CT angiography revealed old changes but nothing that was acute from a CVA/vascular standpoint. Patient was noted to have several lymph nodes and additional imaging recommended. CBC and chemistry panel was unremarkable. [facility] Patient was evaluated in the ER admitted for further management Triage Nursing notes reviewed and agree them. Vital Signs: reviewed and remarkable for no significant abnormalities Differential diagnosis: TIA, CVA infection, dehydration, metabolic abnormality, hypo/hyperglycemia, electrolyte disturbance, anemia, hypoxia, cardiac sources, intracerebral event, toxicologic, neurologic, as well as other pathologies. Diagnostics interpreted by me: ECG: Twelve-lead ECG reveals a sinus rhythm at [address] elevation or depression. Poor baseline data. Cardiac Monitoring: Cardiac monitoring ordered by me: The patient was placed on continuous cardiac monitoring and observed. It revealed a normal sinus rhythm at 69 beats per minute without ectopy or evidence of dysrhythmia. Imaging studies: CTs as noted below. Chest x-ray as noted below. HPI: The patient is a 81year old male who presents to the Emergency Room with complaints of left leg numbness. This started at 630 this morning and is somewhat improved. The patient also notes the following associated symptoms, some difficulty ambulating and weakness in the leg. The patient has taken no medication for relieving factors. Current pain is rated as 0/10. Patient was concerned as a history of TIA this year. He is currently taking Plavix. Pt denies LOC, headache, fevers, chills, diaphoresis, visual changes, neck pain, chest pain, breathing difficulties, nausea, vomiting, abdominal pain, back pain, melena, hematochezia, urinary symptoms, lymphadenopathy, rash, or other compla ints. ROS: See above HPI for pertinent positives & negatives. A total of 10 systems reviewed and were otherwise negative. PAST MEDICAL HISTORY:See Below , TIA PAST SURGICAL HISTORY:See Below, FAMILY HISTORY:See Below SOCIAL HISTORY:See Below, retired HOME MEDICATIONS:See Below ALLERGIES:See Below VITALS:See Below PHYSICAL EXAMINATION: GENERAL: Awake, alert, well-appearing, in no distress HENT: Normocephalic, atraumatic. Oropharynx unremarkable. EYES: Normal conjunctiva. Sclera non-icteric. PERRLA. EOMI. NECK: Inspection normal. Non-tender. Supple. No nuchal rigidity. FROM. No masses. RESPIRATORY: Clear to auscultation. No wheezes. No rales. Normal respiratory effort. CARDIAC: Normal rate. Normal rhythm. No murmurs. No rubs. Extremities warm and well perfused. Pulses equal. No JVD. GI: Soft, non-distended. No tenderness to palpation. No rebound or guarding. No masses. RECTAL: Deferred. MUSCULOSKELETAL: Atraumatic. Chest examination reveals no tenderness. The back is symmetrical on inspection without obvious abnormality. There is no CVA tenderness to palpation. No joint edema. LOWER EXTREMITIES: Calves are equal size bilaterally and non-tender. No edema. No discoloration. NEURO: Normal sensorium. Minimal drift of the left lower leg. Subjective decrease sensation in the left lower extremity below the knee including the f oot. No other sensory or motor deficits noted. Cranial nerves II through XII intact SKIN: No rash or jaundice noted. 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 Beliefs That Will Affect Care: None marital status: Unknown Current Living Situation: Family Current Living Situation Comment: Lives with son Other Information That Helps Us Care for You: No Feels Safe at Home: Yes Safety Concerns: Feels Safe At This Time Assistive Devices: Brace/Splint/Immobilizer and Glasses Allergies Allergies Allergy/AdvReac Type Severity Reaction Status Date / Time lisinopril Allergy Severe UNKNOWN Verified 08/22/21 09:54 aspirin Allergy Mild DYSPHAGIA/TROUBLE Verified 08/22/21 09:54 STANDING STRAIGHT UP GLO Inhibitors Allergy Unknown ANGIOEDEMA/ Verified 08/22/21 09:54 MYLAGIAS Home Meds Home Medications Medication Instructions Recorded Confirmed terazosin 10 mg capsule 10 mg PO PM ##0 10/25/08 01/15/22 amlodipine 5 mg tablet 5 mg PO PM ##0 11/01/08 01/15/22 cholecalciferol (vitamin D3) 50 50 mcg PO PM ##0 12/04/15 01/15/22 mcg (2,000 unit) tablet (Vitamin D3) colestipol 1 gram tablet 2 g PO DAILY 05/15/21 01/15/22 latanoprost 0.005 % eye drops 1 drp ophthalmic (eye) HS 05/15/21 01/15/22 fluticasone propionate 50 2 spray intranasal DAILY 08/22/21 01/15/22 mcg/actuation nasal spray,suspension (Allergy Relief (fluticasone)) melatonin 10 mg capsule 10 mg PO HS PRN Sleep 08/22/21 01/15/22 Previous Rx's Medication Instructions Recorded atorvastatin 20 mg tablet 20 mg PO HS #30 tabs 05/17/21 clopidogrel 75 mg tablet 75 mg PO QAM #30 tabs 05/17/21 dutasteride 0.5 mg capsule 0.5 mg PO DAILY #90 caps 08/22/21 Results & Data (ED) Vital Signs Vital Signs - 24 hr 01/15/22 07:30 01/15/22 07:29 01/15/22 07:41 Temperature 36.5 C Temperature Source Temporal Artery Scan Pulse Rate 81 Pulse Rate [Apical] Pulse Rate from SpO2 Sensor Pulse Rhythm [Apical] Respiratory Rate 16 16 Respiratory Effort / Characteristics Non-Labored Respiratory Depth Normal Respiratory Pattern Regular Blood Pressure 166/64 H Blood Pressure [Left Arm] 152/79 H Blood Pressure Mean 98 Blood Pressure Mean [Left Arm] 103 Blood Pressure Position [Left Arm] Lying Pulse Oximetry 96 96 Oxygen Delivery Method Room Air Room Air Room Air Oxygen Flow Rate 0 Sepsis Recent Fever Within 48 Hours No Sepsis New/Unexplained Change in Mental Status No Sepsis Action Taken by Nursing No Action Required 01/15/22 09:29 01/15/22 10:16 01/15/22 08:20 Temperature Temperature Source Pulse Rate 67 Pulse Rate [Apical] 66 74 Pulse Rate from SpO2 Sensor 67 Pulse Rhythm [Apical] Regular Regular Respiratory Rate 16 16 20 Respiratory Effort / Characteristics Non-Labored Non-Labored Respiratory Depth Normal Normal Respiratory Pattern Regular Regular Blood Pressure Blood Pressure [Left Arm] 178/94 H 127/61 Blood Pressure Mean Blood Pressure Mean [Left Arm] 122 83 Blood Pressure Position [Left Arm] Lying Lying Pulse Oximetry 96 95 97 Oxygen Delivery Method Room Air Room Air Oxygen Flow Rate Sepsis Recent Fever Within 48 Hours Sepsis New/Unexplained Change in Mental Status Sepsis Action Taken by Nursing 01/15/22 08:30 01/15/22 08:30 01/15/22 08:40 Temperature Temperature Source Pulse Rate 71 68 Pulse Rate [Apical] Pulse Rate from SpO2 Sensor 71 68 Pulse Rhythm [Apical] Respiratory Rate 16 19 Respiratory Effort / Characteristics Respiratory Depth Respiratory Pattern Blood Pressure 140/74 Blood Pressure [Left Arm] Blood Pressure Mean 96 Blood Pressure Mean [Left Arm] Blood Pressure Position [Left Arm] Pulse Oximetry 98 97 Oxygen Delivery Method Oxygen Flow Rate Sepsis Recent Fever Within 48 Hours Sepsis New/Unexplained Change in Mental Status Sepsis Action Taken by Nursing 01/15/22 08:45 01/15/22 08:45 01/15/22 08:50 Temperature Temperature Source Pulse Rate 69 69 Pulse Rate [Apical] Pulse Rate from SpO2 Sensor 68 69 Pulse Rhythm [Apical] Respiratory Rate 17 12 Respiratory Effort / Characteristics Respiratory Depth Respiratory Pattern Blood Pressure 159/85 H Blood Pressure [Left Arm] Blood Pressure Mean 109 Blood Pressure Mean [Left Arm] Blood Pressure Position [Left Arm] Pulse Oximetry 96 97 Oxygen Delivery Method Oxygen Flow Rate Sepsis Recent Fever Within 48 Hours Sepsis New/Unexplained Change in Mental Status Sepsis Action Taken by Nursing 01/15/22 09:00 01/15/22 09:00 01/15/22 09:10 Temperature Temperature Source Pulse Rate 68 66 Pulse Rate [Apical] Pulse Rate from SpO2 Sensor 67 65 Pulse Rhythm [Apical] Respiratory Rate 19 16 Respiratory Effort / Characteristics Respiratory Depth Respiratory Pattern Blood Pressure 146/81 H Blood Pressure [Left Arm] Blood Pressure Mean 102 Blood Pressure Mean [Left Arm] Blood Pressure Position [Left Arm] Pulse Oximetry 96 95 Oxygen Delivery Method Oxygen Flow Rate Sepsis Recent Fever Within 48 Hours Sepsis New/Unexplained Change in Mental Status Sepsis Action Taken by Nursing 01/15/22 09:20 01/15/22 09:30 01/15/22 09:31 Temperature Temperature Source Pulse Rate 70 69 Pulse Rate [Apical] Pulse Rate from SpO2 Sensor 66 69 Pulse Rhythm [Apical] Respiratory Rate 17 17 Respiratory Effort / Characteristics Respiratory Depth Respiratory Pattern Blood Pressure 178/94 H Blood Pressure [Left Arm] Blood Pressure Mean 122 Blood Pressure Mean [Left Arm] Blood Pressure Position [Left Arm] Pulse Oximetry 96 93 Oxygen Delivery Method Oxygen Flow Rate Sepsis Recent Fever Within 48 Hours Sepsis New/Unexplained Change in Mental Status Sepsis Action Taken by Nursing 01/15/22 09:31 01/15/22 09:40 01/15/22 09:46 Temperature Temperature Source Pulse Rate 68 64 69 Pulse Rate [Apical] Pulse Rate from SpO2 Sensor 68 65 71 Pulse Rhythm [Apical] Respiratory Rate 18 18 17 Respiratory Effort / Characteristics Respiratory Depth Respiratory Pattern Blood Pressure Blood Pressure [Left Arm] Blood Pressure Mean Blood Pressure Mean [Left Arm] Blood Pressure Position [Left Arm] Pulse Oximetry 95 94 93 Oxygen Delivery Method Oxygen Flow Rate Sepsis Recent Fever Within 48 Hours Sepsis New/Unexplained Change in Mental Status Sepsis Action Taken by Nursing 01/15/22 09:50 01/15/22 10:00 01/15/22 10:10 Temperature Temperature Source Pulse Rate 67 65 65 Pulse Rate [Apical] Pulse Rate from SpO2 Sensor 67 65 66 Pulse Rhythm [Apical] Respiratory Rate 16 16 16 Respiratory Effort / Characteristics Respiratory Depth Respiratory Pattern Blood Pressure Blood Pressure [Left Arm] Blood Pressure Mean Blood Pressure Mean [Left Arm] Blood Pressure Position [Left Arm] Pulse Oximetry 95 94 96 Oxygen Delivery Method Oxygen Flow Rate Sepsis Recent Fever Within 48 Hours Sepsis New/Unexplained Change in Mental Status Sepsis Action Taken by Nursing 01/15/22 10:14 01/15/22 10:14 01/15/22 10:20 Temperature Temperature Source Pulse Rate 66 79 Pulse Rate [Apical] Pulse Rate from SpO2 Sensor 67 76 Pulse Rhythm [Apical] Respiratory Rate 16 12 Respiratory Effort / Characteristics Respiratory Depth Respiratory Pattern Blood Pressure 127/61 Blood Pressure [Left Arm] Blood Pressure Mean 83 Blood Pressure Mean [Left Arm] Blood Pressure Position [Left Arm] Pulse Oximetry 94 97 Oxygen Delivery Method Oxygen Flow Rate Sepsis Recent Fever Within 48 Hours Sepsis New/Unexplained Change in Mental Status Sepsis Action Taken by Nursing 01/15/22 10:30 01/15/22 10:30 01/15/22 10:40 Temperature Temperature Source Pulse Rate 75 64 Pulse Rate [Apical] Pulse Rate from SpO2 Sensor 72 65 Pulse Rhythm [Apical] Respiratory Rate 18 15 Respiratory Effort / Characteristics Respiratory Depth Respiratory Pattern Blood Pressure 147/80 H Blood Pressure [Left Arm] Blood Pressure Mean 102 Blood Pressure Mean [Left Arm] Blood Pressure Position [Left Arm] Pulse Oximetry 94 96 Oxygen Delivery Method Oxygen Flow Rate Sepsis Recent Fever Within 48 Hours Sepsis New/Unexplained Change in Mental Status Sepsis Action Taken by Nursing 01/15/22 10:45 01/15/22 10:45 Temperature Temperature Source Pulse Rate 75 Pulse Rate [Apical] Pulse Rate from SpO2 Sensor 72 Pulse Rhythm [Apical] Respiratory Rate 10 L Respiratory Effort / Characteristics Respiratory Depth Respiratory Pattern Blood Pressure 149/74 H Blood Pressure [Left Arm] Blood Pressure Mean 99 Blood Pressure Mean [Left Arm] Blood Pressure Position [Left Arm] Pulse Oximetry 97 Oxygen Delivery Method Oxygen Flow Rate Sepsis Recent Fever Within 48 Hours Sepsis New/Unexplained Change in Mental Status Sepsis Action Taken by Nursing Laboratory Data Result diagrams: 01/15/22 07:56 01/15/22 07:56 Lab Results 01/15/22 01/15/22 01/15/22 Range/Units 07:56 07:56 07:56 WBC 4.81 (4.8-10.8) K/ul RBC 4.24 L (4.63-6.08) M/uL Hgb 13.6 L (14.0-18.0) g/dl POC Hgb (14.0-18.0) g/dl Hct 38.8 L (40.1-51.0) % POC Hct (42-52) % MCV 91.5 (80.0-100.0) fL MCH 32.1 (25.0-34.0) pg MCHC 35.1 (32.0-36.0) g/dL RDW Std Deviation 44.7 (36.4-46.3) fL RDW Coeff of Efren 13.2 (11.5-14.5) % Plt Count 142 (130-400) K/uL MPV 10.6 (9.4-12.4) fL Immature Gran % (Auto) 0.4 % Neut % (Auto) 57.3 % Lymph % (Auto) 22.9 % Shelby % (Auto) 10.8 % Eos % (Auto) 7.1 % Baso % (Auto) 1.5 % Neut # (Auto) 2.76 (1.4-6.5) K/uL Lymph # (Auto) 1.10 L (1.2-3.4) K/uL Shelby # (Auto) 0.52 (0.24-0.82) K/uL Eos # (Auto) 0.34 (0-0.50) K/uL Baso # (Auto) 0.07 (0-0.2) K/uL Immature Gran # (Auto) 0.02 (0.00-0.02) K/uL PT 11.3 (9.0-12.0) Seconds INR 1.1 (0.9-1.1) APTT 28.5 (21.0-31.0) Seconds PTT Ratio 1.0 POC Sodium (135-144) mmol/L Sodium 139 (136-145) mmol/L POC Potassium (3.3-5.0) mmol/L Potassium 4.0 (3.5-5.1) mmol/L POC Chloride (101-112) mmol/L Chloride 109 H (98-107) mmol/L Carbon Dioxide 24 (21-32) mmol/L POC Total CO2 (24-31) mmol/L Anion Gap 6 (3-11) POC Anion Gap (16-25) mmol/L POC BUN (7-18) mg/dl BUN 21 (6-23) mg/dl Creatinine 0.99 (0.6-1.4) mg/dl POC Creatinine (0.6-1.3) mg/dl Est Cr Clr Drug Dosing 66.1 ml/min Est GFR ( Amer) 81.3 ml/min Est GFR (Non-Af Amer) 70.1 ml/min BUN/Creatinine Ratio 21.2 H (10-20) Glucose 183 H (70-99(Fasting)) mg/dl POC Glucose (70-99) mg/dl POC Glucose (other) (70-99) mg/dl Estimat Average Glucose mg/dl Hemoglobin A1c (4.5-5.6) % Calcium 9.1 (8.5-10.1) mg/dl POC Ioniz Calcium Lex (1.12-1.32) mmol/l Magnesium 2.1 (1.7-2.4) mg/dl Total Bilirubin 0.5 (0.2-1.0) mg/dl AST 17 (13-39) U/L ALT 16 (7-52) U/L Alkaline Phosphatase 48 (34-104) U/L Troponin I High Sens 4.7 (0-20) pg/ml Total Protein 6.5 (6.0-8.3) gm/dl Albumin 3.9 (3.4-5.0) gm/dl Globulin 2.6 (2.5-4.0) gm/dl Albumin/Globulin Ratio 1.5 (0.9-2) Urine Color Urine Appearance (Clear) Urine pH (4.5-7.5) Ur Specific [place] (1.000-1.030) Urine Protein (Negative) Urine Glucose (UA) (Negative) Urine Ketones (Negative) Urine Blood (Negative) Urine Nitrite (Negative) Urine Bilirubin (Negative) Urine Urobilinogen (Negative) Ur Leukocyte Esterase (Negative) SARS-CoV-2, RNA, NAAT (NEGATIVE) Blood Type Antibody Screen 01/15/22 01/15/22 01/15/22 Range/Units 07:56 08:07 08:22 WBC (4.8-10.8) K/ul RBC (4.63-6.08) M/uL Hgb (14.0-18.0) g/dl POC Hgb 12.9 L (14.0-18.0) g/dl Hct (40.1-51.0) % POC Hct 38 L (42-52) % MCV (80.0-100.0) fL MCH (25.0-34.0) pg MCHC (32.0-36.0) g/dL RDW Std Deviation (36.4-46.3) fL RDW Coeff of Efren (11.5-14.5) % Plt Count (130-400) K/uL MPV (9.4-12.4) fL Immature Gran % (Auto) % Neut % (Auto) % Lymph % (Auto) % Shelby % (Auto) % Eos % (Auto) % Baso % (Auto) % Neut # (Auto) (1.4-6.5) K/uL Lymph # (Auto) (1.2-3.4) K/uL Shelby # (Auto) (0.24-0.82) K/uL Eos # (Auto) (0-0.50) K/uL Baso # (Auto) (0-0.2) K/uL Immature Gran # (Auto) (0.00-0.02) K/uL PT (9.0-12.0) Seconds INR (0.9-1.1) APTT (21.0-31.0) Seconds PTT Ratio POC Sodium 142 (135-144) mmol/L Sodium (136-145) mmol/L POC Potassium 4.0 (3.3-5.0) mmol/L Potassium (3.5-5.1) mmol/L POC Chloride 105 (101-112) mmol/L Chloride (98-107) mmol/L Carbon Dioxide (21-32) mmol/L POC Total CO2 23 L (24-31) mmol/L Anion Gap (3-11) POC Anion Gap 18.0 (16-25) mmol/L POC BUN 20 H (7-18) mg/dl BUN (6-23) mg/dl Creatinine (0.6-1.4) mg/dl POC Creatinine 1.0 (0.6-1.3) mg/dl Est Cr Clr Drug Dosing ml/min Est GFR ( Amer) ml/min Est GFR (Non-Af Amer) ml/min BUN/Creatinine Ratio (10-20) Glucose (70-99(Fasting)) mg/dl POC Glucose 113 H (70-99) mg/dl POC Glucose (other) 190 H (70-99) mg/dl Estimat Average Glucose 126 mg/dl Hemoglobin A1c 6.0 H (4.5-5.6) % Calcium (8.5-10.1) mg/dl POC Ioniz Calcium Lex 1.27 (1.12-1.32) mmol/l Magnesium (1.7-2.4) mg/dl Total Bilirubin (0.2-1.0) mg/dl AST (13-39) U/L ALT (7-52) U/L Alkaline Phosphatase (34-104) U/L Troponin I High Sens (0-20) pg/ml Total Protein (6.0-8.3) gm/dl Albumin (3.4-5.0) gm/dl Globulin (2.5-4.0) gm/dl Albumin/Globulin Ratio (0.9-2) Urine Color Urine Appearance (Clear) Urine pH (4.5-7.5) Ur Specific [place] (1.000-1.030) Urine Protein (Negative) Urine Glucose (UA) (Negative) Urine Ketones (Negative) Urine Blood (Negative) Urine Nitrite (Negative) Urine Bilirubin (Negative) Urine Urobilinogen (Negative) Ur Leukocyte Esterase (Negative) SARS-CoV-2, RNA, NAAT (NEGATIVE) Blood Type Antibody Screen 01/15/22 01/15/22 01/15/22 Range/Units 08:23 08:30 09:20 WBC (4.8-10.8) K/ul RBC (4.63-6.08) M/uL Hgb (14.0-18.0) g/dl POC Hgb (14.0-18.0) g/dl Hct (40.1-51.0) % POC Hct (42-52) % MCV (80.0-100.0) fL MCH (25.0-34.0) pg MCHC (32.0-36.0) g/dL RDW Std Deviation (36.4-46.3) fL RDW Coeff of Efren (11.5-14.5) % Plt Count (130-400) K/uL MPV (9.4-12.4) fL Immature Gran % (Auto) % Neut % (Auto) % Lymph % (Auto) % Shelby % (Auto) % Eos % (Auto) % Baso % (Auto) % Neut # (Auto) (1.4-6.5) K/uL Lymph # (Auto) (1.2-3.4) K/uL Shelby # (Auto) (0.24-0.82) K/uL Eos # (Auto) (0-0.50) K/uL Baso # (Auto) (0-0.2) K/uL Immature Gran # (Auto) (0.00-0.02) K/uL PT (9.0-12.0) Seconds INR (0.9-1.1) APTT (21.0-31.0) Seconds PTT Ratio POC Sodium (135-144) mmol/L Sodium (136-145) mmol/L POC Potassium (3.3-5.0) mmol/L Potassium (3.5-5.1) mmol/L POC Chloride (101-112) mmol/L Chloride (98-107) mmol/L Carbon Dioxide (21-32) mmol/L POC Total CO2 (24-31) mmol/L Anion Gap (3-11) POC Anion Gap (16-25) mmol/L POC BUN (7-18) mg/dl BUN (6-23) mg/dl Creatinine (0.6-1.4) mg/dl POC Creatinine (0.6-1.3) mg/dl Est Cr Clr Drug Dosing ml/min Est GFR ( Amer) ml/min Est GFR (Non-Af Amer) ml/min BUN/Creatinine Ratio (10-20) Glucose (70-99(Fasting)) mg/dl POC Glucose (70-99) mg/dl POC Glucose (other) (70-99) mg/dl Estimat Average Glucose mg/dl Hemoglobin A1c (4.5-5.6) % Calcium (8.5-10.1) mg/dl POC Ioniz Calcium Lex (1.12-1.32) mmol/l Magnesium (1.7-2.4) mg/dl Total Bilirubin (0.2-1.0) mg/dl AST (13-39) U/L ALT (7-52) U/L Alkaline Phosphatase (34-104) U/L Troponin I High Sens (0-20) pg/ml Total Protein (6.0-8.3) gm/dl Albumin (3.4-5.0) gm/dl Globulin (2.5-4.0) gm/dl Albumin/Globulin Ratio (0.9-2) Urine Color Yellow Urine Appearance Clear (Clear) Urine pH 7.0 (4.5-7.5) Ur Specific [place] 1.038 H (1.000-1.030) Urine Protein Negative (Negative) Urine Glucose (UA) Negative (Negative) Urine Ketones Negative (Negative) Urine Blood Negative (Negative) Urine Nitrite Negative (Negative) Urine Bilirubin Negative (Negative) Urine Urobilinogen Negative (Negative) Ur Leukocyte Esterase Negative (Negative) SARS-CoV-2, RNA, NAAT NEGATIVE (NEGATIVE) Blood Type O Positive Antibody Screen NEGATIVE Administered Medications Sodium Chloride (Nss 1000ml) 1,000 mls @ 50 mls/hr IV .Q20H AVILA Stop: 02/14/22 08:14 Last Admin: 01/15/22 09:07 Dose: 50 mls/hr Documented By: SR Lorazepam (Lorazepam 2 Mg/1 Ml Vial) 0.25 mg IV ONCE PRN; Protocol PRN Reason: chlostrophobia Stop: 02/14/22 10:49 Last Admin: 01/15/22 11:16 Dose: 0.25 mg Documented By: [id number] Discontinued Medications Ioversol (Optiray 300 500ml) 120 ml IV ONCE ONE Stop: 01/15/22 08:23 Last Admin: 01/15/22 08:22 Dose: 120 ml Documented By: GINETTE Imaging Data Radiologist's Impression: Chest X-Ray 01/15/22 08:04 SINGLE VIEW CHEST CLINICAL HISTORY: Strokelike symptoms. FINDINGS: An AP, portable, upright chest radiograph is compared to study dated 07/24/2020. The heart is enlarged noting atherosclerotic calcification of the thoracic aorta. The pulmonary vasculature is noncongested. Chronic interstitial thickening is similar to previous. There is bibasilar scarring/atelectasis. The lungs and pleural spaces are otherwise clear. No pneumothorax is seen. The skeletal structures are osteopenic. The bony thorax is grossly intact. IMPRESSION: Cardiomegaly with no acute cardiopulmonary abnormality. ACT 112: Negative or not required by law. Electronically signed by: Emmanuel Beltran M.D. 01/15/2022 9:[address] 01/15/22 08:[address] OF THE BRAIN; CT ANGIOGRAM OF THE BRAIN; CT ANGIOGRAM OF THE NECK CLINICAL HISTORY: Strokelike symptoms. COMPARISON STUDY: MRI of the brain dated 05/16/2021. CT angiogram of the head and neck dated 05/15/2021. TECHNIQUE: Unenhanced axial CT scan of the brain is performed. Subsequently, following the IV administration of 120 of Optiray 350, CT angiogram of the head and neck was performed from the aortic arch to the vertex. Images are reviewed in the axial, sagittal, and coronal planes. 3-D MIPS images are created and assessed. IV contrast was administered without complication. All measurements were calculated based on NASCET criteria. A dose lowering technique was utilized adhering to the principles of ALARA. CT DOSE: 1294.68 mGy.cm FINDINGS: Brain parenchyma: Right occipital encephalomalacia is consistent with a remote infarct. There is age-related involutional change noting mild microangiopathic disease. There is no hemorrhage, mass effect, or evidence of acute territorial ischemia by CT criteria. There is no evidence of enhancing mass lesion on the angiogram phase images. The ventricles, sulci, and cisterns are prominent secondary to additional change. Ervin-white matter differentiation is preserved. No extra-axial fluid collection is seen. Thoracic aorta: Visualized portions of the thoracic aorta are normal in caliber. The aortic arch demonstrates standard 3-vessel anatomy. Right carotid arterial system: The right common carotid artery is widely patent. Advanced atherosclerotic plaque is seen in the carotid bulb. This causes less than 30% luminal narrowing of the proximal right internal carotid artery. The remainder of the right internal carotid artery is widely patent, as is the right external carotid artery. Left carotid arterial system: The left common carotid artery is widely patent. Atherosclerotic plaque causes less than 50% luminal narrowing of the proximal left internal carotid artery 1.3 cm above the bifurcation. This is best seen on axial image #2 and 74. The remainder of the left internal carotid artery is widely patent, as is the left external carotid artery. 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 The vertebral arteries are otherwise widely patent bilaterally noting left-sided dominance. Subclavian arteries: Widely patent bilaterally. Intracranial vasculature: There is atherosclerotic calcification of the cavernous carotid and vertebral arteries. The internal carotid arteries are patent at the skull base, as are the anterior and middle cerebral arteries bilaterally. The basilar artery is diminutive. The vertebral arteries and basilar are patent at the skull base. The P1 segments are diminutive. There are bilateral posterior communicating arteries. The left posterior cerebral artery is patent. The right posterior artery appears occluded. The left vertebral artery is dominant. The right vertebral artery terminates as the PICA. No aneurysm is seen. Jugular veins: Patent bilaterally. Dural sinuses: The right transverse sinus is atretic versus chronically occluded. The right internal jugular vein is supplied by a large collateral vein, and this is unchanged from previous. The dural sinuses are otherwise patent. Lung apices: Partially visualized upper lobe lung parenchyma appears clear. Soft tissues: The visualized pharyngeal soft tissues are grossly normal in appearance noting angiographic phase technique. The oropharyngeal airway appears widely patent. The salivary and thyroid glands are normal in appearance. There are enlarged left superior cervical chain and submandibular lymph nodes with mild surrounding infiltration and fluid. The largest is seen on image #201 and measures 2.2 x 2.2 cm. Mildly enlarged mediastinal nodes are partially imaged. These measure up to 13 mm short axis. Skeletal structures: The skeletal structures are osteopenic. The calvarium appears intact. The cervical spine is maintained noting advanced multilevel spondylosis. No lytic or blastic lesion is seen. Orbits: The bony orbits are intact. Orbital contents are normal as visualized. Sinuses and mastoids: There is evidence of previous paranasal sinus surgery. There is moderate mucosal thickening within the maxillary antra. A small air- fluid level seen on the right. Mild mucosal thickening is noted in the frontal and ethmoid sinuses. The mastoid air cells are well pneumatized. IMPRESSION: 1. There is no hemorrhage, mass effect, or evidence of acute territorial ischemia by CT criteria. 2. Chronic right occipital lobe infarct. 3. 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 4. Otherwise unremarkable CT angiogram of the brain. 5. 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 This is unchanged. 6. Atherosclerotic plaque causes less than 50% luminal narrowing of the proximal internal carotid arteries bilaterally. There is no evidence of hemodynamically significant carotid stenosis. 7. There are pathologically enlarged left submandibular and superior cervical chain lymph nodes with mild surrounding infiltration and fluid. These are pathologically indeterminant, and neoplasm is not excluded. There are also mildly enlarged mediastinal nodes. Clinical correlation will be required. Fol low-up is indicated. 8. Additional findings as above. ACT 112: Negative or not required by law. Electronically signed by: Emmanuel Beltran M.D. 01/15/2022 8:49 AM Head CTA 01/15/22 08:[address] OF THE BRAIN; CT ANGIOGRAM OF THE BRAIN; CT ANGIOGRAM OF THE NECK CLINICAL HISTORY: Strokelike symptoms. COMPARISON STUDY: MRI of the brain dated 05/16/2021. CT angiogram of the head and neck dated 05/15/2021. TECHNIQUE: Unenhanced axial CT scan of the brain is performed. Subsequently, following the IV administration of 120 of Optiray 350, CT angiogram of the head and neck was performed from the aortic arch to the vertex. Images are reviewed in the axial, sagittal, and coronal planes. 3-D MIPS images are created and asse ssed. IV contrast was administered without complication. All measurements were calculated based on NASCET criteria. A dose lowering technique was utilized adhering to the principles of ALARA. CT DOSE: 1294.68 mGy.cm FINDINGS: Brain parenchyma: Right occipital encephalomalacia is consistent with a remote infarct. There is age-related involutional change noting mild microangiopathic disease. There is no hemorrhage, mass effect, or evidence of acute territorial ischemia by CT criteria. There is no evidence of enhancing mass lesion on the angiogram phase images. The ventricles, sulci, and cisterns are prominent second sarabjit to additional change. Ervin-white matter differentiation is preserved. No extra-axial fluid collection is seen. Thoracic aorta: Visualized portions of the thoracic aorta are normal in caliber. The aortic arch demonstrates standard 3-vessel anatomy. Right carotid arterial system: The right common carotid artery is widely patent. Advanced atherosclerotic plaque is seen in the carotid bulb. This causes less than 30% luminal narrowing of the proximal right internal carotid artery. The remainder of the right internal carotid artery is widely patent, as is the right external carotid artery. Left carotid arterial system: The left common carotid artery is widely patent. Atherosclerotic plaque causes less than 50% luminal narrowing of the proximal left internal carotid artery 1.3 cm above the bifurcation. This is best seen on axial image #2 and 74. The remainder of the left internal carotid artery is widely patent, as is the left external carotid artery. 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 The vertebral arteries are otherwise widely patent bilaterally noting left-sided dominance. Subclavian arteries: Widely patent bilaterally. Intracranial vasculature: There is atherosclerotic calcification of the cavernous carotid and vertebral arteries. The internal carotid arteries are patent at the skull base, as are the anterior and middle cerebral arteries bilaterally. The basilar artery is diminutive. The vertebral arteries and basilar are patent at the skull base. The P1 segments are diminutive. There are bilateral posterior communicating arteries. The left posterior cerebral artery is patent. The right posterior artery appears occluded. The left vertebral artery is dominant. The right vertebral artery terminates as the PICA. No aneurysm is seen. Jugular veins: Patent bilaterally. Dural sinuses: The right transverse sinus is atretic versus chronically occluded. The right internal jugular vein is supplied by a large collateral vein, and this is unchanged from previous. The dural sinuses are otherwise patent. Lung apices: Partially visualized upper lobe lung parenchyma appears clear. Soft tissues: The visualized pharyngeal soft tissues are grossly normal in appearance noting angiographic phase technique. The oropharyngeal airway appears widely patent. The salivary and thyroid glands are normal in appearance. There are enlarged left superior cervical chain and submandibular lymph nodes with mild surrounding infiltration and fluid. The largest is seen on image #201 and measures 2.2 x 2.2 cm. Mildly enlarged mediastinal nodes are partially imaged. These measure up to 13 mm short axis. Skeletal structures: The skeletal structures are osteopenic. The calvarium appears intact. The cervical spine is maintained noting advanced multilevel spondylosis. No lytic or blastic lesion is seen. Orbits: The bony orbits are intact. Orbital contents are normal as visualized. Sinuses and mastoids: There is evidence of previous paranasal sinus surgery. T here is moderate mucosal thickening within the maxillary antra. A small air- fluid level seen on the right. Mild mucosal thickening is noted in the frontal and ethmoid sinuses. The mastoid air cells are well pneumatized. IMPRESSION: 1. There is no hemorrhage, mass effect, or evidence of acute territorial ischemia by CT criteria. 2. Chronic right occipital lobe infarct. 3. 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 4. Otherwise unremarkable CT angiogram of the brain. 5. 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 This is unchanged. 6. Atherosclerotic plaque causes less than 50% luminal narrowing of the proximal internal carotid arteries bilaterally. There is no evidence of hemodynamically significant carotid stenosis. 7. There are pathologically enlarged left submandibular and superior cervical chain lymph nodes with mild surrounding infiltration and fluid. These are pathologically indeterminant, and neoplasm is not excluded. There are also mildly enlarged mediastinal nodes. Clinical correlation will be required. Follow-up is indicated. 8. Additional findings as above. ACT 112: Negative or not required by law. Electronically signed by: Emmanuel Beltran M.D. 01/15/2022 8:49 AM Neck CTA 01/15/22 08:[address] OF THE BRAIN; CT ANGIOGRAM OF THE BRAIN; CT ANGIOGRAM OF THE NECK CLINICAL HISTORY: Strokelike symptoms. COMPARISON STUDY: MRI of the brain dated 05/16/2021. CT angiogram of the head and neck dated 05/15/2021. TECHNIQUE: Unenhanced axial CT scan of the brain is performed. Subsequently, following the IV administration of 120 of Optiray 350, CT angiogram of the head and neck was performed from the aortic arch to the vertex. Images are reviewed in the axial, sagittal, and coronal planes. 3-D MIPS images are created and assessed. IV contrast was administered without complication. All measurements were calculated based on NASCET criteria. A dose lowering technique was utilized adhering to the principles of ALARA. CT DOSE: 1294.68 mGy.cm FINDINGS: Brain parenchyma: Right occipital encephalomalacia is consistent with a remote infarct. There is age-related involutional change noting mild microangiopathic disease. There is no hemorrhage, mass effect, or evidence of acute territorial ischemia by CT criteria. There is no evidence of enhancing mass lesion on the angiogram phase images. The ventricles, sulci, and cisterns are prominent secondary to additional change. Ervin-white matter differentiation is preserved. No extra-axial fluid collection is seen. Thoracic aorta: Visualized portions of the thoracic aorta are normal in caliber. The aortic arch demonstrates standard 3-vessel anatomy. Right carotid arterial system: The right common carotid artery is widely patent. Advanced atherosclerotic plaque is seen in the carotid bulb. This causes less than 30% luminal narrowing of the proximal right internal carotid artery. The remainder of the right internal carotid artery is widely patent, as is the right external carotid artery. Left carotid arterial system: The left common carotid artery is widely patent. Atherosclerotic plaque causes less than 50% luminal narrowing of the proximal left internal carotid artery 1.3 cm above the bifurcation. This is best seen on axial image #2 and 74. The remainder of the left internal carotid artery is widely patent, as is the left external carotid artery. 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 The vertebral arteries are otherwise widely patent bilaterally noting left-sided dominance. Subclavian arteries: Widely patent bilaterally. Intracranial vasculature: There is atherosclerotic calcification of the cavernous carotid and vertebral arteries. The internal carotid arteries are patent at the skull base, as are the anterior and middle cerebral arteries bilaterally. The basilar artery is diminutive. The vertebral arteries and basilar are patent at the skull base. The P1 segments are diminutive. There are bilateral posterior communicating arteries. The left posterior cerebral artery is patent. The right posterior artery appears occluded. The left vertebral artery is dominant. The right vertebral artery terminates as the PICA. No aneurysm is seen. Jugular veins: Patent bilaterally. Dural sinuses: The right transverse sinus is atretic versus chronically occluded. The right internal jugular vein is supplied by a large collateral vein, and this is unchanged from previous. The dural sinuses are otherwise patent. Lung apices: Partially visualized upper lobe lung parenchyma appears clear. Soft tissues: The visualized pharyngeal soft tissues are grossly normal in appearance noting angiographic phase technique. The oropharyngeal airway appears widely patent. The salivary and thyroid glands are normal in appearance. There are enlarged left superior cervical chain and submandibular lymph nodes with mild surrounding infiltration and fluid. The largest is seen on image #201 and measures 2.2 x 2.2 cm. Mildly enlarged mediastinal nodes are partially imaged. These measure up to 13 mm short axis. Skeletal structures: The skeletal structures are osteopenic. The calvarium appears intact. The cervical spine is maintained noting advanced multilevel spondylosis. No lytic or blastic lesion is seen. Orbits: The bony orbits are intact. Orbital contents are normal as visualized. Sinuses and mastoids: There is evidence of previous paranasal sinus surgery. There is moderate mucosal thickening within the maxillary antra. A small air- fluid level seen on the right. Mild mucosal thickening is noted in the frontal and ethmoid sinuses. The mastoid air cells are well pneumatized. IMPRESSION: 1. There is no hemorrhage, mass effect, or evidence of acute territorial ischemia by CT criteria. 2. Chronic right occipital lobe infarct. 3. 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 4. Otherwise unremarkable CT angiogram of the brain. 5. 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 This is unchanged. 6. Atherosclerotic plaque causes less than 50% luminal narrowing of the proximal internal carotid arteries bilaterally. There is no evidence of hemodynamically significant carotid stenosis. 7. There are pathologically enlarged left submandibular and superior cervical chain lymph nodes with mild surrounding infiltration and fluid. These are pathologically indeterminant, and neoplasm is not excluded. There are also mildly enlarged mediastinal nodes. Clinical correlation will be required. Follow-up is indicated. 8. Additional findings as above. ACT 112: Negative or not required by law. Electronically signed by: Emmanuel Beltran M.D. 01/15/2022 8:49 AM Discharge Plan Visit Data Chief Complaint: Neuro Symptoms/Deficit Stated Complaint: TIA? - L LEG NUMBNESS ED Provider: Jonnathan Garner Discharge Problem: Stroke-like symptoms Patient Disposition: Admitted As Inpatient Discharge Instructions Interventions: ED Discharge Assessment Last Done: 01/15/22 12:38
--- NOTE | 2022-01-15 17:25 | Consultation Report ---
DATE OF SERVICE: 01/15/2022. REASON FOR CONSULTATION: Tingling and numbness below the left knee. 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 He has seen me as an outpatient. Therefore, I assume he has had a Zio patch to rule out atrial fibrillation. He came in this morning after awakening with numbness and tingling below the left knee. The symptoms are persistent, but improving, now approximately 10 hours later. The patient denies any headache or cranial nerve symptoms. There was no left upper extremity numbness, weakness. There is no left lower extremity weakness. There was no vertigo. There was no neck or spine pain. No abdominal pain. The patient's weight has been stable. He does not know if he slept in an unusual position. He does not know if he has numbness and tingling in his feet as a baseline. He has been in his usual state of health. Stroke alert was called and he was not a TPA candidate because of minimal symptoms, which were improving. PAST MEDICAL HISTORY: BPH, COVID, dermatitis, disk herniation, glaucoma, hyperlipidemia, hypertension, osteoarthritis, history of hernia repair. FAMILY HISTORY: Stroke, hypertension. SOCIAL HISTORY: Nonsmoker, does not drink alcohol. ALLERGIES: LISINOPRIL, ASPIRIN, GLO INHIBITORS. HOME MEDICATIONS: Terazosin, amlodipine, vitamin D3, colestipol, latanoprost, atorvastatin, Plavix 75, dutasteride, fluticasone, and melatonin. IMAGING: Which I have reviewed, MRI of the brain shows no acute abnormality. Visualized cervical spinal cord is normal. There is right occipital encephalomalacia consistent with his old right [employer]ER infarct and there is a small lacunar infarct in the right cerebellar hemisphere. CTA of head and neck shows complete focal occlusion of the origin of the right vert with immediate reconstitution, which is unchanged. Atherosclerotic plaque causing less than 50% luminal narrowing in the proximal internal carotids bilaterally. Pathologically enlarged submandibular and superior cervical lymph nodes with mild surrounding infiltration and fluid, pathologically indeterminate. Lumbar spine x-ray, no acute abnormality, osteopenia and degenerative changes. Advanced disk space narrowing with endplate sclerosis at L5-S1. Labs are notable for an H and H of 12.9/38.8, glucose 183, nonfasting, hemoglobin A1c of 6. Electrolytes noncontributory. Urinalysis noncontributory. Electrocardiogram, accelerated junctional rhythm. Echocardiogram, normal LV size, moderate concentric LVH, EF 55-60, aortic sclerosis, mild without significant aortic valvular stenosis, trace aortic regurg. Left atrial size is normal. VITAL SIGNS: Blood pressure 154/75, pulse 62, respirations 16, temperature 36.4. OBJECTIVE: The patient is awake and alert. Speech and language are normal. Affect appropriate. There were no carotid or vertebral bruits. Heart is regular rate and rhythm. Posterior tibial pulses are reduced. The feet are somewhat cool, but dry. No pallor is noted. No tenderness in the region of the fibular head is noted. Pupils are equal. Optic nerves unremarkable. Normal royal, motility, facial sensation and facial symmetry. Motor: Normal upper extremity bulk and tone, full strength in the uppers. There is mild bilateral tibialis anterior atrophy. There is bilateral hammertoes. Reflexes are symmetric, although ankle jerks are absent. Vibration is appreciated at the right ankle and the left knee. There is an ankle level to temperature, and there is decreased light touch in the top of the left foot. Dhjudl-dy-[id number], [id number] normal. Gait is unremarkable. IMPRESSION: This patient who appears to have a mild neuropathy awakened with numbness and tingling below the left knee. I see no evidence that this represents a central process such as brain or spinal cord. I doubt that this is a lumbar radiculopathy given the absence of back pain. This patient appears to have a neuropathy. It is possible that he slept and compressed the neurogenic structures of the left leg, although his numbness did not fall in the distribution of a distinct peripheral nerve or nerve root. PLAN: Defer to primary care regarding workup of adenopathy, Cardiology for further evaluation of the accelerated junctional rhythm. This is not a transient ischemic attack. I recommend nerve conduction EMG as an outpatient. Labs for treatable etiologies of neuropathy. I would have no objection from his general and neurologic perspective if he were to be discharged in the morning. Job ID: [id number] [facility]
[2022-01-15] MEDS ORDERED: CHOLECALCIFEROL 1,000 UNITS 25 MCG TAB PO SCH (21:00)
[2022-01-15] MEDS ORDERED: TERAZOSIN HCL 5 MG CAP PO SCH (21:00)
[2022-01-15] MEDS ORDERED: LATANOPROST 0.005% OP SOLN 2.5 ML BTL OP SCH (21:00)
[2022-01-15] MEDS ORDERED: amLODIPine BESYLATE 5 MG TAB PO SCH (21:00)
[2022-01-15] MEDS ORDERED: ATORVASTATIN 20 MG TAB PO SCH (21:00)
--- NOTE | 2022-01-15 23:13 | Electrocardiogram Report ---
Test Reason : Blood Pressure : / mmHG Vent. Rate : 067 BPM Atrial Rate : 067 BPM P-R Int : 196 ms QRS Dur : 102 ms QT Int : 410 ms P-R-T Axes : 000 -15 045 degrees QTc Int : 433 ms Normal sinus rhythm Minimal voltage criteria for LVH, may be normal variant Abnormal ECG When compared with ECG of 15-MAY-2021 16:26, Premature ventricular complexes are no longer Present Confirmed by Jewel Peters ([id number]) on 01/15/2022 11:13:37 PM Referred By: REFERRED SELF Confirmed By:Jewel Peters
[2022-01-16] MEDS: SODIUM CHLORIDE 0.9% 1000ML 1,000 ML IV SCH (05:11)
[2022-01-16 06:36] LABS: Basophils # (auto) 0.07 K/uL (0-0.2); Basophils % (auto) 1.3 %; Eosinophils # (auto) 0.34 K/uL (0-0.50); Eosinophils % (auto) 6.2 %; Hematocrit (blood only) 41.4 % (40.1-51.0); Hemoglobin 14.5 g/dl (14.0-18.0); Immature Granulocytes # (auto) 0.02 K/uL (0.00-0.02); Immature Granulocytes % (auto) 0.4 %; Lymphocytes # (auto) 1.27 K/uL (1.2-3.4); Lymphocytes % (auto) 23.2 %; Mean Corpuscular Hemoglobin 32.3 pg (25.0-34.0); Mean Corpuscular Volume 92.2 fL (80.0-100.0); Mean Platelet Volume 10.5 fL (9.4-12.4); Monocytes # (auto) 0.61 K/uL (0.24-0.82); Monocytes % (auto) 11.1 %; Neutrophils # (auto) 3.17 K/uL (1.4-6.5); Neutrophils % (auto) 57.8 %; Platelet Count 151 K/uL (130-400); RDW Coefficient of Variation 13.2 % (11.5-14.5); RDW Standard Deviation 44.5 fL (36.4-46.3); Red Blood Count 4.49 M/uL (4.63-6.08); White Blood Count 5.48 K/ul (4.8-10.8)
[2022-01-16 07:11] LABS: Thyroid Stimulating Hormone 7.279 uIu/ml (0.300-4.500)
[2022-01-16 07:21] LABS: Folate (Folic Acid) 9.35 ng/ml (>5.38)
[2022-01-16 07:35] LABS: Estimated Average Glucose 126 mg/dl
[2022-01-16 07:45] LABS: T4 Free Thyroxine 0.73 ng/dl (0.61-1.60)
[2022-01-16 07:52] LABS: BUN Creatinine Ratio 18.2 (10-20); Calcium 9.2 mg/dl (8.5-10.1); Chol HDL Ratio 3.2 (0-5); Creatinine Clr Calc Pharmacy 71.1 ml/min; Est GFR (African American) 81.3 ml/min; Est GFR (Non-African American) 70.1 ml/min; Magnesium 2.2 mg/dl (1.7-2.4); Potassium 3.9 mmol/L (3.5-5.1)
[2022-01-16] MEDS ORDERED: FLUTICASONE PROPIONATE NA SPR 16 GM BTL SCH (09:00)
[2022-01-16] MEDS ORDERED: CLOPIDOGREL BISULFATE 75 MG TAB PO SCH (09:00)
--- NOTE | 2022-01-16 14:35 | Hospitalist Progress Note ---
Date of Service January 16, 2022 Assessment & Plan (1) Stroke-like symptoms: (2) BPH (benign prostatic hyperplasia): (3) Hypertension: (4) HLD (hyperlipidemia): (5) Left sided numbness: Plan Patient is an 81 Yr old male who presented to the [facility] ED with his son after he started to experience numbness, tingling, and weakness in his LLE. Head CT, CTA head/neck, MRI brain, lumbar x-ray all negative for acute disease. Likely neuropathic in nature. Consider discharge in 24 hours if stable. Stoke Like Symptoms Left lower extremity sided numbness Possible Peripheral Neuropathy --MRI Brain:Chronic changes as above with no acute intracranial abnormality. --Head/Neck CTA:There is no hemorrhage, mass effect, or evidence of acute territorial ischemia by CT criteria. 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 Otherwise unremarkable CT angiogram of the brain. 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 This is unchanged. Atherosclerotic plaque causes less than 50% luminal narrowing of the proximal internal carotid arteries bilaterally. There is no evidence of hemodynamically significant carotid stenosis. There are pathologically enlarged left submandibular and superior cervical chain lymph nodes with mild surrounding infiltration and fluid. These are pathologically indeterminant, and neoplasm is not excluded. There are also mildly enlarged mediastinal nodes. Clinical correlation will be required. Follow-up is indicated. --Lumbar X ray:No acute bony abnormality is seen involving the lumbar spine. --ECHO: Left ventricle is normal size. Moderate concentric LVH. Left ventricle wall motion is normal. EF 50 to 20%. Grade 1 diastolic dysfunction. Trace aortic regurgitation. -- Continue Plavix, statin Appreciate neurology input Will need nerve conduction EMG as outpatient if recurrence of symptoms Needs follow-up with neurology upon discharge Adenopathy Left submandibular and superior cervical chain lymph node enlargement Also noted enlarged mediastinal nodes Imaging studies as above Patient informs having biopsy before which were negative for malignancy Advised to follow-up with PCP for further management. HTN: Continue Amlodipine HLD: On Lipitor BPH: Continue Duasteride and Terazosin DVT Px: SCDs Code Status: Full code Disposition Home Admission and Anticipated Discharge Date Admission Date: January 15, 2022 Subjective Patient is seen and examined at bedside Left lower extremity numbness resolved No new complaints today Denies any chest pain, dyspnea, dizziness, nausea, abdominal pain, focal weakness Discussed with neurology today Plan to be discharged home today Review of Systems Review of Systems: All systems reviewed & are unremarkable except as noted in Subjective Physical Exam Physical Exam: Physical Exam: Vitals signs as noted above General Appearance:Obese, no apparent distress Head: normocephalic, Atraumatic Eyes: normal inspection, EOMI Neck: supple, Trachea midline Respiratory/Chest: Normal breath sounds, CTA, No accessory muscle use Cardiovascular: S1, S2, No murmur Abdomen/GI:Soft, Non tender, Bowel sounds present Extremities/Musculoskeletal:normal inspection, no edema Neurologic/Psych:AAOX3, grossly no focal neurological deficits Skin: normal color, warm Results & Data Results & Data ([facility]) Vital Signs (Past 12 Hours) Vital Signs Temp Pulse Pulse Resp BP Pulse Ox O2 Del Method 01/16/22 11:33 36.6 C 61 18 145/70 H 95 01/16/22 08:13 36.5 C 68 18 122/67 94 01/16/22 07:11 78 01/16/22 03:39 78 01/16/22 03:22 36.5 C 63 18 137/74 94 Room Air Laboratory Results Short CBC 01/16/22 Range/Units 05:29 WBC 5.48 (4.8-10.8) K/ul Hgb 14.5 (14.0-18.0) g/dl Hct 41.4 (40.1-51.0) % Plt Count 151 (130-400) K/uL BMP 01/16/22 05:29 Sodium 139 Potassium 3.9 Chloride 108 H Carbon Dioxide 25 BUN 18 Creatinine 0.99 Glucose 95 Calcium 9.2 (1) BPH (benign prostatic hyperplasia) Lower urinary tract symptom presence: unspecified whether lower urinary tract symptoms present Qualified Code(s): N40.0 - Benign prostatic hyperplasia without lower urinary tract symptoms (2) Hypertension Hypertension type: unspecified Qualified Code(s): I10 - Essential (primary) hypertension
--- NOTE | 2022-01-16 14:43 | Discharge Summary ---
Date of Service January 16, 2022 Admission HPI Per Admitting Provider Mr. Oliverio Del Valle is an 81 year old male who presented to the [facility] ED with his son after he started to experience numbness, tingling, and weakness in his LLE. A stroke alert was called and neuroconsultation was completed with Dr. Guillen at the [facility]. Due to his minimal symptoms he was deemed not a TNK candidate. A head CT and head and neck CTAs were performed and unremarkable for acute findings. This gentleman has a PMH that includes HTN, BPH, HLD, and CVA and numerous TIA's. He was recently inpatient in April 2021 for a SUGAR DRIER infarct and was started on Plavix. Currently, patient denies facial droop. No headache or blurred vision. Patient denies any other recent illnesses, fevers, chills, urine changes. Pt denies chest pain and shortness of breath. No lightheadedness, dizziness, diaphoresis, syncopal events. MRI of brain was unremarkable.There is right occipital encephalomalacia consistent with his old right SUGAR DRIER infarct and there is a small lacunar infarct in the right cerebellar hemisphere.As the pain was increasing on both sides, a lumbar spine x-ray was obtained and unremarkable aside from osteopenia and disc narrowing L5-S1.Patient will be admitted for further evaluation. Please see A/P for further details. Admission Exam Per Admitting Provider Physical Exam Physical Exam: Neuro: AAOx4, PERRLA, no aphagia, memory changes, CNII-XII grossly intact HEENT: head normocephalic, moist mucus membranes CV: S1/S2, (-) M/G/R, (-) edema, cap refill < 3 seconds Resp: Lungs CTA in all royal. On RA GI: Abdomen S/NT/ND, Ax4 bowel sounds, (-) CVA tenderness Musculoskeletal: 5/5 B/L UE strength, 5/5 B/L LE strength. No gait disturbance Skin: (-) rashes , (-) erythema. Psych: euthymic mood Principal Diagnosis Left lower extremity numbness--resolved Adenopathy Stoke Like Symptoms Abnormal thyroid function test Discharge Data Allergies Allergy/AdvReac Type Severity Reaction Status Date / Time lisinopril Allergy Severe UNKNOWN Verified 08/22/21 09:54 aspirin Allergy Mild DYSPHAGIA/TROUBLE Verified 08/22/21 09:54 STANDING STRAIGHT UP GLO Inhibitors Allergy Unknown ANGIOEDEMA/ Verified 08/22/21 09:54 MYLAGIAS Consultations 01/15/22 10:15 ED Decision to Admit Stat 01/15/22 12:37 Consult Neurology Routine Procedures Performed Laboratory Results WBC 5.48 K/ul (4.8-10.8) 01/16/22 05:29 RBC 4.49 M/uL (4.63-6.08) L 01/16/22 05:29 Hgb 14.5 g/dl (14.0-18.0) 01/16/22 05:29 POC Hgb 12.9 g/dl (14.0-18.0) L 01/15/22 08:07 Hct 41.4 % (40.1-51.0) 01/16/22 05:29 POC Hct 38 % (42-52) L 01/15/22 08:07 MCV 92.2 fL (80.0-100.0) 01/16/22 05:29 MCH 32.3 pg (25.0-34.0) 01/16/22 05:29 MCHC 35.0 g/dL (32.0-36.0) 01/16/22 05:29 RDW Std Deviation 44.5 fL (36.4-46.3) 01/16/22 05:29 RDW Coeff of Efren 13.2 % (11.5-14.5) 01/16/22 05:29 Plt Count 151 K/uL (130-400) 01/16/22 05:29 MPV 10.5 fL (9.4-12.4) 01/16/22 05:29 Immature Gran % (Auto) 0.4 % 01/16/22 05:29 Neut % (Auto) 57.8 % 01/16/22 05:29 Lymph % (Auto) 23.2 % 01/16/22 05:29 [place] % (Auto) 11.1 % 01/16/22 05:29 Eos % (Auto) 6.2 % 01/16/22 05:29 Baso % (Auto) 1.3 % 01/16/22 05:29 Neut # (Auto) 3.17 K/uL (1.4-6.5) 01/16/22 05:29 Lymph # (Auto) 1.27 K/uL (1.2-3.4) 01/16/22 05:29 [place] # (Auto) 0.61 K/uL (0.24-0.82) 01/16/22 05:29 Eos # (Auto) 0.34 K/uL (0-0.50) 01/16/22 05:29 Baso # (Auto) 0.07 K/uL (0-0.2) 01/16/22 05:29 Immature Gran # (Auto) 0.02 K/uL (0.00-0.02) 01/16/22 05:29 PT 11.3 Seconds (9.0-12.0) 01/15/22 07:56 INR 1.1 (0.9-1.1) 01/15/22 07:56 APTT 28.5 Seconds (21.0-31.0) 01/15/22 07:56 PTT Ratio 1.0 01/15/22 07:56 POC Sodium 142 mmol/L (135-144) 01/15/22 08:07 Sodium 139 mmol/L (136-145) 01/16/22 05:29 POC Potassium 4.0 mmol/L (3.3-5.0) 01/15/22 08:07 Potassium 3.9 mmol/L (3.5-5.1) 01/16/22 05:29 POC Chloride 105 mmol/L (101-112) 01/15/22 08:07 Chloride 108 mmol/L (98-107) H 01/16/22 05:29 Carbon Dioxide 25 mmol/L (21-32) 01/16/22 05:29 POC Total CO2 23 mmol/L (24-31) L 01/15/22 08:07 Anion Gap 6 (3-11) 01/16/22 05:29 POC Anion Gap 18.0 mmol/L (16-25) 01/15/22 08:07 POC BUN 20 mg/dl (7-18) H 01/15/22 08:07 BUN 18 mg/dl (6-23) 01/16/22 05:29 Creatinine 0.99 mg/dl (0.6-1.4) 01/16/22 05:29 POC Creatinine 1.0 mg/dl (0.6-1.3) 01/15/22 08:07 Est Cr Clr Drug Dosing 71.1 ml/min 01/16/22 05:29 Est GFR ( Amer) 81.3 ml/min 01/16/22 05:29 Est GFR (Non-Af Amer) 70.1 ml/min 01/16/22 05:29 BUN/Creatinine Ratio 18.2 (10-20) 01/16/22 05:29 Glucose 95 mg/dl (70-99(Fasting)) 01/16/22 05:29 POC Glucose 88 mg/dl (70-99) 01/15/22 22:07 POC Glucose (other) 190 mg/dl (70-99) H 01/15/22 08:07 Estimat Average Glucose 126 mg/dl 01/16/22 05:29 Hemoglobin A1c 6.0 % (4.5-5.6) H 01/16/22 05:29 Calcium 9.2 mg/dl (8.5-10.1) 01/16/22 05:29 POC Ioniz Calcium Lex 1.27 mmol/l (1.12-1.32) 01/15/22 08:07 Magnesium 2.2 mg/dl (1.7-2.4) 01/16/22 05:29 Total Bilirubin 0.5 mg/dl (0.2-1.0) 01/15/22 07:56 AST 17 U/L (13-39) 01/15/22 07:56 ALT 16 U/L (7-52) 01/15/22 07:56 Alkaline Phosphatase 48 U/L (34-104) 01/15/22 07:56 Troponin I High Sens 4.7 pg/ml (0-20) 01/15/22 07:56 Total Protein 6.5 gm/dl (6.0-8.3) 01/15/22 07:56 Albumin 3.9 gm/dl (3.4-5.0) 01/15/22 07:56 Globulin 2.6 gm/dl (2.5-4.0) 01/15/22 07:56 Albumin/Globulin Ratio 1.5 (0.9-2) 01/15/22 07:56 Triglycerides 121 mg/dl (0-150) 01/16/22 05:29 Cholesterol 123 mg/dl (0-200) 01/16/22 05:29 LDL Cholesterol, Calc 61 mg/dl 01/16/22 05:29 VLDL Cholesterol, Calc 24 mg/dl (0-30) 01/16/22 05:29 HDL Cholesterol 38 mg/dl 01/16/22 05:29 Cholesterol/HDL Ratio 3.2 (0-5) 01/16/22 05:29 Vitamin B12 452 pg/ml (180-914) 01/16/22 05:29 Folate 9.35 ng/ml (>5.38) 01/16/22 05:29 TSH 7.279 uIu/ml (0.300-4.500) H 01/16/22 05:29 Free T4 0.73 ng/dl (0.61-1.60) 01/16/22 05:29 Urine Color Yellow 01/15/22 09:20 Urine Appearance Clear (Clear) 01/15/22 09:20 Urine pH 7.0 (4.5-7.5) 01/15/22 09:20 Ur Specific [place] 1.038 (1.000-1.030) H 01/15/22 09:20 Urine Protein Negative (Negative) 01/15/22 09:20 Urine Glucose (UA) Negative (Negative) 01/15/22 09:20 Urine Ketones Negative (Negative) 01/15/22 09:20 Urine Blood Negative (Negative) 01/15/22 09:20 Urine Nitrite Negative (Negative) 01/15/22 09:20 Urine Bilirubin Negative (Negative) 01/15/22 09:20 Urine Urobilinogen Negative (Negative) 01/15/22 09:20 Ur Leukocyte Esterase Negative (Negative) 01/15/22 09:20 SARS-CoV-2, RNA, NAAT NEGATIVE (NEGATIVE) 01/15/22 08:30 Blood Type O Positive 01/15/22 08:23 Antibody Screen NEGATIVE 01/15/22 08:23 Impressions Chest X-Ray 01/15/22 08:04 SINGLE VIEW CHEST CLINICAL HISTORY: Strokelike symptoms. FINDINGS: An AP, portable, upright chest radiograph is compared to study dated 07/24/2020. The heart is enlarged noting atherosclerotic calcification of the thoracic aorta. The pulmonary vasculature is noncongested. Chronic interstitial thickening is similar to previous. There is bibasilar scarring/atelectasis. The lungs and pleural spaces are otherwise clear. No pneumothorax is seen. The skeletal structures are osteopenic. The bony thorax is grossly intact. IMPRESSION: Cardiomegaly with no acute cardiopulmonary abnormality. ACT 112: Negative or not required by law. Electronically signed by: Emmanuel Beltran M.D. 01/15/2022 9:[address] 01/15/22 08:[address] OF THE BRAIN; CT ANGIOGRAM OF THE BRAIN; CT ANGIOGRAM OF THE NECK CLINICAL HISTORY: Strokelike symptoms. COMPARISON STUDY: MRI of the brain dated 05/16/2021. CT angiogram of the head and neck dated 05/15/2021. TECHNIQUE: Unenhanced axial CT scan of the brain is performed. Subsequently, following the IV administration of 120 of Optiray 350, CT angiogram of the head and neck was performed from the aortic arch to the vertex. Images are reviewed in the axial, sagittal, and coronal planes. 3-D MIPS images are created and assessed. IV contrast was administered without complication. All measurements were calculated based on NASCET criteria. A dose lowering technique was utilized adhering to the principles of ALARA. CT DOSE: 1294.68 mGy.cm FINDINGS: Brain parenchyma: Right occipital encephalomalacia is consistent with a remote infarct. There is age-related involutional change noting mild microangiopathic disease. There is no hemorrhage, mass effect, or evidence of acute territorial ischemia by CT criteria. There is no evidence of enhancing mass lesion on the angiogram phase images. The ventricles, sulci, and cisterns are prominent secondary to additional change. Ervin-white matter differentiation is preserved. No extra-axial fluid collection is seen. Thoracic aorta: Visualized portions of the thoracic aorta are normal in caliber. The aortic arch demonstrates standard 3-vessel anatomy. Right carotid arterial system: The right common carotid artery is widely patent. Advanced atherosclerotic plaque is seen in the carotid bulb. This causes less than 30% luminal narrowing of the proximal right internal carotid artery. The remainder of the right internal carotid artery is widely patent, as is the right external carotid artery. Left carotid arterial system: The left common carotid artery is widely patent. Atherosclerotic plaque causes less than 50% luminal narrowing of the proximal left internal carotid artery 1.3 cm above the bifurcation. This is best seen on axial image #2 and 74. The remainder of the left internal carotid artery is widely patent, as is the left external carotid artery. 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 The vertebral arteries are otherwise widely patent bilaterally noting left-sided dominance. Subclavian arteries: Widely patent bilaterally. Intracranial vasculature: There is atherosclerotic calcification of the cavernous carotid and vertebral arteries. The internal carotid arteries are patent at the skull base, as are the anterior and middle cerebral arteries bilaterally. The basilar artery is diminutive. The vertebral arteries and basilar are patent at the skull base. The P1 segments are diminutive. There are bilateral posterior communicating arteries. The left posterior cerebral artery is patent. The right posterior artery appears occluded. The left vertebral artery is dominant. The right vertebral artery terminates as the PICA. No aneurysm is seen. Jugular veins: Patent bilaterally. Dural sinuses: The right transverse sinus is atretic versus chronically occluded. The right internal jugular vein is supplied by a large collateral vein, and this is unchanged from previous. The dural sinuses are otherwise patent. Lung apices: Partially visualized upper lobe lung parenchyma appears clear. Soft tissues: The visualized pharyngeal soft tissues are grossly normal in appearance noting angiographic phase technique. The oropharyngeal airway appears widely patent. The salivary and thyroid glands are normal in appearance. There are enlarged left superior cervical chain and submandibular lymph nodes with mild surrounding infiltration and fluid. The largest is seen on image #201 and measures 2.2 x 2.2 cm. Mildly enlarged mediastinal nodes are partially imaged. These measure up to 13 mm short axis. Skeletal structures: The skeletal structures are osteopenic. The calvarium appears intact. The cervical spine is maintained noting advanced multilevel spondylosis. No lytic or blastic lesion is seen. Orbits: The bony orbits are intact. Orbital contents are normal as visualized. Sinuses and mastoids: There is evidence of previous paranasal sinus surgery. There is moderate mucosal thickening within the maxillary antra. A small air- fluid level seen on the right. Mild mucosal thickening is noted in the frontal and ethmoid sinuses. The mastoid air cells are well pneumatized. IMPRESSION: 1. There is no hemorrhage, mass effect, or evidence of acute territorial ischemia by CT criteria. 2. Chronic right occipital lobe infarct. 3. 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 4. Otherwise unremarkable CT angiogram of the brain. 5. 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 This is unchanged. 6. Atherosclerotic plaque causes less than 50% luminal narrowing of the proximal internal carotid arteries bilaterally. There is no evidence of hemodynamically significant carotid stenosis. 7. There are pathologically enlarged left submandibular and superior cervical chain lymph nodes with mild surrounding infiltration and fluid. These are pathologically indeterminant, and neoplasm is not excluded. There are also mildly enlarged mediastinal nodes. Clinical correlation will be required. Follow-up is indicated. 8. Additional findings as above. ACT 112: Negative or not required by law. Electronically signed by: Emmanuel Beltran M.D. 01/15/2022 8:49 AM Head CTA 01/15/22 08:[address] OF THE BRAIN; CT ANGIOGRAM OF THE BRAIN; CT ANGIOGRAM OF THE NECK CLINICAL HISTORY: Strokelike symptoms. COMPARISON STUDY: MRI of the brain dated 05/16/2021. CT angiogram of the head and neck dated 05/15/2021. TECHNIQUE: Unenhanced axial CT scan of the brain is performed. Subsequently, following the IV administration of 120 of Optiray 350, CT angiogram of the head and neck was performed from the aortic arch to the vertex. Images are reviewed in the axial, sagittal, and coronal planes. 3-D MIPS images are created and assessed. IV contrast was administered without complication. All measurements were calculated based on NASCET criteria. A dose lowering technique was utilized adhering to the principles of ALARA. CT DOSE: 1294.68 mGy.cm FINDINGS: Brain parenchyma: Right occipital encephalomalacia is consistent with a remote infarct. There is age-related involutional change noting mild microangiopathic disease. There is no hemorrhage, mass effect, or evidence of acute territorial ischemia by CT criteria. There is no evidence of enhancing mass lesion on the angiogram phase images. The ventricles, sulci, and cisterns are prominent secondary to additional change. Ervin-white matter differentiation is preserved. No extra-axial fluid collection is seen. Thoracic aorta: Visualized portions of the thoracic aorta are normal in caliber. The aortic arch demonstrates standard 3-vessel anatomy. Right carotid arterial system: The right common carotid artery is widely patent. Advanced atherosclerotic plaque is seen in the carotid bulb. This causes less than 30% luminal narrowing of the proximal right internal carotid artery. The remainder of the right internal carotid artery is widely patent, as is the right external carotid artery. Left carotid arterial system: The left common carotid artery is widely patent. Atherosclerotic plaque causes less than 50% luminal narrowing of the proximal left internal carotid artery 1.3 cm above the bifurcation. This is best seen on axial image #2 and 74. The remainder of the left internal carotid artery is widely patent, as is the left external carotid artery. 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 The vertebral arteries are otherwise widely patent bilaterally noting left-sided dominance. Subclavian arteries: Widely patent bilaterally. Intracranial vasculature: There is atherosclerotic calcification of the cavernous carotid and vertebral arteries. The internal carotid arteries are patent at the skull base, as are the anterior and middle cerebral arteries bilaterally. The basilar artery is diminutive. The vertebral arteries and basilar are patent at the skull base. The P1 segments are diminutive. There are bilateral posterior communicating arteries. The left posterior cerebral artery is patent. The right posterior artery appears occluded. The left vertebral artery is dominant. The right vertebral artery terminates as the PICA. No aneurysm is seen. Jugular veins: Patent bilaterally. Dural sinuses: The right transverse sinus is atretic versus chronically occluded. The right internal jugular vein is supplied by a large collateral vein, and this is unchanged from previous. The dural sinuses are otherwise patent. Lung apices: Partially visualized upper lobe lung parenchyma appears clear. Soft tissues: The visualized pharyngeal soft tissues are grossly normal in appearance noting angiographic phase technique. The oropharyngeal airway appears widely patent. The salivary and thyroid glands are normal in appearance. There are enlarged left superior cervical chain and submandibular lymph nodes with mild surrounding infiltration and fluid. The largest is seen on image #201 and measures 2.2 x 2.2 cm. Mildly enlarged mediastinal nodes are partially imaged. These measure up to 13 mm short axis. Skeletal structures: The skeletal structures are osteopenic. The calvarium appears intact. The cervical spine is maintained noting advanced multilevel spondylosis. No lytic or blastic lesion is seen. Orbits: The bony orbits are intact. Orbital contents are normal as visualized. Sinuses and mastoids: There is evidence of previous paranasal sinus surgery. There is moderate mucosal thickening within the maxillary antra. A small air- fluid level seen on the right. Mild mucosal thickening is noted in the frontal and ethmoid sinuses. The mastoid air cells are well pneumatized. IMPRESSION: 1. There is no hemorrhage, mass effect, or evidence of acute territorial ischemia by CT criteria. 2. Chronic right occipital lobe infarct. 3. 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 4. Otherwise unremarkable CT angiogram of the brain. 5. 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 This is unchanged. 6. Atherosclerotic plaque causes less than 50% luminal narrowing of the proximal internal carotid arteries bilaterally. There is no evidence of hemodynamically significant carotid stenosis. 7. There are pathologically enlarged left submandibular and superior cervical chain lymph nodes with mild surrounding infiltration and fluid. These are pathologically indeterminant, and neoplasm is not excluded. There are also mildly enlarged mediastinal nodes. Clinical correlation will be required. Follow-up is indicated. 8. Additional findings as above. ACT 112: Negative or not required by law. Electronically signed by: Emmanuel Beltran M.D. 01/15/2022 8:49 AM Neck CTA 01/15/22 08:[address] OF THE BRAIN; CT ANGIOGRAM OF THE BRAIN; CT ANGIOGRAM OF THE NECK CLINICAL HISTORY: Strokelike symptoms. COMPARISON STUDY: MRI of the brain dated 05/16/2021. CT angiogram of the head and neck dated 05/15/2021. TECHNIQUE: Unenhanced axial CT scan of the brain is performed. Subsequently, following the IV administration of 120 of Optiray 350, CT angiogram of the head and neck was performed from the aortic arch to the vertex. Images are reviewed in the axial, sagittal, and coronal planes. 3-D MIPS images are created and assessed. IV contrast was administered without complication. All measurements were calculated based on NASCET criteria. A dose lowering technique was utilized adhering to the principles of ALARA. CT DOSE: 1294.68 mGy.cm FINDINGS: Brain parenchyma: Right occipital encephalomalacia is consistent with a remote infarct. There is age-related involutional change noting mild microangiopathic disease. There is no hemorrhage, mass effect, or evidence of acute territorial ischemia by CT criteria. There is no evidence of enhancing mass lesion on the angiogram phase images. The ventricles, sulci, and cisterns are prominent secondary to additional change. Ervin-white matter differentiation is preserved. No extra-axial fluid collection is seen. Thoracic aorta: Visualized portions of the thoracic aorta are normal in caliber. The aortic arch demonstrates standard 3-vessel anatomy. Right carotid arterial system: The right common carotid artery is widely patent. Advanced atherosclerotic plaque is seen in the carotid bulb. This causes less than 30% luminal narrowing of the proximal right internal carotid artery. The remainder of the right internal carotid artery is widely patent, as is the right external carotid artery. Left carotid arterial system: The left common carotid artery is widely patent. Atherosclerotic plaque causes less than 50% luminal narrowing of the proximal left internal carotid artery 1.3 cm above the bifurcation. This is best seen on axial image #2 and 74. The remainder of the left internal carotid artery is widely patent, as is the left external carotid artery. 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 The vertebral arteries are otherwise widely patent bilaterally noting left-sided dominance. Subclavian arteries: Widely patent bilaterally. Intracranial vasculature: There is atherosclerotic calcification of the cavernous carotid and vertebral arteries. The internal carotid arteries are patent at the skull base, as are the anterior and middle cerebral arteries bilaterally. The basilar artery is diminutive. The vertebral arteries and basilar are patent at the skull base. The P1 segments are diminutive. There are bilateral posterior communicating arteries. The left posterior cerebral artery is patent. The right posterior artery appears occluded. The left vertebral artery is dominant. The right vertebral artery terminates as the PICA. No aneurysm is seen. Jugular veins: Patent bilaterally. Dural sinuses: The right transverse sinus is atretic versus chronically occluded. The right internal jugular vein is supplied by a large collateral vein, and this is unchanged from previous. The dural sinuses are otherwise patent. Lung apices: Partially visualized upper lobe lung parenchyma appears clear. Soft tissues: The visualized pharyngeal soft tissues are grossly normal in appearance noting angiographic phase technique. The oropharyngeal airway appears widely patent. The salivary and thyroid glands are normal in appearance. There are enlarged left superior cervical chain and submandibular lymph nodes with mild surrounding infiltration and fluid. The largest is seen on image #201 and measures 2.2 x 2.2 cm. Mildly enlarged mediastinal nodes are partially imaged. T hese measure up to 13 mm short axis. Skeletal structures: The skeletal structures are osteopenic. The calvarium appears intact. The cervical spine is maintained noting advanced multilevel spondylosis. No lytic or blastic lesion is seen. Orbits: The bony orbits are intact. Orbital contents are normal as visualized. Sinuses and mastoids: There is evidence of previous paranasal sinus surgery. T here is moderate mucosal thickening within the maxillary antra. A small air- fluid level seen on the right. Mild mucosal thickening is noted in the frontal and ethmoid sinuses. The mastoid air cells are well pneumatized. IMPRESSION: 1. There is no hemorrhage, mass effect, or evidence of acute territorial ischemia by CT criteria. 2. Chronic right occipital lobe infarct. 3. 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 4. Otherwise unremarkable CT angiogram of the brain. 5. 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 This is unchanged. 6. Atherosclerotic plaque causes less than 50% luminal narrowing of the proximal internal carotid arteries bilaterally. There is no evidence of hemodynamically significant carotid stenosis. 7. There are pathologically enlarged left submandibular and superior cervical chain lymph nodes with mild surrounding infiltration and fluid. These are pathologically indeterminant, and neoplasm is not excluded. There are also mildly enlarged mediastinal nodes. Clinical correlation will be required. Follow-up is indicated. 8. Additional findings as above. ACT 112: Negative or not required by law. Electronically signed by: Emmanuel Beltran M.D. 01/15/2022 8:49 AM Brain MRI 01/15/22 10:49 MRI OF THE BRAIN WITHOUT IV CONTRAST CLINICAL HISTORY: Strokelike symptoms. COMPARISON STUDY: CT of the brain dated 01/15/2022. TECHNIQUE: MRI of the brain was performed utilizing various T1 and T2-weighted sequences in the axial, sagittal, and coronal planes. IV contrast was not administered for this examination. FINDINGS: Brain parenchyma: There is age-related involutional change noting mild subcortical and periventricular microangiopathic disease. Right occipital encephalomalacia is consistent with a remote infarct. A small chronic lacunar infarct is noted in the right cerebellar hemisphere. There is no hemorrhage or mass effect. There is no restricted diffusion typical for acute ischemia. Ervin- white matter differentiation is preserved. No extra-axial fluid collection is seen. The cerebellar tonsils are normal in configuration. Ventricles, sulci, and cisterns: Prominent secondary to involutional change. Pituitary and sella: Unremarkable. Intracranial vasculature: Normal flow voids are maintained at the skull base. Orbits: The bony orbits are grossly intact. Orbital contents are normal in appearance. Sinuses and mastoids: There is evidence of previous paranasal sinus surgery. Mucosal thickening is noted in the maxillary antra with an air-fluid level on the right. Mild mucosal thickening is also seen in the frontal and ethmoid sinuses. There is trace right mastoid effusion Calvarium: Unremarkable. Cervical cord: Partially visualized cervical spinal cord is normal in morphology and signal intensity. IMPRESSION: Chronic changes as above with no acute intracranial abnormality. ACT 112: Negative or not required by law. Electronically signed by: Emmanuel Beltran M.D. 01/15/2022 12:51 PM Lumbar Spine X-Ray 01/15/22 11:15 LUMBAR SPINE 3 VIEWS CLINICAL HISTORY: Lower extremity numbness. FINDINGS: 3 views of the lumbar spine are correlated with CT of the lumbar spine dated 11/28/2015. The skeletal structures are osteopenic. There is no radiographic evidence of fracture or malalignment. Vertebral body height is maintained throughout the lumbar spine. There is minimal anterolisthesis at L4-L5. Alignment is otherwise preserved. Anterior and lateral marginal osteophytes are seen throughout. The transverse and spinous processes appear intact. There is advanced facet arthropathy in the lower lumbar region. Advanced disc space narrowing with endplate sclerosis seen at L5-S1. Mild disc space narrowing is seen at the remaining lumbar levels. The bony pelvis is intact as visualized. Mild degenerative changes seen in the hips. There is no bowel obstruction. Moderate fecal retention is seen throughout the colon. The bladder is distended with excreted IV contrast. Phleboliths are seen in the pelvis. IMPRESSION: 1. No acute bony abnormality is seen involving the lumbar spine. 2. Osteopenia and spondylitic change as above. Dictated: 01/15/2022 1:08 PM Transcribed: 01/15/2022 2:09 PM Mandie [id number] [email or web address] Electronically signed by: Emmanuel Beltran M.D. 01/15/2022 2:17 PM Ordered Studies 01/15/22 08:04 CT angio head w con Stat CT angio neck with con Stat CT head/brain wo con Stat 01/15/22 10:49 MR brain wo con Stat Hospital Course (1) Stroke-like symptoms: (2) BPH (benign prostatic hyperplasia): (3) Hypertension: (4) HLD (hyperlipidemia): (5) Left sided numbness: Plan Patient is an 81 Yr old male who presented to the [facility] ED with his son after he started to experience numbness, tingling, and weakness in his LLE. Head CT, CTA head/neck, MRI brain, lumbar x-ray all negative for acute disease. Likely neuropathic in nature. Consider discharge in 24 hours if stable. Stoke Like Symptoms Left lower extremity sided numbness Possible Peripheral Neuropathy --MRI Brain:Chronic changes as above with no acute intracranial abnormality. --Head/Neck CTA:There is no hemorrhage, mass effect, or evidence of acute territorial ischemia by CT criteria. 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 Otherwise unremarkable CT angiogram of the brain. 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 This is unchanged. Atherosclerotic plaque causes less than 50% luminal narrowing of the proximal internal carotid arteries bilaterally. There is no evidence of hemodynamically significant carotid stenosis. There are pathologically enlarged left submandibular and superior cervical chain lymph nodes with mild surrounding infiltration and fluid. These are pathologically indeterminant, and neoplasm is not excluded. There are also mildly enlarged mediastinal nodes. Clinical correlation will be required. Follow-up is indicated. --Lumbar X ray:No acute bony abnormality is seen involving the lumbar spine. --ECHO: Left ventricle is normal size. Moderate concentric LVH. Left ventricle wall motion is normal. EF 50 to 20%. Grade 1 diastolic dysfunction. Trace aortic regurgitation. -- Continue Plavix, statin Appreciate neurology input Will need nerve conduction EMG as outpatient if recurrence of symptoms Needs follow-up with neurology upon discharge Adenopathy Left submandibular and superior cervical chain lymph node enlargement Also noted enlarged mediastinal nodes Imaging studies as above Patient informs having biopsy before which were negative for malignancy Advised to follow-up with PCP for further management. HTN: Continue Amlodipine HLD: On Lipitor BPH: Continue Duasteride and Terazosin DVT Px: SCDs Code Status: Full code Disposition Home Total Time Total Time Spent Total Time Spent (In Minutes): 49 minutes Discharge Plan Discharge Items Patient Disposition: Home - Self-Care Reason For Visit: TIA? - L LEG NUMBNESS Discharge Diagnosis: Left lower extremity numbness--resolved Adenopathy Stoke Like Symptoms Abnormal thyroid function test Activity: Per Instructions section Exercise/Sports: Gradually increase as tolerated Non-emergency contact: Primary Care Provider and Neurologist Call non-emergency contact if: you have any medication questions, your symptoms worsen, your pain is concerning for you and you have a fever Follow-up/Referrals: Nani Turner PA-C [Physician Career Guidance Counselor] - (Date & Time 01/31/2022 11:20 AM Provider Nani Turner PA-C Department Neurology [facility] ) Dion Rajan MD [Primary Care Provider] - (Date & Time 01/21/2022 3:00 PM Provider Dino Rajan MD Department [facility] ) Diet: Heart Healthy Addtl Attending Provider Instructions: Follow-up with your primary care physician on 01/21/2022 3:00 PM Follow-up with your neurologist Nani Turner PA-C on 01/31/2022 11:20 AM Follow-up with your oncologist for further evaluation of enlarged lymph nodes. --- Obtain nerve conduction EMG as outpatient as recommended by your neurologist. -- Discussed with your primary care physician or oncologist regarding further evaluation and management of lymph node enlargement as advised. --Your thyroid function test is abnormal. Discussed with your physician for possible need to be retested in 4 to 6 weeks and possibly need to be started on levothyroxine. -- Your blood tests (RPR and serum immunofixation) are pending at the time of discharge. Follow-up with your physician for results. Seek immediate medical attention if your symptoms reoccur or worsen Please take all medications as instructed on discharge list below. Please call if you have any questions or problems. You can reach a [facility] hospitalist on duty at [facility] [address] 24 hours a day by calling [phone] Risk Factors for Stroke: You can reduce your chances of stroke by working with your medical provider to adopt a healthy lifestyle. Some specific ways to lower your chance of stroke are: * If you are a smoker, now is the time to stop smoking cigarettes * If you are diabetic, improve the control of your blood sugars * Avoid excessive amounts of alcohol * Control high blood pressure * Lose weight if you are overweight * Be sure to lead an active lifestyle * Eat a healthy diet low in salt, cholesterol and fat You should know about other risk factors for stroke that you are unable to control. These include: * Age 55 years or older * Male gender * Certain racial groups: , or / * Family History of Stroke, Mini stroke or Heart Attack * Sickle Cell Disease Follow Up: It is important for you to keep your follow up appointments with your medical provider. Who to Call and When: Medical Emergencies: Call 911 immediately if you experience any of the following warning signs and symptoms of Stroke: * Sudden numbness or weakness of the face, arm or leg, especially on one side of the body * Sudden confusion, trouble speaking or understanding * Sudden trouble seeing in one or both eyes * Sudden trouble walking, dizziness, loss of balance or coordination * Sudden severe headache with no cause Do not delay calling 911 if you experience any warning signs or symptoms of a stroke. Delay in seeking medical attention may affect what treatments can be given to you. . Pending Studies at Discharge: Yes Studies:: RPR and serum immunofixation Stand-Alone Forms: My [facility], Smoking Cessation Medications and DC Order Prescriptions: Continued terazosin 10 mg Capsule 10 mg PO PM Qty: 0 amlodipine 5 mg Tablet 5 mg PO PM Qty: 0 cholecalciferol (vitamin D3) [Vitamin D3] 50 mcg (2,000 unit) Tablet 50 mcg PO PM Qty: 0 fluticasone propionate [Allergy Relief (fluticasone)] 50 mcg/actuation spray,suspension 2 spray intranasal DAILY Rx Instructions: administer into each nostril melatonin 10 mg capsule 10 mg PO HS PRN (Reason: Sleep) dutasteride 0.5 mg capsule 0.5 mg PO DAILY Qty: 90 3RF latanoprost 0.005 % drops 1 drp ophthalmic (eye) HS colestipol 1 gram tablet 2 g PO DAILY clopidogrel 75 mg Tablet 75 mg PO QAM Qty: 30 0RF atorvastatin 20 mg Tablet 20 mg PO HS Qty: 30 0RF Discharge Orders: Discharge Order (Routine); Ordered 01/16/22 Ordered By: Quincy Bardales/Other Patient Handouts: A1C Admission Data Admit Date/Time: 01/15/22 10:49 Attending Provider: Quincy Nj Admit Provider: Taniya Nick Primary Care Provider: Dino Rajan Other Providers: Taniya Nick ; Nani Bassett
--- NOTE | 2022-01-16 16:31 | Progress Notes ---
DATE OF NOTE: 01/16/2022. I am seeing the patient in followup of numbness in the left lower extremity below the knee. Symptoms have resolved. Workup has been unremarkable in terms of central etiologies. The patient was not reexamined. Clinically, I suspect he has an underlying neuropathy. In the absen ce of back or abdominal pain, I would suspect that it is possible that he slept abnormally on the leg . I would recommend that he see me post-discharge in the office, likely I will set up a nerve conduc tion EMG to explore the neuropathy, but as well to see if there is a focal neuropathy or radiculopath y in the left lower extremity. The patient should see me within 3-4 weeks post-discharge. I have no objection to him being discharged. Job ID: [id number]
== END 2022-01-16 16:34 | disposition home or self-care (01) | DRG 74 ==
LOC: ED 07:28 → EDINP 10:49 → SUATTDRO 10:49 → 2N 15:05

== ENCOUNTER 2022-08-02 05:50 | Inpatient (IN) ==
[2022-08-02] MEDS ORDERED: niCARdipine HCL INJ 2.5 MG/ML 10 ML AMP ONE (06:21)
[2022-08-02] MEDS ORDERED: HEPARIN (PORCINE) 1000 UNIT/ML 10 ML (CATH LAB USE ONLY) ONE (06:21)
[2022-08-02] MEDS ORDERED: MIDAZOLAM HCL 1 MG/ML 2ML VIAL ONE ×2 (06:21→07:34)
[2022-08-02] MEDS ORDERED: NITROGLYCERIN/D5W 100MCG/ML 20ML SYR ONE (06:22)
[2022-08-02] MEDS ORDERED: fentaNYL citrate PF 100 MCG/2 ML VIAL ONE (06:22)
[2022-08-02 06:29] LABS: Basophils # (auto) 0.06 K/uL (0-0.2); Basophils % (auto) 0.6 %; Eosinophils # (auto) 0.08 K/uL (0-0.50); Eosinophils % (auto) 0.8 %; Hematocrit (blood only) 42.9 % (42.0-52.0); Hemoglobin 14.6 g/dl (14.0-18.0); Immature Granulocytes # (auto) 0.08 K/uL (0.01-0.20); Immature Granulocytes % (auto) 0.8 %; Lymphocytes # (auto) 1.33 K/uL (1.2-3.4); Lymphocytes % (auto) 13.9 %; Mean Corpuscular Hemoglobin 31.5 pg (25.0-34.0); Mean Corpuscular Volume 92.7 fL (80.0-100.0); Mean Platelet Volume 10.5 fL (9.4-12.4); Monocytes # (auto) 0.56 K/uL (0.11-0.59); Monocytes % (auto) 5.9 %; Neutrophils # (auto) 7.45 K/uL (1.40-6.50); Platelet Count 132 K/uL (130-400); RDW Coefficient of Variation 14.6 % (11.5-14.5); RDW Standard Deviation 49.2 fL (36.4-46.3); Red Blood Count 4.63 M/uL (4.70-6.10); White Blood Count 9.56 K/ul (4.8-10.8)
[2022-08-02 06:33] LABS: iSTAT Creatinine 0.8 mg/dl (0.6-1.3); iSTAT Hemoglobin 15.3 g/dl (14.0-18.0); iSTAT Ionized Calcium 1.21 mmol/l (1.12-1.32); iSTAT Potassium 3.7 mmol/L (3.3-5.0)
[2022-08-02] MEDS ORDERED: TICAGRELOR 90 MG TAB PO ONE (06:39)
--- NOTE | 2022-08-02 06:42 | Emergency Department Note ---
Impression & Plan ST elevation (STEMI) myocardial infarction to the cardiac Auto Mechanics Instructor with Dr. Deluca ED Provider Note NAME: BETTINA HOOVER AGE: 82 SEX: M ARRIVES VIA: Walk-In INFORMANT: [Patient]and son ED PROVIDER(S): Delmy Lopez DO CHIEF COMPLAINT: chest pin PLAN: Disposition: To the cardiac Auto Mechanics Instructor as a heart alert with Dr. Deluca Condition: Critical MEDICAL DECISION MAKING: This is an 82-year-old male patient who presents to the emergency department with substernal chest discomfort. EKG done upon arrival shows evidence of a STEMI in the anteroseptal leads. A heart alert was called. The patient remained hemodynamically stable although bradycardic. Blood pressure was normal. Patient has an allergy to aspirin. He was given oral Brilinta. Chest discomfort was intermittent. Auto Mechanics Instructor team arrived in room C1 and he was taken to the cardiac Auto Mechanics Instructor. Patient's son was kept abreast of the situation. I discussed CODE STATUS with the patient directly and he was a full code. Triage Nursing notes reviewed and agree with them. [Additional history obtained from] the patient's son who was at the bedside Vital Signs: reviewed and remarkable for bradycardia Differential diagnosis: Anxiety, GERD, STEMI ER treatment provided: Cardiac monitoring, supplemental O2, oral Brilinta Diagnostics interpreted by me: ECG: Normal sinus rhythm at a rate of [address] segment elevation in leads V2, V3, V4 and V5 and 1 and aVL consistent with a STEMI. Cardiac Monitoring: Normal sinus rhythm at a rate of 72 Laboratory studies: [See below] [] Imaging studies: As per my independent interpretation Portable chest x-ray: Moderate cardiomegaly with no other pulmonary pathology Consultation(s): Dr. Deluca HPI: 82/M arrives for evaluation of chest discomfort. The patient awoke from sleep around 4:30 in the morning in his usual state of health but then quickly developed a substernal chest pressure. The pain did not radiate anywhere initially and then radiated into his left shoulder. He denies ever having pain like this in the past. He has no cardiac history. He does describe that his father had heart disease. PAST MEDICAL HISTORY:[See Below] PAST SURGICAL HISTORY:[See Below] FAMILY HISTORY:[See Below] SOCIAL HISTORY:[See Below] HOME MEDICATIONS:See list ALLERGIES:See list VITALS:[See Below] PHYSICAL EXAMINATION: HEENT: Head - normocephalic and atraumatic. Pupils are equal, round, and reactive to light. Extraocular eye muscles are intact, and sclera are anicteric. Nose - moist nasal mucosa without discharge. Mouth - moist buccal mucosa. Oropharynx is nonerythematous and there is no tonsillar exudate or edema noted. Neck: Supple; no cervical of adenopathy or JVD Heart: Patient was bradycardic with a regular rhythm there is a normal S1 and S2 with no murmurs, clicks, or gallops appreciated. Lungs: Clear to auscultation bilaterally with no wheezes, rales, or rhonchi. Abdomen: Soft, completely nontender, nondistended, with good bowel sounds. There are no palpable pulsatile masses or hepatosplenomegaly. There is no guarding, rigidity, or rebound noted. Extremities: No evidence of cyanosis, clubbing, or edema. There are easily palpable peripheral pulses. Skin: Pale, patient had multiple scabbed over superficial scratches to his anterior abdominal wall and left upper extremity ED COURSE: Patient was evaluated in room C1. A heart alert was called. A complete history and physical was performed. 2 IV locks were attempted. Only 1 was established. Patient is allergic to aspirin. He was given an oral dose of Brilinta. I have personally spent greater than 30 minutes of critical care time in the direct management of this patient. This includes bedside care, interpretation of diagnostic studies, and testing, discussion with consultants, patient, and family members, and other required patient management activities. This 30 minutes is in excess of all separately billable procedures. Delmy Lopez DO Past Med/Surg History Medical History BPH (benign prostatic hyperplasia) Disc herniation pt denies Glaucoma History of chronic rhinitis History of COVID-19 06/2020, pcr test, not hosp; "mild symptoms" begin 11/2021, pcr test [facility]; [place]; "Mild symptoms" History of restless legs syndrome History of vitamin D deficiency HLD (hyperlipidemia) Hx of spinal stenosis Hypertension Osteoarthritis Transient ischemic attack (TIA) 05/2021, went to ER; tingling toes/fingertips; resolved.; f/u dr booker, [facility]; no residual effects Surgical History H/O hernia repair Hx of cataract extraction rt. Hx of tooth extraction Family History Father Hypertension Mother Stroke Social History Smoking Status: Former smoker Tobacco Type: Cigarettes Second Hand Exposure: No; Do You Dip or Chew Tobacco: No; Tobacco Cessation Education Requested by Patient: No Hx Alcohol Use: Yes Alcohol type: wine Hx Substance Use: No Preferred Language: Kinyarwanda Communication Ability: Effective Director Perioperative Required: No Beliefs That Will Affect Care: None marital status: Unknown Current Living Situation: Family Current Living Situation Comment: LIVES WITH SON Other Information That Helps Us Care for You: No Feels Safe at Home: Yes Safety Concerns: Feels Safe At This Time Assistive Devices: Cane Allergies Allergies Allergy/AdvReac Type Severity Reaction Status Date / Time GLO Inhibitors Allergy Severe ANGIOEDEMA/ Verified 03/31/22 20:50 MYLAGIAS lisinopril Allergy Severe ANGIOEDEMA/ Verified 03/31/22 20:50 MYLAGIAS aspirin AdvReac Intermediate DYSPHAGIA/TROUBLE Verified 03/31/22 20:50 STANDING STRAIGHT UP Home Meds Home Medications Medication Instructions Recorded Confirmed terazosin 10 mg capsule 10 mg PO HS ##0 10/25/08 08/02/22 amlodipine 5 mg tablet 5 mg PO HS ##0 11/01/08 08/02/22 cholecalciferol (vitamin D3) 50 50 mcg PO HS ##0 12/04/15 08/02/22 mcg (2,000 unit) tablet (Vitamin D3) fluticasone propionate 50 2 spray intranasal BID 08/22/21 08/02/22 mcg/actuation nasal spray,suspension (Allergy Relief (fluticasone)) melatonin 10 mg capsule 10 mg PO HS PRN Sleep 08/22/21 08/02/22 dutasteride 0.5 mg capsule 0.5 mg PO QAM 01/31/22 08/02/22 desonide 0.05 % topical ointment 1 applic topical BID PRN Rash 08/02/22 08/02/22 prednisone 10 mg tablet 15 mg PO DAILY 08/02/22 08/02/22 Previous Rx's Medication Instructions Recorded atorvastatin 20 mg tablet 20 mg PO HS #30 tabs 05/17/21 clopidogrel 75 mg tablet 75 mg PO QAM #30 tabs 05/17/21 Results & Data (ED) Vital Signs Vital Signs - 24 hr 08/02/22 05:54 08/02/22 06:13 08/02/22 06:15 Temperature 36.4 C L Temperature Source Temporal Artery Scan Pulse Rate 75 68 Pulse Rate [Apical] 61 Pulse Rhythm Pulse Rhythm [Apical] Pulse Strength [Apical] Respiratory Rate 20 18 Respiratory Effort / Characteristics Non-Labored Spontaneous Respiratory Depth Normal Respiratory Pattern Blood Pressure 154/77 H Blood Pressure [Left Arm] Blood Pressure [Right Arm] 159/91 H Blood Pressure Mean 102 Blood Pressure Mean [Left Arm] Blood Pressure Mean [Right Arm] 113 Blood Pressure Position Sitting Blood Pressure Position [Left Arm] Pulse Oximetry 95 95 Oxygen Delivery Method Room Air Room Air Sepsis Recent Fever Within 48 Hours No Sepsis New/Unexplained Change in Mental Status N/A Sepsis Action Taken by Nursing No Action Required 08/02/22 06:37 08/02/22 06:20 08/02/22 06:20 Temperature Temperature Source Pulse Rate 56 L Pulse Rate [Apical] 50 L 54 L Pulse Rhythm Regular Pulse Rhythm [Apical] Pulse Strength [Apical] Respiratory Rate 18 18 Respiratory Effort / Characteristics Non-Labored Spontaneous Non-Labored Spontaneous Respiratory Depth Normal Respiratory Pattern Blood Pressure Blood Pressure [Left Arm] Blood Pressure [Right Arm] 143/76 H Blood Pressure Mean Blood Pressure Mean [Left Arm] Blood Pressure Mean [Right Arm] 98 Blood Pressure Position Blood Pressure Position [Left Arm] Pulse Oximetry 95 95 Oxygen Delivery Method Room Air Room Air Sepsis Recent Fever Within 48 Hours Sepsis New/Unexplained Change in Mental Status Sepsis Action Taken by Nursing 08/02/22 06:46 08/02/22 06:47 08/02/22 08:03 Temperature Temperature Source Pulse Rate Pulse Rate [Apical] 54 L 77 Pulse Rhythm Pulse Rhythm [Apical] Regular Pulse Strength [Apical] Normal Respiratory Rate 18 16 Respiratory Effort / Characteristics Non-Labored Spontaneous Non-Labored Respiratory Depth Normal Normal Respiratory Pattern Regular Blood Pressure Blood Pressure [Left Arm] 142/78 H Blood Pressure [Right Arm] 137/83 Blood Pressure Mean Blood Pressure Mean [Left Arm] 99 Blood Pressure Mean [Right Arm] 101 Blood Pressure Position Blood Pressure Position [Left Arm] Lying Pulse Oximetry 95 94 Oxygen Delivery Method Room Air Room Air Room Air Sepsis Recent Fever Within 48 Hours Sepsis New/Unexplained Change in Mental Status Sepsis Action Taken by Nursing Laboratory Data 08/02/22 06:18 08/02/22 06:18 Lab Results 08/02/22 08/02/22 08/02/22 Range/Units 06:18 06:18 06:18 WBC 9.56 (4.8-10.8) K/ul RBC 4.63 L (4.70-6.10) M/uL Hgb 14.6 (14.0-18.0) g/dl POC Hgb (14.0-18.0) g/dl Hct 42.9 (42.0-52.0) % POC Hct (42-52) % MCV 92.7 (80.0-100.0) fL MCH 31.5 (25.0-34.0) pg MCHC 34.0 (32.0-36.0) g/dL RDW Std Deviation 49.2 H (36.4-46.3) fL RDW Coeff of Efren 14.6 H (11.5-14.5) % Plt Count 132 (130-400) K/uL MPV 10.5 (9.4-12.4) fL Immature Gran % (Auto) 0.8 % Neut % (Auto) 78.0 % Lymph % (Auto) 13.9 % Thomas % (Auto) 5.9 % Eos % (Auto) 0.8 % Baso % (Auto) 0.6 % Neut # (Auto) 7.45 H (1.40-6.50) K/uL Lymph # (Auto) 1.33 (1.2-3.4) K/uL Thomas # (Auto) 0.56 (0.11-0.59) K/uL Eos # (Auto) 0.08 (0-0.50) K/uL Baso # (Auto) 0.06 (0-0.2) K/uL Immature Gran # (Auto) 0.08 (0.01-0.20) K/uL Activ Coag Time Kaolin (94-140) SECONDS POC Sodium (135-144) mmol/L Sodium 138 (136-145) mmol/L POC Potassium (3.3-5.0) mmol/L Potassium 3.7 (3.5-5.1) mmol/L POC Chloride (101-112) mmol/L Chloride 104 (98-107) mmol/L Carbon Dioxide 26 (21-32) mmol/L POC Total CO2 (24-31) mmol/L Anion Gap 8 (3-11) POC Anion Gap (16-25) mmol/L POC BUN (7-18) mg/dl BUN 23 (6-23) mg/dl Creatinine 0.90 (0.6-1.4) mg/dl POC Creatinine (0.6-1.3) mg/dl Est Cr Clr Drug Dosing 79.9 ml/min Est GFR ( Amer) 90.6 ml/min Est GFR (Non-Af Amer) 78.2 ml/min BUN/Creatinine Ratio 25.6 H (10-20) Glucose 272 H (70-99(Fasting)) mg/dl POC Glucose (other) (70-99) mg/dl Estimat Average Glucose 134 mg/dl Hemoglobin A1c 6.3 H (4.5-5.6) % Calcium 9.0 (8.6-10.3) mg/dl POC Ioniz Calcium Lex (1.12-1.32) mmol/l Total Bilirubin 0.4 (0.2-1.0) mg/dl AST 17 (13-39) U/L ALT 21 (7-52) U/L Alkaline Phosphatase 59 (34-104) U/L Troponin I High Sens 453.6 H* (0-20) pg/ml Total Protein 6.1 (6.0-8.3) gm/dl Albumin 4.0 (3.4-5.0) gm/dl Globulin 2.1 L (2.5-4.0) gm/dl Albumin/Globulin Ratio 1.9 (0.9-2) Lipase 12 (11-82) U/L Blood Type Antibody Screen 08/02/22 08/02/22 08/02/22 Range/Units 06:21 06:37 07:12 WBC (4.8-10.8) K/ul RBC (4.70-6.10) M/uL Hgb (14.0-18.0) g/dl POC Hgb 15.3 (14.0-18.0) g/dl Hct (42.0-52.0) % POC Hct 45 (42-52) % MCV (80.0-100.0) fL MCH (25.0-34.0) pg MCHC (32.0-36.0) g/dL RDW Std Deviation (36.4-46.3) fL RDW Coeff of Efren (11.5-14.5) % Plt Count (130-400) K/uL MPV (9.4-12.4) fL Immature Gran % (Auto) % Neut % (Auto) % Lymph % (Auto) % Thomas % (Auto) % Eos % (Auto) % Baso % (Auto) % Neut # (Auto) (1.40-6.50) K/uL Lymph # (Auto) (1.2-3.4) K/uL Thomas # (Auto) (0.11-0.59) K/uL Eos # (Auto) (0-0.50) K/uL Baso # (Auto) (0-0.2) K/uL Immature Gran # (Auto) (0.01-0.20) K/uL Activ Coag Time Kaolin 251 H (94-140) SECONDS POC Sodium 139 (135-144) mmol/L Sodium (136-145) mmol/L POC Potassium 3.7 (3.3-5.0) mmol/L Potassium (3.5-5.1) mmol/L POC Chloride 101 (101-112) mmol/L Chloride (98-107) mmol/L Carbon Dioxide (21-32) mmol/L POC Total CO2 24 (24-31) mmol/L Anion Gap (3-11) POC Anion Gap 19.0 (16-25) mmol/L POC BUN 23 H (7-18) mg/dl BUN (6-23) mg/dl Creatinine (0.6-1.4) mg/dl POC Creatinine 0.8 (0.6-1.3) mg/dl Est Cr Clr Drug Dosing ml/min Est GFR ( Amer) ml/min Est GFR (Non-Af Amer) ml/min BUN/Creatinine Ratio (10-20) Glucose (70-99(Fasting)) mg/dl POC Glucose (other) 269 H (70-99) mg/dl Estimat Average Glucose mg/dl Hemoglobin A1c (4.5-5.6) % Calcium (8.6-10.3) mg/dl POC Ioniz Calcium Lex 1.21 (1.12-1.32) mmol/l Total Bilirubin (0.2-1.0) mg/dl AST (13-39) U/L ALT (7-52) U/L Alkaline Phosphatase (34-104) U/L Troponin I High Sens (0-20) pg/ml Total Protein (6.0-8.3) gm/dl Albumin (3.4-5.0) gm/dl Globulin (2.5-4.0) gm/dl Albumin/Globulin Ratio (0.9-2) Lipase (11-82) U/L Blood Type O Positive Antibody Screen NEGATIVE 08/02/22 Range/Units 07:32 WBC (4.8-10.8) K/ul RBC (4.70-6.10) M/uL Hgb (14.0-18.0) g/dl POC Hgb (14.0-18.0) g/dl Hct (42.0-52.0) % POC Hct (42-52) % MCV (80.0-100.0) fL MCH (25.0-34.0) pg MCHC (32.0-36.0) g/dL RDW Std Deviation (36.4-46.3) fL RDW Coeff of Efren (11.5-14.5) % Plt Count (130-400) K/uL MPV (9.4-12.4) fL Immature Gran % (Auto) % Neut % (Auto) % Lymph % (Auto) % Thomas % (Auto) % Eos % (Auto) % Baso % (Auto) % Neut # (Auto) (1.40-6.50) K/uL Lymph # (Auto) (1.2-3.4) K/uL Thomas # (Auto) (0.11-0.59) K/uL Eos # (Auto) (0-0.50) K/uL Baso # (Auto) (0-0.2) K/uL Immature Gran # (Auto) (0.01-0.20) K/uL Activ Coag Time Kaolin 335 H (94-140) SECONDS POC Sodium (135-144) mmol/L Sodium (136-145) mmol/L POC Potassium (3.3-5.0) mmol/L Potassium (3.5-5.1) mmol/L POC Chloride (101-112) mmol/L Chloride (98-107) mmol/L Carbon Dioxide (21-32) mmol/L POC Total CO2 (24-31) mmol/L Anion Gap (3-11) POC Anion Gap (16-25) mmol/L POC BUN (7-18) mg/dl BUN (6-23) mg/dl Creatinine (0.6-1.4) mg/dl POC Creatinine (0.6-1.3) mg/dl Est Cr Clr Drug Dosing ml/min Est GFR ( Amer) ml/min Est GFR (Non-Af Amer) ml/min BUN/Creatinine Ratio (10-20) Glucose (70-99(Fasting)) mg/dl POC Glucose (other) (70-99) mg/dl Estimat Average Glucose mg/dl Hemoglobin A1c (4.5-5.6) % Calcium (8.6-10.3) mg/dl POC Ioniz Calcium Lex (1.12-1.32) mmol/l Total Bilirubin (0.2-1.0) mg/dl AST (13-39) U/L ALT (7-52) U/L Alkaline Phosphatase (34-104) U/L Troponin I High Sens (0-20) pg/ml Total Protein (6.0-8.3) gm/dl Albumin (3.4-5.0) gm/dl Globulin (2.5-4.0) gm/dl Albumin/Globulin Ratio (0.9-2) Lipase (11-82) U/L Blood Type Antibody Screen Administered Medications Atorvastatin Calcium (Atorvastatin 40 Mg Tab) 40 mg PO QAM [facility] Stop: 09/01/22 08:59 Last Admin: 08/02/22 11:06 Dose: 40 mg Documented By: MITA Fluticasone Propionate (Fluticasone Propionate Na Spr 16 Gm Btl) 2 sprays KARI BID [facility] Stop: 09/01/22 11:14 Last Admin: 08/02/22 11:55 Dose: Not Given Documented By: MITA Insulin Aspart (Insulin Aspart Per Unit Charge) 0 units SC ACHS [facility] Stop: 09/01/22 11:29 Last Admin: 08/02/22 16:43 Dose: 6 units Documented By: MITA Co-signed By: [id number] Admin: 08/02/22 12:03 Dose: 5 units Documented By: MITA Co-signed By: MTP Losartan Potassium (Losartan Potassium 25 Mg Tab) 12.5 mg PO QAM [facility] Stop: 09/01/22 09:59 Last Admin: 08/02/22 11:07 Dose: 12.5 mg Documented By: MITA Metoprolol Tartrate (Metoprolol Tartrate 25 Mg Tab) 12.5 mg PO BID [facility] Stop: 09/01/22 09:59 Last Admin: 08/02/22 11:06 Dose: 12.5 mg Documented By: MITA Miscellaneous (Icu Protocol For Hyperglycemia) 1 each N/A ACHS [facility] Stop: 08/04/22 11:29 Last Admin: 08/02/22 11:56 Dose: 1 each Documented By: MITA Nystatin (Nystatin Oint 15 Gm Tube) 1 appln EXT BID [facility] Stop: 09/01/22 10:59 Last Admin: 08/02/22 11:54 Dose: 1 appln Documented By: MITA Pantoprazole Sodium (Pantoprazole 40 Mg Tab) 40 mg PO QAM [facility] Stop: 09/01/22 16:44 Last Admin: 08/02/22 17:27 Dose: 40 mg Documented By: MITA Prednisone (Prednisone 5 Mg Tab) 15 mg PO DAILY [facility] Stop: 09/01/22 11:14 Last Admin: 08/02/22 11:55 Dose: Not Given Documented By: MITA Discontinued Medications Aspirin (Aspirin 81 Mg Chew) Confirm Administered Dose 324 mg .ROUTE .STK-MED ONE Stop: 08/02/22 06:54 Last Admin: 08/02/22 07:20 Dose: 324 mg Documented By: CHATA Atropine Sulfate (Atropine Sulfate 0.1 Mg/Ml 10ml Syr) Confirm Administered Dose 1 mg IV .STK-MED ONE Stop: 08/02/22 07:02 Last Admin: 08/02/22 11:53 Dose: Not Given Documented By: MITA Fentanyl Citrate (Fentanyl Citrate Pf 100 Mcg/2 Ml Vial) Confirm Administered Dose 100 mcg .ROUTE .STK-MED ONE Stop: 08/02/22 06:23 Last Increment: 08/02/22 08:00 Dose: 75 mcg Documented By: CHATA Furosemide (Furosemide 40 Mg/4 Ml Vial) Confirm Administered Dose 40 mg IV .STK- MED ONE Stop: 08/02/22 07:44 Last Admin: 08/02/22 08:01 Dose: 40 mg Documented By: CHATA Heparin Sodium (Porcine) (Heparin (Porcine) 1000 Unit/Ml 10 Ml (Auto Mechanics Instructor Use Only)) Confirm Administered Dose 10,000 units .ROUTE .STK-MED ONE Stop: 08/02/22 06:22 Last Admin: 08/02/22 07:20 Dose: 10,000 units Documented By: CHATA Heparin Sodium/Sodium Chloride (Heparin In Nss Infusion 1000 Unit/500 Ml (2 U/Ml) Bag) Confirm Administered Dose 3,000 units IV .STK-MED ONE Stop: 08/02/22 06:23 Last Admin: 08/02/22 11:53 Dose: Not Given Documented By: MITA Midazolam HCl (Midazolam Hcl 1 Mg/Ml 2ml Vial) Confirm Administered Dose 2 mg .ROUTE .STK-MED ONE Stop: 08/02/22 06:22 Last Admin: 08/02/22 07:19 Dose: 2 mg Documented By: CHATA Midazolam HCl (Midazolam Hcl 1 Mg/Ml 2ml Vial) Confirm Administered Dose 2 mg .ROUTE .STK-MED ONE Stop: 08/02/22 07:35 Last Increment: 08/02/22 08:01 Dose: 1 mg Documented By: CHATA Nicardipine HCl (Nicardipine Hcl Inj 2.5 Mg/Ml 10 Ml Amp) Confirm Administered Dose 25 mg .ROUTE .STK-MED ONE Stop: 08/02/22 06:22 Last Admin: 08/02/22 07:19 Dose: 25 mg Documented By: JEFF Nitroglycerin/Dextrose (Nitroglycerin/D5w 100mcg/Ml 20ml Syr) Confirm Administered Dose 2,000 mcg .ROUTE .STK-MED ONE Stop: 08/02/22 06:23 Last Admin: 08/02/22 07:20 Dose: 2,000 mcg Documented By: JEFF Ticagrelor (Ticagrelor 90 Mg Tab) 180 mg PO ONE ONE Stop: 08/02/22 06:40 Last Admin: 08/02/22 06:42 Dose: 180 mg Documented By: FLORINA Discharge Plan Visit Data Chief Complaint: Chest Pain Stated Complaint: CHEST PAIN ED Provider: Delmy Lopez Discharge Problem: ST elevation (STEMI) myocardial infarction Patient Disposition: Admitted As Inpatient Discharge Instructions Interventions: ED Discharge Assessment Last Done: 08/02/22 06:47
--- NOTE | 2022-08-02 06:49 | XRay Report ---
SINGLE VIEW CHEST CLINICAL HISTORY: Atypical chest pain. FINDINGS: An AP, portable, upright chest radiograph is compared to study dated 01/15/2022 and correlat ed with chest CT dated 08/04/2017. The heart is enlarged. The pulmonary vasculature is noncongested. C hronic interstitial thickening similar to previous. Scarring/atelectasis is noted at the lung bases. The lungs and pleural spaces are otherwise clear. No pneumothorax is seen. The skeletal structures ar e osteopenic. The bony thorax is grossly intact. IMPRESSION: Cardiomegaly with no acute cardiopulmonary abnormality. ACT 112: Negative or not required by law. Electronically signed by: Emmanuel Beltran M.D. 08/02/2022 6:46 AM
[2022-08-02 06:51] LABS: Albumin Globulin Ratio 1.9 (0.9-2); BUN Creatinine Ratio 25.6 (10-20); Bilirubin,Total 0.4 mg/dl (0.2-1.0); Creatinine Clr Calc Pharmacy 79.9 ml/min; Est GFR (African American) 90.6 ml/min; Est GFR (Non-African American) 78.2 ml/min; Globulin 2.1 gm/dl (2.5-4.0); Potassium 3.7 mmol/L (3.5-5.1); Total Protein 6.1 gm/dl (6.0-8.3)
[2022-08-02] MEDS ORDERED: ASPIRIN 81 MG CHEW ONE (06:53)
--- NOTE | 2022-08-02 06:54 | Pre Anesthesia Assessment ---
Date of Service August 02, 2022 Pre Sedation Assessment Vital Signs Temp Pulse Pulse Resp BP BP Pulse Ox 08/02/22 06:47 08/02/22 06:46 54 L 18 137/83 95 08/02/22 06:20 54 L 08/02/22 06:20 56 L 18 95 08/02/22 06:37 50 L 18 143/76 H 95 08/02/22 06:15 68 08/02/22 06:13 61 18 159/91 H 95 08/02/22 05:54 97.5 F L 75 20 154/77 H 95 O2 Del Method 08/02/22 06:47 Room Air 08/02/22 06:46 Room Air 08/02/22 06:20 08/02/22 06:20 Room Air 08/02/22 06:37 Room Air 08/02/22 06:15 08/02/22 06:13 Room Air 08/02/22 05:54 Room Air Cardiovascular RRR, no murmur, no edema Respiratory normal respiratory effort, lungs clear to auscultation Pre-Sedation Airway Assessment Smoking Status: Former smoker Hx Sleep Apnea: No Hx Difficult Intubation: No Short, Thick Neck: No Thyromental Distance: > or= 3.5 Finger Breadths Mallampati Class: III ASA: ASA3 Procedure Planning Contraindications for Sedation: none Current Medications Reviewed: Yes Notes The planned sedation has been discussed with the patient. Informed Consent was obtained. I have identified the patient, determined the appropriateness of sedation and have assessed the patient immediately prior to the procedure. All medicine(s) and interventions are by my order.
--- NOTE | 2022-08-02 06:58 | Cardiology Consultation ---
Date of Consultation August 02, 2022 Assessment & Plan (1) STEMI (ST elevation myocardial infarction): Presentation consistent with anterior STEMI and recommend proceeding with emergent cardiac catheterization and likely primary PCI. No apparent contraindications to procedure. Discussed risks, benefits, alternatives of procedure with patient and they are willing to proceed. Given ticagrelor 180 mg in the ED. Further recommendations pending findings of coronary angiography. History of Present Illness History of Present Illness 82-year-old man here with acute chest pain and ECG concerning for acute SD. Patient seen emergently in the ED after heart alert activated in ED. No prior cardiac history. History of of prior TIA in 05/2021. Cardiac risk factors include hypertension, dyslipidemia. Other medical issues include spinal stenosis, osteoarthritis, BPH. Non-smoker. Chest pain began approximately 4:30 AM waking him from sleep, approximately 90 minutes prior to arrival. Describes substernal with associated nausea. Denies similar symptoms in the past. Chest pain at time of arrival 08/28. Hemodynamically stable. EKG showed sinus rhythm and anterior ST elevations. Allergies Allergy/AdvReac Type Severity Reaction Status Date / Time GLO Inhibitors Allergy Severe ANGIOEDEMA/ Verified 03/31/22 20:50 MYLAGIAS lisinopril Allergy Severe ANGIOEDEMA/ Verified 03/31/22 20:50 MYLAGIAS aspirin AdvReac Intermediate DYSPHAGIA/TROUBLE Verified 03/31/22 20:50 STANDING STRAIGHT UP Home Medications Medication Instructions Recorded Confirmed Type terazosin 10 mg capsule 10 mg PO HS ##0 10/25/08 03/31/22 History amlodipine 5 mg tablet 5 mg PO HS ##0 11/01/08 03/31/22 History cholecalciferol (vitamin D3) 50 50 mcg PO HS ##0 12/04/15 03/31/22 History mcg (2,000 unit) tablet (Vitamin D3) latanoprost 0.005 % eye drops 1 drp ophthalmic (eye) HS 05/15/21 03/31/22 History atorvastatin 20 mg tablet 20 mg PO HS #30 tabs 05/17/21 03/31/22 Rx clopidogrel 75 mg tablet 75 mg PO QAM #30 tabs 05/17/21 03/31/22 Rx fluticasone propionate 50 2 spray intranasal BID 08/22/21 03/31/22 History mcg/actuation nasal spray,suspension (Allergy Relief (fluticasone)) melatonin 10 mg capsule 10 mg PO HS PRN Sleep 08/22/21 03/31/22 History dutasteride 0.5 mg capsule 0.5 mg PO QAM 01/31/22 03/31/22 History Patient History Medical History BPH (benign prostatic hyperplasia) Disc herniation pt denies Glaucoma History of chronic rhinitis History of COVID-19 06/2020, pcr test, not hosp; "mild symptoms" begin 11/2021, pcr test [facility]; paxlovid tx; "Mild symptoms" History of restless legs syndrome History of vitamin D deficiency HLD (hyperlipidemia) Hx of spinal stenosis Hypertension Osteoarthritis Transient ischemic attack (TIA) 05/2021, went to ER; tingling toes/fingertips; resolved.; f/u dr booker, [facility]; no residual effects Surgical History H/O hernia repair Hx of cataract extraction rt. 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 Vascular: 2+ radial Abdomen: Soft, nontender Extremities: Well perfused, no peripheral edema Neuro: Nonfocal Psych: Alert orient x3, normal affect and mood Results & Data Vital Signs (Past 12 Hours) Vital Signs Temp Pulse Pulse Resp BP BP Pulse Ox 08/02/22 06:47 08/02/22 06:46 54 L 18 137/83 95 04/14/23 06:20 54 L 08/02/22 06:20 56 L 18 95 08/02/22 06:37 50 L 18 143/76 H 95 08/02/22 06:15 68 08/02/22 06:13 61 18 159/91 H 95 08/02/22 05:54 97.5 F L 75 20 154/77 H 95 O2 Del Method 08/02/22 06:47 Room Air 08/02/22 06:46 Room Air 08/02/22 06:20 08/02/22 06:20 Room Air 08/02/22 06:37 Room Air 08/02/22 06:15 08/02/22 06:13 Room Air 08/02/22 05:54 Room Air PG Care Time/CCT Total # of Minutes Spent Total Time Spent with Patient: Total time spent is greater than 50% in coordination of care (as documented) at patient's floor/unit and/or counseling patient: Coding Level of Care Code 93651 ER DEPT VISIT MOD LVL 4 Diagnoses STEMI (ST elevation myocardial infarction) I21.3
[2022-08-02] MEDS ORDERED: ATROPINE SULFATE 0.1 MG/ML 10ML SYR IV ONE (07:01)
[2022-08-02 07:08] LABS: Troponin I High Sensitivity 453.6 pg/ml (0-20)
[2022-08-02] MEDS ORDERED: FUROSEMIDE 40 MG/4 ML VIAL IV ONE (07:43)
[2022-08-02] MEDS ORDERED: NITROGLYCERIN SL 0.4 MG/TAB TAB SL PRN (08:01)
[2022-08-02] MEDS ORDERED: ONDANSETRON INJ 2 MG/ML 2 ML VIAL IV PRN (08:01)
[2022-08-02] MEDS ORDERED: ACETAMINOPHEN 325 MG TAB PO PRN (08:01)
--- NOTE | 2022-08-02 08:10 | History & Physical Report ---
Date of Service August 02, 2022 Assessment & Plan (1) STEMI (ST elevation myocardial infarction): (2) S/P drug eluting coronary stent placement: (3) Hypertension: (4) CVA (cerebral vascular accident): (5) BPH (benign prostatic hyperplasia): (6) HLD (hyperlipidemia): (7) Steroid long-term use: Plan This is an 82yo M with a PMH of hypertension, hyperlipidemia, history of CVA, spinal stenosis, BPH and other medical problems listed below who presented with chest pain to ED that began at 4:30 in the morning and was found to have anterior STEMI and is s/p MENDEL x 2. STEMI S/p MENDEL x 2 No known h/o CAD. Risk factors include HTN and HLD EKG showed sinus rhythm and anterior ST elevations Cardiac catheterization with Dr. Deluca revealed 100% mid LAD occlusion and other moderate nonobstructive coronary artery disease in early LAD and ostial circumflex S/p overlapping MENDEL x 2 to LAD Recovering in ICU Continue dual-antiplatelet therapy for at least 1 year, up-titrate beta- michelle/ARB as BP allows, high dose statin Hyperglycemia BSG noted at 272 today - per review, patient has been on prednisone 15mg daily since late April of this year for worsening OA, concern for PMR Obtain a1c for underlying DM II vs steroid induced DM diabetic educator, insulin per protocol Groin rash Noted after procedure, appears fungal and likely worsened by uncontrolled BSG - keep area dry, nystatin cream BID and monitor for improvement. May require fluconazole. Optimize BSG control HTN Currently on amlodipine 5mg, terazosin 10mg HS. May need regimen adjusted when started on beta michelle/arb. Continue to monitor History of TIA Continue plavix BPH Continue Avodart, terazosin Code status: FULL PCP: Satinder Dispo: Admitted to ICU Patient seen in collaboration with Dr. Crouch. Please see addendum. I spent a total of 75 minutes coordinating, documenting, and providing care for this patient excluding time spent in the performance of separately billed services. History of Present Illness Chief Complaint: STEMI Primary Care Provider: Dino Rajan MD This is an 82yo M with a PMH of hypertension, hyperlipidemia, history of CVA, os teoarthritis with suspicion for PMR, spinal stenosis, BPH and other medical problems listed below who presented with chest pain to ED that began at 4:30 in the morning. Chest pain woke him from sleep and son became concerned and brought him to ED for further evaluation. Describes pain as centrally located in substernal with associated nausea. Denies any shortness of breath, diaphoresis. No history of known TN in the past. EKG showed sinus rhythm and anterior ST elevations. Underwent cardiac catheterization with Dr. Deluca and found to have 100% mid LAD occlusion and other moderate nonobstructive coronary artery disease in early LAD and ostial circumflex. Underwent successful PCI of mid LAD occlusion with 2 MENDEL and admitted to ICU for continued monitoring. Received ticagrelor in Air Route Traffic Controller but plan to transition to Plavix on discharge. When evaluated in the ICU postprocedure, patient comfortable with 1 out of 10 chest discomfort. Denies any fever, chills, lightheadedness, headache, shortness of breath, nausea, vomiting, abdominal pain, dysuria, diarrhea constipation. Lives at home with son. Not entirely sure on medication regimen at home. Denies any history of diabetes. Has been on 15 mg of daily prednisone since late April for worsening osteoarthritis and concern for possible PMR. Outpatient ESR elevated at 56. Has PCP follow-up in October to discuss how steroid is working. Allergies Allergy/AdvReac Type Severity Reaction Status Date / Time GLO Inhibitors Allergy Severe ANGIOEDEMA/ Verified 03/31/22 20:50 MYLAGIAS lisinopril Allergy Severe ANGIOEDEMA/ Verified 03/31/22 20:50 MYLAGIAS aspirin AdvReac Intermediate DYSPHAGIA/TROUBLE Verified 03/31/22 20:50 STANDING STRAIGHT UP Home Medications Medication Instructions Recorded Confirmed Type terazosin 10 mg capsule 10 mg PO HS ##0 10/25/08 08/02/22 History amlodipine 5 mg tablet 5 mg PO HS ##0 11/01/08 08/02/22 History cholecalciferol (vitamin D3) 50 50 mcg PO HS ##0 12/04/15 08/02/22 History mcg (2,000 unit) tablet (Vitamin D3) atorvastatin 20 mg tablet 20 mg PO HS #30 tabs 05/17/21 08/02/22 Rx clopidogrel 75 mg tablet 75 mg PO QAM #30 tabs 05/17/21 08/02/22 Rx fluticasone propionate 50 2 spray intranasal BID 08/22/21 08/02/22 History mcg/actuation nasal spray,suspension (Allergy Relief (fluticasone)) melatonin 10 mg capsule 10 mg PO HS PRN Sleep 08/22/21 08/02/22 History dutasteride 0.5 mg capsule 0.5 mg PO QAM 01/31/22 08/02/22 History desonide 0.05 % topical ointment 1 applic topical BID PRN Rash 08/02/22 08/02/22 History prednisone 10 mg tablet 15 mg PO DAILY 08/02/22 08/02/22 History Past Med/Surg History Medical History BPH (benign prostatic hyperplasia) Disc herniation pt denies Glaucoma History of chronic rhinitis History of COVID-19 06/2020, pcr test, not hosp; "mild symptoms" begin 11/2021, pcr test [facility]; paxlovid tx; "Mild symptoms" History of restless legs syndrome History of vitamin D deficiency HLD (hyperlipidemia) Hx of spinal stenosis Hypertension Osteoarthritis Transient ischemic attack (TIA) 05/2021, went to ER; tingling toes/fingertips; resolved.; f/u dr booker, [facility]; no residual effects Surgical History H/O hernia repair Hx of cataract extraction rt. Hx of tooth extraction Family History Father Hypertension Mother Stroke Social History Smoking Status: Former smoker Tobacco Type: Cigarettes Second Hand Exposure: No; Do You Dip or Chew Tobacco: No; Tobacco Cessation Education Requested by Patient: No Hx Alcohol Use: Yes Alcohol type: wine Hx Substance Use: No Preferred Language: Indian Communication Ability: Effective Cleaner Furniture Required: No Beliefs That Will Affect Care: None marital status: Unknown Current Living Situation: Family Current Living Situation Comment: LIVES WITH SON Other Information That Helps Us Care for You: No Feels Safe at Home: Yes Safety Concerns: Feels Safe At This Time Assistive Devices: Cane Review of Systems Review of Systems: At least ten systems reviewed and negative except as noted in the HPI. Physical Exam Physical Exam: General Appearance: WD/WN, vitals as above, NAD, lying in bed, pleasant,obese Head: normocephalic, atraumatic Eyes: normal inspection, PERRL, conjunctivae normal, anicteric sclerae ENT: external ear and nose normal, oropharynx normal Neck: normal visual inspection, trachea midline, no thyromegaly Respiratory: normal respiratory effort, lungs clear to auscultation, no wheeze, rales, rhonchi. No accessory muscle use Cardiovascular: regular rate, rhythm, no murmur, normal peripheral pulses, trace BLE edema Chest: normal inspection of chest Abdomen/GI: normal bowel sounds, soft, nontender, no hepatosplenomegaly Extremities/Musculoskeletal: no cyanosis or clubbing, extremities motor strength 5/5 Neurologic: PERRL, EOMI, accommodation nl, no face palsy, no dysarthria, CN's II-XI intact bilaterally and moves all extremities Psychiatric: A+Ox3, euthymic affect Skin: no rashes, normal color, warm/dry. + extensive erythematous rash in groin folds, non-tender, not pruritic Results & Data Results & Data Vital Signs (Past 12 Hours) Vital Signs Temp Pulse Pulse Resp BP BP Pulse Ox 08/02/22 06:47 08/02/22 06:46 54 L 18 137/83 95 08/02/22 06:20 54 L 08/02/22 06:20 56 L 18 95 08/02/22 06:37 50 L 18 143/76 H 95 08/02/22 06:15 68 08/02/22 06:13 61 18 159/91 H 95 08/02/22 05:54 36.4 C L 75 20 154/77 H 95 O2 Del Method 08/02/22 06:47 Room Air 08/02/22 06:46 Room Air 08/02/22 06:20 08/02/22 06:20 Room Air 08/02/22 06:37 Room Air 08/02/22 06:15 08/02/22 06:13 Room Air 08/02/22 05:54 Room Air Laboratory Results Short CBC 08/02/22 Range/Units 06:18 WBC 9.56 (4.8-10.8) K/ul Hgb 14.6 (14.0-18.0) g/dl Hct 42.9 (42.0-52.0) % Plt Count 132 (130-400) K/uL BMP 08/02/22 06:18 Sodium 138 Potassium 3.7 Chloride 104 Carbon Dioxide 26 BUN 23 Creatinine 0.90 Glucose 272 H Calcium 9.0 Liver Function 08/02/22 Range/Units 06:18 Total Bilirubin 0.4 (0.2-1.0) mg/dl AST 17 (13-39) U/L ALT 21 (7-52) U/L Alkaline Phosphatase 59 (34-104) U/L Albumin 4.0 (3.4-5.0) gm/dl Diagnostic Findings Chest X-Ray 08/02/22 05:54 SINGLE VIEW CHEST CLINICAL HISTORY: Atypical chest pain. FINDINGS: An AP, portable, upright chest radiograph is compared to study dated 01/15/2022 and correlated with chest CT dated 08/04/2017. The heart is enlarged. The pulmonary vasculature is noncongested. Chronic interstitial thickening similar to previous. Scarring/atelectasis is noted at the lung bases. The lungs and pleural spaces are otherwise clear. No pneumothorax is seen. The skeletal structures are osteopenic. The bony thorax is grossly intact. IMPRESSION: Cardiomegaly with no acute cardiopulmonary abnormality. ACT 112: Negative or not required by law. Electronically signed by: Emmanuel Beltran M.D. 08/02/2022 6:46 AM Code Status & VTE Plan VTE Prophylaxis Plan VTE Prophylaxis will be ordered: Yes Supervising Physician Co-Signing Physician Notes Patient seen and examined independently. Chart reviewed. Case discussed with YEHUDA. Agree with above (3) Hypertension Hypertension type: unspecified Qualified Code(s): I10 - Essential (primary) hypertension (5) BPH (benign prostatic hyperplasia) Lower urinary tract symptom presence: unspecified whether lower urinary tract symptoms present Qualified Code(s): N40.0 - Benign prostatic hyperplasia without lower urinary tract symptoms
--- NOTE | 2022-08-02 08:16 | Post Anesthesia Assessment ---
Date of Service August 02, 2022 Post Sedation Assessment Vital Signs Temp Pulse Pulse Resp BP BP BP 08/02/22 08:03 77 16 142/78 H 08/02/22 06:47 08/02/22 06:46 54 L 18 137/83 08/02/22 06:20 54 L 08/02/22 06:20 56 L 18 08/02/22 06:37 50 L 18 143/76 H 08/02/22 06:15 68 08/02/22 06:13 61 18 159/91 H 08/02/22 05:54 97.5 F L 75 20 154/77 H Pulse Ox O2 Del Method 08/02/22 08:03 94 Room Air 08/02/22 06:47 Room Air 08/02/22 06:46 95 Room Air 08/02/22 06:20 08/02/22 06:20 95 Room Air 08/02/22 06:37 95 Room Air 08/02/22 06:15 08/02/22 06:13 95 Room Air 08/02/22 05:54 95 Room Air Recovery Score Activity: Moves 4 extremities Respiration: Deep Breath/Cough Circulation: +/-20% PreAnes Value Consciousness: Fully Awake Oxygen Saturation: > 92% On Room Air Post Anesthesia Score: 10 Discharge Sedation Level of Care: Fast Track Phase II Post Sedation Plan On clinical assessment, the patient appears to have tolerated the sedation without complications. Patient is recovering as anticipated. Patient will continue to be monitored by nursing and may be discharged when sedation discharge criteria are met per below protocol. Upon Completions of procedure up to 15 minutes continue every 5 minute vital signs and the P.A.R. score; then discharge to a Phase I or Fast Track to Phase II per the following guidelines: * Discharge Patient to appropriate Phase II area if PAR is 8 or greater or return to pre- procedure baseline. The post - procedure orders will be as directed. * If PAR score is less than 8 or not return to pre-procedure baseline then patient will follow Phase I monitoring till PAR is reached for Phase II. The Phase I may be done in procedure room or may call to secure a Phase I area. * If naloxone or flumazenil are used for reversal, hold in Phase I for continued monitoring from when last reversal dose was given for a minimum of 60 minutes or longer pending the nurse and/or physician discretion of patient condition before discharge to Phase II. Please call the Sedation Physician to re-evaluate and complete post-note for discharge to Phase II area. Do NOT discharge from procedure sedation or Phase 1 until post- sedation evaluation note is complete by procedure /sedation MD Sedation Discharge Instructions to be given to the patient at discharge to home.
--- NOTE | 2022-08-02 08:26 | Cardiac Catheterization ---
[facility] Data: Perioperative Educator Cardiac Status Clinical evaluation leading to the procedure CAD Presenation: STEMI Anginal Classification: CCS IV Diagnostic Physicians Name: Garrett Deluca MD Closure Device Recommendations: PCI without planned CABG Cardiac Cath Procedure Full Procedure Date August 02, 2022 Pre-Procedure Diagnosis Pre-Procedure Diagnosis: STEMI AUC Score AUC Score: 9 Post-Procedure Diagnosis Post-Procedure Diagnosis: Severe CAD, Successful PCI and Normal Intracardiac Pressures Procedure(s) Performed Procedure(s) Performed: Coronary Angiography, Left Heart Cath, Drug Eluting Stent and IVUS Mirror Polisher Garrett Deluca MD Medical Billing Representative(s) Jacky Estimated Blood Loss Estimated Blood Loss: 5 Medication(s) Medication(s): Fentanyl, Heparin, Lidocaine 1%, Nicardipine, Nitroglycerin and Versed Medication(s): Ticagrelor Summary of Findings Indication: STEMI/Heart Alert Access: 6 Fr right radial artery Catheters: EBU 3.5 guide, diagnostic JR4 Findings: LM -normal caliber, 20 to 30% distal, 40-50% mid stenosis just after first septal. Acute 100% mid occlusion. LAD - [] Circumflex -medium caliber, 60% ostial stenosis, 30% mid stenosis. Very small OM1 with diffuse disease, small OM2, LPLB without disease. RCA -dominant, large caliber, 20 to 30% mid stenosis. 30% distal disease prior to bifurcation with PDA. 30% ostial PDA. LVEDP -30 -- PCI -- Antithrombotic therapy: Heparin, ticagrelor Procedure: Left main cannulated with EBU 3.5 guide BMW wire passed across lesion into distal vessel Mid LAD lesion predilated with 2.5 compliant balloon Dilated lesion stented with 2.75 x 18 mm Squires drug-eluting stent Stent post-dilated with 3.25 noncompliant balloon IC vasodilators administered for spasm Haziness noted post stent with sluggish EDD I-II flow and diffuse narrowing extending distally Second MENDEL placed (2.5 x 18 mm Alfonso) overlapping distal aspect of initial stent Stent postdilated with stent balloon [employer] IVUS catheter placed into distal LAD. Pullback revealed well-expanded, well apposed stents. Minimal noncalcified plaque at distal aspect of second stent. No evidence of edge complications. Calcified eccentric 40% stenosis noted in earlymid LAD. Mild circumferential calcium noted at ostial LAD/distal left main. Additional IC vasodilators administered Post procedure EDD 3 flow, stent well expanded with minimal residual stenosis and no apparent cardiac complications. Arterial Closure: TR band Summary: 1. Anterior STEMI/acute 100% mid LAD occlusion 2. Moderate non-culprit coronary artery disease -40 to 50% earlymid LAD stenosis 60% ostial circumflex 3. Elevated intracardiac filling pressure 4. Successful PCI of mid LAD occlusion with 2 overlapping drug-eluting stents (2.75 x 18, 2.5 x 18 mm Alfonso; postdilated proximally with 3.0 NC). Recommendations: Admit to ICU for continued monitoring Received ticagrelor 180 mg in Perioperative Educator. Plan to transition to clopidogrel on discharge. Continue dual-antiplatelet therapy for at least 1 year. With elevated LVEDP given 40 of IV Lasix in Perioperative Educator Trend troponins until peak, Check Echo Uptitrate beta-michelle/ARB as BP allows High-dose statin Consult cardiac Rehab Hemodynamics Rest Ao:: 125/70/110 Final Ao: 140/66/100 LV: 135/30 Recommendations Recommendations: PCI without planned CABG Specimens Specimens: None Radiation Exposure (mGy) 2389 Contrast (mls) 130 Anesthesia Moderate [id number] Procedural Complication(s) None Disposition ICU I attest to the content of the Intraoperative Record and any orders documented therein. Any exceptions are noted below. [facility] Card Cath Procedure Codes Cardiac Catheterization Procedure 1: Cardiovascular Cath Procedures: 83783 Coronaries and LHC (+/-LV) Therapeutic Services & Ancillary Procedure 1: Cardiovascular Tx and Anc Procedures: 44145 IV Ultrasound (Coronary or Graft) Moderate Sedation Procedure 1: Sedation/Anesthesia: 88926 Mod Sedation by the same physician;Init15 Min Child Age 5 & Up Procedure 2: Sedation/Anesthesia: 38918 Mod Sedation by the same physician; Ea [id number] Minutes Stenting Procedure 1: Cardiovascular Stent Procedures: 33720 Perc transluminal revascularization of acute sub/total occl, aMI PG Care Time/CCT Total # of Minutes Spent Total Time Spent with Patient: Total time spent is greater than 50% in coordination of care (as documented) at patient's floor/unit and/or counseling patient:
--- NOTE | 2022-08-02 10:07 | Critical Care Consultation ---
Date of Consultation August 02, 2022 Assessment & Plan (1) Steroid long-term use: (2) S/P drug eluting coronary stent placement: (3) STEMI (ST elevation myocardial infarction): (4) Hypertension: (5) CVA (cerebral vascular accident): (6) HLD (hyperlipidemia): (7) BPH (benign prostatic hyperplasia): Plan -- Anterior STEMI S/p PCI mid LAD with 2 overlapping MENDEL Received ticagrelor 180 mg in the Hand Laster, will transition to Plavix prior to discharge as per cardiology note LVEDP Continue with dual antiplatelet therapy --History of TIA Used to be on Plavix at home --History of PMR On prednisone 50 mg since April --BPH Continue with terazosin and Avodart --Dyslipidemia Continue with statin -- Obesity with probable AREN Advised to lose with diet and exercise Recommend outpatient polysomnography --Prophylaxis VTE: IPC GI: Pantoprazole Lines: Peripheral Diet: Cardiac diabetic Plan: Trend troponin, monitor EKG Continue with dual antiplatelet therapy with him . Given the patient is on prednisone as well, will start on pantoprazole given the high risk of GI bleed Monitor for any signs of bleeding Please note the above document was generated using voice recognition software. It may contain grammatical, syntax or spelling errors.Any formal questions or concerns about the content, text or information contained within the body of this dictation should be directly addressed to the provider for clarification. History of Present Illness Attending Physician: Maryuri Quiroz PA-C History of Present Illness 82-year-old male presented to the hospital with complaints of chest pain Past medical history hypertension, dyslipidemia, history of CVA on Plavix, BPH Patient was found to be in STEMI, she was taken to the Cardiac cath and stent were placed. Sent to the ICU for further management At the time of examination patient systolic blood pressure was in the 130s. Heart rate in the 70s He denied any chest pain. He said that he felt much better compared to when he came to the ER He was saturating well on room air No nausea vomiting No headache, no blurry vision Denies any abdominal pain He did finish his lunch. Patient did state that he was having chest pain on and off which was going on for a while but today it was worse. Social history: Less than 5-pack-year smoking history quit in his 20s. No alcohol. Allergies Allergy/AdvReac Type Severity Reaction Status Date / Time GLO Inhibitors Allergy Severe ANGIOEDEMA/ Verified 03/31/22 20:50 MYLAGIAS lisinopril Allergy Severe ANGIOEDEMA/ Verified 03/31/22 20:50 MYLAGIAS aspirin AdvReac Intermediate DYSPHAGIA/TROUBLE Verified 03/31/22 20:50 STANDING STRAIGHT UP Home Medications Medication Instructions Recorded Confirmed Type terazosin 10 mg capsule 10 mg PO HS ##0 10/25/08 08/02/22 History amlodipine 5 mg tablet 5 mg PO HS ##0 11/01/08 08/02/22 History cholecalciferol (vitamin D3) 50 50 mcg PO HS ##0 12/04/15 08/02/22 History mcg (2,000 unit) tablet (Vitamin D3) atorvastatin 20 mg tablet 20 mg PO HS #30 tabs 05/17/21 08/02/22 Rx clopidogrel 75 mg tablet 75 mg PO QAM #30 tabs 05/17/21 08/02/22 Rx fluticasone propionate 50 2 spray intranasal BID 08/22/21 08/02/22 History mcg/actuation nasal spray,suspension (Allergy Relief (fluticasone)) melatonin 10 mg capsule 10 mg PO HS PRN Sleep 08/22/21 08/02/22 History dutasteride 0.5 mg capsule 0.5 mg PO QAM 01/31/22 08/02/22 History desonide 0.05 % topical ointment 1 applic topical BID PRN Rash 08/02/22 08/02/22 History prednisone 10 mg tablet 15 mg PO DAILY 08/02/22 08/02/22 History Patient History Medical History BPH (benign prostatic hyperplasia) Disc herniation pt denies Glaucoma History of chronic rhinitis History of COVID-19 06/2020, pcr test, not hosp; "mild symptoms" begin 11/2021, pcr test [facility]; siddharth sanchez; "Mild symptoms" History of restless legs syndrome History of vitamin D deficiency HLD (hyperlipidemia) Hx of spinal stenosis Hypertension Osteoarthritis Transient ischemic attack (TIA) 05/2021, went to ER; tingling toes/fingertips; resolved.; f/u dr booker, [facility] [place]; no residual effects Surgical History H/O hernia repair Hx of cataract extraction rt. Hx of tooth extraction Family History Father Hypertension Mother Stroke Social History Smoking Status: Former smoker Tobacco Type: Cigarettes Second Hand Exposure: No; Do You Dip or Chew Tobacco: No; Tobacco Cessation Education Requested by Patient: No Hx Alcohol Use: Yes Alcohol type: wine Hx Substance Use: No Preferred Language: Kiswahili Communication Ability: Effective Gate Guard Required: No Beliefs That Will Affect Care: None marital status: Unknown Current Living Situation: Family Current Living Situation Comment: LIVES WITH SON Other Information That Helps Us Care for You: No Feels Safe at Home: Yes Safety Concerns: Feels Safe At This Time Assistive Devices: Cane Review of Systems 2 Review of Systems: All systems reviewed & are unremarkable except as noted in HPI & below Physical Exam Physical Exam: Constitutional: No acute distress HEENT: EOMI, PERRLA, thick neck Respiratory system: Good air entry bilaterally, no wheeze, rhonchi, mild crackles bilateral lower lobes CVS: S1-S2 positive, no murmurs or gallops Abdomen: Soft, nontender, nondistended, positive bowel sounds x4, obese Extremities: +2 pulses bilaterally radialis/ dorsalis pedis, no cyanosis, +1 pitting edema bilateral lower extremity Neuro: Awake alert oriented x3 Psych: Normal mood and affect G/U: No [place] Skin: no rashes, warm and dry Lymphatic: no cervical or axillary lymphadenopathy Results & Data Results & Data Vital Signs (Past 12 Hours) Vital Signs Temp Pulse Pulse Resp BP BP BP 08/02/22 09:00 64 18 142/78 H 08/02/22 08:45 64 18 137/78 08/02/22 08:31 60 18 136/69 08/02/22 08:18 62 136/61 08/02/22 08:03 77 16 142/78 H 08/02/22 06:47 08/02/22 06:46 54 L 18 137/83 08/02/22 06:20 54 L 08/02/22 06:20 56 L 18 08/02/22 06:37 50 L 18 143/76 H 08/02/22 06:15 68 08/02/22 06:13 61 18 159/91 H 08/02/22 05:54 36.4 C L 75 20 154/77 H Pulse Ox O2 Del Method 08/02/22 09:00 95 Room Air 08/02/22 08:45 95 Room Air 08/02/22 08:31 97 Room Air 08/02/22 08:18 96 Room Air 08/02/22 08:03 94 Room Air 08/02/22 06:47 Room Air 08/02/22 06:46 95 Room Air 08/02/22 06:20 08/02/22 06:20 95 Room Air 08/02/22 06:37 95 Room Air 08/02/22 06:15 08/02/22 06:13 95 Room Air 08/02/22 05:54 95 Room Air Laboratory Results 08/02/22 06:18 08/02/22 06:18 Coding Level of Care Code 76261 IN/OBS CONSULT LVL 4,60M Diagnoses Steroid long-term use S/P drug eluting coronary stent placement Z95.5 STEMI (ST elevation myocardial infarction) I21.3 Hypertension I10 Hypertension type: unspecified CVA (cerebral vascular accident) I63.9 HLD (hyperlipidemia) E78.5 BPH (benign prostatic hyperplasia) N40.0 Lower urinary tract symptom presence: unspecified whether lower urinary tract symptoms present (4) Hypertension Hypertension type: unspecified Qualified Code(s): I10 - Essential (primary) hypertension (7) BPH (benign prostatic hyperplasia) Lower urinary tract symptom presence: unspecified whether lower urinary tract symptoms present Qualified Code(s): N40.0 - Benign prostatic hyperplasia without lower urinary tract symptoms
[2022-08-02] MEDS ORDERED: DEXTROSE 50% 50 ML SYRINGE IV PRN (10:30)
[2022-08-02] MEDS ORDERED: GLUCOSE 40% GEL 15 GM TUBE PO PRN (10:30)
[2022-08-02] MEDS ORDERED: GLUCOSE 10 TAB/TUBE PO PRN (10:30)
[2022-08-02] MEDS ORDERED: CARBOHYDRATES FOR HYPOGLYCEMIA PO PRN (10:30)
[2022-08-02] MEDS ORDERED: GLUCAGON FOR INJ 1 MG VIAL IM PRN (10:30)
[2022-08-02] MEDS: ATORVASTATIN 40 MG TAB PO SCH (11:06)
[2022-08-02] MEDS: METOPROLOL TARTRATE 25 MG TAB PO SCH ×2 (11:06→20:13)
[2022-08-02] MEDS: LOSARTAN POTASSIUM 25 MG TAB PO SCH (11:07)
[2022-08-02] MEDS ORDERED: MELATONIN 3 MG TAB PO PRN (11:21)
[2022-08-02] MEDS: NYSTATIN OINT 15 GM TUBE EXT SCH ×2 (11:54→20:15)
[2022-08-02] MEDS: predniSONE 5 MG TAB PO SCH (11:55)
[2022-08-02] MEDS: FLUTICASONE PROPIONATE NA SPR 16 GM BTL NAE SCH ×2 (11:55→20:15)
[2022-08-02] MEDS: ICU Protocol for HYPERglycemia SCH ×3 (11:56→20:21)
[2022-08-02] MEDS: INSULIN ASPART PER UNIT CHARGE SC SCH ×3 (12:03→20:20)
[2022-08-02 15:01] LABS: Estimated Average Glucose 134 mg/dl; Hemoglobin A1C 6.3 % (4.5-5.6)
[2022-08-02] MEDS: PANTOprazole 40 MG TAB PO SCH (17:27)
[2022-08-02] MEDS: TERAZOSIN HCL 5 MG CAP PO SCH (20:12)
[2022-08-02] MEDS: TICAGRELOR 90 MG TAB PO SCH (20:13)
[2022-08-02] MEDS: CHOLECALCIFEROL 1,000 UNITS 25 MCG TAB PO SCH (20:14)
--- NOTE | 2022-08-03 00:17 | XCELERA ---
[id number] [id number]
[2022-08-03 05:07] LABS: Basophils # (auto) 0.04 K/uL (0-0.2); Basophils % (auto) 0.5 %; Eosinophils # (auto) 0.04 K/uL (0-0.50); Eosinophils % (auto) 0.5 %; Hematocrit (blood only) 42.2 % (42.0-52.0); Hemoglobin 14.7 g/dl (14.0-18.0); Immature Granulocytes # (auto) 0.06 K/uL (0.01-0.20); Immature Granulocytes % (auto) 0.7 %; Lymphocytes # (auto) 1.25 K/uL (1.2-3.4); Mean Corpuscular Hemoglobin 31.1 pg (25.0-34.0); Mean Corpuscular Hgb Conc 34.8 g/dL (32.0-36.0); Mean Corpuscular Volume 89.4 fL (80.0-100.0); Mean Platelet Volume 10.5 fL (9.4-12.4); Monocytes # (auto) 0.99 K/uL (0.11-0.59); Monocytes % (auto) 11.8 %; Neutrophils # (auto) 5.98 K/uL (1.40-6.50); Neutrophils % (auto) 71.5 %; Platelet Count 131 K/uL (130-400); RDW Coefficient of Variation 14.3 % (11.5-14.5); RDW Standard Deviation 46.3 fL (36.4-46.3); Red Blood Count 4.72 M/uL (4.70-6.10); White Blood Count 8.36 K/ul (4.8-10.8)
[2022-08-03 05:22] LABS: Chol HDL Ratio 3.5 (0-5)
--- NOTE | 2022-08-03 05:44 | Electrocardiogram Report ---
Test Reason : Blood Pressure : / mmHG Vent. Rate : 070 BPM Atrial Rate : 070 BPM P-R Int : 148 ms QRS Dur : 116 ms QT Int : 366 ms P-R-T Axes : -19 -42 049 degrees QTc Int : 395 ms Poor data quality, interpretation may be adversely affected Normal sinus rhythm Left axis deviation Left ventricular hypertrophy with QRS widening Anteroseptal infarct , age undetermined Anterior injury pattern ACUTE OR / STEMI Abnormal ECG When compared with ECG of 15-JAN-2022 08:23, Anteroseptal infarct is now Present ST elevation now present in Anterior leads Confirmed by Jewel Peters ([id number]) on 08/03/2022 5:43:52 AM Referred By: Confirmed By:Jewel Peters
--- NOTE | 2022-08-03 05:57 | Electrocardiogram Report ---
Test Reason : Blood Pressure : / mmHG Vent. Rate : 067 BPM Atrial Rate : 067 BPM P-R Int : 176 ms QRS Dur : 102 ms QT Int : 388 ms P-R-T Axes : 020 -31 020 degrees QTc Int : 409 ms Normal sinus rhythm Left axis deviation Anterior infarct Anterior injury pattern ACUTE MD / STEMI Abnormal ECG When compared with ECG of 02-AUG-2022 06:08, No significant change was found Confirmed by Jewel Peters ([id number]) on 08/03/2022 5:57:19 AM Referred By: REFERRED SELF Confirmed By:Jewel Peters
--- NOTE | 2022-08-03 06:12 | Electrocardiogram Report ---
Test Reason : Blood Pressure : / mmHG Vent. Rate : 067 BPM Atrial Rate : 067 BPM P-R Int : 174 ms QRS Dur : 118 ms QT Int : 380 ms P-R-T Axes : 023 -29 046 degrees QTc Int : 401 ms Normal sinus rhythm Anterior infarct (cited on or before 02-AUG-2022) Anterior injury pattern ACUTE HI / STEMI Abnormal ECG When compared with ECG of 02-AUG-2022 08:13, No significant change was found Confirmed by Jewel Peters ([id number]) on 08/03/2022 6:12:16 AM Referred By: REFERRED SELF Confirmed By:Jewel Peetrs
--- NOTE | 2022-08-03 07:56 | Hospitalist Progress Note ---
Date of Service August 03, 2022 Assessment & Plan (1) STEMI (ST elevation myocardial infarction): (2) S/P drug eluting coronary stent placement: (3) Hypertension: (4) CVA (cerebral vascular accident): (5) BPH (benign prostatic hyperplasia): (6) HLD (hyperlipidemia): (7) Steroid long-term use: Plan This is an 82yo M with a PMH of hypertension, hyperlipidemia, history of CVA, spinal stenosis, BPH who presented with chest pain to ED and was found to have anterior STEMI and is s/p PCI to LAD w/MENDEL x 2. STEMI anterior S/p PCI to LAD w/MENDEL x 2 No known h/o CAD. Risk factors include HTN and HLD EKG showed sinus rhythm and anterior ST elevations Cardiac catheterization with Dr. Deluca revealed 100% mid LAD occlusion and other moderate nonobstructive coronary artery disease in early LAD and ostial circumflex S/p overlapping MENDEL x 2 to LAD Recovering in ICU Continue dual-antiplatelet therapy for at least 1 year, currently on Brilinta -> switch tomorrow back to plavix Increase metoprolol to 25 mg twice daily. Toprol-XL on discharge. Increase losartan to 25 mg daily if BP allows We will consider addition of spironolactone tomorrow Continue current statin Plan to repeat limited echo tomorrow a.m. 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 May require fluconazole. Optimize BSG control HTN - at home was on amlodipine 5mg, terazosin 10mg HS. May need regimen adjusted when started on beta michelle/arb. Continue to monitor History of TIA Continue plavix BPH Continue Avodart, terazosin Code status: FULL PCP: Dr. Rajan Dispo: ICU -> PCU Admission and Anticipated Discharge Date Admission Date: August 02, 2022 Subjective Pt seen in follow up of anterior STEMI, s/p PCI to mid LAD w/ MENDEL x2 Currently in bed, in no acute distress. Previously was in the chair, felt little weak lightheaded. Now he is back in bed. Overall though he says he feels well. Denies any chest pain shortness of breath. Denies any nausea or vomiting. Denies any headache. No abdominal pain. Review of Systems Review of Systems: All systems reviewed & are unremarkable except as noted in Subjective Physical Exam Physical Exam: General Appearance:WD/WN, in NAD Head: normocephalic, atraumatic Eyes:normal inspection, PERRL, conjunctivae normal, anicteric sclerae ENT: external ear and nose normal, oropharynx normal Neck: normal visual inspection Respiratory:normal respiratory effort, lungs clear to auscultation, no wheeze, rales, rhonchi. No accessory muscle use Cardiovascular: regular rate, rhythm, no murmur Chest: normal inspection of chest Abdomen/GI: normal bowel sounds, soft, nontender Extremities/Musculoskeletal:extremities motor strength 5/5 Neurologic: PERRL, EOMI, no face palsy, speech fluent, moves all extremities Psychiatric:A+Ox3, euthymic affect Skin:warm, dry Results & Data Results & Data Vital Signs (Past 12 Hours) Vital Signs Temp Pulse Resp BP Pulse Ox 08/03/22 07:00 85 16 127/72 92 08/03/22 06:00 93 H 20 129/72 94 08/03/22 05:00 80 20 131/68 91 08/03/22 04:00 78 24 113/65 93 08/03/22 03:00 84 21 94 08/03/22 00:00 36.5 C 08/03/22 05:00 36.5 C 08/03/22 03:00 36.5 C 08/03/22 00:00 75 08/03/22 02:00 85 19 125/71 91 08/03/22 01:00 80 19 119/67 94 08/03/22 00:00 87 20 123/65 91 08/02/22 23:00 95 H 21 114/66 94 08/02/22 22:19 79 18 98/57 L 08/02/22 22:00 82 24 94 08/02/22 21:00 83 19 125/77 08/02/22 20:00 74 18 137/81 92 08/02/22 20:26 36.4 C L Laboratory Results 08/03/22 08/03/22 08/03/22 Range/Units 07:12 04: 04:23 WBC 8.36 (4.8-10.8) K/ul RBC 4.72 (4.70-6.10) M/uL Hgb 14.7 (14.0-18.0) g/dl Hct 42.2 (42.0-52.0) % MCV 89.4 (80.0-100.0) fL MCH 31.1 (25.0-34.0) pg MCHC 34.8 (32.0-36.0) g/dL RDW Std Deviation 46.3 (36.4-46.3) fL RDW Coeff of Efren 14.3 (11.5-14.5) % Plt Count 131 (130-400) K/uL MPV 10.5 (9.4-12.4) fL Immature Gran % (Auto) 0.7 % Neut % (Auto) 71.5 % Lymph % (Auto) 15.0 % Henry % (Auto) 11.8 % Eos % (Auto) 0.5 % Baso % (Auto) 0.5 % Neut # (Auto) 5.98 (1.40-6.50) K/uL Lymph # (Auto) 1.25 (1.2-3.4) K/uL Henry # (Auto) 0.99 H (0.11-0.59) K/uL Eos # (Auto) 0.04 (0-0.50) K/uL Baso # (Auto) 0.04 (0-0.2) K/uL Immature Gran # (Auto) 0.06 (0.01-0.20) K/uL Activ Coag Time Kaolin (94-140) SECONDS POC Glucose 119 H (70-99) mg/dl Estimat Average Glucose mg/dl Hemoglobin A1c (4.5-5.6) % Troponin I High Sens (0-20) pg/ml Triglycerides 117 (0-150) mg/dl Cholesterol 180 (0-200) mg/dl LDL Cholesterol, Calc 106 mg/dl VLDL Cholesterol, Calc 23 (0-30) mg/dl HDL Cholesterol 51 mg/dl Cholesterol/HDL Ratio 3.5 (0-5) Nasal Screen MRSA (PCR) (Negative) 08/03/22 08/02/22 08/02/22 Range/Units 04: 22:32 20:19 WBC (4.8-10.8) K/ul RBC (4.70-6.10) M/uL Hgb (14.0-18.0) g/dl Hct (42.0-52.0) % MCV (80.0-100.0) fL MCH (25.0-34.0) pg MCHC (32.0-36.0) g/dL RDW Std Deviation (36.4-46.3) fL RDW Coeff of Efren (11.5-14.5) % Plt Count (130-400) K/uL MPV (9.4-12.4) fL Immature Gran % (Auto) % Neut % (Auto) % Lymph % (Auto) % Henry % (Auto) % Eos % (Auto) % Baso % (Auto) % Neut # (Auto) (1.40-6.50) K/uL Lymph # (Auto) (1.2-3.4) K/uL Henry # (Auto) (0.11-0.59) K/uL Eos # (Auto) (0-0.50) K/uL Baso # (Auto) (0-0.2) K/uL Immature Gran # (Auto) (0.01-0.20) K/uL Activ Coag Time Kaolin (94-140) SECONDS POC Glucose 92 (70-99) mg/dl Estimat Average Glucose mg/dl Hemoglobin A1c (4.5-5.6) % Troponin I High Sens 98194.1 H* D 40553.2 H* D (0-20) pg/ml Triglycerides (0-150) mg/dl Cholesterol (0-200) mg/dl LDL Cholesterol, Calc mg/dl VLDL Cholesterol, Calc (0-30) mg/dl HDL Cholesterol mg/dl Cholesterol/HDL Ratio (0-5) Nasal Screen MRSA (PCR) (Negative) 08/02/22 08/02/22 08/02/22 Range/Units 16:20 16:12 11:17 WBC (4.8-10.8) K/ul RBC (4.70-6.10) M/uL Hgb (14.0-18.0) g/dl Hct (42.0-52.0) % MCV (80.0-100.0) fL MCH (25.0-34.0) pg MCHC (32.0-36.0) g/dL RDW Std Deviation (36.4-46.3) fL RDW Coeff of Efren (11.5-14.5) % Plt Count (130-400) K/uL MPV (9.4-12.4) fL Immature Gran % (Auto) % Neut % (Auto) % Lymph % (Auto) % Henry % (Auto) % Eos % (Auto) % Baso % (Auto) % Neut # (Auto) (1.40-6.50) K/uL Lymph # (Auto) (1.2-3.4) K/uL Henry # (Auto) (0.11-0.59) K/uL Eos # (Auto) (0-0.50) K/uL Baso # (Auto) (0-0.2) K/uL Immature Gran # (Auto) (0.01-0.20) K/uL Activ Coag Time Kaolin (94-140) SECONDS POC Glucose 104 H 144 H (70-99) mg/dl Estimat Average Glucose mg/dl Hemoglobin A1c (4.5-5.6) % Troponin I High Sens 53870.4 H* D (0-20) pg/ml Triglycerides (0-150) mg/dl Cholesterol (0-200) mg/dl LDL Cholesterol, Calc mg/dl VLDL Cholesterol, Calc (0-30) mg/dl HDL Cholesterol mg/dl Cholesterol/HDL Ratio (0-5) Nasal Screen MRSA (PCR) (Negative) 08/02/22 08/02/22 08/02/22 Range/Units 10:00 09:45 07:32 WBC (4.8-10.8) K/ul RBC (4.70-6.10) M/uL Hgb (14.0-18.0) g/dl Hct (42.0-52.0) % MCV (80.0-100.0) fL MCH (25.0-34.0) pg MCHC (32.0-36.0) g/dL RDW Std Deviation (36.4-46.3) fL RDW Coeff of Efren (11.5-14.5) % Plt Count (130-400) K/uL MPV (9.4-12.4) fL Immature Gran % (Auto) % Neut % (Auto) % Lymph % (Auto) % Henry % (Auto) % Eos % (Auto) % Baso % (Auto) % Neut # (Auto) (1.40-6.50) K/uL Lymph # (Auto) (1.2-3.4) K/uL Henry # (Auto) (0.11-0.59) K/uL Eos # (Auto) (0-0.50) K/uL Baso # (Auto) (0-0.2) K/uL Immature Gran # (Auto) (0.01-0.20) K/uL Activ Coag Time Kaolin 335 H (94-140) SECONDS POC Glucose (70-99) mg/dl Estimat Average Glucose mg/dl Hemoglobin A1c (4.5-5.6) % Troponin I High Sens 45129.4 H* D (0-20) pg/ml Triglycerides (0-150) mg/dl Cholesterol (0-200) mg/dl LDL Cholesterol, Calc mg/dl VLDL Cholesterol, Calc (0-30) mg/dl HDL Cholesterol mg/dl Cholesterol/HDL Ratio (0-5) Nasal Screen MRSA (PCR) Negative (Negative) 08/02/22 08/02/22 Range/Units 07:12 06:18 WBC (4.8-10.8) K/ul RBC (4.70-6.10) M/uL Hgb (14.0-18.0) g/dl Hct (42.0-52.0) % MCV (80.0-100.0) fL MCH (25.0-34.0) pg MCHC (32.0-36.0) g/dL RDW Std Deviation (36.4-46.3) fL RDW Coeff of Efren (11.5-14.5) % Plt Count (130-400) K/uL MPV (9.4-12.4) fL Immature Gran % (Auto) % Neut % (Auto) % Lymph % (Auto) % Henry % (Auto) % Eos % (Auto) % Baso % (Auto) % Neut # (Auto) (1.40-6.50) K/uL Lymph # (Auto) (1.2-3.4) K/uL Henry # (Auto) (0.11-0.59) K/uL Eos # (Auto) (0-0.50) K/uL Baso # (Auto) (0-0.2) K/uL Immature Gran # (Auto) (0.01-0.20) K/uL Activ Coag Time Kaolin 251 H (94-140) SECONDS POC Glucose (70-99) mg/dl Estimat Average Glucose 134 mg/dl Hemoglobin A1c 6.3 H (4.5-5.6) % Troponin I High Sens (0-20) pg/ml Triglycerides (0-150) mg/dl Cholesterol (0-200) mg/dl LDL Cholesterol, Calc mg/dl VLDL Cholesterol, Calc (0-30) mg/dl HDL Cholesterol mg/dl Cholesterol/HDL Ratio (0-5) Nasal Screen MRSA (PCR) (Negative) Medications Administered Current Inpatient Medications Acetaminophen (Acetaminophen 325 Mg Tab) 650 mg PO Q4H PRN PRN Reason: MILD Pain (Scale 1,2,3) Stop: 09/01/22 08:00 Aspirin (Aspirin 81 Mg Ectab) 81 mg PO [facility] Stop: 09/02/22 08:59 Atorvastatin Calcium (Atorvastatin 40 Mg Tab) 40 mg PO [facility] Stop: 09/01/22 08:59 Last Admin: 08/02/22 11:06 Dose: 40 mg Dextrose (Dextrose 50% 50 Ml Syringe) 25 - 50 ml IV UD PRN; Protocol PRN Reason: Hypoglycemia Protocol Stop: 09/01/22 10:29 Dutasteride (Dutasteride 0.5 Mg Capsule) 1 each PO [facility] Stop: 09/02/22 08:59 Fluticasone Propionate (Fluticasone Propionate Na Spr 16 Gm Btl) 2 sprays KARI BID [facility] Stop: 09/01/22 11:14 Last Admin: 08/02/22 20:15 Dose: 2 sprays Glucagon (Glucagon For Inj 1 Mg Vial) 1 mg IM UD PRN; Protocol PRN Reason: Hypoglycemia Protocol Stop: 09/01/22 10:29 Glucose (Glucose 40% Gel 15 Gm Tube) 15 - 30 gm PO UD PRN; Protocol PRN Reason: Hypoglycemia Protocol Stop: 09/01/22 10:29 Glucose (Glucose 10 Tab/Tube) 4 - 8 tab PO UD PRN; Protocol PRN Reason: Hypoglycemia Protocol Stop: 09/01/22 10:29 Insulin Aspart (Insulin Aspart Per Unit Charge) 0 units SC ACHS [facility] Stop: 09/01/22 11:29 Last Admin: 08/02/22 20:20 Dose: Not Given Losartan Potassium (Losartan Potassium 25 Mg Tab) 12.5 mg PO QAM [facility] Stop: 09/01/22 09:59 Last Admin: 08/02/22 11:07 Dose: 12.5 mg Melatonin (Melatonin 3 Mg Tab) 9 mg PO HS PRN PRN Reason: Sleep Stop: 09/01/22 11:20 Metoprolol Tartrate (Metoprolol Tartrate 25 Mg Tab) 12.5 mg PO BID [facility] Stop: 09/01/22 09:59 Last Admin: 08/02/22 20:13 Dose: 12.5 mg Miscellaneous (Icu Protocol For Hyperglycemia) 1 each N/A [facility] Stop: 08/04/22 11:29 Last Admin: 08/02/22 20:21 Dose: Not Given Miscellaneous (Carbohydrates For Hypoglycemia ) 15 - 30 gm PO UD PRN PRN Reason: Hypoglycemia Treatment Stop: 09/01/22 10:29 Nitroglycerin (Nitroglycerin Sl 0.4 Mg/Tab Tab) 0.4 mg SL PRN PRN PRN Reason: Chest Pain Stop: 09/01/22 08:00 Nystatin (Nystatin Oint 15 Gm Tube) 1 appln EXT BID [facility] Stop: 09/01/22 10:59 Last Admin: 08/02/22 20:15 Dose: 1 appln Ondansetron HCl (Ondansetron Inj 2 Mg/Ml 2 Ml Vial) 4 mg IV Q6H PRN PRN Reason: Nausea And Vomiting Stop: 09/01/22 08:00 Pantoprazole Sodium (Pantoprazole 40 Mg Tab) 40 mg PO QAM [facility] Stop: 09/01/22 16:44 Last Admin: 08/02/22 17:27 Dose: 40 mg Prednisone (Prednisone 5 Mg Tab) 15 mg PO DAILY [facility] Stop: 09/01/22 11:14 Last Admin: 08/02/22 11:55 Dose: Not Given Terazosin HCl (Terazosin Hcl 5 Mg Cap) 10 mg PO HS [facility] Stop: 09/01/22 20:59 Last Admin: 08/02/22 20:12 Dose: 10 mg Ticagrelor (Ticagrelor 90 Mg Tab) 90 mg PO BID [facility] Stop: 09/01/22 20:59 Last Admin: 08/02/22 20:13 Dose: 90 mg Vitamin D (Cholecalciferol 1,000 Units 25 Mcg Tab) 2,000 units PO HS [facility] Stop: 09/01/22 20:59 Last Admin: 08/02/22 20:14 Dose: 2,000 units (3) Hypertension Hypertension type: unspecified Qualified Code(s): I10 - Essential (primary) hypertension (5) BPH (benign prostatic hyperplasia) Lower urinary tract symptom presence: unspecified whether lower urinary tract symptoms present Qualified Code(s): N40.0 - Benign prostatic hyperplasia without lower urinary tract symptoms
[2022-08-03] MEDS: INSULIN ASPART PER UNIT CHARGE SC SCH ×4 (08:08→20:35)
[2022-08-03] MEDS: TICAGRELOR 90 MG TAB PO SCH ×2 (08:10→20:28)
[2022-08-03] MEDS: LOSARTAN POTASSIUM 25 MG TAB PO SCH (08:10)
[2022-08-03] MEDS: PANTOprazole 40 MG TAB PO SCH (08:11)
[2022-08-03] MEDS: METOPROLOL TARTRATE 25 MG TAB PO SCH ×3 (08:11→20:27)
[2022-08-03] MEDS: predniSONE 5 MG TAB PO SCH (08:11)
[2022-08-03] MEDS: ATORVASTATIN 40 MG TAB PO SCH (08:11)
[2022-08-03] MEDS: ASPIRIN 81 MG ECTAB PO SCH (08:12)
[2022-08-03] MEDS: FLUTICASONE PROPIONATE NA SPR 16 GM BTL NAE SCH ×2 (08:13→20:26)
[2022-08-03] MEDS: DUTASTERIDE 0.5 MG CAPSULE PO SCH (08:13)
[2022-08-03] MEDS: ICU Protocol for HYPERglycemia SCH ×4 (08:22→20:29)
[2022-08-03] MEDS: NYSTATIN OINT 15 GM TUBE EXT SCH ×2 (08:23→20:28)
--- NOTE | 2022-08-03 09:32 | Cardiology Progress Note ---
Date of Service August 03, 2022 Assessment & Plan (1) ST elevation (STEMI) myocardial infarction: Plan: Post PCI with 2 MENDEL to LAD 2. Moderate nonculprit coronary artery disease 3. Ischemic cardiomyopathyEF 35 to 40% with apical akinesis 4. Mild to moderate AI, mild MR. 5. Hypertension 6. History of TIA 7. Dyslipidemia Patient chest pain-free. Troponin has peaked. Hemodynamically and electrically stable. No congestion on exam. No access site complications. Continue DAPT with aspirin, ticagrelor. Transition back to clopidogrel tomorrow Increase metoprolol to 25 mg twice daily. Toprol-XL on discharge. Increase losartan to 25 mg daily if BP allows We will consider addition of spironolactone tomorrow Continue current statin Plan to repeat limited echo tomorrow a.m. to rule out LV thrombus From a cardiac standpoint okay with transition to telemetry today. Potential discharge to home tomorrow Admission and Anticipated Discharge Date Admission Date: August 02, 2022 Subjective Feeling well this morning. Denies any chest pain. No other new concerns. Telemetry reviewedno events. Review of Systems Review of Systems: All systems reviewed & are unremarkable except as noted in HPI & below Physical Exam Physical Exam: General: Comfortable HEENT: Sclerae anicteric Lungs: Clear to auscultation bilaterally Cardiac: Regular rate and rhythm, 2 out of 6 systolic murmur right upper sternal border Vascular: Right radial artery access site with mild ecchymosis but no hematoma. Distal pulse and sensation intact. Abdomen: Soft, nontender Extremities: Well perfused, no peripheral edema Neuro: Nonfocal Psych: Alert orient x3, normal affect and mood Results & Data Vital Signs (Past 12 Hours) Vital Signs Temp Pulse Resp BP Pulse Ox 08/03/22 07:00 85 16 127/72 92 08/03/22 06:00 93 H 20 129/72 94 08/03/22 05:00 80 20 131/68 91 08/03/22 04:00 78 24 113/65 93 08/03/22 03:00 84 21 94 08/03/22 00:00 97.7 F 08/03/22 05:00 97.7 F 08/03/22 03:00 97.7 F 08/03/22 00:00 75 08/03/22 02:00 85 19 125/71 91 08/03/22 01:00 80 19 119/67 94 08/03/22 00:00 87 20 123/65 91 08/02/22 23:00 95 H 21 114/66 94 08/02/22 22:19 79 18 98/57 L 08/02/22 22:00 82 24 94 PG Care Time/CCT Total # of Minutes Spent Total Time Spent with Patient: Total time spent is greater than 50% in coordination of care (as documented) at patient's floor/unit and/or counseling patient: Coding Level of Care Code 72324 SUB INP/OBS CARE 3/50MIN Diagnoses ST elevation (STEMI) myocardial infarction I21.3
[2022-08-03 10:23] LABS: BUN Creatinine Ratio 25.2 (10-20); Creatinine Clr Calc Pharmacy 66.2 ml/min; Est GFR (African American) 73.5 ml/min; Est GFR (Non-African American) 63.4 ml/min; Magnesium 1.9 mg/dl (1.7-2.4)
[2022-08-03] MEDS: METOPROLOL TARTRATE 25 MG TAB PO ONE ×2 (10:54→11:01)
--- NOTE | 2022-08-03 10:55 | Critical Care Progress Note ---
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, will transition to Plavix prior to discharge as per cardiology note 2D echo 08/03/2022: EF 35-40%, severe mid septal anterior septal hypokinesis, normal RV size and function, mild to moderate AR Continue with dual antiplatelet therapy --History of TIA Used to be on Plavix at home --History of PMR On prednisone 50 mg since April --BPH Continue with terazosin and Avodart --Dyslipidemia Continue with statin -- Obesity with probable AREN Advised to lose with diet and exercise Recommend outpatient polysomnography --Prophylaxis VTE: IPC GI: Pantoprazole Lines: Peripheral Diet: Cardiac diabetic Plan: In/out: -2.4 L, urine output 2850 Troponins are trending down. EKG from 08/02/[address] elevation on the lateral leads. Patient is complaining of any chest pain right now. His blood pressure was in the systolic 100s when I saw him. He complained of dizziness last night. Will give him 500 mL of IV fluid. Continue with low-dose beta-michelle and losartan. Continue with PPI Patient hemodynamically stable to be downgraded to medical floor Case was discussed with Dr. Deluca as well as Dr. Clark Please note the above document was generated using voice recognition software. It may contain grammatical, syntax or spelling errors.Any formal questions or concerns about the content, text or information contained within the body of this dictation should be directly addressed to the provider for clarification. Admission and Anticipated Discharge Date Admission Date: August 02, 2022 Subjective Patient seen and examined at bedside. No acute distress, no adverse events overnight Denies any chest pain, no shortness of breath, no headache, no nausea, no vomiting. Last night when he tried to sit on the chair he did got dizzy. Denies any headache, no nausea, no vomiting Has been afebrile Review of Systems Review of Systems: All systems reviewed & are unremarkable except as noted in Subjective Physical Exam Physical Exam: Constitutional: No acute distress HEENT: EOMI, PERRLA, thick neck Respiratory system: Good air entry bilaterally, no wheeze, rhonchi, mild crackles bilateral lower lobes CVS: S1-S2 positive, no murmurs or gallops Abdomen: Soft, nontender, nondistended, positive bowel sounds x4, obese Extremities: +2 pulses bilaterally radialis/ dorsalis pedis, no cyanosis, +1 pitting edema bilateral lower extremity Neuro: Awake alert oriented x3 Psych: Normal mood and affect G/U: No P[place] Skin: no rashes, warm and dry Lymphatic: no cervical or axillary lymphadenopathy Results & Data Results & Data Vital Signs (Past 12 Hours) Vital Signs Temp Pulse Resp BP Pulse Ox 08/03/22 08:00 78 08/03/22 09:00 36.8 C 08/03/22 10:00 84 18 93 08/03/22 10:00 102/68 08/03/22 09:06 86 16 94 08/03/22 09:06 97/55 L 08/03/22 09:00 89 19 93 08/03/22 09:00 105/53 L 08/03/22 08:00 90 21 91 08/03/22 08:00 112/67 08/03/22 07:00 85 16 127/72 92 08/03/22 06:00 93 H 20 129/72 94 08/03/22 05:00 80 20 131/68 91 08/03/22 04:00 78 24 113/65 93 08/03/22 03:00 84 21 94 08/03/22 00:00 36.5 C 08/03/22 05:00 36.5 C 08/03/22 03:00 36.5 C 08/03/22 00:00 75 08/03/22 02:00 85 19 125/71 91 08/03/22 01:00 80 19 119/67 94 08/03/22 00:00 87 20 123/65 91 08/02/22 23:00 95 H 21 114/66 94 Laboratory Results 08/03/22 04:23 08/03/22 09:41 Coding Level of Care Code 72905 SUB INP/OBS CARE 3/50MIN Diagnoses Steroid long-term use S/P drug eluting coronary stent placement Z95.5 STEMI (ST elevation myocardial infarction) I21.3 Hypertension I10 Hypertension type: unspecified CVA (cerebral vascular accident) I63.9 HLD (hyperlipidemia) E78.5 BPH (benign prostatic hyperplasia) N40.0 Lower urinary tract symptom presence: unspecified whether lower urinary tract symptoms present (4) Hypertension Hypertension type: unspecified Qualified Code(s): I10 - Essential (primary) hypertension (7) BPH (benign prostatic hyperplasia) Lower urinary tract symptom presence: unspecified whether lower urinary tract symptoms present Qualified Code(s): N40.0 - Benign prostatic hyperplasia without lower urinary tract symptoms
[2022-08-03] MEDS ORDERED: SODIUM PHOSPHATE 3 MMOL/1 ML INFUSION IV STA (11:01)
[2022-08-03] MEDS ORDERED: SODIUM PHOSPHATE 15 MMOL in DEXTROSE 5% 250 ML IV ONE (11:15)
[2022-08-03] MEDS: MAGNESIUM SULFATE / D5W 1 GM/100 ML BAG IV SCH ×2 (11:54→13:46)
[2022-08-03] MEDS: TERAZOSIN HCL 5 MG CAP PO SCH (20:27)
[2022-08-03] MEDS: CHOLECALCIFEROL 1,000 UNITS 25 MCG TAB PO SCH (20:29)
[2022-08-03] MEDS ORDERED: METOPROLOL TARTRATE 25 MG TAB PO SCH (21:00)
[2022-08-04 06:31] LABS: Basophils # (auto) 0.04 K/uL (0-0.2); Basophils % (auto) 0.5 %; Eosinophils # (auto) 0.09 K/uL (0-0.50); Eosinophils % (auto) 1.2 %; Hematocrit (blood only) 42.6 % (42.0-52.0); Hemoglobin 14.6 g/dl (14.0-18.0); Immature Granulocytes % (auto) 1.3 %; Lymphocytes % (auto) 21.9 %; Mean Corpuscular Hemoglobin 30.9 pg (25.0-34.0); Mean Corpuscular Hgb Conc 34.3 g/dL (32.0-36.0); Mean Corpuscular Volume 90.1 fL (80.0-100.0); Mean Platelet Volume 10.6 fL (9.4-12.4); Monocytes # (auto) 0.86 K/uL (0.11-0.59); Monocytes % (auto) 11.1 %; Neutrophils # (auto) 4.97 K/uL (1.40-6.50); Platelet Count 126 K/uL (130-400); RDW Coefficient of Variation 14.6 % (11.5-14.5); RDW Standard Deviation 48.4 fL (36.4-46.3); Red Blood Count 4.73 M/uL (4.70-6.10); White Blood Count 7.76 K/ul (4.8-10.8)
[2022-08-04 06:56] LABS: BUN Creatinine Ratio 28.9 (10-20); Calcium 8.9 mg/dl (8.6-10.3); Est GFR (African American) 82.7 ml/min; Est GFR (Non-African American) 71.4 ml/min; Magnesium 2.3 mg/dl (1.7-2.4); Phosphorus 2.6 mg/dl (2.5-4.9); Potassium 3.7 mmol/L (3.5-5.1)
[2022-08-04] MEDS: ICU Protocol for HYPERglycemia SCH (07:09)
[2022-08-04] MEDS ORDERED: CLOPIDOGREL BISULFATE 300 MG TAB PO ONE (08:00)
[2022-08-04] MEDS: LOSARTAN POTASSIUM 25 MG TAB PO SCH (08:11)
[2022-08-04] MEDS: INSULIN ASPART PER UNIT CHARGE SC SCH (08:11)
[2022-08-04] MEDS: PANTOprazole 40 MG TAB PO SCH (08:12)
[2022-08-04] MEDS: predniSONE 5 MG TAB PO SCH (08:12)
[2022-08-04] MEDS: ATORVASTATIN 40 MG TAB PO SCH (08:12)
[2022-08-04] MEDS: ASPIRIN 81 MG ECTAB PO SCH (08:12)
[2022-08-04] MEDS: METOPROLOL TARTRATE 25 MG TAB PO SCH (08:13)
[2022-08-04] MEDS: FLUTICASONE PROPIONATE NA SPR 16 GM BTL NAE SCH (08:13)
[2022-08-04] MEDS: DUTASTERIDE 0.5 MG CAPSULE PO SCH (08:13)
[2022-08-04] MEDS: NYSTATIN OINT 15 GM TUBE EXT SCH (08:14)
--- NOTE | 2022-08-04 08:39 | Hospitalist Progress Note ---
Date of Service August 04, 2022 Assessment & Plan (1) STEMI (ST elevation myocardial infarction): (2) S/P drug eluting coronary stent placement: (3) Hypertension: (4) CVA (cerebral vascular accident): (5) BPH (benign prostatic hyperplasia): (6) HLD (hyperlipidemia): (7) Steroid long-term use: Plan This is an 82yo M with a PMH of hypertension, hyperlipidemia, history of CVA, spinal stenosis, BPH who presented with chest pain to ED and was found to have anterior STEMI and is s/p PCI to LAD w/MENDEL x 2. STEMI anterior S/p PCI to LAD w/MENDEL x 2 No known h/o CAD. Risk factors include HTN and HLD EKG showed sinus rhythm and anterior ST elevations Cardiac catheterization with Dr. Deluca revealed 100% mid LAD occlusion and other moderate nonobstructive coronary artery disease in early LAD and ostial circumflex S/p overlapping MENDEL x 2 to LAD Recovering in ICU Continue dual-antiplatelet therapy for at least 1 year - Aspirin 81 mg and Plavix 75mg daily Metoprolol succinate 25 mg daily. 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 Optimize BSG control HTN - at home was on amlodipine 5mg, terazosin 10mg HS. Amlodipine was stopped. Continue to monitor History of TIA Continue plavix BPH Continue Avodart, terazosin Code status: FULL PCP: Dr. Rajan Dispo: PCU Admission and Anticipated Discharge Date Admission Date: August 02, 2022 Subjective Pt seen in follow up of anterior STEMI, s/p PCI to mid LAD w/ MENDEL x2 Currently laying in bed, in no acute distress. Overall feels better just somewhat weak. Denies any chest pain shortness of breath. Denies any nausea or vomiting. Denies any headache. No abdominal pain. Seen by cardiology - plan to DC later today. Pt's son is coming to visit later today. Discussed w/ RN. Review of Systems Review of Systems: All systems reviewed & are unremarkable except as noted in Subjective Physical Exam Physical Exam: General Appearance:WD/WN, in NAD Head: normocephalic, atraumatic Eyes:normal inspection, PERRL, conjunctivae normal, anicteric sclerae ENT: external ear and nose normal, oropharynx normal Neck: normal visual inspection Respiratory:normal respiratory effort, lungs clear to auscultation, no wheeze, rales, rhonchi. No accessory muscle use Cardiovascular: regular rate, rhythm, no murmur Chest: normal inspection of chest Abdomen/GI: normal bowel sounds, soft, nontender Extremities/Musculoskeletal:extremities motor strength 5/5 Neurologic: PERRL, EOMI, no face palsy, speech fluent, moves all extremities Psychiatric:A+Ox3, euthymic affect Skin:warm, dry Results & Data Results & Data Vital Signs (Past 12 Hours) Vital Signs Temp Pulse Pulse Resp BP Pulse Ox O2 Del Method 08/04/22 08:01 37.0 C 86 17 121/69 96 Room Air 08/04/22 04:03 37.1 C 84 18 107/55 L 95 Room Air 08/04/22 00:00 71 08/03/22 23:33 37 C 75 126/76 94 Room Air Laboratory Results 08/04/22 08/04/22 08/04/22 Range/Units 07:21 06:05 06:05 WBC 7.76 (4.8-10.8) K/ul RBC 4.73 (4.70-6.10) M/uL Hgb 14.6 (14.0-18.0) g/dl Hct 42.6 (42.0-52.0) % MCV 90.1 (80.0-100.0) fL MCH 30.9 (25.0-34.0) pg MCHC 34.3 (32.0-36.0) g/dL RDW Std Deviation 48.4 H (36.4-46.3) fL RDW Coeff of Efren 14.6 H (11.5-14.5) % Plt Count 126 L (130-400) K/uL MPV 10.6 (9.4-12.4) fL Immature Gran % (Auto) 1.3 % Neut % (Auto) 64.0 % Lymph % (Auto) 21.9 % Chester % (Auto) 11.1 % Eos % (Auto) 1.2 % Baso % (Auto) 0.5 % Neut # (Auto) 4.97 (1.40-6.50) K/uL Lymph # (Auto) 1.70 (1.2-3.4) K/uL Chester # (Auto) 0.86 H (0.11-0.59) K/uL Eos # (Auto) 0.09 (0-0.50) K/uL Baso # (Auto) 0.04 (0-0.2) K/uL Immature Gran # (Auto) 0.10 (0.01-0.20) K/uL Sodium 139 (136-145) mmol/L Potassium 3.7 (3.5-5.1) mmol/L Chloride 105 (98-107) mmol/L Carbon Dioxide 25 (21-32) mmol/L Anion Gap 9 (3-11) BUN 28 H (6-23) mg/dl Creatinine 0.97 (0.6-1.4) mg/dl Est Cr Clr Drug Dosing 73.0 ml/min Est GFR ( Amer) 82.7 ml/min Est GFR (Non-Af Amer) 71.4 ml/min BUN/Creatinine Ratio 28.9 H (10-20) Glucose 123 H (70-99(Fasting)) mg/dl POC Glucose 126 H (70-99) mg/dl Calcium 8.9 (8.6-10.3) mg/dl Phosphorus 2.6 (2.5-4.9) mg/dl Magnesium 2.3 (1.7-2.4) mg/dl 08/03/22 08/03/22 08/03/22 Range/Units 20:13 16:38 11:04 WBC (4.8-10.8) K/ul RBC (4.70-6.10) M/uL Hgb (14.0-18.0) g/dl Hct (42.0-52.0) % MCV (80.0-100.0) fL MCH (25.0-34.0) pg MCHC (32.0-36.0) g/dL RDW Std Deviation (36.4-46.3) fL RDW Coeff of Efren (11.5-14.5) % Plt Count (130-400) K/uL MPV (9.4-12.4) fL Immature Gran % (Auto) % Neut % (Auto) % Lymph % (Auto) % Chester % (Auto) % Eos % (Auto) % Baso % (Auto) % Neut # (Auto) (1.40-6.50) K/uL Lymph # (Auto) (1.2-3.4) K/uL Chester # (Auto) (0.11-0.59) K/uL Eos # (Auto) (0-0.50) K/uL Baso # (Auto) (0-0.2) K/uL Immature Gran # (Auto) (0.01-0.20) K/uL Sodium (136-145) mmol/L Potassium (3.5-5.1) mmol/L Chloride (98-107) mmol/L Carbon Dioxide (21-32) mmol/L Anion Gap (3-11) BUN (6-23) mg/dl Creatinine (0.6-1.4) mg/dl Est Cr Clr Drug Dosing ml/min Est GFR ( Amer) ml/min Est GFR (Non-Af Amer) ml/min BUN/Creatinine Ratio (10-20) Glucose (70-99(Fasting)) mg/dl POC Glucose 86 135 H 123 H (70-99) mg/dl Calcium (8.6-10.3) mg/dl Phosphorus (2.5-4.9) mg/dl Magnesium (1.7-2.4) mg/dl 08/03/22 Range/Units 09:41 WBC (4.8-10.8) K/ul RBC (4.70-6.10) M/uL Hgb (14.0-18.0) g/dl Hct (42.0-52.0) % MCV (80.0-100.0) fL MCH (25.0-34.0) pg MCHC (32.0-36.0) g/dL RDW Std Deviation (36.4-46.3) fL RDW Coeff of Efren (11.5-14.5) % Plt Count (130-400) K/uL MPV (9.4-12.4) fL Immature Gran % (Auto) % Neut % (Auto) % Lymph % (Auto) % Chester % (Auto) % Eos % (Auto) % Baso % (Auto) % Neut # (Auto) (1.40-6.50) K/uL Lymph # (Auto) (1.2-3.4) K/uL Chester # (Auto) (0.11-0.59) K/uL Eos # (Auto) (0-0.50) K/uL Baso # (Auto) (0-0.2) K/uL Immature Gran # (Auto) (0.01-0.20) K/uL Sodium 138 (136-145) mmol/L Potassium 4.0 (3.5-5.1) mmol/L Chloride 103 (98-107) mmol/L Carbon Dioxide 27 (21-32) mmol/L Anion Gap 8 (3-11) BUN 27 H (6-23) mg/dl Creatinine 1.07 (0.6-1.4) mg/dl Est Cr Clr Drug Dosing 66.2 ml/min Est GFR ( Amer) 73.5 ml/min Est GFR (Non-Af Amer) 63.4 ml/min BUN/Creatinine Ratio 25.2 H (10-20) Glucose 193 H (70-99(Fasting)) mg/dl POC Glucose (70-99) mg/dl Calcium 9.0 (8.6-10.3) mg/dl Phosphorus 2.0 L (2.5-4.9) mg/dl Magnesium 1.9 (1.7-2.4) mg/dl Medications Administered Current Inpatient Medications Acetaminophen (Acetaminophen 325 Mg Tab) 650 mg PO Q4H PRN PRN Reason: MILD Pain (Scale 1,2,3) Stop: 09/01/22 08:00 Aspirin (Aspirin 81 Mg Ectab) 81 mg PO [facility] Stop: 09/02/22 08:59 Last Admin: 08/04/22 08:12 Dose: 81 mg Atorvastatin Calcium (Atorvastatin 40 Mg Tab) 40 mg PO [facility] Stop: 09/01/22 08:59 Last Admin: 08/04/22 08:12 Dose: 40 mg Clopidogrel Bisulfate (Clopidogrel Bisulfate 75 Mg Tab) 75 mg PO [facility] Stop: 09/04/22 08:59 Dextrose (Dextrose 50% 50 Ml Syringe) 25 - 50 ml IV UD PRN; Protocol PRN Reason: Hypoglycemia Protocol Stop: 09/01/22 10:29 Dutasteride (Dutasteride 0.5 Mg Capsule) 1 each PO QAM [facility] Stop: 09/02/22 08:59 Last Admin: 08/04/22 08:13 Dose: 1 each Fluticasone Propionate (Fluticasone Propionate Na Spr 16 Gm Btl) 2 sprays KARI BID [facility] Stop: 09/01/22 11:14 Last Admin: 08/04/22 08:13 Dose: Not Given Glucagon (Glucagon For Inj 1 Mg Vial) 1 mg IM UD PRN; Protocol PRN Reason: Hypoglycemia Protocol Stop: 09/01/22 10:29 Glucose (Glucose 40% Gel 15 Gm Tube) 15 - 30 gm PO UD PRN; Protocol PRN Reason: Hypoglycemia Protocol Stop: 09/01/22 10:29 Glucose (Glucose 10 Tab/Tube) 4 - 8 tab PO UD PRN; Protocol PRN Reason: Hypoglycemia Protocol Stop: 09/01/22 10:29 Insulin Aspart (Insulin Aspart Per Unit Charge) 0 units SC [facility] Stop: 09/01/22 11:29 Last Admin: 08/04/22 08:11 Dose: 8 units Losartan Potassium (Losartan Potassium 25 Mg Tab) 12.5 mg PO QAM [facility] Stop: 09/01/22 09:59 Last Admin: 08/04/22 08:11 Dose: 12.5 mg Melatonin (Melatonin 3 Mg Tab) 9 mg PO HS PRN PRN Reason: Sleep Stop: 09/01/22 11:20 Metoprolol Tartrate (Metoprolol Tartrate 25 Mg Tab) 12.5 mg PO BID [facility] Stop: 09/02/22 20:59 Last Admin: 08/04/22 08:13 Dose: 12.5 mg Miscellaneous (Icu Protocol For Hyperglycemia) 1 each N/A ACHS [facility] Stop: 08/04/22 11:29 Last Admin: 08/04/22 07:09 Dose: Not Given Miscellaneous (Carbohydrates For Hypoglycemia ) 15 - 30 gm PO UD PRN PRN Reason: Hypoglycemia Treatment Stop: 09/01/22 10:29 Nitroglycerin (Nitroglycerin Sl 0.4 Mg/Tab Tab) 0.4 mg SL PRN PRN PRN Reason: Chest Pain Stop: 09/01/22 08:00 Nystatin (Nystatin Oint 15 Gm Tube) 1 appln EXT BID [facility] Stop: 09/01/22 10:59 Last Admin: 08/04/22 08:14 Dose: 1 appln Ondansetron HCl (Ondansetron Inj 2 Mg/Ml 2 Ml Vial) 4 mg IV Q6H PRN PRN Reason: Nausea And Vomiting Stop: 09/01/22 08:00 Pantoprazole Sodium (Pantoprazole 40 Mg Tab) 40 mg PO QAM [facility] Stop: 09/01/22 16:44 Last Admin: 08/04/22 08:12 Dose: 40 mg Prednisone (Prednisone 5 Mg Tab) 15 mg PO DAILY [facility] Stop: 09/01/22 11:14 Last Admin: 08/04/22 08:12 Dose: 15 mg Terazosin HCl (Terazosin Hcl 5 Mg Cap) 10 mg PO HS [facility] Stop: 09/01/22 20:59 Last Admin: 08/03/22 20:27 Dose: 10 mg Vitamin D (Cholecalciferol 1,000 Units 25 Mcg Tab) 2,000 units PO HS [facility] Stop: 09/01/22 20:59 Last Admin: 08/03/22 20:29 Dose: 2,000 units (3) Hypertension Hypertension type: unspecified Qualified Code(s): I10 - Essential (primary) hypertension (5) BPH (benign prostatic hyperplasia) Lower urinary tract symptom presence: unspecified whether lower urinary tract symptoms present Qualified Code(s): N40.0 - Benign prostatic hyperplasia without lower urinary tract symptoms
--- NOTE | 2022-08-04 09:38 | XCELERA ---
[id number] [id number]
--- NOTE | 2022-08-04 09:42 | Cardiology Progress Note ---
Date of Service August 04, 2022 Assessment & Plan (1) ST elevation (STEMI) myocardial infarction: Plan: Post PCI with 2 MENDEL to LAD 2. Moderate nonculprit coronary artery disease 3. Ischemic cardiomyopathyEF 35 to 40% with apical akinesis 4. Mild to moderate AI, mild MR. 5. Hypertension 6. History of TIA 7. Dyslipidemia Patient appears to be doing well without evident complication. No recurrent angina, heart failure or arrhythmia. I think he would be stable for discharge provided he is ambulatory in feeling well when ambulatory. I recommend the following cardiac regimen at the time of discharge: Aspirin 81 mg daily Plavix 75 mg daily Metoprolol succinate 25 mg daily Losartan 12.5 mg daily Spironolactone 12.5 mg daily Atorvastatin 40 mg daily I will send a referral for cardiac rehab Patient will require repeat laboratory study in a few days to monitor renal function and potassium. Admission and Anticipated Discharge Date Admission Date: August 02, 2022 Subjective Pt seen in follow up of anterior STEMI, s/p PCI to mid LAD w/ MENDEL x2 The patient claims to be feeling well. He did report some very mild dizziness w hen transitioning from the bed yesterday, but he attributes this to being bedbound for over a day. He has been mobile around his room with a cane. He denies dizziness or difficulty with ambulation. No recurrence of his chest pain. No breathing difficulty. No palpitations. No discomfort at the right wrist access site. Review of Systems Review of Systems: Per HPI Physical Exam Physical Exam: The patient is alert and oriented. Mood and affect appeared normal. He answered all questions appropriately. HEENT: Pupils are equal and reactive to light and accommodation. Extraocular movements are intact. The sclerae are anicteric. Neuro: Cranial nerves intact Lungs: Clear to auscultation bilaterally. He has good air movement without use of accessory muscles. No rales wheezes or rhonchi. Cardiac: Heart demonstrates a regular rate and rhythm. Normal S1 and S2. No murmurs on examination. Pulses: The patient has palpable radial pulses bilaterally that are equal in intensity Extremities: There was no evidence of hypoperfusion. There is no cyanosis or clubbing. There is no edema. Ecchymosis at the right radial access site and inner aspect of the right arm. No swelling or tenderness. Skin: I did not appreciate any rashes on examination today. Results & Data Vital Signs (Past 12 Hours) Vital Signs Temp Pulse Pulse Resp BP Pulse Ox O2 Del Method 08/04/22 08:01 37.0 C 86 17 121/69 96 Room Air 08/04/22 04:03 37.1 C 84 18 107/55 L 95 Room Air 08/04/22 00:00 71 08/03/22 23:33 37 C 75 126/76 94 Room Air Laboratory Results Abnormal Lab Results 08/03/22 08/03/22 08/03/22 09:41 11:04 16:38 WBC RBC Hgb Hct MCV MCH MCHC RDW Std Deviation RDW Coeff of Efren Plt Count MPV Immature Gran % (Auto) Neut % (Auto) Lymph % (Auto) Winn % (Auto) Eos % (Auto) Baso % (Auto) Neut # (Auto) Lymph # (Auto) Winn # (Auto) Eos # (Auto) Baso # (Auto) Immature Gran # (Auto) Sodium 138 Potassium 4.0 Chloride 103 Carbon Dioxide 27 Anion Gap 8 BUN 27 H Creatinine 1.07 Est Cr Clr Drug Dosing 66.2 Est GFR ( Amer) 73.5 Est GFR (Non-Af Amer) 63.4 BUN/Creatinine Ratio 25.2 H Glucose 193 H POC Glucose 123 H 135 H Calcium 9.0 Phosphorus 2.0 L Magnesium 1.9 08/03/22 08/04/22 08/04/22 20:13 06:05 06:05 WBC 7.76 RBC 4.73 Hgb 14.6 Hct 42.6 MCV 90.1 MCH 30.9 MCHC 34.3 RDW Std Deviation 48.4 H RDW Coeff of Efren 14.6 H Plt Count 126 L MPV 10.6 Immature Gran % (Auto) 1.3 Neut % (Auto) 64.0 Lymph % (Auto) 21.9 Winn % (Auto) 11.1 Eos % (Auto) 1.2 Baso % (Auto) 0.5 Neut # (Auto) 4.97 Lymph # (Auto) 1.70 Winn # (Auto) 0.86 H Eos # (Auto) 0.09 Baso # (Auto) 0.04 Immature Gran # (Auto) 0.10 Sodium 139 Potassium 3.7 Chloride 105 Carbon Dioxide 25 Anion Gap 9 BUN 28 H Creatinine 0.97 Est Cr Clr Drug Dosing 73.0 Est GFR ( Amer) 82.7 Est GFR (Non-Af Amer) 71.4 BUN/Creatinine Ratio 28.9 H Glucose 123 H POC Glucose 86 Calcium 8.9 Phosphorus 2.6 Magnesium 2.3 08/04/22 07:21 WBC RBC Hgb Hct MCV MCH MCHC RDW Std Deviation RDW Coeff of Efren Plt Count MPV Immature Gran % (Auto) Neut % (Auto) Lymph % (Auto) Winn % (Auto) Eos % (Auto) Baso % (Auto) Neut # (Auto) Lymph # (Auto) Winn # (Auto) Eos # (Auto) Baso # (Auto) Immature Gran # (Auto) Sodium Potassium Chloride Carbon Dioxide Anion Gap BUN Creatinine Est Cr Clr Drug Dosing Est GFR ( Amer) Est GFR (Non-Af Amer) BUN/Creatinine Ratio Glucose POC Glucose 126 H Calcium Phosphorus Magnesium Diagnostic Findings Echocardiogram performed today revealed mild to moderately reduced LV systolic dysfunction with known regional wall motion abnormalities. No thrombus. PG Care Time/CCT Total # of Minutes Spent Total Time Spent with Patient: Total time spent is greater than 50% in coordination of care (as documented) at patient's floor/unit and/or counseling patient: Coding Level of Care Code 16333 SUB INP/OBS CARE 2/35MIN Diagnoses ST elevation (STEMI) myocardial infarction I21.3
--- NOTE | 2022-08-04 10:44 | Discharge Summary ---
Date of Service August 04, 2022 Admission HPI Per Admitting Provider This is an 82yo M with a PMH of hypertension, hyperlipidemia, history of CVA, osteoarthritis with suspicion for PMR, spinal stenosis, BPH and other medical problems listed below who presented with chest pain to ED that began at 4:30 in the morning. Chest pain woke him from sleep and son became concerned and brought him to ED for further evaluation. Describes pain as centrally located in substernal with associated nausea. Denies any shortness of breath, diaphoresis. No history of known AL in the past. EKG showed sinus rhythm and anterior ST elevations. Underwent cardiac catheterization with Dr. Deluca and found to have 100% mid LAD occlusion and other moderate nonobstructive coronary artery disease in early LAD and ostial circumflex. Underwent successful PCI of mid LAD occlusion with 2 MENDEL and admitted to ICU for continued monitoring. 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 When evaluated in the ICU postprocedure, patient comfortable with 1 out of 10 chest discomfort. Denies any fever, chills, lightheadedness, headache, shortness of breath, nausea, vomiting, abdominal pain, dysuria, diarrhea constipation. Lives at home with son. Not entirely sure on medication regimen at home. Denies any history of diabetes. Has been on 15 mg of daily prednisone since late April for worsening osteoarthritis and concern for possible PMR. Outpatient ESR elevated at 56. Has PCP follow-up in October to discuss how steroid is working. Admission Exam Per Admitting Provider General Appearance:WD/WN, vitals as above, NAD, lying in bed, pleasant,obese Head: normocephalic, atraumatic Eyes:normal inspection, PERRL, conjunctivae normal, anicteric sclerae ENT: external ear and nose normal, oropharynx normal Neck: normal visual inspection, trachea midline, no thyromegaly Respiratory:normal respiratory effort, lungs clear to auscultation, no wheeze, rales, rhonchi. No accessory muscle use Cardiovascular: regular rate, rhythm, no murmur, normal peripheral pulses, trace BLE edema Chest: normal inspection of chest Abdomen/GI: normal bowel sounds, soft, nontender, no hepatosplenomegaly Extremities/Musculoskeletal: no cyanosis or clubbing, extremities motor strength 5/5 Neurologic: PERRL, EOMI, accommodation nl, no face palsy, no dysarthria, CN's II-XI intact bilaterally and moves all extremities Psychiatric:A+Ox3, euthymic affect Skin: no rashes, normal color, warm/dry. + extensive erythematous rash in groin folds, non-tender, not pruritic Principal Diagnosis Anterior STEMI (ST elevation myocardial infarction) Discharge Exam General Appearance:WD/WN, in NAD Head: normocephalic, atraumatic Eyes:normal inspection, PERRL, conjunctivae normal, anicteric sclerae ENT: external ear and nose normal, oropharynx normal Neck: normal visual inspection Respiratory:normal respiratory effort, lungs clear to auscultation, no wheeze, rales, rhonchi. No accessory muscle use Cardiovascular: regular rate, rhythm, no murmur Chest: normal inspection of chest Abdomen/GI: normal bowel sounds, soft, nontender Extremities/Musculoskeletal:extremities motor strength 5/5 Neurologic: PERRL, EOMI, no face palsy, speech fluent, moves all extremities Psychiatric:A+Ox3, euthymic affect Skin:warm, dry Discharge Data Allergies Allergy/AdvReac Type Severity Reaction Status Date / Time GLO Inhibitors Allergy Severe ANGIOEDEMA/ Verified 03/31/22 20:50 MYLAGIAS lisinopril Allergy Severe ANGIOEDEMA/ Verified 03/31/22 20:50 MYLAGIAS aspirin AdvReac Intermediate DYSPHAGIA/TROUBLE Verified 03/31/22 20:50 STANDING STRAIGHT UP Consultations 08/02/22 07:10 ED Decision to Admit Stat 08/02/22 08:04 Consult Cardiac Rehabilitation Routine Consult Office Services Assistant Routine 08/02/22 08:12 Consult Cardiology Routine Procedures Performed Operation Date: 08/02/22 06:30 Actual Procedures s Cineradiography w/Routine Exam - Alexandre Deluca MD p Aspiration/PCI w/MENDEL for Stemi - Alexandre Deluca MD p Cath, Left with Cors and Vent - Alexandre Deluca MD s IVUS Coronary Single Vessel - Alexandre Deluca MD Ordered Studies 08/02/22 06:20 CL Cath Imgs for PACS use only Stat 08/02/22 08:25 CL IVUS Coronary Single Vessel Routine Hospital Course (1) STEMI (ST elevation myocardial infarction): (2) S/P drug eluting coronary stent placement: (3) Hypertension: (4) CVA (cerebral vascular accident): (5) BPH (benign prostatic hyperplasia): (6) HLD (hyperlipidemia): (7) Steroid long-term use: Plan This is an 82yo M with a PMH of hypertension, hyperlipidemia, history of CVA, spinal stenosis, BPH who presented with chest pain to ED and was found to have anterior STEMI and is s/p PCI to LAD w/MENDEL x 2. STEMI anterior S/p PCI to LAD w/MENDEL x 2 No known h/o CAD. Risk factors include HTN and HLD EKG showed sinus rhythm and anterior ST elevations Cardiac catheterization with Dr. Deluca revealed 100% mid LAD occlusion and other moderate nonobstructive coronary artery disease in early LAD and ostial circumflex S/p overlapping MENDEL x 2 to LAD Recovering in ICU Continue dual-antiplatelet therapy for at least 1 year - Aspirin 81 mg and Plavix 75mg daily Metoprolol succinate 25 mg daily. 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 Optimize BSG control HTN - at home was on amlodipine 5mg, terazosin 10mg HS. Amlodipine was stopped. Continue to monitor History of TIA Continue plavix BPH Continue Avodart, terazosin Total Time Total Time Spent Total Time Spent (In Minutes): 40 Discharge Plan Discharge Items Patient Disposition: Home - Self-Care Reason For Visit: STEMI Discharge Diagnosis: Anterior STEMI (ST elevation myocardial infarction) Activity: Per Instructions section Lifting: No more than 5 pounds Lifting Comment: No vigorous use of right hand/wrist for 7 days Non-emergency contact: Primary Care Provider and Dental Therapist Call non-emergency contact if: you have any medication questions and your symptoms worsen Follow-up/Referrals: Dino Rajan MD [Primary Care Provider] - Diet: Carb Consistent or DM2 and Heart Healthy Addtl Attending Provider Instructions: 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 You should see your primary care physician within 1 week. Some of your medications were changed, and new medications were also prescribed. Make sure to continue taking aspirin and Plavix every day. Your atorvastatin was increased to 40 mg daily. Stop taking amlodipine. Start taking metoprolol, losartan and spironolactone. If you can, monitor your blood pressure at home, and record your numbers. Discuss your blood pressure numbers with your primary care doctor, and/your card iologist. Cardiac rehab was also recommended for you. Pending Studies at Discharge: No Stand-Alone Forms: [facility], Smoking Cessation Medications and DC Order Prescriptions: New clopidogrel 75 mg Tablet 75 mg PO QAM Qty: 30 0RF atorvastatin 40 mg Tablet 40 mg PO QAM Qty: 30 0RF losartan 25 mg Tablet 12.5 mg PO QAM Qty: 30 0RF metoprolol tartrate 25 mg Tablet 12.5 mg PO BID Qty: 30 0RF aspirin 81 mg Tablet,Delayed Release (Dr/Ec) 81 mg PO QAM Qty: 30 0RF pantoprazole 40 mg Tablet,Delayed Release (Dr/Ec) 40 mg PO QAM Qty: 30 0RF nystatin 100,000 unit/gram Ointment 1 applic EXT BID Qty: 30 0RF Continued terazosin 10 mg Capsule 10 mg PO HS Qty: 0 cholecalciferol (vitamin D3) [Vitamin D3] 50 mcg (2,000 unit) Tablet 50 mcg PO HS Qty: 0 fluticasone propionate [Allergy Relief (fluticasone)] 50 mcg/actuation spray,suspension 2 spray intranasal BID Rx Instructions: administer into each nostril melatonin 10 mg capsule 10 mg PO HS PRN (Reason: Sleep) desonide 0.05 % ointment 1 applic TOPICAL BID PRN (Reason: Rash) prednisone 10 mg tablet 15 mg PO DAILY clopidogrel 75 mg Tablet 75 mg PO QAM Qty: 30 0RF dutasteride 0.5 mg capsule 0.5 mg PO QAM Discontinued amlodipine 5 mg Tablet 5 mg PO HS Qty: 0 atorvastatin 20 mg Tablet 20 mg PO HS Qty: 30 0RF Discharge Orders: Discharge Order (Routine); Ordered 08/04/22 Ordered By: Dakota Bardales/Other Patient Handouts: A1C, Coronary Stents, Cardiac Catheterization Dc, Cardiac Procedures Admission Data Admit Date/Time: 08/02/22 08:04 Attending Provider: Dakota Clark Admit Provider: Alexandre Deluca Primary Care Provider: Dino Rajan Other Providers: Maryuri Quiroz ; Benito Paulino ; Isabelle Salguero ; Alexandre Deluca Other Interventions: Discharge Summary Assessment (RN) Last Done: 08/04/22 10:46
[2022-08-05] MEDS ORDERED: CLOPIDOGREL BISULFATE 75 MG TAB PO SCH (09:00)
== END 2022-08-04 11:22 | disposition home or self-care (01) | DRG 247 ==
LOC: ED 05:50 → CC 06:40 → 1E 06:47 → SUATTDRO 08:04 → 2E 08-03 18:17
DX: Z79.899 Other long term (current) drug therapy; N40.0 Benign prostatic hyperplasia without lower urinary tract symptoms; M19.90 Unspecified osteoarthritis, unspecified site; Z88.6 Allergy status to analgesic agent; I21.3 ST elevation (STEMI) myocardial infarction of unspecified site; G47.33 Obstructive sleep apnea (adult) (pediatric); Z86.73 Personal history of transient ischemic attack (TIA), and cerebral infarction without residual deficits; M35.3 Polymyalgia rheumatica; Z79.02 Long term (current) use of antithrombotics/antiplatelets; R21 Rash and other nonspecific skin eruption; Z88.1 Allergy status to other antibiotic agents; E66.9 Obesity, unspecified; Z79.51 Long term (current) use of inhaled steroids; E78.5 Hyperlipidemia, unspecified; Z68.31 Body mass index [BMI] 31.0-31.9, adult; Z88.8 Allergy status to other drugs, medicaments and biological substances; Z87.891 Personal history of nicotine dependence; I10 Essential (primary) hypertension; Z91.048 Other nonmedicinal substance allergy status; R73.9 Hyperglycemia, unspecified; I25.5 Ischemic cardiomyopathy

== ENCOUNTER 2022-08-17 04:13 | Inpatient (IN) ==
[2022-08-17] MEDS ORDERED: METOPROLOL TARTRATE 1 MG/ML VIAL IV STA (04:36)
--- NOTE | 2022-08-17 04:47 | Emergency Department Note ---
Impression & Plan Dizziness, Nausea, Atrial fibrillation with rapid ventricular response ED Provider Note ED Provider Note NAME: BETTINA HOOVER AGE:82 SEX: Male : 1940 ARRIVES VIA: Private vehicle INFORMANT: Patient ED PROVIDER(s): Kelly Sen DO CHIEF COMPLAINT: Dizziness, nausea HPI: This is an 82-year-old male presents emergency department due to concern for dizziness and nausea which seem to wake him up from sleep approximately 4 hours ago. Patient denies any chest pain, trouble breathing, abdominal pain, fevers, sweating, or headaches. He denies any prior history of vertigo. Patient describes dizziness as feeling more lightheaded and off-balance, denies spinning. Patient recently admitted 2 weeks ago for a heart attack, underwent cardiac catheterization with placement of 2 stents. He was discharged on aspir in and Plavix as well as several other medications. He states he has been taking his medications as prescribed. No recent fevers, chills, URI symptoms. He denies any change in urine or stools. Denies any recent leg swelling. PAST MEDICAL HISTORY:See Below PAST SURGICAL HISTORY:See Below FAMILY HISTORY:See Below SOCIAL HISTORY:See Below HOME MEDICATIONS:See Below ALLERGIES:See Below VITALS:See Below PHYSICAL EXAMINATION: GENERAL: alert, well appearing, well nourished, no distress, non-toxic EYE EXAM: normal conjunctiva, PERRL and EOM's grossly intact OROPHARYNX: no exudate, no erythema, lips, buccal mucosa, and tongue normal and mucous membranes are moist NECK: supple, no nuchal rigidity, no adenopathy, non-tender LUNGS: Clear to auscultation. Normal chest wall mechanics, no w/r/r HEART: no murmurs, S1 normal and S2 normal ABDOMEN: abdomen soft, non-tender, normo-active bowel sounds, no masses, no rebound or guarding. BACK: Back is symmetrical on inspection and there is no deformity, no midline tenderness, no CVA tenderness. SKIN: no rashes, petechiae, orbruising UPPER EXTREMITIES: upper extremities are grossly normal. FROM, nml pulses b/l. LOWER EXTREMITIES: No pitting edema. FROM, nml pulses b/l. NEURO EXAM: Normal sensorium, cranial nerves II-XII grossly intact, normal speech, no facial droop,nogross weakness of arms, no gross weakness of legs. Gross sensation intact. No ataxia. Vital Signs: reviewed and remarkable Differential Diagnosis: Dysrhythmia, CHF, pericarditis/myocarditis, electrolyte abnormality, Lyme disease, YODIT, dehydration, as well as others were considered MEDICAL DECISION MAKING: This is an 82-year-old male presents emergency room complaining of dizziness and nausea. Patient was afebrile and vital signs stable but he was noted to be tachycardic. Labs drawn and sent, IV established, EKG performed at bedside and interpreted by me revealing atrial fibrillation with a rapid ventricular rate. This is new for the patient despite recent ACS and placement of 2 coronary stents. No other prior history of dysrhythmia. Chest x-ray performed and interpreted by me at bedside. Upon review of patient's recent cardiac history, his echo did reveal an ejection fraction of 40%. Patient given a small bolus of IV fluids to help buffer his blood pressure and given IV metoprolol which did bring down his range. Patient had no symptoms while at rest. Case discussed with hospitalist for additional evaluation given recent cardiac history and need for additional evaluation regarding his medications to help prevent any worsening symptoms. While patient's troponin was elevated, I suspect this is downtrending from his recent catheterization. I do have some concern given additional stress on his heart given the new dysrhythmia and accompanying tachycardia. Consultation(s): 0625: Discussed with Dr. Paulino. ER Treatment Provided: See below Diagnostics Interpreted By Me: -ECG: Atrial fibrillation at 126, leftward axis, normal QRS and QTc, biphasic T wave and T wave inversions noted in the precordial leads -Cardiac Monitoring: An order was placed for continuous cardiac monitoring. The monitor shows a rate of 136 with a.fib rhythm. -Laboratory studies: As stated above and show below. -Imaging studies: X-ray Chest: A single view study of the chest was reviewed and was negative for cardiomegaly, focal infiltrate, effusion, pulmonary edema, or wide mediastinum. Triage Nursing Note Reviewed Prior/Outside Records Reviewed -catheterization note reviewed Past Med/Surg History Medical History BPH (benign prostatic hyperplasia) Disc herniation pt denies Glaucoma History of chronic rhinitis History of COVID-19 06/2020, pcr test, not hosp; "mild symptoms" begin 11/2021, pcr test [facility]; paxlovid tx; "Mild symptoms" History of restless legs syndrome History of vitamin D deficiency HLD (hyperlipidemia) Hx of spinal stenosis Hypertension Osteoarthritis Transient ischemic attack (TIA) 05/2021, went to ER; tingling toes/fingertips; resolved.; f/u dr booker, [facility] [place]; no residual effects Surgical History H/O hernia repair Hx of cataract extraction rt. 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 Beliefs That Will Affect Care: None marital status: Unknown Current Living Situation: Family Current Living Situation Comment: LIVES WITH SON Feels Safe at Home: Yes Assistive Devices: Cane Allergies Allergies Allergy/AdvReac Type Severity Reaction Status Date / Time GLO Inhibitors Allergy Severe ANGIOEDEMA/ Verified 08/09/22 10:17 MYLAGIAS lisinopril Allergy Severe ANGIOEDEMA/ Verified 08/09/22 10:17 MYLAGIAS aspirin AdvReac Intermediate DYSPHAGIA/TROUBLE Verified 08/09/22 10:17 STANDING STRAIGHT UP Home Meds Home Medications Medication Instructions Recorded Confirmed terazosin 10 mg capsule 10 mg PO HS ##0 10/25/08 08/17/22 cholecalciferol (vitamin D3) 50 50 mcg PO HS ##0 12/04/15 08/17/22 mcg (2,000 unit) tablet (Vitamin D3) fluticasone propionate 50 2 spray intranasal BID 08/22/21 08/17/22 mcg/actuation nasal spray,suspension (Allergy Relief (fluticasone)) melatonin 10 mg capsule 10 mg PO HS PRN Sleep 08/22/21 08/17/22 dutasteride 0.5 mg capsule 0.5 mg PO QAM 01/31/22 08/17/22 desonide 0.05 % topical ointment 1 applic topical BID PRN Rash 08/02/22 08/17/22 prednisone 10 mg tablet 10 mg PO DAILY 08/02/22 08/17/22 amlodipine 5 mg tablet 5 mg PO DAILY 08/17/22 08/17/22 Previous Rx's Medication Instructions Recorded aspirin 81 mg tablet,delayed 81 mg PO QAM #30 tabs 08/04/22 release atorvastatin 40 mg tablet 40 mg PO QAM #30 tabs 08/04/22 clopidogrel 75 mg tablet 75 mg PO QAM #30 tabs 08/04/22 metoprolol tartrate 25 mg tablet 12.5 mg PO BID #30 tabs 08/04/22 nystatin 100,000 unit/gram topical 1 applic EXT BID rash #30 grams 08/04/22 ointment pantoprazole 40 mg tablet,delayed 40 mg PO QAM #30 tabs 08/04/22 release spironolactone 25 mg tablet 12.5 mg PO DAILY #30 tabs 08/09/22 Results & Data (ED) Vital Signs Vital Signs - 24 hr 08/17/22 04:18 08/17/22 04:58 08/17/22 05:01 Temperature 36.3 C L Temperature Source Temporal Artery Scan Pulse Rate 72 Pulse Rate [Apical] 125 H 122 H Pulse Rate from SpO2 Sensor Pulse Rhythm [Apical] Irregular Respiratory Rate 16 14 14 Respiratory Effort / Characteristics Non-Labored Spontaneous Respiratory Depth Normal Blood Pressure 115/83 Blood Pressure [Right Arm] 110/67 120/79 Blood Pressure Mean 93 Blood Pressure Mean [Right Arm] 81 92 Pulse Oximetry 98 96 97 Oxygen Delivery Method Room Air Room Air Room Air Sepsis Recent Fever Within 48 Hours No Sepsis New/Unexplained Change in Mental Status No Sepsis Action Taken by Nursing No Action Required 08/17/22 05:17 08/17/22 05:14 08/17/22 06:11 Temperature Temperature Source Pulse Rate 109 H 97 H Pulse Rate [Apical] 101 H Pulse Rate from SpO2 Sensor Pulse Rhythm [Apical] Respiratory Rate 18 Respiratory Effort / Characteristics Respiratory Depth Blood Pressure 107/88 Blood Pressure [Right Arm] 113/68 Blood Pressure Mean Blood Pressure Mean [Right Arm] 83 Pulse Oximetry 96 Oxygen Delivery Method Room Air Sepsis Recent Fever Within 48 Hours Sepsis New/Unexplained Change in Mental Status Sepsis Action Taken by Nursing 08/17/22 07:00 08/17/22 07:00 08/17/22 07:05 Temperature Temperature Source Pulse Rate 110 H 141 H Pulse Rate [Apical] Pulse Rate from SpO2 Sensor 75 67 Pulse Rhythm [Apical] Respiratory Rate 24 23 Respiratory Effort / Characteristics Respiratory Depth Blood Pressure 107/64 Blood Pressure [Right Arm] Blood Pressure Mean 78 Blood Pressure Mean [Right Arm] Pulse Oximetry 95 95 Oxygen Delivery Method Sepsis Recent Fever Within 48 Hours Sepsis New/Unexplained Change in Mental Status Sepsis Action Taken by Nursing 08/17/22 07:06 08/17/22 07:06 08/17/22 07:10 Temperature Temperature Source Pulse Rate 115 H Pulse Rate [Apical] Pulse Rate from SpO2 Sensor 83 Pulse Rhythm [Apical] Respiratory Rate 24 Respiratory Effort / Characteristics Respiratory Depth Blood Pressure 91/68 L 103/77 Blood Pressure [Right Arm] Blood Pressure Mean 75 85 Blood Pressure Mean [Right Arm] Pulse Oximetry 97 Oxygen Delivery Method Sepsis Recent Fever Within 48 Hours Sepsis New/Unexplained Change in Mental Status Sepsis Action Taken by Nursing 08/17/22 07:10 08/17/22 07:15 08/17/22 07:16 Temperature Temperature Source Pulse Rate 117 H 111 H Pulse Rate [Apical] Pulse Rate from SpO2 Sensor 79 66 Pulse Rhythm [Apical] Respiratory Rate 24 25 H Respiratory Effort / Characteristics Respiratory Depth Blood Pressure 98/68 L Blood Pressure [Right Arm] Blood Pressure Mean 78 Blood Pressure Mean [Right Arm] Pulse Oximetry 96 95 Oxygen Delivery Method Sepsis Recent Fever Within 48 Hours Sepsis New/Unexplained Change in Mental Status Sepsis Action Taken by Nursing 08/17/22 07:16 08/17/22 07:20 08/17/22 07:21 Temperature Temperature Source Pulse Rate 113 H 99 H Pulse Rate [Apical] Pulse Rate from SpO2 Sensor 77 80 Pulse Rhythm [Apical] Respiratory Rate 18 22 Respiratory Effort / Characteristics Respiratory Depth Blood Pressure 102/59 L Blood Pressure [Right Arm] Blood Pressure Mean 73 Blood Pressure Mean [Right Arm] Pulse Oximetry 96 94 Oxygen Delivery Method Room Air Room Air Sepsis Recent Fever Within 48 Hours Sepsis New/Unexplained Change in Mental Status Sepsis Action Taken by Nursing 08/17/22 07:21 08/17/22 07:30 08/17/22 07:30 Temperature Temperature Source Pulse Rate 108 H 132 H Pulse Rate [Apical] Pulse Rate from SpO2 Sensor 76 86 Pulse Rhythm [Apical] Respiratory Rate 25 H 23 Respiratory Effort / Characteristics Respiratory Depth Blood Pressure 121/68 Blood Pressure [Right Arm] Blood Pressure Mean 85 Blood Pressure Mean [Right Arm] Pulse Oximetry 96 95 Oxygen Delivery Method Room Air Room Air Sepsis Recent Fever Within 48 Hours Sepsis New/Unexplained Change in Mental Status Sepsis Action Taken by Nursing 08/17/22 07:45 08/17/22 07:45 08/17/22 08:00 Temperature Temperature Source Pulse Rate 109 H Pulse Rate [Apical] Pulse Rate from SpO2 Sensor 79 Pulse Rhythm [Apical] Respiratory Rate 18 Respiratory Effort / Characteristics Respiratory Depth Blood Pressure 115/80 120/74 Blood Pressure [Right Arm] Blood Pressure Mean 91 89 Blood Pressure Mean [Right Arm] Pulse Oximetry 94 Oxygen Delivery Method Room Air Sepsis Recent Fever Within 48 Hours Sepsis New/Unexplained Change in Mental Status Sepsis Action Taken by Nursing 08/17/22 08:00 08/17/22 08:15 08/17/22 08:15 Temperature Temperature Source Pulse Rate 113 H 115 H Pulse Rate [Apical] Pulse Rate from SpO2 Sensor 82 97 H Pulse Rhythm [Apical] Respiratory Rate 16 19 Respiratory Effort / Characteristics Respiratory Depth Blood Pressure 107/72 Blood Pressure [Right Arm] Blood Pressure Mean 83 Blood Pressure Mean [Right Arm] Pulse Oximetry 94 94 Oxygen Delivery Method Room Air Room Air Sepsis Recent Fever Within 48 Hours Sepsis New/Unexplained Change in Mental Status Sepsis Action Taken by Nursing 08/17/22 08:30 08/17/22 08:30 08/17/22 09:02 Temperature Temperature Source Pulse Rate 92 H 87 Pulse Rate [Apical] Pulse Rate from SpO2 Sensor 86 Pulse Rhythm [Apical] Respiratory Rate 14 21 Respiratory Effort / Characteristics Respiratory Depth Blood Pressure 110/77 Blood Pressure [Right Arm] Blood Pressure Mean 88 Blood Pressure Mean [Right Arm] Pulse Oximetry 93 96 Oxygen Delivery Method Room Air Sepsis Recent Fever Within 48 Hours Sepsis New/Unexplained Change in Mental Status Sepsis Action Taken by Nursing 08/17/22 09:03 08/17/22 09:03 08/17/22 09:19 Temperature Temperature Source Pulse Rate 103 H 116 H Pulse Rate [Apical] Pulse Rate from SpO2 Sensor 71 Pulse Rhythm [Apical] Respiratory Rate 22 Respiratory Effort / Characteristics Respiratory Depth Blood Pressure 119/81 Blood Pressure [Right Arm] Blood Pressure Mean 93 Blood Pressure Mean [Right Arm] Pulse Oximetry Oxygen Delivery Method Sepsis Recent Fever Within 48 Hours Sepsis New/Unexplained Change in Mental Status Sepsis Action Taken by Nursing 08/17/22 09:15 Temperature Temperature Source Pulse Rate 123 H Pulse Rate [Apical] Pulse Rate from SpO2 Sensor 70 Pulse Rhythm [Apical] Respiratory Rate 15 Respiratory Effort / Characteristics Respiratory Depth Blood Pressure Blood Pressure [Right Arm] Blood Pressure Mean Blood Pressure Mean [Right Arm] Pulse Oximetry 94 Oxygen Delivery Method Room Air Sepsis Recent Fever Within 48 Hours Sepsis New/Unexplained Change in Mental Status Sepsis Action Taken by Nursing Laboratory Data 08/17/22 04:35 08/17/22 04:35 Lab Results 08/17/22 08/17/22 08/17/22 Range/Units 04:35 04:35 04:35 WBC 8.95 (4.8-10.8) K/ul RBC 4.76 (4.70-6.10) M/uL Hgb 14.8 (14.0-18.0) g/dl Hct 43.8 (42.0-52.0) % MCV 92.0 (80.0-100.0) fL MCH 31.1 (25.0-34.0) pg MCHC 33.8 (32.0-36.0) g/dL RDW Std Deviation 49.0 H (36.4-46.3) fL RDW Coeff of Efren 14.4 (11.5-14.5) % Plt Count 140 (130-400) K/uL MPV 10.5 (9.4-12.4) fL Immature Gran % (Auto) 0.8 % Neut % (Auto) 56.2 % Lymph % (Auto) 30.8 % Lamb % (Auto) 9.1 % Eos % (Auto) 2.0 % Baso % (Auto) 1.1 % Neut # (Auto) 5.03 (1.40-6.50) K/uL Lymph # (Auto) 2.76 (1.2-3.4) K/uL Lamb # (Auto) 0.81 H (0.11-0.59) K/uL Eos # (Auto) 0.18 (0-0.50) K/uL Baso # (Auto) 0.10 (0-0.2) K/uL Immature Gran # (Auto) 0.07 (0.01-0.20) K/uL Sodium 139 (136-145) mmol/L Potassium 4.1 (3.5-5.1) mmol/L Chloride 108 H (98-107) mmol/L Carbon Dioxide 27 (21-32) mmol/L Anion Gap 4 (3-11) BUN 24 H (6-23) mg/dl Creatinine 1.13 (0.6-1.4) mg/dl Est Cr Clr Drug Dosing 63.7 ml/min Est GFR ( Amer) 68.8 ml/min Est GFR (Non-Af Amer) 59.4 ml/min BUN/Creatinine Ratio 21.2 H (10-20) Glucose 123 H (70-99(Fasting)) mg/dl Calcium 9.4 (8.6-10.3) mg/dl Magnesium 2.0 (1.7-2.4) mg/dl Total Bilirubin 0.5 (0.2-1.0) mg/dl AST 23 (13-39) U/L ALT 34 (7-52) U/L Alkaline Phosphatase 55 (34-104) U/L Troponin I High Sens 271.7 H* (0-20) pg/ml Total Protein 6.2 (6.0-8.3) gm/dl Albumin 3.9 (3.4-5.0) gm/dl Globulin 2.3 L (2.5-4.0) gm/dl Albumin/Globulin Ratio 1.7 (0.9-2) Lipase 14 (11-82) U/L TSH 7.009 H (0.300-4.500) uIu/ml Free T4 0.91 (0.61-1.60) ng/dl Lyme Disease IgG Ab (Negative) Lyme Disease IgM Ab (Negative) SARS-CoV-2, RNA, NAAT (NEGATIVE) 08/17/22 08/17/22 Range/Units 04:35 06:30 WBC (4.8-10.8) K/ul RBC (4.70-6.10) M/uL Hgb (14.0-18.0) g/dl Hct (42.0-52.0) % MCV (80.0-100.0) fL MCH (25.0-34.0) pg MCHC (32.0-36.0) g/dL RDW Std Deviation (36.4-46.3) fL RDW Coeff of Efren (11.5-14.5) % Plt Count (130-400) K/uL MPV (9.4-12.4) fL Immature Gran % (Auto) % Neut % (Auto) % Lymph % (Auto) % Lamb % (Auto) % Eos % (Auto) % Baso % (Auto) % Neut # (Auto) (1.40-6.50) K/uL Lymph # (Auto) (1.2-3.4) K/uL Lamb # (Auto) (0.11-0.59) K/uL Eos # (Auto) (0-0.50) K/uL Baso # (Auto) (0-0.2) K/uL Immature Gran # (Auto) (0.01-0.20) K/uL Sodium (136-145) mmol/L Potassium (3.5-5.1) mmol/L Chloride (98-107) mmol/L Carbon Dioxide (21-32) mmol/L Anion Gap (3-11) BUN (6-23) mg/dl Creatinine (0.6-1.4) mg/dl Est Cr Clr Drug Dosing ml/min Est GFR ( Amer) ml/min Est GFR (Non-Af Amer) ml/min BUN/Creatinine Ratio (10-20) Glucose (70-99(Fasting)) mg/dl Calcium (8.6-10.3) mg/dl Magnesium (1.7-2.4) mg/dl Total Bilirubin (0.2-1.0) mg/dl AST (13-39) U/L ALT (7-52) U/L Alkaline Phosphatase (34-104) U/L Troponin I High Sens (0-20) pg/ml Total Protein (6.0-8.3) gm/dl Albumin (3.4-5.0) gm/dl Globulin (2.5-4.0) gm/dl Albumin/Globulin Ratio (0.9-2) Lipase (11-82) U/L TSH (0.300-4.500) uIu/ml Free T4 (0.61-1.60) ng/dl Lyme Disease IgG Ab Positive A (Negative) Lyme Disease IgM Ab Negative (Negative) SARS-CoV-2, RNA, NAAT NEGATIVE (NEGATIVE) Administered Medications Discontinued Medications Sodium Chloride (Nss) 250 mls @ 999 mls/hr IV .Q16M ONE Stop: 08/17/22 05:18 Last Infusion: 04/29/23 05:20 Dose: 0 mls/hr Documented By: Admin: 08/17/22 05:04 Dose: 999 mls/hr Documented By: CHRISTIAN Metoprolol Tartrate (Metoprolol Tartrate 1 Mg/Ml Vial) 5 mg IV NOW STA Stop: 08/17/22 04:37 Last Admin: 08/17/22 05:17 Dose: 2.5 mg Documented By: CHRISTIAN Imaging Data Radiologist's Impression: Chest X-Ray 08/17/22 04:37 SINGLE VIEW CHEST CLINICAL HISTORY: Dizziness. Atrial fibrillation. FINDINGS: An AP, portable, upright chest radiograph is compared to study dated 08/02/2022. Correlation is made with chest CT dated 08/04/2017. The heart is enlarged noting atherosclerotic calcification of the thoracic aorta. The pulmonary vasculature is noncongested. The lungs and pleural spaces are clear noting mild bibasilar atelectasis. No pneumothorax is seen. The skeletal structures are osteopenic. The bony thorax is grossly intact. IMPRESSION: Cardiomegaly with no acute cardiopulmonary abnormality. ACT 112: Negative or not required by law. Electronically signed by: Emmanuel Beltran M.D. 08/17/2022 7:[address] 08/17/22 07:49 CT SCAN OF THE BRAIN WITHOUT IV CONTRAST CLINICAL HISTORY: Dizziness. COMPARISON STUDY: CT of the brain dated 01/15/2022. TECHNIQUE: Unenhanced axial CT scan of the brain is performed from the vertex to the skull base. A dose lowering technique was utilized adhering to the principles of ALARA. CT DOSE: 614.27 mGy.cm FINDINGS: Brain parenchyma: There is age-related involutional change noting mild subcortical and periventricular microangiopathic disease. There is no hemorrhage , mass effect, or evidence of acute territorial ischemia by CT criteria. Ervin- white matter differentiation is preserved. No extra-axial fluid collection is seen. Ventricles, sulci, cisterns: Prominent secondary to involutional change. Intracranial vasculature: There is atherosclerotic calcification of the cavernous carotid and vertebral arteries. Calvarium: Unremarkable. Sinuses and mastoids: There is mild mucosal thickening within the maxillary antra. The remaining visualized paranasal sinuses are clear. The mastoid air cells are well pneumatized. Orbits: The bony orbits are grossly intact. There are bilateral ocular lens implants. IMPRESSION: There is no hemorrhage, mass effect, or evidence of acute territorial ischemia by CT criteria. ACT 112: Negative or not required by law. Electronically signed by: Emmanuel Beltran M.D. 08/17/2022 9:02 AM Discharge Plan Visit Data Chief Complaint: Dizziness Stated Complaint: DIZZY,NAUSEA,HX OF HEART ATTACK 2 WKS AGO ED Provider: Kelly Sen Discharge Problem: Dizziness, Nausea, Atrial fibrillation with rapid ventricular response Forms Stand Alone Forms: [facility] Prescriptions Prescriptions: No Action terazosin 10 mg Capsule 10 mg PO HS Qty: 0 cholecalciferol (vitamin D3) [Vitamin D3] 50 mcg (2,000 unit) Tablet 50 mcg PO HS Qty: 0 fluticasone propionate [Allergy Relief (fluticasone)] 50 mcg/actuation spray,suspension 2 spray intranasal BID Rx Instructions: administer into each nostril melatonin 10 mg capsule 10 mg PO HS PRN (Reason: Sleep) spironolactone 25 mg tablet 12.5 mg PO DAILY Qty: 30 6RF desonide 0.05 % ointment 1 applic TOPICAL BID PRN (Reason: Rash) prednisone 10 mg tablet 10 mg PO DAILY clopidogrel 75 mg Tablet 75 mg PO QAM Qty: 30 0RF atorvastatin 40 mg Tablet 40 mg PO QAM Qty: 30 0RF metoprolol tartrate 25 mg Tablet 12.5 mg PO BID Qty: 30 0RF aspirin 81 mg Tablet,Delayed Release (Dr/Ec) 81 mg PO QAM Qty: 30 0RF pantoprazole 40 mg Tablet,Delayed Release (Dr/Ec) 40 mg PO QAM Qty: 30 0RF nystatin 100,000 unit/gram Ointment 1 applic EXT BID Qty: 30 0RF dutasteride 0.5 mg capsule 0.5 mg PO QAM amlodipine 5 mg tablet 5 mg PO DAILY Referrals Referrals: Dino Rajan MD [Primary Care Provider] -
[2022-08-17 04:56] LABS: Basophils % (auto) 1.1 %; Eosinophils # (auto) 0.18 K/uL (0-0.50); Hematocrit (blood only) 43.8 % (42.0-52.0); Hemoglobin 14.8 g/dl (14.0-18.0); Immature Granulocytes # (auto) 0.07 K/uL (0.01-0.20); Immature Granulocytes % (auto) 0.8 %; Lymphocytes # (auto) 2.76 K/uL (1.2-3.4); Lymphocytes % (auto) 30.8 %; Mean Corpuscular Hemoglobin 31.1 pg (25.0-34.0); Mean Corpuscular Hgb Conc 33.8 g/dL (32.0-36.0); Mean Platelet Volume 10.5 fL (9.4-12.4); Monocytes # (auto) 0.81 K/uL (0.11-0.59); Monocytes % (auto) 9.1 %; Neutrophils # (auto) 5.03 K/uL (1.40-6.50); Neutrophils % (auto) 56.2 %; Platelet Count 140 K/uL (130-400); RDW Coefficient of Variation 14.4 % (11.5-14.5); Red Blood Count 4.76 M/uL (4.70-6.10); White Blood Count 8.95 K/ul (4.8-10.8)
[2022-08-17] MEDS ORDERED: SODIUM CHLORIDE 0.9% 250 ML IV ONE (05:03)
[2022-08-17 05:14] LABS: Albumin Globulin Ratio 1.7 (0.9-2); Albumin Level 3.9 gm/dl (3.4-5.0); BUN Creatinine Ratio 21.2 (10-20); Bilirubin,Total 0.5 mg/dl (0.2-1.0); Calcium 9.4 mg/dl (8.6-10.3); Creatinine Clr Calc Pharmacy 63.7 ml/min; Est GFR (African American) 68.8 ml/min; Est GFR (Non-African American) 59.4 ml/min; Globulin 2.3 gm/dl (2.5-4.0); Potassium 4.1 mmol/L (3.5-5.1); Total Protein 6.2 gm/dl (6.0-8.3)
[2022-08-17 05:22] LABS: Troponin I High Sensitivity 271.7 pg/ml (0-20)
[2022-08-17 05:29] LABS: Thyroid Stimulating Hormone 7.009 uIu/ml (0.300-4.500)
[2022-08-17 05:36] LABS: Lyme Ab IgM w/WB Rflx Negative (Negative)
[2022-08-17 06:25] LABS: Lyme Ab IgG w/WB Rflx Positive (Negative)
[2022-08-17 07:17] LABS: T4 Free Thyroxine 0.91 ng/dl (0.61-1.60)
--- NOTE | 2022-08-17 07:39 | XRay Report ---
SINGLE VIEW CHEST CLINICAL HISTORY: Dizziness. Atrial fibrillation. FINDINGS: An AP, portable, upright chest radiograph is compared to study dated 08/02/2022. Correlation is made with chest CT dated 08/04/2017. The heart is enlarged noting atherosclerotic calcification of the thoracic aorta. The pulmonary vasculature is noncongested. The lungs and pleural spaces are maral r noting mild bibasilar atelectasis. No pneumothorax is seen. The skeletal structures are osteopenic. The bony thorax is grossly intact. IMPRESSION: Cardiomegaly with no acute cardiopulmonary abnormality. ACT 112: Negative or not required by law. Electronically signed by: Emmanuel Beltran M.D. 08/17/2022 7:38 AM
--- NOTE | 2022-08-17 09:05 | CT Scan Report ---
CT SCAN OF THE BRAIN WITHOUT IV CONTRAST CLINICAL HISTORY: Dizziness. COMPARISON STUDY: CT of the brain dated 01/15/2022. TECHNIQUE: Unenhanced axial CT scan of the brain is performed from the vertex to the skull base. A do se lowering technique was utilized adhering to the principles of ALARA. CT DOSE: 614.27 mGy.cm FINDINGS: Brain parenchyma: There is age-related involutional change noting mild subcortical and periventricula r microangiopathic disease. There is no hemorrhage, mass effect, or evidence of acute territorial isc hemia by CT criteria. Ervin-white matter differentiation is preserved. No extra-axial fluid collection is seen. Ventricles, sulci, cisterns: Prominent secondary to involutional change. Intracranial vasculature: There is atherosclerotic calcification of the cavernous carotid and vertebr al arteries. Calvarium: Unremarkable. Sinuses and mastoids: There is mild mucosal thickening within the maxillary antra. The remaining visu alized paranasal sinuses are clear. The mastoid air cells are well pneumatized. Orbits: The bony orbits are grossly intact. There are bilateral ocular lens implants. IMPRESSION: There is no hemorrhage, mass effect, or evidence of acute territorial ischemia by CT jag sheriff. ACT 112: Negative or not required by law. Electronically signed by: Emmanuel Beltran M.D. 08/17/2022 9:02 AM
--- NOTE | 2022-08-17 09:44 | History and Physical Report ---
DATE OF ADMISSION: 08/17/2022. CHIEF COMPLAINT: Dizziness, rapid AFib. HISTORY OF PRESENT ILLNESS: This is an 82-year-old male with past medical history significant for hyperlipidemia, chronic rhinitis, hypertension, history of CHF, vitamin D deficiency, BPH, osteoarthritis, restless legs syndrome, history of stroke,inguinal hernia, spinal stenosis, presents with dizziness. The patient says he woke up around 3:00 a.m. and felt very dizzy. He has balance issues, but says his balance was more off than his usual which prompted him to come to ER. He was found in rapid AFib, received a dose of IV Lopressor. He did not have any chest pain with the episode. No shortness of breath. Currently also no chest pain. While lying down currently, his dizziness improved. No spinning of the room. No cough, no fevers, no nausea, no sweating, no headache, no neck pain, no back pain. Vision is okay. No earache, no runny nose, no sore throat, no difficulty swallowing. Eating and drinking okay. Normal bowel and bladder movements. Currently, resting comfortably and hemodynamically stable.Recently saw family doctor losartan was stopped as has history of angioedema with lisinopril and placed on amlodipine and his prednisone which he on for possible PMR dose was reduced to 10mg daily. Also saw cardiology and was started on aldactone. ALLERGIES: GLO INHIBITORS, LISINOPRIL, ASPIRIN. PAST MEDICAL HISTORY: As mentioned above. PAST SURGICAL HISTORY: Inguinal hernia x2, umbilical hernia, sinus surgery. MEDICATIONS: Currently the patient is on amlodipine 5 mg p.o. daily, aspirin 81 mg p.o. daily, atorvastatin 40 mg p.o. daily, vitamin D 50 mcg p.o. daily, Plavix 75 mg daily, dutasteride 0.5 mg p.o. a.m., Flonase 2 sprays intranasal b.i.d. p.r.n., melatonin 10 mg p.o. at bedtime p.r.n., metoprolol tartrate 12.5 mg p.o. b.i.d., nystatin topical p.r.n., Protonix 40 mg a.m., prednisone 10 mg p.o. daily, spironolactone 12.5 mg p.o. daily, terazosin 10 mg p.o. at bedtime. FAMILY HISTORY: Significant for father had heart disorder, hypertension, stroke; mother had thyroid disorder. SOCIAL HISTORY: Lives with his son. No smoking. Alcohol rare. No drug use. REVIEW OF SYSTEMS: As per HPI. Rest of review of systems is negative. PHYSICAL EXAMINATION: GENERAL: The patient is of moderate build, not in acute distress. VITAL SIGNS: Temperature 36.3, pulse 109, respiratory rate 18, blood pressure 115/80, oxygen 95 % on room air. HEENT: Pupils equal, round and reactive to light. Extraocular muscles intact. Oral mucosa moist. NECK: No JVD, no neck masses. CARDIOVASCULAR: S1 and S2 heard, irregular rhythm, tachycardia. No murmurs. RESPIRATORY SYSTEM: Normal AP diameter. No accessory muscle use. No wheezing, no crackles. ABDOMEN: Soft, bowel sounds present, nontender, no distention. CENTRAL NERVOUS SYSTEM: Alert and oriented. Speech is clear. No facial droop. Extraocular muscles intact. Power 5/5 in all extremities. Sensation is intact. No pronator drift. Coordination of movements normal. He can lift his lower extremity and hold for 5 seconds. EXTREMITIES: No edema, no erythema. LABORATORY DATA: WBC 8.9, hemoglobin 14.8, hematocrit 43.8, platelets 140. Sodium 139, potassium 4.1, chloride 108, bicarb 27, BUN 24, creatinine 1.1, serum glucose 123, calcium 9.4, magnesium 2, total bilirubin 0.5, AST 23, ALT 34, alkaline phosphatase 55. Troponin I high sensitivity 271. TSH is 1.09, free T4 of 0.9. Lyme screen positive for IgA, negative for IgM, bands are pending. SARS-CoV-2 rapid test negative. Chest x-ray: Cardiomegaly with no acute cardiopulmonary findings. EKG: Rapid AFib with rate of 126, left axis deviation, ST-T wave abnormalities in the anterolateral leads. ASSESSMENT AND PLAN: This is an 82-year-old male who presents with dizziness and imbalance, found to have rapid atrial fibrillation. 1. Rapid atrial fibrillation. Received a dose of IV Lopressor in the Emergency Room. We will continue with home metoprolol 12.[address] on IV Lopressor p.r.n. Monitor in telemetry floor. Consult cardiology. The patient is already on aspirin and Plavix. The patient may need to be started on iv heparin. As the patient has dizziness, we will get a CT of the head. If CT of the head shows no acute findings, may start on IV heparin, await cardiology input. 2. Dizziness, imbalance. Imbalance is worse today and a lot of dizziness, the reason for his Emergency Room visit. History of stroke in the past. We will get a CT of the head and if any concern, can get an MRI. Possible cause could be atrial fibrillation. Exam non focal. 3. History of ST elevated myocardial infarction a couple of weeks ago. He was in the Emergency Room on 08/02/[address] elevated myocardial infarction and is status post cardiac catheterization and found to have mid left anterior descending 100% occlusion, status post 2 drug-eluting stents, on aspirin, Plavix, statin and beta michelle, followed with cardiology on 08/09/2022 and was started on spironolactone.Currently asymptomatic. Cardiology consulted. 4. Hypertension. Currently on metoprolol, spironolactone, terazosin, amlodipine. Last admission, losartan was started, but his family doctor stopped the losartan and restarted amlodipine because of history of severe reaction to lisinopril with angioedema. Continue to monitor the blood pressure. 5. History of polymyalgia rheumatica. Family doctor reduced the prednisone from 15 mg to 10 mg daily. Follow up with primary care physician. 6. Hyperlipidemia. Continue statin. 7. Gastroesophageal reflux disease. Continue Protonix, primary care physician wants him to continue for 4 weeks. 8. Benign prostatic hyperplasia. Continue terazosin and dutasteride. 9. Prediabetes. HbA1c 6.3, needs to follow up. 10. History of transient ischemic attack. On aspirin, Plavix and statin. 11. Deep venous thrombosis prophylaxis. Sequential compression devices for now. Possibly starting of IV heparin or Eliquis as per cardiology. Admit to telemetry floor. Expect to discharge home and follow with family doctor. Job ID: [id number] [facility]
[2022-08-17 09:53] LABS: Appearance Urine Clear (Clear); Bilirubin Urine Negative (Negative); Blood Urine Negative (Negative); Color Urine Yellow; Glucose Urine UA Negative (Negative); Ketones Urine Negative (Negative); Leukocyte Esterase Urine Negative (Negative); Nitrite Urine Negative (Negative); Protein Urine Negative (Negative); Specific Gravity Urine 1.015 (1.000-1.030); Urobilinogen Urine Negative (Negative); pH Urine 6.5 (4.5-7.5)
[2022-08-17] MEDS ORDERED: NITROGLYCERIN SL 0.4 MG/TAB TAB SL PRN (10:15)
[2022-08-17] MEDS ORDERED: FLUTICASONE PROPIONATE NA SPR 16 GM BTL PRN (10:15)
[2022-08-17] MEDS ORDERED: POLYETHYLENE (MIRALAX) 17 GM PACK PO PRN (10:15)
[2022-08-17] MEDS ORDERED: ACETAMINOPHEN 325 MG TAB PO PRN (10:15)
[2022-08-17] MEDS ORDERED: METOPROLOL TARTRATE 1 MG/ML VIAL IV PRN (10:15)
[2022-08-17] MEDS ORDERED: MELATONIN 3 MG TAB PO PRN (10:23)
[2022-08-17] MEDS: CLOPIDOGREL BISULFATE 75 MG TAB PO SCH (10:45)
[2022-08-17] MEDS: predniSONE 10 MG TABLET PO SCH (10:45)
[2022-08-17] MEDS ORDERED: METOPROLOL TARTRATE 25 MG TAB PO SCH (10:45)
[2022-08-17] MEDS: NYSTATIN OINT 15 GM TUBE EXT SCH ×2 (10:46→20:26)
[2022-08-17] MEDS: ATORVASTATIN 40 MG TAB PO SCH (10:46)
[2022-08-17] MEDS: amLODIPine BESYLATE 5 MG TAB PO SCH (10:46)
--- NOTE | 2022-08-17 10:46 | Communication Note ---
Date of Service: August 17, 2022 addendum to h and p: Chronic systolic chf Last admit echo Ef 40%. on aldactone and b michelle.. losartan was stopped because of allergy to acei. monitor for volume overload. optimization of medications as per cardiology.
[2022-08-17] MEDS: ASPIRIN 81 MG ECTAB PO SCH (10:50)
[2022-08-17] MEDS: SPIRONOLACTONE 12.5 MG TAB PO SCH (11:02)
[2022-08-17] MEDS: PANTOprazole 40 MG TAB PO SCH (11:02)
--- NOTE | 2022-08-17 11:05 | Cardiology Consultation ---
Date of Consultation August 17, 2022 Assessment & Plan (1) Atrial fibrillation with rapid ventricular response: (2) CAD (coronary artery disease): (3) Elevated troponin level: (4) Hypertension: (5) Dizziness: (6) Ischemic cardiomyopathy: Plan 1. Atrial fibrillation: This is newly diagnosed, it is possible he has had this before and been relatively unaware of it (he does have a history of dizziness which I strongly suspect was paroxysmal atrial fibrillation but was not diag nosed). For the moment I would try rate control, if we can control his rate and he feels well I would favor waiting to see whether he converted spontaneously before we cardiovert his rhythm although ultimately we will probably want to do that. His rate has not changed since presentation and he is on his outpatient beta-blockade other than some intravenous doses. I am going to increase his daily beta-blockade, I would prefer to use beta-blockade since that may also help with his cardiomyopathy. I am not too confident of the duration of this arrhythmia, we do know that on August 09, 2022 he was in sinus rhythm and his symptoms are of relatively recent onset (this morning) so I suspect it is not prolonged. We do need to consider anticoagulation, I would go directly to an oral anticoagulant and not use heparin. I am going to start Eliquis, 5 mg twice a day would be his dose based on weight and kidney function. 2. Coronary disease: He has known coronary artery disease, there is no clear evidence that he has had progression and his catheterization was quite recent. At this point I would not evaluate further however we will need to follow his troponin measurements. We do need to continue his antiplatelet regimen and statin therapy. 3. Elevated troponin: I suspect this is demand ischemia based on his rapid heart rate and his known coronary artery disease. I agree with trending his troponins, if they increase significantly we will have to consider further evaluation but I think that is unlikely. 4. Hypertension: His blood pressure has typically not been elevated, a lot of them are on the low side. His most recent blood pressure is elevated but that appears to be an anomaly. We will need to increase his AV wilfrid blocking medications which may further affect his blood pressure. If his blood pressure is low with increased beta-blockade we should discontinue his amlodipine. 5. Dizziness: He has a history of instability however his current symptoms are different, however he does describe intermittent dizziness which I suspect was related to prior atrial fibrillation. Now at the time my evaluation in bed he has no symptoms. 6. Ischemic cardiomyopathy: He has some degree of left ventricular dysfunction, he is on low-dose beta-blockade which we will need to increase for rate control. We will need to follow his left ventricular function to see whether it worsens over time, I probably would not repeat the echo now since it would be inaccurate based on his current rhythm. Clinically he does not have heart failure symptoms. I am going to go up on metoprolol to tartrate here for rate control but that should be switched to metoprolol succinate once the correct dose is established. History of Present Illness Reason for Consultation: Atrial fibrillation with a rapid ventricular response Attending Physician: Benito Paulino MD History of Present Illness This is an 82-year-old male who presented on August 02, 2022 with chest discomfort and had emergent cardiac catheterization demonstrating an occluded LAD. This was treated with stent placement. He also had some other nonobstructive coronary artery disease. His ejection fraction after intervention was 35 to 40% with apical akinesis, 3 days later his ejection fraction appeared unchanged. He was discharged on atorvastatin, Plavix and Toprol tartrate 12.5 mg twice a day. He is reported allergic to GLO inhibitors. He presents now to the emergency room in the social services manager hours of August 17, 2022 with dizziness and nausea which apparently awoke him from sleep. Apparently he does have some balance issues but this was different. I did discuss his prior history of dizziness and he describes brief periods of dizziness which are similar to his presentation but not as prolonged. They do not sound orthostatic, they do not sound vertiginous and they can be of variable duration generally hours, not minutes or days. I suspect these are prior episodes of atrial fibrillation. He came to the emergency room and was noted to be in atrial fibrillation with a rapid heart rate (126 bpm at 0425) with some anterolateral T wave abnormalities. He did receive intravenous metoprolol in the emergency room. Evaluation emergency room included a CT scan of the head showing no acute findings and a troponin was elevated at 271, his last troponin was markedly elevated at 29,000 on August 03, 2022. A second troponin is pending. His TSH is elevated at just over 7, it has been elevated to this level in the past including January 16, 2022. His free T4 is normal at 0.91 I do not believe he is on thyroid replacement. Allergies Allergy/AdvReac Type Severity Reaction Status Date / Time GLO Inhibitors Allergy Severe ANGIOEDEMA/ Verified 08/09/22 10:17 MYLAGIAS lisinopril Allergy Severe ANGIOEDEMA/ Verified 08/09/22 10:17 MYLAGIAS aspirin AdvReac Intermediate DYSPHAGIA/TROUBLE Verified 08/09/22 10:17 STANDING STRAIGHT UP Home Medications Medication Instructions Recorded Confirmed Type terazosin 10 mg capsule 10 mg PO HS ##0 10/25/08 08/17/22 History cholecalciferol (vitamin D3) 50 50 mcg PO HS ##0 12/04/15 08/17/22 History mcg (2,000 unit) tablet (Vitamin D3) fluticasone propionate 50 2 spray intranasal BID 08/22/21 08/17/22 History mcg/actuation nasal spray,suspension (Allergy Relief (fluticasone)) melatonin 10 mg capsule 10 mg PO HS PRN Sleep 08/22/21 08/17/22 History dutasteride 0.5 mg capsule 0.5 mg PO QAM 01/31/22 08/17/22 History desonide 0.05 % topical ointment 1 applic topical BID PRN Rash 08/02/22 08/17/22 History prednisone 10 mg tablet 10 mg PO DAILY 08/02/22 08/17/22 History aspirin 81 mg tablet,delayed 81 mg PO QAM #30 tabs 08/04/22 08/17/22 Rx release atorvastatin 40 mg tablet 40 mg PO QAM #30 tabs 08/04/22 08/17/22 Rx clopidogrel 75 mg tablet 75 mg PO QAM #30 tabs 08/04/22 08/17/22 Rx metoprolol tartrate 25 mg tablet 12.5 mg PO BID #30 tabs 08/04/22 08/17/22 Rx nystatin 100,000 unit/gram topical 1 applic EXT BID rash #30 grams 08/04/22 08/17/22 Rx ointment pantoprazole 40 mg tablet,delayed 40 mg PO QAM #30 tabs 08/04/22 08/17/22 Rx release spironolactone 25 mg tablet 12.5 mg PO DAILY #30 tabs 08/09/22 08/17/22 Rx amlodipine 5 mg tablet 5 mg PO DAILY 08/17/22 08/17/22 History Patient History Medical History BPH (benign prostatic hyperplasia) Disc herniation pt denies Glaucoma History of chronic rhinitis History of COVID-19 06/2020, pcr test, not hosp; "mild symptoms" begin 11/2021, pcr test [facility]; paxlovid tx; "Mild symptoms" History of restless legs syndrome History of vitamin D deficiency HLD (hyperlipidemia) Hx of spinal stenosis Hypertension Osteoarthritis Transient ischemic attack (TIA) 05/2021, went to ER; tingling toes/fingertips; resolved.; f/u dr booker, [facility] [place]; no residual effects Surgical History H/O hernia repair Hx of cataract extraction rt. Hx of tooth extraction Family History Father Hypertension Mother Stroke Social History Smoking Status: Former smoker Tobacco Type: Cigarettes Second Hand Exposure: No; Do You Dip or Chew Tobacco: No; Tobacco Cessation Education Requested by Patient: No Hx Alcohol Use: Yes Alcohol type: wine Hx Substance Use: No Preferred Language: [place] Communication Ability: Effective Tooling Mechanic Required: No Beliefs That Will Affect Care: None marital status: Unknown Current Living Situation: Family Current Living Situation Comment: LIVES WITH SON BERKLEY HOOVER Other Information That Helps Us Care for You: No Feels Safe at Home: Yes Safety Concerns: Feels Safe At This Time Assistive Devices: Cane and Walker Physical Exam Physical Exam: Constitutional: Alert, cooperative and in no distress. HEENT: Unremarkable Neck: No jugular venous distention, carotid pulses are irregular but otherwise normal and equal bilaterally without bruits. Pulmonary: Clear to auscultation bilaterally. Cardiac: Irregular rhythm with no murmur, gallop or rub. Abdomen: Soft, nontender with normal bowel sounds. Extremities: No edema. Distal pulses intact. Neurologic: No focal findings. Gait is steady. Skin: No rash, ecchymoses or petechiae. Results & Data Vital Signs (Past 12 Hours) Vital Signs Temp Pulse Pulse Resp BP BP Pulse Ox 08/17/22 10:15 08/17/22 10:16 36.5 C 105 H 20 144/85 H 97 08/17/22 09:45 113 H 15 96 08/17/22 09:45 131/77 08/17/22 09:51 08/17/22 09:30 113 H 15 95 08/17/22 09:30 108/71 08/17/22 09:15 123 H 15 94 08/17/22 09:19 116 H 08/17/22 09:03 119/81 08/17/22 09:03 103 H 22 08/17/22 09:02 87 21 96 08/17/22 08:30 92 H 14 93 08/17/22 08:30 110/77 08/17/22 08:15 115 H 19 94 08/17/22 08:15 107/72 08/17/22 08:00 113 H 16 94 08/17/22 08:00 120/74 08/17/22 07:45 109 H 18 94 08/17/22 07:45 115/80 08/17/22 07:30 132 H 23 95 08/17/22 07:30 121/68 08/17/22 07:21 108 H 25 H 96 08/17/22 07:21 102/59 L 08/17/22 07:20 99 H 22 94 08/17/22 07:16 113 H 18 96 08/17/22 07:16 98/68 L 08/17/22 07:15 111 H 25 H 95 08/17/22 07:10 117 H 24 96 08/17/22 07:10 103/77 08/17/22 07:06 115 H 24 97 08/17/22 07:06 91/68 L 08/17/22 07:05 141 H 23 95 08/17/22 07:00 110 H 24 95 08/17/22 07:00 107/64 08/17/22 06:11 101 H 18 113/68 96 08/17/22 05:14 97 H 08/17/22 05:17 109 H 107/88 08/17/22 05:01 122 H 14 120/79 97 08/17/22 04:58 125 H 14 110/67 96 08/17/22 04:18 36.3 C L 72 16 115/83 98 O2 Del Method 08/17/22 10:15 Room Air 08/17/22 10:16 Room Air 08/17/22 09:45 Room Air 08/17/22 09:45 08/17/22 09:51 Room Air 08/17/22 09:30 Room Air 08/17/22 09:30 08/17/22 09:15 Room Air 08/17/22 09:19 08/17/22 09:03 08/17/22 09:03 08/17/22 09:02 Room Air 08/17/22 08:30 08/17/22 08:30 08/17/22 08:15 Room Air 08/17/22 08:15 08/17/22 08:00 Room Air 08/17/22 08:00 08/17/22 07:45 Room Air 08/17/22 07:45 08/17/22 07:30 Room Air 08/17/22 07:30 08/17/22 07:21 Room Air 08/17/22 07:21 08/17/22 07:20 Room Air 08/17/22 07:16 Room Air 08/17/22 07:16 08/17/22 07:15 08/17/22 07:10 08/17/22 07:10 08/17/22 07:06 08/17/22 07:06 08/17/22 07:05 08/17/22 07:00 08/17/22 07:00 08/17/22 06:11 Room Air 08/17/22 05:14 08/17/22 05:17 08/17/22 05:01 Room Air 08/17/22 04:58 Room Air 08/17/22 04:18 Room Air Laboratory Results Cardiac Enzymes 08/17/22 Range/Units 04:35 AST 23 (13-39) U/L Troponin I High Sens 271.7 H* (0-20) pg/ml CBC 08/17/22 Range/Units 04:35 WBC 8.95 (4.8-10.8) K/ul RBC 4.76 (4.70-6.10) M/uL Hgb 14.8 (14.0-18.0) g/dl Hct 43.8 (42.0-52.0) % Plt Count 140 (130-400) K/uL Neut # (Auto) 5.03 (1.40-6.50) K/uL Lymph # (Auto) 2.76 (1.2-3.4) K/uL [place] # (Auto) 0.81 H (0.11-0.59) K/uL Eos # (Auto) 0.18 (0-0.50) K/uL Baso # (Auto) 0.10 (0-0.2) K/uL Comprehensive Metabolic Panel 08/17/22 Range/Units 04:35 Sodium 139 (136-145) mmol/L Potassium 4.1 (3.5-5.1) mmol/L Chloride 108 H (98-107) mmol/L Carbon Dioxide 27 (21-32) mmol/L BUN 24 H (6-23) mg/dl Creatinine 1.13 (0.6-1.4) mg/dl Glucose 123 H (70-99(Fasting)) mg/dl Calcium 9.4 (8.6-10.3) mg/dl AST 23 (13-39) U/L ALT 34 (7-52) U/L Alkaline Phosphatase 55 (34-104) U/L Total Protein 6.2 (6.0-8.3) gm/dl Albumin 3.9 (3.4-5.0) gm/dl Intake and Output 08/16/22 08/17/22 08/17/22 22:59 06:59 14:59 Intake Total 250 / 250 Balance 250 / 250 Intake: IV 250 / 250 Sodium Chloride 0.9% 250 ml @ 250 / 250 999 mls/hr IV .Q16M ONE Rx#: [id number] Other: Weight 111.6 kg 109.5 kg Weight Measurement Method Built in Bedscale Standing Scale Patient Weight 08/18/22 06:59 Weight 109.5 kg Diagnostic Findings Telemetry: Atrial fibrillation since presentation, heart rate little changed averaging about 110 bpm. PG Care Time/CCT Total # of Minutes Spent Total Time Spent with Patient: Total time spent is greater than 50% in coordination of care (as documented) at patient's floor/unit and/or counseling patient: Coding Level of Care Code 89332 INT INP/OBS CARE 3/75MIN Diagnoses Atrial fibrillation with rapid ventricular response I48.91 CAD (coronary artery disease) I25.10 Associated angina: without angina Coronary Disease-Associated Artery/Lesion type: [place] artery [place] vs. transplanted heart: [place] heart Elevated troponin level R77.8 Hypertension I10 Hypertension type: unspecified Dizziness R42 Ischemic cardiomyopathy I25.5 (2) CAD (coronary artery disease) Associated angina: without angina Coronary Disease-Associated Artery/Lesion type: [place] artery [place] vs. transplanted heart: [place] heart Qualified Code(s): I25.10 - Atherosclerotic heart disease of [place] coronary artery without angina pectoris (4) Hypertension Hypertension type: unspecified Qualified Code(s): I10 - Essential (primary) hypertension
[2022-08-17] MEDS ORDERED: METOPROLOL TARTRATE 25 MG TAB PO ONE (12:15)
[2022-08-17] MEDS: APIXABAN 5 MG TABLET PO SCH ×2 (12:18→20:26)
[2022-08-17] MEDS ORDERED: DESONIDE CR 15 GM TUBE EXT PRN (12:30)
[2022-08-17] MEDS: METOPROLOL TARTRATE 25 MG TAB PO SCH (20:23)
[2022-08-17] MEDS ORDERED: TERAZOSIN HCL 5 MG CAP PO SCH (21:00)
[2022-08-17] MEDS ORDERED: CHOLECALCIFEROL 1,000 UNITS 25 MCG TAB PO SCH (21:00)
[2022-08-18] MEDS ORDERED: APIXABAN 5 MG TABLET PO SCH
[2022-08-18 06:26] LABS: Basophils # (auto) 0.07 K/uL (0-0.2); Basophils % (auto) 0.8 %; Eosinophils # (auto) 0.18 K/uL (0-0.50); Hematocrit (blood only) 42.8 % (42.0-52.0); Hemoglobin 14.5 g/dl (14.0-18.0); Immature Granulocytes # (auto) 0.09 K/uL (0.01-0.20); Lymphocytes # (auto) 2.04 K/uL (1.2-3.4); Lymphocytes % (auto) 22.9 %; Mean Corpuscular Hemoglobin 31.2 pg (25.0-34.0); Mean Corpuscular Hgb Conc 33.9 g/dL (32.0-36.0); Mean Platelet Volume 10.4 fL (9.4-12.4); Monocytes # (auto) 0.72 K/uL (0.11-0.59); Monocytes % (auto) 8.1 %; Neutrophils # (auto) 5.79 K/uL (1.40-6.50); Neutrophils % (auto) 65.2 %; Platelet Count 137 K/uL (130-400); RDW Coefficient of Variation 14.6 % (11.5-14.5); RDW Standard Deviation 49.2 fL (36.4-46.3); Red Blood Count 4.65 M/uL (4.70-6.10); White Blood Count 8.89 K/ul (4.8-10.8)
[2022-08-18 06:41] LABS: Calcium 8.8 mg/dl (8.6-10.3); Creatinine Clr Calc Pharmacy 63.4 ml/min; Est GFR (African American) 70.3 ml/min; Est GFR (Non-African American) 60.7 ml/min; Magnesium 2.1 mg/dl (1.7-2.4); Phosphorus 2.8 mg/dl (2.5-4.9); Potassium 4.5 mmol/L (3.5-5.1)
--- NOTE | 2022-08-18 08:16 | Cardiology Progress Note ---
Date of Service August 18, 2022 Assessment & Plan (1) Atrial fibrillation with rapid ventricular response: (2) CAD (coronary artery disease): (3) Elevated troponin level: (4) Hypertension: (5) Dizziness: (6) Ischemic cardiomyopathy: Plan 1. Atrial fibrillation: This is newly diagnosed, I suspect he has had this before and been relatively unaware of it (he does have a history of dizziness which I strongly suspect was paroxysmal atrial fibrillation but was not diagnosed). I did increase his beta-blockade yesterday, however he only received the morning dose before converting to sinus. It would be a good idea for him to be on a higher dose of beta-blockade, at home he is on metoprolol tartrate 12.5 mg twice a day. It would probably be a better idea for him to be on metoprolol succinate (once a day dosing, cardiomyopathy). I would recommend continuing the metoprolol tartrate 25 mg twice a day today, but send him home with a prescription for metoprolol succinate 50 mg to start tomorrow. 2. Coronary disease: He has known coronary artery disease, there is no clear evidence that he has had progression and his catheterization was quite recent. His troponin measurements are flat and I suspect demand ischemia. His electrocardiogram did not change significantly but this could be evolution from his initial event or it could represent an effect from demand ischemia. I would not consider invasive evaluation at this time. We do need to continue his antiplatelet regimen and statin therapy. 3. Elevated troponin: I suspect this is demand ischemia based on his rapid heart rate and his known coronary artery disease. I do not believe he had an acute cardiac event. 4. Hypertension: His blood pressure has typically not been elevated, however this admission his blood pressures are slightly high. I think we should go up on his beta-michelle as noted above, if his blood pressure drops it would be better for him to be on beta-blockade and amlodipine. 5. Dizziness: He has a history of instability however his current symptoms are different, however he does describe intermittent dizziness which I suspect was related to prior atrial fibrillation. He has had no further dizziness since presentation and rate control. 6. Ischemic cardiomyopathy: He has some degree of left ventricular dysfunction, he is on low-dose beta-blockade which we will need to increase as noted above. We will need to follow his left ventricular function to see whether it worsens over time, I probably would not repeat the echo now but we should in the future. Clinically he does not have heart failure symptoms. I believe he should be switched to metoprolol succinate once the correct dose is established as noted above. He is scheduled for a 2-month visit in the office, I am going to schedule that for a visit sooner. Admission and Anticipated Discharge Date Admission Date: August 17, 2022 Subjective He is feeling well today, he has had no further dizziness, he has remained unaware of his arrhythmia and did not notice the conversion. No cardiovascular complaints including chest discomfort. Physical Exam Physical Exam: Constitutional: Alert, cooperative and in no distress. HEENT: Unremarkable Neck: No jugular venous distention, carotid pulses are normal and equal bilaterally without bruits. Pulmonary: Clear to auscultation bilaterally. Cardiac: Regular rhythm with no murmur, gallop or rub. Abdomen: Soft, nontender with normal bowel sounds. Extremities: No edema. Distal pulses intact. Neurologic: No focal findings. Skin: No rash, ecchymoses or petechiae. Results & Data Vital Signs (Past 12 Hours) Vital Signs Temp Pulse Pulse Resp BP Pulse Ox O2 Del Method 08/18/22 07:30 62 08/18/22 04:09 36.6 C 66 19 133/78 94 Room Air 08/17/22 22:00 56 L 08/17/22 23:54 36.5 C 70 19 144/85 H 95 Room Air Laboratory Results Cardiac Enzymes 08/17/22 08/17/22 08/17/22 Range/Units 10:22 16:36 22:48 Troponin I High Sens 281.5 H* 169.8 H* D 197.5 H* (0-20) pg/ml CBC 08/18/22 Range/Units 05:32 WBC 8.89 (4.8-10.8) K/ul RBC 4.65 L (4.70-6.10) M/uL Hgb 14.5 (14.0-18.0) g/dl Hct 42.8 (42.0-52.0) % Plt Count 137 (130-400) K/uL Neut # (Auto) 5.79 (1.40-6.50) K/uL Lymph # (Auto) 2.04 (1.2-3.4) K/uL Greenlee # (Auto) 0.72 H (0.11-0.59) K/uL Eos # (Auto) 0.18 (0-0.50) K/uL Baso # (Auto) 0.07 (0-0.2) K/uL Comprehensive Metabolic Panel 08/18/22 Range/Units 05:32 Sodium 140 (136-145) mmol/L Potassium 4.5 (3.5-5.1) mmol/L Chloride 108 H (98-107) mmol/L Carbon Dioxide 25 (21-32) mmol/L BUN 30 H (6-23) mg/dl Creatinine 1.11 (0.6-1.4) mg/dl Glucose 107 H (70-99(Fasting)) mg/dl Calcium 8.8 (8.6-10.3) mg/dl Intake and Output 08/17/22 08/18/22 08/18/22 22:59 06:59 14:59 Intake Total 250 / 450 Output Total Balance - 250 / 449 Intake: Oral 250 / 450 Output: Urine Other: Weight 106.5 kg Diagnostic Findings Telemetry: He converted from atrial fibrillation to sinus rhythm with no bradycardia on August 17, 2022 at around 1530. Sinus rhythm since. Electrocardiogram today: Sinus rhythm with anterolateral T wave inversion, the T wave inversion is new compared to his hospitalization and his admission electrocardiogram here. PG Care Time/CCT Total # of Minutes Spent Total Time Spent with Patient: Total time spent is greater than 50% in coordination of care (as documented) at patient's floor/unit and/or counseling patient: Coding Level of Care Code 32229 SUB INP/OBS CARE 3/50MIN Diagnoses Atrial fibrillation with rapid ventricular response I48.91 CAD (coronary artery disease) I25.10 Associated angina: without angina Coronary Disease-Associated Artery/Lesion type: [place] artery [place] vs. transplanted heart: [place] heart Elevated troponin level R77.8 Hypertension I10 Hypertension type: unspecified Dizziness R42 Ischemic cardiomyopathy I25.5 (2) CAD (coronary artery disease) Associated angina: without angina Coronary Disease-Associated Artery/Lesion type: [place] artery [place] vs. transplanted heart: [place] heart Qualified Code(s): I25.10 - Atherosclerotic heart disease of [place] coronary artery without angina pectoris (4) Hypertension Hypertension type: unspecified Qualified Code(s): I10 - Essential (primary) hypertension
[2022-08-18] MEDS: METOPROLOL TARTRATE 25 MG TAB PO SCH (08:49)
[2022-08-18] MEDS: SPIRONOLACTONE 12.5 MG TAB PO SCH (08:49)
[2022-08-18] MEDS: predniSONE 10 MG TABLET PO SCH (08:49)
[2022-08-18] MEDS: APIXABAN 5 MG TABLET PO SCH (08:49)
[2022-08-18] MEDS: PANTOprazole 40 MG TAB PO SCH (08:49)
[2022-08-18] MEDS: amLODIPine BESYLATE 5 MG TAB PO SCH (08:49)
[2022-08-18] MEDS: CLOPIDOGREL BISULFATE 75 MG TAB PO SCH (08:49)
[2022-08-18] MEDS: ATORVASTATIN 40 MG TAB PO SCH (08:49)
[2022-08-18] MEDS: ASPIRIN 81 MG ECTAB PO SCH (08:49)
[2022-08-18] MEDS: NYSTATIN OINT 15 GM TUBE EXT SCH (08:50)
[2022-08-18] MEDS ORDERED: DUTASTERIDE 0.5 MG PO SCH (09:00)
--- NOTE | 2022-08-18 11:11 | Discharge Summary ---
Date of Service August 18, 2022 Admission HPI Per Admitting Provider This is an 82-year-old male with past medical history significant for hyperlipidemia, chronic rhinitis, hypertension, history of CHF, vitamin D deficiency, BPH, osteoarthritis, restless legs syndrome, history of stroke,i nguinal hernia, spinal stenosis, presents with dizziness. The patient says he woke up around 3:00 a.m. and felt very dizzy. He has balance issues, but says his balance was more off than his usual which prompted him to come to ER. He was found in rapid AFib, received a dose of IV Lopressor. He did not have any chest pain with the episode. No shortness of breath. Currently also no chest pain. While lying down currently, his dizziness improved. No spinning of the room. No cough, no fevers, no nausea, no sweating, no headache, no neck pain, no back pain. Vision is okay. No earache, no runny nose, no sore throat, no difficulty swallowing. Eating and drinking okay. Normal bowel and bladder movements. Currently, resting comfortably and hemodynamically stable.Recently saw family doctor losartan was stopped as has history of angioedema with lisinopril and placed on amlodipine and his prednisone which he on for possible PMR dose was reduced to 10mg daily. Also saw cardiology and was started on aldactone. Admission Exam Per Admitting Provider GENERAL: The patient is of moderate build, not in acute distress. VITAL SIGNS: Temperature 36.3, pulse 109, respiratory rate 18, blood pressure 115/80, oxygen 95 % on room air. HEENT: Pupils equal, round and reactive to light. Extraocular muscles intact. Oral mucosa moist. NECK: No JVD, no neck masses. CARDIOVASCULAR: S1 and S2 heard, irregular rhythm, tachycardia. No murmurs. RESPIRATORY SYSTEM: Normal AP diameter. No accessory muscle use. No wheezing, no crackles. ABDOMEN: Soft, bowel sounds present, nontender, no distention. CENTRAL NERVOUS SYSTEM: Alert and oriented. Speech is clear. No facial droop. Extraocular muscles intact. Power 5/5 in all extremities. Sensation is intact. No pronator drift. Coordination of movements normal. He can lift his lower extremity and hold for 5 seconds. EXTREMITIES: No edema, no erythema. Principal Diagnosis Afib with RVR Discharge Exam GENERAL: The patient is of moderate build, not in acute distress. HEENT: NC/AT. Pupils equal, round and reactive to light. Extraocular muscles intact. Oral mucosa moist. NECK: No JVD, no neck masses. CARDIOVASCULAR: S1 and S2 heard, RRR, No murmurs. RESPIRATORY: Normal AP diameter. No accessory muscle use. No wheezing, no crackles. ABDOMEN: Soft, bowel sounds present, nontender, no distention. NEURO: Alert and oriented. Speech is clear. No facial droop.Moves extremities. EXTREMITIES: No edema, no erythema. Discharge Data Allergies Allergy/AdvReac Type Severity Reaction Status Date / Time GLO Inhibitors Allergy Severe ANGIOEDEMA/ Verified 08/09/22 10:17 MYLAGIAS lisinopril Allergy Severe ANGIOEDEMA/ Verified 08/09/22 10:17 MYLAGIAS aspirin AdvReac Intermediate DYSPHAGIA/TROUBLE Verified 08/09/22 10:17 STANDING STRAIGHT UP Consultations 08/17/22 06:26 ED Decision to Admit Stat 08/17/22 10:15 Consult Cardiology Routine Ordered Studies 08/17/22 07:49 CT head/brain wo con Stat FINDINGS: Brain parenchyma: There is age-related involutional change noting mild subcortical and periventricular microangiopathic disease. There is no hemorrhage, mass effect, or evidence of acute territorial ischemia by CT criteria. Ervin-white matter differentiation is preserved. No extra-axial fluid collection is seen. Ventricles, sulci, cisterns: Prominent secondary to involutional change. Intracranial vasculature: There is atherosclerotic calcification of the cavernous carotid and vertebral arteries. Calvarium: Unremarkable. Sinuses and mastoids: There is mild mucosal thickening within the maxillary antra. The remaining visualized paranasal sinuses are clear. The mastoid air cells are well pneumatized. Orbits: The bony orbits are grossly intact. There are bilateral ocular lens implants. IMPRESSION: There is no hemorrhage, mass effect, or evidence of acute territorial ischemia by CT criteria. Hospital Course (1) Atrial fibrillation with rapid ventricular response: 82-year-old male who presents with dizziness and imbalance, found to have rapid atrial fibrillation. 1. Rapid atrial fibrillation. Started on metoprolol and eliquis Converted to sinus rhythm Cardiology was consulted and recommend to discharge on metoprolol succinate 50 mg daily, and Eliquis 5 mg twice daily. Patient will need to follow-up with cardiology as outpatient 2. Dizziness, imbalance. Imbalance worse on admission, possibly secondary to above CT head negative Now feels much better 3. History of ST elevated myocardial infarction a couple of weeks ago. He was in the Emergency Room on 08/02/[address] elevated myocardial infarction and is status post cardiac catheterization and found to have mid left anterior descending 100% occlusion, status post 2 drug-eluting stents, on aspirin, Plavix, statin and beta michelle, followed with cardiology on 08/09/2022 and was started on spironolactone.Currently asymptomatic. Cardiology consulted, as above 4. Hypertension. Currently on metoprolol, spironolactone, terazosin, amlodipine. Last admission, losartan was started, but his family doctor stopped the losartan and restarted amlodipine because of history of severe reaction to lisinopril with angioedema. Continue to monitor the blood pressure. 5. History of polymyalgia rheumatica. Family doctor reduced the prednisone from 15 mg to 10 mg daily. Follow up with primary care physician. 6. Hyperlipidemia. Continue statin. 7. Gastroesophageal reflux disease. Continue Protonix, primary care physician wants him to continue for 4 weeks. 8. Benign prostatic hyperplasia. Continue terazosin and dutasteride. 9. Prediabetes. HbA1c 6.3, needs to follow up. 10. History of transient ischemic attack. On aspirin, Plavix and statin. 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 You should follow-up with your primary care physician within 1 week. You will be contacted by cardiology office about the appointment. Start taking metoprolol succinate 50 mg daily. (and stop taking metoprolol that was prescribed to you before). You were also started on blood thinner, Eliquis, take it as prescribed - 5 mg twice a day. Pending Studies at Discharge: No Stand-Alone Forms: My [facility], Smoking Cessation Medications and DC Order Prescriptions: New metoprolol succinate 50 mg tablet extended release 24 hr 50 mg PO DAILY Qty: 30 0RF Eliquis 5 mg tablet 5 mg PO BID Qty: 60 0RF Continued terazosin 10 mg Capsule 10 mg PO HS Qty: 0 cholecalciferol (vitamin D3) [Vitamin D3] 50 mcg (2,000 unit) Tablet 50 mcg PO HS Qty: 0 fluticasone propionate [Allergy Relief (fluticasone)] 50 mcg/actuation spray,suspension 2 spray intranasal BID Rx Instructions: administer into each nostril melatonin 10 mg capsule 10 mg PO HS PRN (Reason: Sleep) spironolactone 25 mg tablet 12.5 mg PO DAILY Qty: 30 6RF desonide 0.05 % ointment 1 applic TOPICAL BID PRN (Reason: Rash) prednisone 10 mg tablet 10 mg PO DAILY clopidogrel 75 mg Tablet 75 mg PO QAM Qty: 30 0RF atorvastatin 40 mg Tablet 40 mg PO QAM Qty: 30 0RF aspirin 81 mg Tablet,Delayed Release (Dr/Ec) 81 mg PO QAM Qty: 30 0RF pantoprazole 40 mg Tablet,Delayed Release (Dr/Ec) 40 mg PO QAM Qty: 30 0RF nystatin 100,000 unit/gram Ointment 1 applic EXT BID Qty: 30 0RF dutasteride 0.5 mg capsule 0.5 mg PO QAM amlodipine 5 mg tablet 5 mg PO DAILY Discontinued metoprolol tartrate 25 mg Tablet 12.5 mg PO BID Qty: 30 0RF Discharge Orders: Discharge Order (Routine); Ordered 08/18/22 Ordered By: Dakota Clark Admission Data Admit Date/Time: 08/17/22 07:49 Attending Provider: Dakota Clark Admit Provider: Benito Paulino Primary Care Provider: Dino Rajan Other Providers: Benito Paulino ; Alexandre Deluca
--- NOTE | 2022-08-19 08:45 | Electrocardiogram Report ---
Test Reason : Blood Pressure : / mmHG Vent. Rate : 126 BPM Atrial Rate : 000 BPM P-R Int : 000 ms QRS Dur : 102 ms QT Int : 328 ms P-R-T Axes : 000 -33 150 degrees QTc Int : 475 ms Atrial fibrillation with rapid ventricular response Left axis deviation Abnormal ECG When compared with ECG of 02-AUG-2022 11:02, Atrial fibrillation is now Present Serial changes of evolving Anterior infarct Confirmed by Rk Strong ([id number]) on 08/19/2022 8:45:36 AM Referred By: REFERRED SELF Confirmed By:Rk Strong
--- NOTE | 2022-08-19 12:54 | Electrocardiogram Report ---
Test Reason : Blood Pressure : / mmHG Vent. Rate : 067 BPM Atrial Rate : 067 BPM P-R Int : 188 ms QRS Dur : 118 ms QT Int : 440 ms P-R-T Axes : 022 -30 128 degrees QTc Int : 464 ms Normal sinus rhythm with sinus arrhythmia Left axis deviation Incomplete left bundle block Prolonged QT Abnormal ECG When compared with ECG of 17-AUG-2022 04:25, (unconfirmed) Sinus rhythm has replaced Atrial fibrillation Vent. rate has decreased BY 59 BPM Incomplete left bundle block is now Present Confirmed by Rk Strong ([id number]) on 08/19/2022 12:54:29 PM Referred By: REFERRED SELF Confirmed By:Rk Strong
[2022-08-20 02:18] LABS: 18KDIGG Band REACTIVE; 23KDIGG Band NON-REACTIVE; 23KDIGM Band NON-REACTIVE; 28KDIGG Band NON-REACTIVE; 30KDIGG Band NON-REACTIVE; 39KDIGG Band REACTIVE; 39KDIGM Band NON-REACTIVE; 41KDIGG Band REACTIVE; 41KDIGM Band NON-REACTIVE; 45KDIGG Band NON-REACTIVE; 58KDIGG Band REACTIVE; 66KDIGG Band NON-REACTIVE; 93KDIGG Band NON-REACTIVE; Lyme Antibodies, WB IgG NEGATIVE (NEGATIVE); Lyme Antibodies, WB IgM NEGATIVE (NEGATIVE)
== END 2022-08-18 12:27 | disposition home or self-care (01) | DRG 309 ==
LOC: ED 04:13 → 4W 07:49 → SUATTDRO 07:49 → 4W 09:51

== ENCOUNTER 2023-07-03 00:56 | Inpatient (IN) ==
--- NOTE | 2023-07-03 01:17 | Emergency Department Note ---
ED Visit Note I was consulted by the Advanced Practice Provider Willard Reddy PA-C. I personally made/approved the management plan and take responsibility for the p atient management. I performed a substantive portion of the visit. This includes the aspects of: -History/Physical/Personally seeing the patient -MDM -I independently interpreted the following studies: I informally interpreted the patient's chest x-ray which does not show obvious pneumonia or pneumothorax with formal report to follow. Patient presented due to concern for worsening shortness of breath was noted to be hypoxemic. IV was established and blood work was obtained along with a chest x-ray was given Xopenex treatment. Blood work shows a normal white count H&H with mild thrombocytopenia. The patient's VBG does not show any evidence of hypercarbia. Creatinine 1.4 lactate normal troponin slightly elevated 22.6. Pro-Darrell not elevated bio fire negative. Chest x-ray does not show obvious consolidative pneumonia. Patient was admitted to the medicine service .
--- NOTE | 2023-07-03 01:18 | Emergency Department Note ---
History of Present Illness General Chief complaint: Cough Stated complaint: COUGH Time Seen by Provider: 07/03/23 01:06 History of Present Illness This is an 83 year old male presenting to the emergency department for evaluation of cough symptoms worsening over the past few days. The patient was initially evaluated in the ER a few days ago where he was diagnosed with conjunctivitis and started on eyedrops. Patient has not been able to sleep because of the cough. Patient does not report distinct fevers or chills. He does have some mild shortness of breath, however some of this may be chronic. Patient son was sick 1 or 2 weeks ago with similar symptoms. The patient rates his discomfort a 09/28. Home Medications Medication Instructions Recorded Confirmed Type cholecalciferol (vitamin D3) 50 50 mcg PO QPM ##0 12/04/15 07/03/23 History mcg (2,000 unit) tablet (Vitamin D3) fluticasone propionate 50 2 spray intranasal BID 08/22/21 07/03/23 History mcg/actuation nasal spray,suspension (Allergy Relief (fluticasone)) melatonin 10 mg capsule 10 mg PO HS PRN Sleep 08/22/21 07/03/23 History desonide 0.05 % topical ointment 1 applic topical BID PRN Rash 08/02/22 07/03/23 History atorvastatin 40 mg tablet 40 mg PO QAM #30 tabs 08/04/22 07/03/23 Rx clopidogrel 75 mg tablet 75 mg PO QAM #30 tabs 08/04/22 07/03/23 Rx nystatin 100,000 unit/gram topical 1 applic EXT BID rash #30 grams 08/04/22 07/03/23 Rx ointment pantoprazole 40 mg tablet,delayed 40 mg PO QAM #30 tabs 08/04/22 07/03/23 Rx release spironolactone 25 mg tablet 12.5 mg (1/2 x 25 mg) PO DAILY #30 08/09/22 07/03/23 Rx tabs apixaban 5 mg tablet (Eliquis) 5 mg PO BID #60 tabs 08/18/22 07/03/23 Rx metoprolol succinate 50 mg 50 mg PO DAILY #30 tabs 08/18/22 07/03/23 Rx tablet,extended release 24 hr dutasteride 0.5 mg capsule 0.5 mg PO QAM #90 caps 09/05/22 07/03/23 Rx triamcinolone acetonide 0.1 % 1 applic topical DAILY 12/24/22 07/03/23 History topical cream empagliflozin 10 mg tablet 10 mg PO DAILY 05/15/23 07/03/23 History (Jardiance) prednisone 1 mg tablet 3 mg PO DAILY 07/03/23 07/03/23 History tamsulosin 0.4 mg capsule 0.4 mg PO QDL 07/03/23 07/03/23 History Allergies Allergy/AdvReac Type Severity Reaction Status Date / Time GLO Inhibitors Allergy Severe ANGIOEDEMA/ Verified 07/03/23 01:28 MYLAGIAS lisinopril Allergy Severe ANGIOEDEMA/ Verified 07/03/23 01:28 MYLAGIAS aspirin AdvReac Intermediate DYSPHAGIA/TROUBLE Verified 07/03/23 01:28 STANDING STRAIGHT UP Past Med/Surg History Medical History Ischemic cardiomyopathy STEMI (ST elevation myocardial infarction) PCI with 2 MENDEL to LAD History of restless legs syndrome History of vitamin D deficiency History of chronic rhinitis Hx of spinal stenosis Transient ischemic attack (TIA) 05/2021, went to ER; tingling toes/fingertips; resolved.; f/u dr booker, [facility]; no residual effects History of COVID-19 06/2020, pcr test, not hosp; "mild symptoms" begin 11/2021, pcr test [facility]; paxlovid tx; "Mild symptoms" HLD (hyperlipidemia) Glaucoma BPH (benign prostatic hyperplasia) Disc herniation pt denies Hypertension Osteoarthritis Surgical History Hx of cataract extraction rt. Hx of tooth extraction H/O hernia repair Family History Father Hypertension Mother Stroke Social History Smoking Status: Unknown if ever smoked Tobacco Type: Cigarettes Second Hand Exposure: Yes; Do You Dip or Chew Tobacco: No; Hx Alcohol Use: Yes Alcohol type: wine Hx Substance Use: No Preferred Language: Brazilian Communication Ability: Effective Backside Grinder Required: No Beliefs That Will Affect Care: None marital status: Unknown Current Living Situation: Family Current Living Situation Comment: LIVES WITH SON BERKLEY HOOVER current occupation: Retired Other Information That Helps Us Care for You: No Feels Safe at Home: Yes Safety Concerns: Feels Safe At This Time Assistive Devices: Cane and Scooter/Electric Scooter Review of Systems A total of 10 systems reviewed and were otherwise negative Physical Exam Vital Signs Vital Signs - 24 hr 07/03/23 01:01 07/03/23 02:08 07/03/23 02:21 Temperature 36.2 C L Temperature Source Temporal Artery Scan Pulse Rate 114 H 98 H Respiratory Rate 16 Respiratory Depth Normal Blood Pressure 123/76 Blood Pressure Mean 91 Pulse Oximetry 88 L 93 Oxygen Delivery Method Room Air Room Air Sepsis Recent Fever Within 48 Hours No Sepsis New/Unexplained Change in Mental Status No Sepsis Action Taken by Nursing No Action Required 07/03/23 02:30 07/03/23 03:00 07/03/23 03:30 Temperature Temperature Source Pulse Rate 106 H 105 H 96 H Respiratory Rate 28 H 23 25 H Respiratory Depth Blood Pressure 172/95 H 149/104 H 155/93 H Blood Pressure Mean 120 119 113 Pulse Oximetry 93 Oxygen Delivery Method Sepsis Recent Fever Within 48 Hours Sepsis New/Unexplained Change in Mental Status Sepsis Action Taken by Nursing 07/03/23 04:00 Temperature Temperature Source Pulse Rate 110 H Respiratory Rate 17 Respiratory Depth Blood Pressure 148/88 H Blood Pressure Mean 108 Pulse Oximetry 93 Oxygen Delivery Method Sepsis Recent Fever Within 48 Hours Sepsis New/Unexplained Change in Mental Status Sepsis Action Taken by Nursing VITALS: Vitals are noted on the nurse's note and reviewed by myself. Vital signs with hypoxia on arrival. GENERAL: Elderly white male who appears ill on presentation. HEAD: Normocephalic atraumatic. EARS: External ear normal. External auditory canals clear, tympanic membranes pearly noguera without erythema or effusion bilaterally. EYES: Pupils equal round and reactive to light and accommodation. Bilateral conjunctivitis noted. NOSE: Patent, turbinates without inflammation or discharge. HEART: Regular rate and rhythm LUNGS: Mild scattered wheezing in the upper royal. Dry cough noted ABDOMEN: Positive normal bowel sounds x 4. Soft, nontender, without masses or organomegaly. No guarding or rebound tenderness. MUSCULOSKELETAL: No muscle atrophy, erythema, or edema noted. Full range of motion in all extremities. Course Administered Medications Apixaban (Apixaban 5 Mg Tablet) 5 mg PO BID [facility] Stop: 08/02/23 08:59 Last Admin: 07/03/23 21:02 Dose: 5 mg Documented By: Admin: 07/03/23 09:49 Dose: 5 mg Documented By: MT Atorvastatin Calcium (Atorvastatin 40 Mg Tab) [facility] [place]: 08/02/23 08:59 Last Admin: 07/03/23 09:49 Dose: 40 mg Documented By: GELY Benzonatate (Benzonatate 100 Mg Capsule) 100 mg PO TID [facility] Stop: 08/02/23 08:59 Last Admin: 07/03/23 20:28 Dose: 100 mg Documented By: Admin: 07/03/23 13:30 Dose: 100 mg Documented By: Admin: 07/03/23 09:50 Dose: 100 mg Documented By: GELY Ciprofloxacin (Ciprofloxacin Hcl 0.3% Op Soln 2.5 Ml Btl) 2 drops OP Q4H [facility] Stop: 07/10/23 05:44 Last Admin: 07/03/23 21:10 Dose: 2 drops Documented By: Admin: 07/03/23 17:24 Dose: 2 drops Documented By: Admin: 07/03/23 13:30 Dose: 2 drops Documented By: Admin: 07/03/23 09:48 Dose: 2 drops Documented By: GELY Clopidogrel Bisulfate (Clopidogrel Bisulfate 75 Mg Tab) 75 mg PO [facility] Stop: 08/02/23 08:59 Last Admin: 07/03/23 09:50 Dose: 75 mg Documented By: GELY Doxycycline Hyclate (Doxycycline Hyclate 100 Mg Cap) 100 mg PO BID [facility] Stop: 07/10/23 08:59 Last Admin: 07/03/23 20:28 Dose: 100 mg Documented By: Admin: 07/03/23 09:50 Dose: 100 mg Documented By: GELY Finasteride (Finasteride 5 Mg Tab) 5 mg PO [facility] [place]; Protocol Stop: 08/02/23 08:59 Last Admin: 07/03/23 09:50 Dose: 5 mg Documented By: GELY Fluticasone Propionate (Fluticasone Propionate Na Spr 16 Gm Btl) 2 sprays NA BID [facility] Stop: 08/02/23 08:59 Last Admin: 07/03/23 21:02 Dose: 2 sprays Documented By: Admin: 07/03/23 09:51 Dose: 2 sprays Documented By: GELY Guaifenesin (Guaifenesin 600 Mg Tabcr) 600 mg PO Q12 [facility] Stop: 08/02/23 20:59 Last Admin: 07/03/23 20:28 Dose: 600 mg Documented By: PREETHI Insulin Aspart (Insulin Aspart Per Unit Charge) 0 units SC ACHS [facility] Stop: 08/02/23 07:29 Last Admin: 07/03/23 21:08 Dose: Not Given Documented By: Admin: 07/03/23 17:24 Dose: Not Given Documented By: Admin: 07/03/23 13:36 Dose: Not Given Documented By: Admin: 07/03/23 09:43 Dose: Not Given Documented By: GELY Ipratropium [place] (Ipratropium [place] Neb Soln 0.02% 0.5mg/2.5ml Vial) 0.5 mg INH Q6R [facility] Stop: 08/02/23 06:59 Last Admin: 07/03/23 19:01 Dose: 0.5 mg Documented By: Admin: 07/03/23 12:34 Dose: 0.5 mg Documented By: Admin: 07/03/23 07:04 Dose: 0.5 mg Documented By: ANDREW Levalbuterol HCl (Levalbuterol Hcl 0.63 Mg/3 Ml Neb) 0.63 mg NEB Q6R [facility] Stop: 08/02/23 06:59 Last Admin: 07/03/23 19:01 Dose: 0.63 mg Documented By: Admin: 07/03/23 12:34 Dose: 0.63 mg Documented By: Admin: 07/03/23 07:04 Dose: 0.63 mg Documented By: ANDREW Metoprolol Succinate (Metoprolol Succ 50mg Ext Rel Tab) 50 mg PO DAILY [facility] Stop: 08/02/23 08:59 Last Admin: 07/03/23 09:51 Dose: 50 mg Documented By: GELY Pantoprazole Sodium (Pantoprazole 40 Mg Tab) 40 mg PO QAM [facility] Stop: 08/02/23 08:59 Last Admin: 07/03/23 09:52 Dose: 40 mg Documented By: GELY Prednisone (Prednisone 1 Mg Tab) 3 mg PO DAILY [facility] Stop: 08/02/23 08:59 Last Admin: 07/03/23 09:52 Dose: 3 mg Documented By: GELY Spironolactone (Spironolactone 12.5 Mg Tab) 12.5 mg PO DAILY [facility] Stop: 08/02/23 07:59 Last Admin: 07/03/23 10:20 Dose: Not Given Documented By: Admin: 07/03/23 09:49 Dose: 12.5 mg Documented By: GELY Tamsulosin HCl (Tamsulosin Hcl 0.4 Mg Cap) 0.4 mg PO DAILY@1300 [facility] Stop: 08/02/23 12:59 Last Admin: 07/03/23 13:30 Dose: 0.4 mg Documented By: GELY Triamcinolone Acetonide (Triamcinolone Acet 0.1% Cr 15 Gm Tube) 1 appln TOP DAILY [facility] Stop: 08/02/23 08:59 Last Admin: 07/03/23 09:57 Dose: Not Given Documented By: GELY Vitamin D (Cholecalciferol 25 Mcg (1000 Units) Tab) 50 mcg PO QPM [facility] Stop: 08/02/23 20:59 Last Admin: 07/03/23 21:02 Dose: 50 mcg Documented By: PREETHI Discontinued Medications Levalbuterol HCl (Levalbuterol 0.31mg/3 Ml Vial) 0.31 mg NEB NOW STA Stop: 07/03/23 01:16 Last Admin: 07/03/23 02:12 Dose: 0.31 mg Documented By: TAMMY Loratadine (Loratadine 10 Mg Tab) 10 mg PO NOW ONE Stop: 07/03/23 16:30 Last Admin: 07/03/23 17:21 Dose: 10 mg Documented By: PREETHI Medical Decision Making Differential Diagnosis Differential diagnosis: Etiologies such as viral syndrome, otitis, pharyngitis, pneumonia, influenza, meningitis, urinary tract infection, septic arthritis, soft tissue infectious process, intra-abdominal process, sepsis, bacteremia, as well as others were entertained. Laboratory Data 07/03/23 01:46 07/03/23 01:46 Lab Results 07/03/23 07/03/23 07/03/23 Range/Units 01:46 02:01 02:06 WBC 6.83 (4.8-10.8) K/ul RBC 5.36 (4.70-6.10) M/uL Hgb 16.7 (14.0-18.0) g/dl Hct 49.4 (42.0-52.0) % MCV 92.2 (80.0-100.0) fL MCH 31.2 (25.0-34.0) pg MCHC 33.8 (32.0-36.0) g/dL RDW Std Deviation 44.3 (36.4-46.3) fL RDW Coeff of Efren 13.2 (11.5-14.5) % Plt Count 124 L (130-400) K/uL MPV 10.9 (9.4-12.4) fL Immature Gran % (Auto) 0.3 % Neut % (Auto) 65.5 % Lymph % (Auto) 13.9 % [place] % (Auto) 16.5 % Eos % (Auto) 2.8 % Baso % (Auto) 1.0 % Neut # (Auto) 4.47 (1.40-6.50) K/uL Lymph # (Auto) 0.95 L (1.20-3.40) K/uL [place] # (Auto) 1.13 H (0.11-0.59) K/uL Eos # (Auto) 0.19 (0.00-0.50) K/uL Baso # (Auto) 0.07 (0.00-0.20) K/uL Immature Gran # (Auto) 0.02 (0.01-0.20) K/uL PT 12.2 H (9.0-12.0) Seconds INR 1.1 (0.9-1.1) APTT 42 H (21-31) Seconds PTT Ratio 1.5 VBG pH 7.43 H (7.36-7.41) VBG pCO2 38 (38-50) mmHg VBG pO2 44 mmHg VBG HCO3 25 mmol/L VBG O2 Saturation 68.5 % VBG Base Excess 1.0 mEq/L Sodium 139 (136-145) mmol/L Potassium 4.0 (3.5-5.1) mmol/L Chloride 106 (98-107) mmol/L Carbon Dioxide 23 (21-32) mmol/L Anion Gap 10 (3-11) BUN 26 H (6-23) mg/dl Creatinine 1.43 H (0.6-1.4) mg/dl Est Cr Clr Drug Dosing 48.3 ml/min Est GFR ( Amer) 51.4 ml/min Est GFR (Non-Af Amer) 44.3 ml/min BUN/Creatinine Ratio 18.2 (10-20) Glucose 164 H (70-99(Fasting)) mg/dl Lactate 1.2 (0.4-2.0) mmol/L Calcium 9.7 (8.6-10.3) mg/dl Total Bilirubin 0.8 (0.2-1.0) mg/dl AST 19 (13-39) U/L ALT 17 (7-52) U/L Alkaline Phosphatase 58 (34-104) U/L Troponin I High Sens 22.6 H (0-20) pg/ml B-Natriuretic Peptide 93 (0-100) pg/ml Total Protein 7.1 (6.0-8.3) gm/dl Albumin 4.1 (3.4-5.0) gm/dl Globulin 3.0 (2.5-4.0) gm/dl Albumin/Globulin Ratio 1.4 (0.9-2) Lipase 16 (11-82) U/L Procalcitonin 0.07 (0-0.5) ng/ml Adenovirus (PCR) Not Detected (NotDetected) B. pertussis DNA (PCR) Not Detected (NotDetected) B.parapertussis DNA PCR Not Detected (NotDetected) C. pneumoniae DNA (PCR) Not Detected (NotDetected) Coronavirus OC43 (PCR) Not Detected (NotDetected) Coronavirus HKU1 (PCR) Not Detected (NotDetected) Coronavirus 229E (PCR) Not Detected (NotDetected) SARS-CoV-2 (PCR) Not Detected (NotDetected) Coronavirus NL63 (PCR) Not Detected (NotDetected) Human Metapneumovir PCR Not Detected (NotDetected) Influenza Type A (PCR) Not Detected (NotDetected) Influenza Type B (PCR) Not Detected (NotDetected) M. pneumoniae (PCR) Not Detected (NotDetected) Parainfluenza 1 (PCR) Not Detected (NotDetected) Parainfluenza 2 (PCR) Not Detected (NotDetected) Parainfluenza 3 (PCR) Not Detected (NotDetected) Parainfluenza 4 (PCR) Not Detected (NotDetected) RSV (PCR) Not Detected (NotDetected) Entero/Rhino (PCR) Not Detected (NotDetected) 07/03/23 Range/Units 04:29 WBC (4.8-10.8) K/ul RBC (4.70-6.10) M/uL Hgb (14.0-18.0) g/dl Hct (42.0-52.0) % MCV (80.0-100.0) fL MCH (25.0-34.0) pg MCHC (32.0-36.0) g/dL RDW Std Deviation (36.4-46.3) fL RDW Coeff of Efren (11.5-14.5) % Plt Count (130-400) K/uL MPV (9.4-12.4) fL Immature Gran % (Auto) % Neut % (Auto) % Lymph % (Auto) % [place] % (Auto) % Eos % (Auto) % Baso % (Auto) % Neut # (Auto) (1.40-6.50) K/uL Lymph # (Auto) (1.20-3.40) K/uL [place] # (Auto) (0.11-0.59) K/uL Eos # (Auto) (0.00-0.50) K/uL Baso # (Auto) (0.00-0.20) K/uL Immature Gran # (Auto) (0.01-0.20) K/uL PT (9.0-12.0) Seconds INR (0.9-1.1) APTT (21-31) Seconds PTT Ratio VBG pH (7.36-7.41) VBG pCO2 (38-50) mmHg VBG pO2 mmHg VBG HCO3 mmol/L VBG O2 Saturation % VBG Base Excess mEq/L Sodium (136-145) mmol/L Potassium (3.5-5.1) mmol/L Chloride (98-107) mmol/L Carbon Dioxide (21-32) mmol/L Anion Gap (3-11) BUN (6-23) mg/dl Creatinine (0.6-1.4) mg/dl Est Cr Clr Drug Dosing ml/min Est GFR ( Amer) ml/min Est GFR (Non-Af Amer) ml/min BUN/Creatinine Ratio (10-20) Glucose (70-99(Fasting)) mg/dl Lactate (0.4-2.0) mmol/L Calcium (8.6-10.3) mg/dl Total Bilirubin (0.2-1.0) mg/dl AST (13-39) U/L ALT (7-52) U/L Alkaline Phosphatase (34-104) U/L Troponin I High Sens 23.9 H (0-20) pg/ml B-Natriuretic Peptide (0-100) pg/ml Total Protein (6.0-8.3) gm/dl Albumin (3.4-5.0) gm/dl Globulin (2.5-4.0) gm/dl Albumin/Globulin Ratio (0.9-2) Lipase (11-82) U/L Procalcitonin (0-0.5) ng/ml Adenovirus (PCR) (NotDetected) B. pertussis DNA (PCR) (NotDetected) B.parapertussis DNA PCR (NotDetected) C. pneumoniae DNA (PCR) (NotDetected) Coronavirus OC43 (PCR) (NotDetected) Coronavirus HKU1 (PCR) (NotDetected) Coronavirus 229E (PCR) (NotDetected) SARS-CoV-2 (PCR) (NotDetected) Coronavirus NL63 (PCR) (NotDetected) Human Metapneumovir PCR (NotDetected) Influenza Type A (PCR) (NotDetected) Influenza Type B (PCR) (NotDetected) M. pneumoniae (PCR) (NotDetected) Parainfluenza 1 (PCR) (NotDetected) Parainfluenza 2 (PCR) (NotDetected) Parainfluenza 3 (PCR) (NotDetected) Parainfluenza 4 (PCR) (NotDetected) RSV (PCR) (NotDetected) Entero/Rhino (PCR) (NotDetected) Imaging Data Radiologist's Impression: Chest X-Ray 07/03/23 01:06 XR chest 1V portable HISTORY: Cough. Chest pain, nonspecific COMPARISON: Chest 08/17/2022. FINDINGS: No pneumothorax. No pleural effusions. The cardiac silhouette is mildly enlarged. This remains unchanged. No evidence for pulmonary edema. No focal lung consolidations to suggest a pneumonia. No acute fractures. IMPRESSION: No significant change compared to the prior study. No acute process. ACT 112: Negative or not required by law. Electronically signed by: Enzo Hancock M.D. 07/03/2023 7:13 AM MDM Narrative Physical exam and history were performed. Nursing notes, EMR, and Medication List were personally reviewed. No social concerns were identified as barriers to patients care. Patient appears to have flulike symptoms bringing him to the ER. On arrival the patient is 88% on room air in a wheelchair. He does appear ill and does have some adventitious lung sounds on exam. IV access was established and labs were obtained. Blood cultures gathered. Bio fire performed. Case was discussed with my attending. Xopenex nebulizer was provided. An order was placed for continuous cardiac monitoring. The monitor shows a rate of 76 with normal sinus rhythm. Patient's blood work is as above and was reviewed. He does not have a significant elevated white blood cell count, gross anemia, bandemia, or significant electrolyte imbalance. Transaminases are not diagnostic. Troponin is slightly elevated, however patient does have a cardiac history and is on several medications for his heart. He does not have distinct chest pain and EKG is without ischemic findings. Bio fire is negative. Chest x-ray without acute findings. Lactic acid is negative with blood cultures pending. Overall the patient does not appear well for discharge home. His vital signs seem well when he is resting and laying comfortably. With any movement he desats rather quickly. I do suspect this is likely viral in nature and escalation of care is necessary. Case was discussed with the on-call hospitalist team who agreed to evaluate the patient here in the ER. The see their dictation for further patient course, plan, disposition. The chart was completed utilizing [employer] Speech Voice Recognition Software. Grammatical errors, random word insertions, pronoun errors, and incomplete sentences are an occasional consequence of this system due to software limitations, ambient noise, and hardware issues. Any formal questions or concerns about the content, text, or information contained within the body of this dictation should be directly addressed to the provider for clarification. . Impression & Plan SOB (shortness of breath), Upper respiratory infection, Hypoxia Discharge Plan Visit Data Chief Complaint: Cough Stated Complaint: COUGH ED Provider: Taz Serna ED Midlevel Provider: Willard Reddy Discharge Problem: SOB (shortness of breath), Upper respiratory infection, Hypoxia Discharge Instructions Interventions: ED Discharge Assessment Last Done: 07/03/23 06:38
[2023-07-03] MEDS: LEVALBUTEROL 0.31MG/3 ML VIAL NEB STA (02:12)
[2023-07-03 02:16] LABS: HCO3 VBG 25 mmol/L; Oxygen Saturation VBG 68.5 %; PCO2 VBG 38 mmHg (38-50); PO2 VBG 44 mmHg; pH VBG 7.43 (7.36-7.41)
[2023-07-03 02:22] LABS: Albumin Globulin Ratio 1.4 (0.9-2); Albumin Level 4.1 gm/dl (3.4-5.0); BUN Creatinine Ratio 18.2 (10-20); Bilirubin,Total 0.8 mg/dl (0.2-1.0); Calcium 9.7 mg/dl (8.6-10.3); Creatinine Clr Calc Pharmacy 48.3 ml/min; Est GFR (African American) 51.4 ml/min; Est GFR (Non-African American) 44.3 ml/min; Total Protein 7.1 gm/dl (6.0-8.3)
[2023-07-03 02:24] LABS: Basophils # (auto) 0.07 K/uL (0.00-0.20); Eosinophils # (auto) 0.19 K/uL (0.00-0.50); Eosinophils % (auto) 2.8 %; Hematocrit (blood only) 49.4 % (42.0-52.0); Hemoglobin 16.7 g/dl (14.0-18.0); Immature Granulocytes # (auto) 0.02 K/uL (0.01-0.20); Immature Granulocytes % (auto) 0.3 %; Lymphocytes # (auto) 0.95 K/uL (1.20-3.40); Lymphocytes % (auto) 13.9 %; Mean Corpuscular Hemoglobin 31.2 pg (25.0-34.0); Mean Corpuscular Hgb Conc 33.8 g/dL (32.0-36.0); Mean Corpuscular Volume 92.2 fL (80.0-100.0); Mean Platelet Volume 10.9 fL (9.4-12.4); Monocytes # (auto) 1.13 K/uL (0.11-0.59); Monocytes % (auto) 16.5 %; Neutrophils # (auto) 4.47 K/uL (1.40-6.50); Neutrophils % (auto) 65.5 %; Platelet Count 124 K/uL (130-400); RDW Coefficient of Variation 13.2 % (11.5-14.5); RDW Standard Deviation 44.3 fL (36.4-46.3); Red Blood Count 5.36 M/uL (4.70-6.10); White Blood Count 6.83 K/ul (4.8-10.8)
[2023-07-03 02:29] LABS: Troponin I High Sensitivity 22.6 pg/ml (0-20)
[2023-07-03 02:40] LABS: INR 1.1 (0.9-1.1); Partial Thromboplastin Ratio 1.5; Partial Thromboplastin Time 42 Seconds (21-31); Prothrombin Time 12.2 Seconds (9.0-12.0)
[2023-07-03 03:14] LABS: Adenovirus PCR Not Detected (NotDetected); Bordetella parapertussis PCR Not Detected (NotDetected); Bordetella pertussis PCR Not Detected (NotDetected); Chlamydia pneumoniae PCR Not Detected (NotDetected); Coronavirus 229E PCR Not Detected (NotDetected); Coronavirus CoV-2 (COVID19)PCR Not Detected (NotDetected); Coronavirus HKU1 PCR Not Detected (NotDetected); Coronavirus NL63 PCR Not Detected (NotDetected); Coronavirus OC43PCR Not Detected (NotDetected); Human Metapneumovirus PCR Not Detected (NotDetected); Influenza A PCR Not Detected (NotDetected); Influenza B PCR Not Detected (NotDetected); Mycoplasma pneumoniae PCR Not Detected (NotDetected); Parainfluenza Virus 1 PCR Not Detected (NotDetected); Parainfluenza Virus 2 PCR Not Detected (NotDetected); Parainfluenza Virus 3 PCR Not Detected (NotDetected); Parainfluenza Virus 4 PCR Not Detected (NotDetected); Respiratory Syncytial VirusPCR Not Detected (NotDetected); Rhinovirus/Enterovirus PCR Not Detected (NotDetected)
--- NOTE | 2023-07-03 05:54 | History & Physical Report ---
Date of Service July 03, 2023 Assessment & Plan (1) Bronchitis: Plan: 83-year-old male with past medical history significant for type 2 diabetes, hyperlipidemia, diabetic peripheral neuropathy, chronic rhinitis, history of CVA, history of atrial fibrillation, hypertension, history of CHF, CAD s/p stents, BPH, restless leg syndrome, osteoarthritis, low-tension glaucoma bilateral, imbalance, and dizziness comes because of ongoing cough bringing up whitish phlegm for last 2 days and weakness and found to have oxygen sats 88% on room air on presentation. Patient was in the ER yesterday with pinkeye possible viral conjunctivitis and prescribed eyedrops. Now infection spread to both eyes. Denies any fevers. No chest pain. Does not feel short of breath. But weak and tired. The cough is not getting better. Denies headache. He has chronic runny nose but that got worse last 2 days. Appetite is okay. No nausea. No abdominal pain. Chronically constipated and uses stool softeners. Denies any blood in stools or black stools. Uses medications for his BPH. He has some imbalance while ambulating but that got worse lately. Currently resting comfortably and able to give history.. Son is in the room. Cough Possible bronchitis 88% room air Diminished bilateral breath sounds No obvious wheezing Respiratory bio fire negative Chest x-ray looks okay We will place him on nebs [id number] and as needed Close monitor History of chronic systolic CHF Echo in July 2022 shows EF of 40% Echo in September 2022 shows EF of 50 to 55% Continue home spironolactone Will monitor History of CAD s/p stents On Plavix, statin, Eliquis, metoprolol succinate We will monitor Bilateral conjunctivitis Eyedrops Will monitor Questionable polymyalgia rheumatica Currently rheumatology tapering prednisone Seems to be reducing 1 mg every 2 weeks and currently on 3 mg daily GERD Protonix BPH On dutasteride and terazosin Will hold flomax as patient seems recently started on hytrin per son.(Needs to clarify) Hypertension Metoprolol succinate, terazosin Will monitor Diabetes Hold home p.o. medications Sliding scale We will monitor History of atrial fibrillation On metoprolol succinate and Eliquis Will monitor Hyperlipidemia On statin History of CVA On Plavix, Eliquis and statin Imbalance PT OT when stable DVT prophylaxis On Eliquis Disposition Med/tele Full code as per my discussion with the patient History of Present Illness Chief Complaint: Cough and weakness Primary Care Provider: Dino Rajan MD 83-year-old male with past medical history significant for type 2 diabetes, hyperlipidemia, diabetic peripheral neuropathy, chronic rhinitis, history of CVA, history of atrial fibrillation, hypertension, history of CHF, CAD s/p stents, BPH, restless leg syndrome, osteoarthritis, low-tension glaucoma bilateral, imbalance, and dizziness comes because of ongoing cough bringing up whitish phlegm for last 2 days and weakness and found to have oxygen sats 88% on room air on presentation. Patient was in the ER yesterday with pinkeye possible viral conjunctivitis and prescribed eyedrops. Now infection spread to both eyes. Denies any fevers. No chest pain. Does not feel short of breath. But weak and tired. The cough is not getting better. Denies headache. He has chronic runny nose but that got worse last 2 days. Appetite is okay. No nausea. No abdominal pain. Chronically constipated and uses stool softeners. Denies any blood in stools or black stools. Uses medications for his BPH. He has some imbalance while ambulating but that got worse lately. Currently resting comfortably and able to give history.. Son is in the room. Past med history. As mentioned above Past surgical history. Sinus surgery. Status post stent placement. Social history. . Smoked half pack a day for 8 years. Alcohol rarely wine. No drug use. Family history. Father had heart disorder. COPD. Stroke. Mother had thyroid disorder. Son has sleep apnea. Son has AIDS Allergies Allergy/AdvReac Type Severity Reaction Status Date / Time GLO Inhibitors Allergy Severe ANGIOEDEMA/ Verified 07/03/23 01:28 MYLAGIAS lisinopril Allergy Severe ANGIOEDEMA/ Verified 07/03/23 01:28 MYLAGIAS aspirin AdvReac Intermediate DYSPHAGIA/TROUBLE Verified 07/03/23 01:28 STANDING STRAIGHT UP Home Medications Medication Instructions Recorded Confirmed Type cholecalciferol (vitamin D3) 50 50 mcg PO QPM ##0 12/04/15 07/03/23 History mcg (2,000 unit) tablet (Vitamin D3) fluticasone propionate 50 2 spray intranasal BID 08/22/21 07/03/23 History mcg/actuation nasal spray,suspension (Allergy Relief (fluticasone)) melatonin 10 mg capsule 10 mg PO HS PRN Sleep 08/22/21 07/03/23 History desonide 0.05 % topical ointment 1 applic topical BID PRN Rash 08/02/22 07/03/23 History atorvastatin 40 mg tablet 40 mg PO QAM #30 tabs 08/04/22 07/03/23 Rx clopidogrel 75 mg tablet 75 mg PO QAM #30 tabs 08/04/22 07/03/23 Rx nystatin 100,000 unit/gram topical 1 applic EXT BID rash #30 grams 08/04/22 07/03/23 Rx ointment pantoprazole 40 mg tablet,delayed 40 mg PO QAM #30 tabs 08/04/22 07/03/23 Rx release spironolactone 25 mg tablet 12.5 mg (1/2 x 25 mg) PO DAILY #30 08/09/22 07/03/23 Rx tabs apixaban 5 mg tablet (Eliquis) 5 mg PO BID #60 tabs 08/18/22 07/03/23 Rx metoprolol succinate 50 mg 50 mg PO DAILY #30 tabs 08/18/22 07/03/23 Rx tablet,extended release 24 hr dutasteride 0.5 mg capsule 0.5 mg PO QAM #90 caps 09/05/22 07/03/23 Rx triamcinolone acetonide 0.1 % 1 applic topical DAILY 12/24/22 07/03/23 History topical cream empagliflozin 10 mg tablet 10 mg PO DAILY 05/15/23 07/03/23 History (Jardiance) prednisone 1 mg tablet 3 mg PO DAILY 07/03/23 07/03/23 History tamsulosin 0.4 mg capsule 0.4 mg PO QDL 07/03/23 07/03/23 History terazosin 10 mg capsule 10 mg PO HS 07/03/23 07/03/23 History Past Med/Surg History Medical History Ischemic cardiomyopathy STEMI (ST elevation myocardial infarction) PCI with 2 MENDEL to LAD History of restless legs syndrome History of vitamin D deficiency History of chronic rhinitis Hx of spinal stenosis Transient ischemic attack (TIA) 05/2021, went to ER; tingling toes/fingertips; resolved.; f/u dr booker, [facility]; no residual effects History of COVID-19 06/2020, pcr test, not hosp; "mild symptoms" begin 11/2021, pcr test [facility]; [place]; "Mild symptoms" HLD (hyperlipidemia) Glaucoma BPH (benign prostatic hyperplasia) Disc herniation pt denies Hypertension Osteoarthritis Surgical History Hx of cataract extraction rt. Hx of tooth extraction H/O hernia repair Family History Father Hypertension Mother Stroke Social History Smoking Status: Never smoker Tobacco Type: Cigarettes Second Hand Exposure: No; Do You Dip or Chew Tobacco: No; Hx Alcohol Use: Yes Alcohol type: wine Hx Substance Use: No Preferred Language: Israeli Communication Ability: Effective Metal Expediter Required: No Beliefs That Will Affect Care: None marital status: Unknown Current Living Situation: Family Current Living Situation Comment: LIVES WITH SON BERKLEY HOOVER current occupation: Retired Feels Safe at Home: Yes Assistive Devices: Cane and Walker Review of Systems Review of Systems: All systems reviewed & are unremarkable except as noted in HPI & below Physical Exam Physical Exam: General- Not in acute distress Head- atraumatic Eyes- PERRL.crusting seen on both eyes. ENT- oropharynx clear Neck- supple, no JVD. Lungs- Diminished bilateral breath sounds, No wheezing or crackles. Heart- regular rhythm; no murmur, no gallop. Abdomen- normal bowel sounds, soft, nontender, no distension. Extremities- trace pretibial edema, no erythema seen. Neuro- alert, oriented PERRL, no facial palsy; no dysarthria; moves extremities. Results & Data Results & Data Vital Signs (Past 12 Hours) Vital Signs Temp Pulse Resp BP Pulse Ox O2 Del Method 07/03/23 04:00 110 H 17 148/88 H 93 07/03/23 03:30 96 H 25 H 155/93 H 93 07/03/23 03:00 105 H 23 149/104 H 07/03/23 02:30 106 H 28 H 172/95 H 07/03/23 02:21 98 H 07/03/23 02:08 93 Room Air 07/03/23 01:01 36.2 C L 114 H 16 123/76 88 L Room Air Diagnostic Findings Laboratory Results WBC 6.83 K/ul (4.8-10.8) 07/03/23 01:46 RBC 5.36 M/uL (4.70-6.10) 07/03/23 01:46 Hgb 16.7 g/dl (14.0-18.0) 07/03/23 01:46 Hct 49.4 % (42.0-52.0) 07/03/23 01:46 MCV 92.2 fL (80.0-100.0) 07/03/23 01:46 MCH 31.2 pg (25.0-34.0) 07/03/23 01:46 MCHC 33.8 g/dL (32.0-36.0) 07/03/23 01:46 RDW Std Deviation 44.3 fL (36.4-46.3) 07/03/23 01:46 RDW Coeff of Efren 13.2 % (11.5-14.5) 07/03/23 01:46 Plt Count 124 K/uL (130-400) L 07/03/23 01:46 MPV 10.9 fL (9.4-12.4) 07/03/23 01:46 Immature Gran % (Auto) 0.3 % 07/03/23 01:46 Neut % (Auto) 65.5 % 07/03/23 01:46 Lymph % (Auto) 13.9 % 07/03/23 01:46 Austin % (Auto) 16.5 % 07/03/23 01:46 Eos % (Auto) 2.8 % 07/03/23 01:46 Baso % (Auto) 1.0 % 07/03/23 01:46 Neut # (Auto) 4.47 K/uL (1.40-6.50) 07/03/23 01:46 Lymph # (Auto) 0.95 K/uL (1.20-3.40) L 07/03/23 01:46 Austin # (Auto) 1.13 K/uL (0.11-0.59) H 07/03/23 01:46 Eos # (Auto) 0.19 K/uL (0.00-0.50) 07/03/23 01:46 Baso # (Auto) 0.07 K/uL (0.00-0.20) 07/03/23 01:46 Immature Gran # (Auto) 0.02 K/uL (0.01-0.20) 07/03/23 01:46 PT 12.2 Seconds (9.0-12.0) H 07/03/23 01:46 INR 1.1 (0.9-1.1) 07/03/23 01:46 APTT 42 Seconds (21-31) H 07/03/23 01:46 PTT Ratio 1.5 07/03/23 01:46 VBG pH 7.43 (7.36-7.41) H 07/03/23 02:01 VBG pCO2 38 mmHg (38-50) 07/03/23 02:01 VBG pO2 44 mmHg 07/03/23 02:01 VBG HCO3 25 mmol/L 07/03/23 02:01 VBG O2 Saturation 68.5 % 07/03/23 02:01 VBG Base Excess 1.0 mEq/L 07/03/23 02:01 Sodium 139 mmol/L (136-145) 07/03/23 01:46 Potassium 4.0 mmol/L (3.5-5.1) 07/03/23 01:46 Chloride 106 mmol/L (98-107) 07/03/23 01:46 Carbon Dioxide 23 mmol/L (21-32) 07/03/23 01:46 Anion Gap 10 (3-11) 07/03/23 01:46 BUN 26 mg/dl (6-23) H 07/03/23 01:46 Creatinine 1.43 mg/dl (0.6-1.4) H 07/03/23 01:46 Est Cr Clr Drug Dosing 48.3 ml/min 07/03/23 01:46 Est GFR ( Amer) 51.4 ml/min 07/03/23 01:46 Est GFR (Non-Af Amer) 44.3 ml/min 07/03/23 01:46 BUN/Creatinine Ratio 18.2 (10-20) 07/03/23 01:46 Glucose 164 mg/dl (70-99(Fasting)) H 07/03/23 01:46 Lactate 1.2 mmol/L (0.4-2.0) 07/03/23 01:46 Calcium 9.7 mg/dl (8.6-10.3) 07/03/23 01:46 Total Bilirubin 0.8 mg/dl (0.2-1.0) 07/03/23 01:46 AST 19 U/L (13-39) 07/03/23 01:46 ALT 17 U/L (7-52) 07/03/23 01:46 Alkaline Phosphatase 58 U/L (34-104) 07/03/23 01:46 Troponin I High Sens 23.9 pg/ml (0-20) H 07/03/23 04:29 B-Natriuretic Peptide 93 pg/ml (0-100) 07/03/23 01:46 Total Protein 7.1 gm/dl (6.0-8.3) 07/03/23 01:46 Albumin 4.1 gm/dl (3.4-5.0) 07/03/23 01:46 Globulin 3.0 gm/dl (2.5-4.0) 07/03/23 01:46 Albumin/Globulin Ratio 1.4 (0.9-2) 07/03/23 01:46 Lipase 16 U/L (11-82) 07/03/23 01:46 Procalcitonin 0.07 ng/ml (0-0.5) 07/03/23 01:46 Adenovirus (PCR) Not Detected (NotDetected) 07/03/23 02:06 B. pertussis DNA (PCR) Not Detected (NotDetected) 07/03/23 02:06 B.parapertussis DNA PCR Not Detected (NotDetected) 07/03/23 02:06 C. pneumoniae DNA (PCR) Not Detected (NotDetected) 07/03/23 02:06 Coronavirus OC43 (PCR) Not Detected (NotDetected) 07/03/23 02:06 Coronavirus HKU1 (PCR) Not Detected (NotDetected) 07/03/23 02:06 Coronavirus 229E (PCR) Not Detected (NotDetected) 07/03/23 02:06 SARS-CoV-2 (PCR) Not Detected (NotDetected) 07/03/23 02:06 Coronavirus NL63 (PCR) Not Detected (NotDetected) 07/03/23 02:06 Human Metapneumovir PCR Not Detected (NotDetected) 07/03/23 02:06 Influenza Type A (PCR) Not Detected (NotDetected) 07/03/23 02:06 Influenza Type B (PCR) Not Detected (NotDetected) 07/03/23 02:06 M. pneumoniae (PCR) Not Detected (NotDetected) 07/03/23 02:06 Parainfluenza 1 (PCR) Not Detected (NotDetected) 07/03/23 02:06 Parainfluenza 2 (PCR) Not Detected (NotDetected) 07/03/23 02:06 Parainfluenza 3 (PCR) Not Detected (NotDetected) 07/03/23 02:06 Parainfluenza 4 (PCR) Not Detected (NotDetected) 07/03/23 02:06 RSV (PCR) Not Detected (NotDetected) 07/03/23 02:06 Entero/Rhino (PCR) Not Detected (NotDetected) 07/03/23 02:06 ECG Additional Comments: ECG. Normal sinus rhythm rate of 95. Nonspecific intraventricular duction delay. Left axis deviation Code Status & VTE Plan VTE Prophylaxis Plan VTE Prophylaxis will be ordered: Yes
[2023-07-03] MEDS ORDERED: DEXTROSE 50% 50 ML SYRINGE IV PRN (06:37)
[2023-07-03] MEDS ORDERED: CARBOHYDRATES FOR HYPOGLYCEMIA PO PRN (06:37)
[2023-07-03] MEDS ORDERED: LEVALBUTEROL 1.25MG/0.5ML NEB NEB PRN (06:37)
[2023-07-03] MEDS ORDERED: GLUCAGON FOR INJ 1 MG VIAL SQ PRN (06:37)
[2023-07-03] MEDS ORDERED: GLUCOSE 10 TAB/TUBE PO PRN (06:37)
[2023-07-03] MEDS ORDERED: NITROGLYCERIN SL 0.4 MG/TAB TAB SL PRN (06:37)
[2023-07-03] MEDS ORDERED: GLUCOSE 40% GEL 15 GM TUBE PO PRN (06:37)
[2023-07-03] MEDS ORDERED: ACETAMINOPHEN 325 MG TAB PO PRN (06:37)
[2023-07-03] MEDS ORDERED: XOPENEX/ATROVENT 0.63mg/0.5MG NEB COMBO NEB SCH (07:00)
[2023-07-03] MEDS: IPRATROPIUM BROMIDE NEB SOLN 0.02% 0.5MG/2.5ML VIAL INH SCH (07:04)
[2023-07-03] MEDS: LEVALBUTEROL HCL 0.63 MG/3 ML NEB NEB SCH (07:04)
[2023-07-03] MEDS ORDERED: MELATONIN 3 MG TAB PO PRN (07:05)
[2023-07-03] MEDS ORDERED: TRIAMCINOLONE ACET 0.025% OINT 15 GM TUBE TOP PRN (07:12)
--- NOTE | 2023-07-03 07:15 | XRay Report ---
XR chest 1V portable HISTORY: Cough. Chest pain, nonspecific COMPARISON: Chest 08/17/2022. FINDINGS: No pneumothorax. No pleural effusions. The cardiac silhouette is mildly enlarged. This suad ins unchanged. No evidence for pulmonary edema. No focal lung consolidations to suggest a pneumonia. No acute fractures. IMPRESSION: No significant change compared to the prior study. No acute process. ACT 112: Negative or not required by law. Electronically signed by: Enzo Hancock M.D. 07/03/2023 7:13 AM
[2023-07-03] MEDS: INSULIN ASPART PER UNIT CHARGE SC SCH (09:43)
[2023-07-03] MEDS: CIPROFLOXACIN HCL 0.3% OP SOLN 2.5 ML BTL OP SCH (09:48)
[2023-07-03] MEDS: SPIRONOLACTONE 12.5 MG TAB PO SCH (09:49)
[2023-07-03] MEDS: APIXABAN 5 MG TABLET PO SCH (09:49)
[2023-07-03] MEDS: ATORVASTATIN 40 MG TAB PO SCH (09:49)
[2023-07-03] MEDS: BENZONATATE 100 MG CAPSULE PO SCH (09:50)
[2023-07-03] MEDS: DOXYCYCLINE HYCLATE 100 MG CAP PO SCH (09:50)
[2023-07-03] MEDS: FINASTERIDE 5 MG TAB PO SCH (09:50)
[2023-07-03] MEDS: CLOPIDOGREL BISULFATE 75 MG TAB PO SCH (09:50)
[2023-07-03] MEDS: METOPROLOL SUCC 50MG EXT REL TAB PO SCH (09:51)
[2023-07-03] MEDS: FLUTICASONE PROPIONATE NA SPR 16 GM BTL SCH (09:51)
[2023-07-03] MEDS: predniSONE 1 MG TAB PO SCH (09:52)
[2023-07-03] MEDS: TRIAMCINOLONE ACET 0.1% CR 15 GM TUBE TOP SCH (09:52)
[2023-07-03] MEDS: PANTOprazole 40 MG TAB PO SCH (09:52)
[2023-07-03] MEDS ORDERED: TAMSULOSIN HCL 0.4 MG CAP PO SCH (11:30)
--- NOTE | 2023-07-03 13:06 | Communication Note ---
Date of Service: July 03, 2023 Patient seen and examined Still reports cough Has some wheeze and erythematous conjunctiva Continue nebs Continue antitussives On prednisone taper per PCP Loratadine Visine-A eye drops prn Reports terazosin was stopped and he is currently on tamsulosin. Meds changed and list updated Other plans as detailed in H&P this AM
[2023-07-03] MEDS: TAMSULOSIN HCL 0.4 MG CAP PO SCH (13:30)
[2023-07-03] MEDS ORDERED: NAPHAZOLIN/PHENIRAMIN OPH SOLN 75 DROPS/5 ML BTL OP PRN (16:41)
[2023-07-03] MEDS: LORATADINE 10 MG TAB PO ONE (17:21)
[2023-07-03] MEDS: guaiFENesin 600 MG TABCR PO SCH (20:28)
[2023-07-03] MEDS ORDERED: TERAZOSIN HCL 5 MG CAP PO SCH ×2 (21:00)
[2023-07-03] MEDS: CHOLECALCIFEROL 25 MCG (1000 UNITS) TAB PO SCH (21:02)
--- OUTSIDE RECORDS SUMMARY | 2023-07-03 22:18 | External Medical Summary | Summary of Care ---
Author Name Unknown Organization [facility] Address [address] [place] [address] Phone [phone] Care Team Providers Care Storeroom Supervisor Name Role Phone Dino Rajan MD Primary Care Provider [phone] Reason for Visit * Reason Onset Date Comments Medication Question 07/02/2023 Encounter Details Date Type Department Care Team (Late st Contact Info) Description 07/02/2023 Telephone [facility] [address] [place] [address] Dino Rajan MD [address] [place] [address] Medication Question Allergies Active Allergy Reactions Criticality Noted Date Comments Gunner Inhibitors High 08/09/2022 Other reaction(s): ANGIOEDEMA/MYLAGIAS Aspirin High 08/09/2022 Other reaction(s): DYSPHAGIA/TROUBLE STANDING STRAIGHT UP Lisinopril Edema face/lips/tongue,Muscle pain,Other (Please comment) High 10/31/2008 angioedema documented as of this encounter (statuses as of 07/02/2023) Medications Medication Sig Dispensed Refills Start Date End Date Status Cholecalciferol 2000 units TABS Take 2,000 Units by mouth daily. 0 Active Melatonin 10 MG Oral TabletIndications:Pr imary insomnia Take 2 Tablets by mouth at bedtime. 60 Tablet 11 04/25/2021 Active Fluticasone Propionate 50 MCG/ACT Nasal Suspension (Flonase)Indications :Acute frontal sinusitis, recurrence not specified Administer 2 Sprays into each nostril daily. 54 g 1 05/08/2021 Active Colestipol HCl 1 GM Oral TabletIndications:Ch ronic diarrhea,Irritable bowel syndrome with diarrhea take 1 tablet by mouth once daily FOR 14 DAYS THEN MAY INCREASE TO 2 DAILY FOR DIARRHEA 60 Tablet 2 01/04/2022 Active Atorvastatin Calcium 40 MG Oral Tablet (Lipitor)Indications :Other hyperlipidemia Take 1 Tablet by mouth in the morning. 90 Tablet 3 08/13/2022 Active Spironolactone 12.5 MG OR TABS Take by mouth daily. 0 Active Metoprolol Succinate ER 50 MG Oral Tablet Extended Release 24 Hour (toPROL XL)Indications:Systo lic heart failure, unspecified HF chronicity (HCC),HTN, goal below 140/90 Take 1 Tablet by mouth in the morning. 90 Tablet 3 09/23/2022 Active Dutasteride 0.5 MG Oral Capsule (Avodart) Take 1 Capsule by mouth in the morning. Dr Emanuel. 90 Capsule 3 12/02/2022 Active Desonide 0.05 % External OintmentIndications: Lichen planus Apply topically to affected area 2 times a day. Apply to affected areas twice daily as needed 60 g 3 12/02/2022 Active Triamcinolone Acetonide 0.1 % External Lotion (Aristocort)Indicati ons:Dermatitis Apply to ear canal daily as needed 60 mL 3 12/02/2022 Active Nystatin 319354 UNIT/GM External Ointment TWICE A DAY 30 g 3 12/02/2022 Active Empagliflozin 10 MG Oral Tablet (Jardiance) Take 1 Tablet by mouth in the morning. 30 Tablet 11 12/02/2022 Active Pantoprazole Sodium 40 MG Oral Tablet Delayed Release (Protonix) take 1 tablet by mouth every morning 30 Tablet 5 02/28/2023 Active Eliquis 5 MG Oral Tablet (Apixaban) take 1 tablet by mouth twice a day 60 Tablet 5 03/12/2023 Active Clopidogrel Bisulfate 75 MG Oral Tablet (pLAVix) TAKE 1 TABLET BY MOUTH EVERY MORNING 90 Tablet 1 05/19/2023 Active predniSONE 1 MG Oral Tablet (Deltasone) Take 4 Tablets by mouth daily for 14 days, THEN 3 Tablets daily for 14 days, THEN 2 Tablets daily for 14 days, THEN 1 Tablet daily for 14 days. 140 Tablet 0 06/04/2023 07/30/2023 Active Tamsulosin HCl 0.4 MG Oral Capsule (Flomax)Indications: Obstructive uropathy Take 1 Capsule by mouth daily. 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) 12/02/2022 ST elevation (STEMI) myocard ial infarction involving left anterior descending coronary artery 12/02/2022 Type 2 diabetes mellitus wit h hemoglobin A1c goal of less than 7.0% 12/02/2022 Stroke-like symptoms 10/15/2022 S/P drug eluting coronary stent placement 2022 Long-term current use of steroids 10/15/2022 Left sided numbness 10/15/2022 Ischemic cardiomyopathy 10/15/2022 Incontinence of feces 10/15/2022 Incomplete emptying of bladder 10/15/2022 Impairment of balance 10/15/2022 Elevated troponin level 10/15/2022 Dizziness 10/15/2022 CVA (cerebral vascular accident) 10/15/2022 Atrial fibrillation with rapid ventricular respo nse 10/15/2022 Atherosclerosis of coronary artery 10/15/2022 Heart failure 11/19/2021 Hemiplegia affecting left nondominant side 07/31 Low-tension glaucoma, bilateral, mild stage 07/20 HLD (hyperlipidemia) 07/31/2021 Spinal stenosis 07/24/2020 Pain in extremity 07/24/2020 Osteoarthritis 07/24/2020 Generalized osteoarthritis 11/25/2014 Restless legs syndrome 11/25/2014 Unilateral inguinal hernia 11/18/2012 Vitamin D deficiency 05/20/2011 Deviated nasal septum 02/07/2006 Chronic rhinitis 02/07/2006 ADVANCE DIRECTIVE INFORMATION 08/23/2005 Overview: No, Advance Directive brochure given to patient. Hypertension 07/26/2003 BPH (benign prostatic hyperplasia) 07/26/2003 documented as of this encounter (statuses as of 07/02/2023) Resolved Problems Problem Noted Date Diagnosed Date Resolved Date Myocardial infarction 10/15/20222022 Difficulty sleeping 07/24/2020 11/09/19 21 Malaise and fatigue 08/16/2015 11/03/19 20 Herpes zoster 04/23/2001 11/03/2019 documented as of this encounter (statuses as of 07/02/2023) Immunizations Name Administration Dates Next Due Pneumococcal Conjugate Vacc, 13 Valent (Prevnar) 08/29/2016 Pneumococcal Polysaccharide PPV23 (Pneumovax) 06/06/2006 Season Influenza, Quad, PF, Adjuvanted, 65+ Yrs, IM (FLUAD) 02/22/2020 Seasonal Influenza Virus Vac cine, Unspecified Formulation 03/01/2022 Seasonal Influenza, PF, 6 M & above, IM , (FluLaval or Fluzone) 01/25/2019,03/23/2018,02/27/2017 Seasonal Influenza, Quadriva lent Hd (Fluzone Hd) 02/06/2023,03/01/2022,01/17/2021 Seasonal Influenza, Quadriva lent, No Preserve, IM 02/16/2016 Seasonal Influenza, Split, I IV3, With Preserve, Inj 01/28/2011,04/02/2010,03/13/2009,02/26,03/04/2006 TDAP (age 10 and older)(Boostrix) 10/09/2022, documented as of this encounter Social History Tobacco Use Types Packs/Day Years Used Date Smoking Tobacco: Former Cigarettes Cigars Passive Smoke Exposure: Past Smokeless Tobacco: Never Comments:much secondary smok e exposure growing up; no current passive smoke Smoked for 8 years, half a pack a day, occasional cigar Alcohol Use Standard Drinks/Week Comments Yes 0 (1 standard drink = 0.6 oz pur e alcohol) Rare wine PHQ-2 Answer Date Recorded PHQ Adult Total Score 0 02/06/2023 Hunger Vital Sign Answer Date Recorded Within the past 12 months, y ou worried that your food would run out before you got the money to buy more. Never true 02/07/20 23 Within the past 12 months, t he food you bought just didn't last and you didn't have money to get more. Never true 02/06/2023 Sex and Gender Information Value Date Recorded Sex Assigned at Male 03/17/2020 9:19 AM EST Gender Identity Male 03/17/2020 9:19 AM EST Sexual Orientation Straight 03/17/2020 9: 19 AM EST Job Start Date Occupation Industry Not on file Not on file Not on file documented as of this encounter Miscellaneous Notes * Telephone Encounter - Kay Pineda RPh - 07/02/2023 5:02 PM EDT Confirmed with patient no interactions with Mucinex DM Thank you, Kay Pineda PharmD, [place] Clinical Pharmacist [facility] ([facility] (formerly [facility]) 07/02/23 5:02 PM [phone] * Telephone Encounter - Joanne Mercado PHARM Tech - 07/02/2023 4:57 PM EDT Pt takes 8 heart medication and is worried about interaction Please call pt back Thank you for your assistance Joanne Mercado [place] [facility] ([facility]) (Formerly [facility]) 07/02/2023,4:57 PM * Telephone Encounter - Kay Pineda RP - 07/02/2023 4:40 PM EDT Pt is coughing; has clear mucus. No fever or body aches. No sinus pressure/congestion. Advised pt to try Mucinex or Robitussin DM. Counseled patient to call back with no improvement or worsening symptoms. Routing to provider FYI as requested by pt. Thank you, Kay Pineda PharmD, [place] Clinical Pharmacist [facility] ([facility] ([facility]) 07/02/23 4:52 PM [phone] * Telephone Encounter - Milvia Shirley CPhT - 07/02/2023 4:37 PM EDT Patient calling to ask what OTC cold medication he can take with Tamsulosin HCl 0.4 MG Oral Capsule(Flomax) Thank you, Milvia Shirley [facility] ([facility]) 07/02/2023 4:38 PM documented in this encounter Plan of Treatment Upcoming Encounters Date Type Department Care Team (Late st Contact Info) Description 12/18/2023 9:20 AM EDT Office Visit Rheumatology [address] [place] [address] Venkatesh Burch MD [address] [place] [address] [place] [id number] 02/12/2024 9:00 AM EDT Nurse Only Ancillary Department, [address] [address] [place], Nurse [facility] [address] [place] [address] Health Maintenance Due Date Last Done Comments Zoster Vaccines (1 of 2) 1988 COVID-19 Vaccine (1 - 2022- season) 2022 Diabetic Eye Exam 02/04/2023 02/04/2022, , 10/08/2021, Additional history exists HbA1c 04/26/2023 10/24/2022, 11/08/2020 Albumin/Creatinine Ratio 05/16/2023 05/16/2022 Depression Screening 02/07/2024 02/06/2023 Diabetic Foot Exam 02/07/2024 02/06/2023 DTaP,Tdap,and Td Vaccines (3 - Td or Tdap) 10/09/2032 10/09/2022, 11/18/2012 Pneumococcal Vaccine: 65+ Years Completed 08/29/2016, 06/06/2006 Influenza Vaccine (FLU shot) Completed , 03/01/2022, 03/01/2022, Additional history exists GARDASIL-HPV IMMUNIZATION SERIES Aged Out No longer eligible based on patient's age to complete this topic Hepatitis B Aged Out No longer eligi ble based on patient's age to complete this topic MENINGOCOCCAL (MENACTRA/MENVEO) Aged Out No longer eligible based on patient's age to complete this topic documented as of this encounter Medical Devices Not on filedocumented as of this encounter Care Teams Storeroom Supervisor Relationship Specialty Start Date End Date Dino Rajan MD [address] [place] [address] PCP - General 06/13/03 documented as of this encounter
[2023-07-04] MEDS: guaiFENesin/CODEINE 100MG/10MG 5ML UDC PO PRN (02:56)
[2023-07-04 07:08] LABS: Hematocrit (blood only) 47.5 % (42.0-52.0); Hemoglobin 16.2 g/dl (14.0-18.0); Mean Corpuscular Hemoglobin 31.5 pg (25.0-34.0); Mean Corpuscular Hgb Conc 34.1 g/dL (32.0-36.0); Mean Corpuscular Volume 92.2 fL (80.0-100.0); Mean Platelet Volume 10.6 fL (9.4-12.4); Platelet Count 126 K/uL (130-400); RDW Coefficient of Variation 13.2 % (11.5-14.5); RDW Standard Deviation 44.5 fL (36.4-46.3); Red Blood Count 5.15 M/uL (4.70-6.10); White Blood Count 5.52 K/ul (4.8-10.8)
[2023-07-04 07:46] LABS: BUN Creatinine Ratio 22.3 (10-20); Calcium 9.1 mg/dl (8.6-10.3); Creatinine Clr Calc Pharmacy 46.9 ml/min; Est GFR (African American) 57.7 ml/min; Est GFR (Non-African American) 49.8 ml/min
[2023-07-04] MEDS: LORATADINE 10 MG TAB PO SCH (08:37)
[2023-07-04] MEDS: POLYETHYLENE (MIRALAX) 17 GM PACK PO PRN (09:11)
--- NOTE | 2023-07-04 10:47 | Hospitalist Progress Note ---
Date of Service July 04, 2023 Assessment & Plan (1) Bronchitis: Plan: 83-year-old male with past medical history significant for type 2 diabetes, hyperlipidemia, diabetic peripheral neuropathy, chronic rhinitis, history of CVA, history of atrial fibrillation, hypertension, history of CHF, CAD s/p stents, BPH, restless leg syndrome, osteoarthritis, low-tension glaucoma bilateral, imbalance, and dizziness comes because of ongoing cough bringing up whitish phlegm for last 2 days and weakness and found to have oxygen sats 88% on room air on presentation. Patient was in the ER the previous day with pinkeye possible viral conjunctivitis and prescribed eyedrops. Represented with worsening cough Cough Possible bronchitis Oxygen sat was reported to be 88% room air Respiratory bio fire negative Chest x-ray did not show acute abnormalities Nebs prn Continue antitussives, doxycycline Bilateral conjunctivitis Improving Continue Visine - A drops History of chronic systolic CHF Echo in July 2022 shows EF of 40% Echo in September 2022 shows EF of 50 to 55% Continue home spironolactone Will monitor History of CAD s/p stents On Plavix, statin, Eliquis, metoprolol succinate Questionable polymyalgia rheumatica Currently rheumatology tapering prednisone Seems to be reducing 1 mg every 2 weeks and currently on 3 mg daily GERD Protonix BPH On dutasteride Patient reported he was on terazosin which had been stopped and currently on flomax Continue flomax Hypertension Metoprolol succinate, terazosin Will monitor Diabetes Hold home p.o. medications Sliding scale Optimal glycemic control inpatient History of atrial fibrillation On metoprolol succinate and Eliquis Will monitor Hyperlipidemia On statin History of CVA On Plavix, Eliquis and statin Imbalance PT OT when stable DVT prophylaxis On Eliquis Disposition Med/tele Full code Get PT/OT I spent a total of 50 minutes coordinating, documenting and providing care for this patient excluding time spent in performance of separately billed services Admission and Anticipated Discharge Date Admission Date: July 03, 2023 Subjective Patient seen and examined. Reports cough is more productive today. Denies any chest pain. Denies any shortness of breath today. Reports right eye is improving. Denies any worsening vision. Denies fevers, chills, nausea, vomiting, abdominal pain, diarrhea Physical Exam Constitutional: + well hydrated; no acute distress Eyes: Right conjunctivitis improving ENMT: external ear and nose normal, oropharynx normal Respiratory: normal respiratory effort; no respiratory distress Improved air movement No wheezing Cardiovascular: Rate/Rhythm: regular rate and regular rhythm S1 S2 Gastrointestinal (Abdomen): normal bowel sounds, soft, nontender, no hepatosplenomegaly Musculoskeletal: No pedal edema Neurologic: PERRL, EOMI, accommodation nl, no face palsy, no dysarthria Psychiatric: A+Ox3, euthymic affect Results & Data Results & Data Vital Signs (Past 12 Hours) Vital Signs Temp Pulse Pulse Resp BP Pulse Ox O2 Del Method 07/04/23 08:00 Room Air 07/04/23 07:44 36.5 C 93 H 16 127/70 93 Room Air 07/04/23 07:32 76 18 92 Room Air 07/04/23 07:23 91 H 07/04/23 04:00 36.5 C 92 H 18 130/74 93 Room Air 07/03/23 23:21 88 07/03/23 23:15 Room Air 07/03/23 23:11 36.8 C 88 16 154/79 H 94 Room Air Laboratory Results Abnormal lab results 07/03/23 07/03/23 07/03/23 Range/Units 17:19 21:05 23:21 Plt Count (130-400) K/uL BUN (6-23) mg/dl BUN/Creatinine Ratio (10-20) POC Glucose 121 H 126 H 114 H (70-99) mg/dl 07/04/23 07/04/23 07/04/23 Range/Units 05:56 08:08 12:07 Plt Count 126 L (130-400) K/uL BUN 29 H (6-23) mg/dl BUN/Creatinine Ratio 22.3 H (10-20) POC Glucose 100 H 105 H (70-99) mg/dl
--- NOTE | 2023-07-05 06:27 | Electrocardiogram Report ---
Test Reason : Blood Pressure : / mmHG Vent. Rate : 095 BPM Atrial Rate : 095 BPM P-R Int : 168 ms QRS Dur : 120 ms QT Int : 342 ms P-R-T Axes : 019 -44 091 degrees QTc Int : 429 ms Normal sinus rhythm Left axis deviation Non-specific intra-ventricular conduction delay Minimal voltage criteria for LVH, may be normal variant Nonspecific T wave abnormality Poor R wave progression, consider anterior OK vs. lead placement vs. LVH Abnormal ECG When compared with ECG of 18-AUG-2022 05:35, T wave inversion no longer evident in Anterior leads Confirmed by Jewel Peters ([id number]) on 07/05/2023 6:27:05 AM Referred By: REFERRED SELF Confirmed By:Jewel Peters
[2023-07-05 06:57] LABS: Hematocrit (blood only) 46.9 % (42.0-52.0); Hemoglobin 16.2 g/dl (14.0-18.0); Mean Corpuscular Hemoglobin 31.2 pg (25.0-34.0); Mean Corpuscular Hgb Conc 34.5 g/dL (32.0-36.0); Mean Corpuscular Volume 90.4 fL (80.0-100.0); Mean Platelet Volume 10.8 fL (9.4-12.4); Platelet Count 143 K/uL (130-400); RDW Coefficient of Variation 12.9 % (11.5-14.5); RDW Standard Deviation 42.8 fL (36.4-46.3); Red Blood Count 5.19 M/uL (4.70-6.10); White Blood Count 5.48 K/ul (4.8-10.8)
[2023-07-05 07:03] LABS: BUN Creatinine Ratio 23.9 (10-20); Calcium 9.1 mg/dl (8.6-10.3); Creatinine Clr Calc Pharmacy 44.2 ml/min; Est GFR (African American) 53.6 ml/min; Est GFR (Non-African American) 46.3 ml/min; Potassium 3.8 mmol/L (3.5-5.1)
--- NOTE | 2023-07-05 16:44 | Discharge Summary ---
Date of Service July 05, 2023 Admission HPI Per Admitting Provider 83-year-old male with past medical history significant for type 2 diabetes, hyperlipidemia, diabetic peripheral neuropathy, chronic rhinitis, history of CVA, history of atrial fibrillation, hypertension, history of CHF, CAD s/p stents, BPH, restless leg syndrome, osteoarthritis, low-tension glaucoma bilateral, imbalance, and dizziness comes because of ongoing cough bringing up whitish phlegm for last 2 days and weakness and found to have oxygen sats 88% on room air on presentation. Patient was in the ER yesterday with pinkeye possible viral conjunctivitis and prescribed eyedrops. Now infection spread to both eyes. Denies any fevers. No chest pain. Does not feel short of breath. But weak and tired. The cough is not getting better. Denies headache. He has chronic runny nose but that got worse last 2 days. Appetite is okay. No nausea. No abdominal pain. Chronically constipated and uses stool softeners. Denies any blood in stools or black stools. Uses medications for his BPH. He has some imbalance while ambulating but that got worse lately. Currently resting comfortably and able to give history.. Son is in the room. Past med history. As mentioned above Past surgical history. Sinus surgery. Status post stent placement. Social history. . Smoked half pack a day for 8 years. Alcohol rarely wine. No drug use. Family history. Father had heart disorder. COPD. Stroke. Mother had thyroid disorder. Son has sleep apnea. Son has AIDS Admission Exam Per Admitting Provider General- Not in acute distress Head- atraumatic Eyes- PERRL.crusting seen on both eyes. ENT- oropharynx clear Neck- supple, no JVD. Lungs- Diminished bilateral breath sounds, No wheezing or crackles. Heart- regular rhythm; no murmur, no gallop. Abdomen- normal bowel sounds, soft, nontender, no distension. Extremities- trace pretibial edema, no erythema seen. Neuro- alert, oriented PERRL, no facial palsy; no dysarthria; moves extremities. Principal Diagnosis Acute bronchitis Viral conjunctivitis Discharge Exam Constitutional + well hydrated; no acute distress Eyes No crusting or redness today ENMT external ear and nose normal, oropharynx normal Respiratory normal respiratory effort; no respiratory distress Cardiovascular Rate/Rhythm: regular rate and regular rhythm S1 S2 Gastrointestinal (Abdomen) normal bowel sounds, soft, nontender, no hepatosplenomegaly Musculoskeletal No pedal edema Neurologic PERRL, EOMI, accommodation nl, no face palsy, no dysarthria Psychiatric A+Ox3, euthymic affect Discharge Data Allergies Allergy/AdvReac Type Severity Reaction Status Date / Time GLO Inhibitors Allergy Severe ANGIOEDEMA/ Verified 07/03/23 01:28 MYLAGIAS lisinopril Allergy Severe ANGIOEDEMA/ Verified 07/03/23 01:28 MYLAGIAS aspirin AdvReac Intermediate DYSPHAGIA/TROUBLE Verified 07/03/23 01:28 STANDING STRAIGHT UP Consultations 07/03/23 04:11 ED Decision to Admit Stat Hospital Course (1) Bronchitis: 83-year-old male with past medical history significant for type 2 diabetes, hyperlipidemia, diabetic peripheral neuropathy, chronic rhinitis, history of CVA, history of atrial fibrillation, hypertension, history of CHF, CAD s/p stents, BPH, restless leg syndrome, osteoarthritis, low-tension glaucoma bilateral, imbalance, and dizziness comes because of ongoing cough bringing up whitish phlegm for last 2 days and weakness and found to have oxygen sats 88% on room air on presentation. Patient was in the ER the previous day with pinkeye possible viral conjunctivitis and prescribed eyedrops. Represented with worsening cough Cough Possible bronchitis Oxygen sat was reported to be 88% room air Respiratory bio fire negative Chest x-ray did not show acute abnormalities Was managed with supportive care Continue antitussives Symptoms improved Did well walking around with RN and maintained ox sats 92% and above on room air Bilateral conjunctivitis Resolved Mild YODIT on presentation Cr was 1.43 on admission Baseline of 1-1.1 Improving. Cr is 1.38 History of chronic systolic CHF Echo in July 2022 shows EF of 40% Echo in September 2022 shows EF of 50 to 55% Continue home spironolactone History of CAD s/p stents On Plavix, statin, Eliquis, metoprolol succinate Questionable polymyalgia rheumatica Currently rheumatology tapering prednisone Seems to be reducing 1 mg every 2 weeks and currently on 3 mg daily GERD Protonix BPH On dutasteride Patient reported he was on terazosin which had been stopped and currently on flomax Continue flomax Hypertension Metoprolol succinate Diabetes Continue home p.o. medications History of atrial fibrillation On metoprolol succinate and Eliquis Hyperlipidemia On statin History of CVA On Plavix, Eliquis and statin I called son and updated him Total Time Total Time Spent Total Time Spent (In Minutes): 40 Total Time Includes: Examination of the Patient, Discharge Planning, Medication Reconciliation and Other Discharge Plan Discharge Items Patient Disposition: Home - Self-Care Reason For Visit: COUGH, BRONCHITIS Discharge Diagnosis: Acute bronchitis Viral conjunctivitis Activity: Resume your previous activity Non-emergency contact: Primary Care Provider Call non-emergency contact if: you have any medication questions and your symptoms worsen Follow-up/Referrals: Dino Rajan MD [Primary Care Provider] - Diet: Heart Healthy Addtl Attending Provider Instructions: Mr Del Valle. You came to the hospital complaining of cough and pink eye. You were managed for these. Your symptoms improved. You are being discharged on a few days of cough medicine. Please continue your home medications as prescribed. Please ensure follow up with your Family Doctor within 1 week. It was a pleasure taking care of you. Pending Studies at Discharge: No Stand-Alone Forms: My [facility], Smoking Cessation Medications and DC Order Prescriptions: New loratadine [Wal-itin] 10 mg Tablet 10 mg PO QAM Qty: 5 0RF guaifenesin [Mucinex] 600 mg Tablet Extended Release 12hr 600 mg PO Q12 Qty: 10 0RF dextromethorphan-guaifenesin 10-100 mg/5 mL liquid 10 ml PO Q6H PRN (Reason: cough) Qty: 500 0RF Continued cholecalciferol (vitamin D3) [Vitamin D3] 50 mcg (2,000 unit) Tablet 50 mcg PO QPM Qty: 0 triamcinolone acetonide 0.1 % cream 1 applic topical DAILY Jardiance 10 mg tablet 10 mg PO DAILY fluticasone propionate [Allergy Relief (fluticasone)] 50 mcg/actuation spray,suspension 2 spray intranasal BID Rx Instructions: administer into each nostril melatonin 10 mg capsule 10 mg PO HS PRN (Reason: Sleep) spironolactone 25 mg tablet 12.5 mg PO DAILY Qty: 30 6RF dutasteride 0.5 mg capsule 0.5 mg PO QAM Qty: 90 3RF desonide 0.05 % ointment 1 applic TOPICAL BID PRN (Reason: Rash) clopidogrel 75 mg Tablet 75 mg PO QAM Qty: 30 0RF atorvastatin 40 mg Tablet 40 mg PO QAM Qty: 30 0RF pantoprazole 40 mg Tablet,Delayed Release (Dr/Ec) 40 mg PO QAM Qty: 30 0RF nystatin 100,000 unit/gram Ointment 1 applic EXT BID Qty: 30 0RF metoprolol succinate 50 mg tablet extended release 24 hr 50 mg PO DAILY Qty: 30 0RF Eliquis 5 mg tablet 5 mg PO BID Qty: 60 0RF tamsulosin 0.4 mg capsule 0.4 mg PO QDL prednisone 1 mg tablet 3 mg PO DAILY Rx Instructions: currently getting tapered off with decreasing by 1mg every 2 weeks. Discharge Orders: Discharge Order (Routine); Ordered 07/05/23 Ordered By: Reyna Gil Admission Data Admit Date/Time: 07/03/23 05:38 Attending Provider: Reyna Gil I. Admit Provider: Benito Paulino Primary Care Provider: Dino Rajan Other Providers: Benito Paulino Other Interventions: Discharge Summary Assessment (RN) Last Done: 07/05/23 12:58
--- NOTE | 2023-07-08 12:50 | Coding Query ---
CODING QUERY To promote full compliance with coding requirements relating to patient care, provider participation is requested in all cases of surgical coder uncertainty. Please assist us with the question(s) below: Please clarify the meaning of YODIT documented on the Discharge Summary. YODIT is not a valid abbreviation. Thank you. ( x ) Acute Kidney Injury ( ) Acute Kidney Insufficiency ( ) Other (Specify): Principal Diagnosis: "that condition established after study, to be chiefly responsible for occasioning the admission of the patient to the hospital for care." Co-Existing Principal Diagnosis: "when two or more diagnoses equally meet the criteria for principal diagnosis as determined by the circumstances of admission, diagnostic work up, and/or therapy provided, and the Alphabetic Index, Tabular List, or another coding guideline does not provide sequencing direction, any one of the diagnoses may be sequenced first." "When the physician has documented what appears to be a current diagnosis in the body of the record, but has not included the diagnosis in the final diagnostic statement, the physician should be asked whether the diagnosis should be added." (Source [facility]oding [facility] 2 QTR90. p3-4) LEAH
== END 2023-07-05 15:41 | disposition home or self-care (01) | DRG 202 ==
LOC: ED 00:56 → EDINP 05:38 → 2N 23:10
DX: E55.9 Vitamin D deficiency, unspecified; Z79.899 Other long term (current) drug therapy; I25.2 Old myocardial infarction; I25.10 Atherosclerotic heart disease of native coronary artery without angina pectoris; Z79.02 Long term (current) use of antithrombotics/antiplatelets; H40.1230 Low-tension glaucoma, bilateral, stage unspecified; N40.0 Benign prostatic hyperplasia without lower urinary tract symptoms; Z79.84 Long term (current) use of oral hypoglycemic drugs; E11.42 Type 2 diabetes mellitus with diabetic polyneuropathy; Z79.52 Long term (current) use of systemic steroids; K21.9 Gastro-esophageal reflux disease without esophagitis; I50.22 Chronic systolic (congestive) heart failure; J20.9 Acute bronchitis, unspecified; M35.3 Polymyalgia rheumatica; M19.90 Unspecified osteoarthritis, unspecified site; E78.5 Hyperlipidemia, unspecified; H10.32 Unspecified acute conjunctivitis, left eye; J31.0 Chronic rhinitis; Z82.49 Family history of ischemic heart disease and other diseases of the circulatory system; Z95.5 Presence of coronary angioplasty implant and graft; I11.0 Hypertensive heart disease with heart failure; Z82.3 Family history of stroke; G25.81 Restless legs syndrome; B30.9 Viral conjunctivitis, unspecified; N17.9 Acute kidney failure, unspecified; J06.9 Acute upper respiratory infection, unspecified; I48.91 Unspecified atrial fibrillation; Z79.01 Long term (current) use of anticoagulants; Z79.51 Long term (current) use of inhaled steroids; R26.89 Other abnormalities of gait and mobility; Z88.8 Allergy status to other drugs, medicaments and biological substances; Z86.73 Personal history of transient ischemic attack (TIA), and cerebral infarction without residual deficits; Z88.6 Allergy status to analgesic agent; I25.5 Ischemic cardiomyopathy

== ENCOUNTER 2025-04-09 20:08 | Inpatient (IN) ==
--- NOTE | 2025-04-09 20:36 | Emergency Department Note ---
Impression & Plan Cellulitis of right leg ED Provider Note HISTORY OF PRESENT ILLNESS: Patient is a 84-year-old male presenting with right leg pain and discoloration. Patient reports that he was seen here recently for an open wound/blister on his right lower extremity. It was drained and he was followed up at the wound center a few days ago. He states that over the last few days he has been having significant excruciating pain in his right lower extremity. He states that he has been changing his bandages more frequently because of increased drainage. He states the pain has increased and the skin surrounding his wound bed is now very red and tender to touch. He denies any fevers or chills. He is currently on Keflex and has been taking that as prescribed. ROS: as above PHYSICAL EXAM: Constitutional: Patient appears in no acute distress. HENT: Head: Normocephalic and atraumatic. Eyes: EOMI, PERRL Mouth/Throat: Mucous membranes moist. Neck: Trachea midline. Neck supple. Musculoskeletal: - RLE: Sizable wound to the right medial posterior leg measuring 19.9 x 8 x 0.2 cm. Noted to have an erythematous base at the center of the wound. Noted to have significant erythema and surrounding swelling that is tender to palpation surrounding the wound base. No palpable crepitus. Skin: Warm and dry. Psychiatric: Appropriate mood and affect for situation. Neurological: Alert and keenly responsive. CN II-XII grossly intact, moving all extremities equally and fully. MDM: - Vitals signs showed hypertension and tachycardia. - History obtained via patient. History as above. - Chronic conditions affecting care: Afib; CAD; HLD; HTN; venous ulcers of bilateral lower extremities - Differential diagnoses include, but are not limited to: Necrotizing fasciitis; cellulitis; abscess; lymphedema; DVT - Order placed for continuous cardiac monitoring. At this time, monitor showed rate of 93 bpm with normal sinus rhythm, per my interpretation. - External medical records reviewed. Wound clinic note dated 04/07/2025 was reviewed. Patient had his right lower extremity wound debrided with scissors and forceps of the loose tissue and slough. He was instructed to continue Keflex. Wound was dressed with Aquacel - EKG image interpreted by myself showed normal sinus rhythm. Rate 79 bpm. QT 354. No acute ischemic changes. - Laboratory workup interpreted by myself showed normal WBC; stable electrolytes; normal troponin; normal AST/ALT; normal lipase; normal procalcitonin - Blood cultures obtained - Xray tib-fib was negative for any free air in the soft tissues, per my interpretation. - Patient given 50 mcg IV fentanyl in ER for pain control - Patient does have evidence of surrounding erythema to the wound bed on his right lower extremity. He is already been on Keflex for the last few days and has developed said cellulitis. Will admit for further IV antibiotic care - Discussion was had with rifle case repairer about patient's case and need for admission - Hospitalist consulted for admission - Patient admitted to [facility] for further evaluation and management. ASSESSMENT AND PLAN: Diagnosis: Right lower extremity cellulitis Plan: Admit Past Med/Surg History Problem List (Updated 04/09/25 @ 22:31 by Payton Lock MD) Cellulitis of right leg (Acute) Chronic venous insufficiency Venous stasis ulcers Blister of right leg (Acute) Chronic vesicular eczema of both hands Venous ulcer of both lower extremities with varicose veins Abnormal ankle brachial index (DARBY) (Acute) Venous ulcer of right leg (Acute) BPH with obstruction/lower urinary tract symptoms Hypoxia (Acute) Bronchitis SOB (shortness of breath) (Acute) Upper respiratory infection (Acute) Lower extremity edema (Acute) Traumatic open wound of right lower leg (Acute) DVT prophylaxis Left sided numbness (Acute) Hypertension (Acute) Impairment of balance (Acute) CVA (cerebral vascular accident) STEMI (ST elevation myocardial infarction) S/P drug eluting coronary stent placement Steroid long-term use ST elevation (STEMI) myocardial infarction (Acute) CAD (coronary artery disease) Dizziness (Acute) Nausea (Acute) Atrial fibrillation with rapid ventricular response (Acute) Elevated troponin level Ischemic cardiomyopathy Incomplete emptying of bladder HLD (hyperlipidemia) BPH (benign prostatic hyperplasia) (Acute) Hypertension (Chronic) Medical History IBS (irritable bowel syndrome) Ischemic cardiomyopathy STEMI (ST elevation myocardial infarction) PCI with 2 MENDEL to LAD History of restless legs syndrome History of vitamin D deficiency History of chronic rhinitis Hx of spinal stenosis Transient ischemic attack (TIA) 05/2021, went to ER; tingling toes/fingertips; resolved.; f/u dr booker, [facility]; no residual effects History of COVID-19 06/2020, pcr test, not hosp; "mild symptoms" begin 11/2021, pcr test [facility]; [place]; "Mild symptoms" Glaucoma Disc herniation pt denies Osteoarthritis Surgical History Hx of cataract extraction rt. 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: No Beliefs That Will Affect Care: None marital status: Unknown Current Living Situation: Family Current Living Situation Comment: LIVES WITH SON BERKLEY HOOVER current occupation: Retired Feels Safe at Home: Yes Diet: ideal protein Diet Comment: Educated to increase protein, patient has meals on wheels during the past year weight has: remained stable Assistive Devices: Cane and Walker Allergies Allergies Allergy/AdvReac Type Severity Reaction Status Date / Time GLO Inhibitors Allergy Severe ANGIOEDEMA/ Verified 04/09/25 22:09 MYLAGIAS lisinopril Allergy Severe ANGIOEDEMA/ Verified 04/09/25 22:09 MYLAGIAS aspirin AdvReac Intermediate DYSPHAGIA/TROUBLE Verified 04/09/25 22:09 STANDING STRAIGHT UP Home Meds Home Medications Medication Instructions Recorded Confirmed empagliflozin 10 mg tablet 10 mg PO QAM 05/15/23 04/09/25 (Jardiance) docusate sodium 100 mg capsule 100 mg PO BID 03/18/24 04/09/25 (Colace) metoprolol succinate 50 mg 50 mg PO QAM 03/18/24 04/09/25 tablet,extended release 24 hr spironolactone 25 mg tablet 12.5 mg PO DAILY 03/18/24 04/09/25 clopidogrel 75 mg tablet 75 mg PO QAM 04/05/24 04/09/25 montelukast 10 mg tablet 10 mg PO DAILY 04/05/24 04/09/25 Previous Rx's Medication Instructions Recorded atorvastatin 40 mg tablet 40 mg PO QAM #30 tabs 08/04/22 pantoprazole 40 mg tablet,delayed 40 mg PO QAM #30 tabs 08/04/22 release apixaban 5 mg tablet (Eliquis) 5 mg PO BID #60 tabs 08/18/22 dutasteride 0.5 mg capsule 0.5 mg PO DAILY #90 caps 10/28/24 tamsulosin 0.4 mg capsule 0.4 mg PO DAILY #90 caps 10/28/24 cephalexin 500 mg capsule 500 mg PO TID 10 days #30 caps 04/05/25 Results & Data (ED) Vital Signs Vital Signs - 24 hr 04/09/25 20:11 04/09/25 20:28 04/09/25 21:03 Temperature 36.5 C Temperature Source Oral Pulse Rate 106 H 99 H Pulse Rate [Apical] 93 H Respiratory Rate 16 16 Respiratory Effort / Characteristics Non-Labored Spontaneous Respiratory Depth Normal Respiratory Pattern Regular Blood Pressure 164/103 H Blood Pressure Mean 123 Pulse Oximetry 96 95 Oxygen Delivery Method Room Air Room Air Sepsis Recent Fever Within 48 Hours No Sepsis New/Unexplained Change in Mental Status No Sepsis Action Taken by Nursing No Action Required 04/09/25 21:03 04/09/25 21:03 Temperature Temperature Source Pulse Rate 93 H Pulse Rate [Apical] Respiratory Rate 16 Respiratory Effort / Characteristics Respiratory Depth Respiratory Pattern Blood Pressure Blood Pressure Mean Pulse Oximetry 95 95 Oxygen Delivery Method Room Air Room Air Sepsis Recent Fever Within 48 Hours Sepsis New/Unexplained Change in Mental Status Sepsis Action Taken by Nursing Laboratory Data 04/09/25 20:54 04/09/25 20:54 Lab Results 04/09/25 Range/Units 20:54 WBC 6.13 (4.8-10.8) K/ul RBC 4.73 (4.70-6.10) M/uL Hgb 15.2 (14.0-18.0) g/dL Hct 44.4 (42.0-52.0) % MCV 93.9 (80.0-100.0) fL MCH 32.1 (25.0-34.0) pg MCHC 34.2 (32.0-36.0) g/dL RDW Std Deviation 46.2 (36.4-46.3) fL RDW Coeff of Efren 13.2 (11.5-14.5) % Plt Count 137 (130-400) K/uL MPV 10.0 (9.4-12.4) fL Immature Gran % (Auto) 0.5 % Neut % (Auto) 58.6 % Lymph % (Auto) 19.1 % [place] % (Auto) 13.9 % Eos % (Auto) 6.9 % Baso % (Auto) 1.0 % Neut # (Auto) 3.60 (1.40-6.50) K/uL Lymph # (Auto) 1.17 L (1.20-3.40) K/uL [place] # (Auto) 0.85 H (0.11-0.59) K/uL Eos # (Auto) 0.42 (0.00-0.50) K/uL Baso # (Auto) 0.06 (0.00-0.20) K/uL Immature Gran # (Auto) 0.03 (0.01-0.20) K/uL Sodium 140 (136-145) mmol/L Potassium 4.2 (3.5-5.1) mmol/L Chloride 109 H (98-107) mmol/L Carbon Dioxide 25 (21-32) mmol/L Anion Gap 6 (3-11) BUN 28 H (6-23) mg/dl Creatinine 1.04 (0.6-1.4) mg/dl Est Cr Clr Drug Dosing Not Reportable eGFR 69.93 BUN/Creatinine Ratio 26.9 H (10-20) Glucose 121 H (70-99(Fasting)) mg/dl Lactate 1.1 (0.4-2.0) mmol/L Calcium 9.7 (8.6-10.3) mg/dl Magnesium 2.2 (1.7-2.4) mg/dl Total Bilirubin 0.5 (0.2-1.0) mg/dl AST 29 (13-39) U/L ALT 31 (7-52) U/L Alkaline Phosphatase 83 (34-104) U/L Troponin I High Sens 9.3 (0-20) pg/ml Total Protein 6.8 (6.0-8.3) gm/dl Albumin 3.8 (3.4-5.0) gm/dl Globulin 3.0 (2.5-4.0) gm/dl Albumin/Globulin Ratio 1.3 (0.9-2) Procalcitonin 0.06 (0-0.5) ng/ml Administered Medications Discontinued Medications Fentanyl Citrate (Fentanyl Citrate Pf 100 Mcg/2 Ml Vial) 50 mcg IV NOW STA Stop: 04/09/25 20:34 Last Admin: 04/09/25 21:28 Dose: 50 mcg Documented By: KISHA Cefazolin Sodium (Ancef 2000mg) 2,000 mg in 15 mls @ 3.75 mls/min IV NOW STA Stop: 04/09/25 21:51 Last Admin: 04/09/25 22:26 Dose: Not Given Documented By: KISHA Discharge Plan Visit Data Chief Complaint: Wound Stated Complaint: OPEN WOUND, INCREASED PAIN, ON BT ED Provider: Payton Lock Discharge Problem: Cellulitis of right leg Patient Disposition: Admitted As Inpatient Condition: Fair Forms Stand Alone Forms: [facility] Prescriptions Prescriptions: No Action Jardiance 10 mg tablet 10 mg PO QAM dutasteride 0.5 mg capsule 0.5 mg PO DAILY Qty: 90 3RF tamsulosin 0.4 mg capsule 0.4 mg PO DAILY Qty: 90 3RF atorvastatin 40 mg Tablet 40 mg PO QAM Qty: 30 0RF pantoprazole 40 mg Tablet,Delayed Release (Dr/Ec) 40 mg PO QAM Qty: 30 0RF Eliquis 5 mg tablet 5 mg PO BID Qty: 60 0RF spironolactone 25 mg tablet 12.5 mg PO DAILY docusate sodium [Colace] 100 mg Capsule 100 mg PO BID metoprolol succinate 50 mg tablet extended release 24 hr 50 mg PO QAM clopidogrel 75 mg tablet 75 mg PO QAM Rx Instructions: Pt states on their med list, but showing last filled 10/2023 x90 day supply montelukast 10 mg tablet 10 mg PO DAILY Rx Instructions: Pt states on their med list, but showing last filled 10/2023 x90 day supply cephalexin 500 mg capsule 500 mg PO TID 10 Days Qty: 30 0RF Referrals Referrals: Dino Rajan MD [Primary Care Provider] -
[2025-04-09 21:18] LABS: Hematocrit (blood only) 44.4 % (42.0-52.0); Hemoglobin 15.2 g/dL (14.0-18.0); Immature Granulocytes # (auto) 0.03 K/uL (0.01-0.20); Immature Granulocytes % (auto) 0.5 %; Mean Corpuscular Hemoglobin 32.1 pg (25.0-34.0); Mean Corpuscular Volume 93.9 fL (80.0-100.0); Platelet Count 137 K/uL (130-400); RDW Standard Deviation 46.2 fL (36.4-46.3); Red Blood Count 4.73 M/uL (4.70-6.10); White Blood Count 6.13 K/ul (4.8-10.8)
[2025-04-09 21:36] LABS: Alanine Aminotransferase 31 U/L (7-52); Albumin Globulin Ratio 1.3 (0.9-2); Albumin Level 3.8 gm/dl (3.4-5.0); Alkaline Phosphatase 83 U/L (34-104); Anion Gap 6 (3-11); Bilirubin,Total 0.5 mg/dl (0.2-1.0); Blood Urea Nitrogen 28 mg/dl (6-23); Calcium 9.7 mg/dl (8.6-10.3); Carbon Dioxide 25 mmol/L (21-32); Chloride 109 mmol/L (98-107); Globulin 3.0 gm/dl (2.5-4.0); Glucose 121 mg/dl (70-99(Fasting)); Magnesium 2.2 mg/dl (1.7-2.4); Potassium 4.2 mmol/L (3.5-5.1); Sodium 140 mmol/L (136-145); Total Protein 6.8 gm/dl (6.0-8.3)
[2025-04-09 22:30] LABS: INR 1.1 (0.9-1.1); Partial Thromboplastin Time 34 Seconds (21-31); Prothrombin Time 11.1 Seconds (9.0-12.0)
--- NOTE | 2025-04-09 23:28 | History & Physical Report ---
Date of Service April 09, 2025 Assessment & Plan (1) Cellulitis of right leg: Plan: 84-year-old male with past medical history significant for type 2 diabetes, hyperlipidemia, diabetic peripheral neuropathy, diabetic dermatitis, atrial fibrillation, hypertension, chronic systolic CHF, irritable bowel syndrome, BPH, osteoarthritis, restless leg syndrome, mild stage bilateral glaucoma, polyneuropathy, history of CVA, CAD s/p stent, who lives at home with his son and ambulates with a cane and walker comes because of right lower extremity wound and cellulitis. Patient was in the ER on 04/05/2025 for right leg blister. Blister drained in the ER and dressing was placed and discharged on Keflex. Patient followed with wound care on 04/07/2025 advised to complete antibiotic course of Keflex and was dressed with Aquacel Ag changed on daily basis. But today patient was having severe pain putting any weight on the right leg and the redness in the leg seem to be progressing downwards which prompted the son to bring the patient to the hospital. Denies any fevers. Hemodynamics are okay. Denies any chest pain or shortness of breath. No cough. No headache. No runny nose or sore throat. No nausea. No abdominal pain. Normal bowel and bladder movements. Cellulitis of right leg Initially started as blister Blister was drained in the ER on 04/05/2025 Currently has a superficial wound on the right lower leg medial aspect Having pain and erythematous changes Empiric IV cefazolin Pain control Consult ID and wound care Close monitor Chronic systolic CHF Echo on 09/17/2024 shows EF of 45 to 50% On Aldactone and metoprolol succinate Monitor for volume overload History of CAD status post 2 drug-eluting stents to LAD On Plavix, statin and beta-michelle BPH On dutasteride and Flomax Will monitor Diabetes Continue Jardiance Sliding scale Will monitor History of A-fib Metoprolol succinate and Eliquis History of TIA/CVA On Plavix and Eliquis and statin Hypertension On metoprolol succinate, Aldactone Will monitor Hyperlipidemia On statin DVT prophylaxis On Eliquis Disposition Medical floor Full code. History of Present Illness Chief Complaint: Right leg wound and cellulitis Primary Care Provider: Dino Rajan MD 84-year-old male with past medical history significant for type 2 diabetes, hyperlipidemia, diabetic peripheral neuropathy, diabetic dermatitis, atrial fibrillation, hypertension, chronic systolic CHF, irritable bowel syndrome, BPH, osteoarthritis, restless leg syndrome, mild stage bilateral glaucoma, polyneuropathy, history of CVA, CAD s/p stent, who lives at home with his son and ambulates with a cane and walker comes because of right lower extremity wound and cellulitis. Patient was in the ER on 04/05/2025 for right leg blister. Blister drained in the ER and dressing was placed and discharged on Keflex. Patient followed with wound care on 04/07/2025 advised to complete antibiotic course of Keflex and was dressed with Aquacel Ag changed on daily basis. But today patient was having severe pain putting any weight on the right leg and the redness in the leg seem to be progressing downwards which prompted the son to bring the patient to the hospital. Denies any fevers. Hemodynamics are okay. Denies any chest pain or shortness of breath. No cough. No headache. No runny nose or sore throat. No nausea. No abdominal pain. Normal bowel and bladder movements. Past medical history. As mentioned above. Past surgical history. Inguinal hernia x 2, m umbilical hernia. Sinus surgery. Social history. Lives with son. No smoking. Alcohol rare wine. No drug use. Family history. Father had heart disorder. Hypertension. Stroke. Son has COPD. Sleep apnea.Son has AIDS per epic Allergies Allergy/AdvReac Type Severity Reaction Status Date / Time GLO Inhibitors Allergy Severe ANGIOEDEMA/ Verified 04/09/25 22:09 MYLAGIAS lisinopril Allergy Severe ANGIOEDEMA/ Verified 04/09/25 22:09 MYLAGIAS aspirin AdvReac Intermediate DYSPHAGIA/TROUBLE Verified 04/09/25 22:09 STANDING STRAIGHT UP Home Medications Medication Instructions Recorded Confirmed Type atorvastatin 40 mg tablet 40 mg PO QAM #30 tabs 08/04/22 04/09/25 Rx pantoprazole 40 mg tablet,delayed 40 mg PO QAM #30 tabs 08/04/22 04/09/25 Rx release apixaban 5 mg tablet (Eliquis) 5 mg PO BID #60 tabs 08/18/22 04/09/25 Rx empagliflozin 10 mg tablet 10 mg PO QAM 05/15/23 04/09/25 History (Jardiance) docusate sodium 100 mg capsule 100 mg PO BID 03/18/24 04/09/25 History (Colace) metoprolol succinate 50 mg 50 mg PO QAM 03/18/24 04/09/25 History tablet,extended release 24 hr spironolactone 25 mg tablet 12.5 mg PO DAILY 03/18/24 04/09/25 History clopidogrel 75 mg tablet 75 mg PO QAM 04/05/24 04/09/25 History montelukast 10 mg tablet 10 mg PO DAILY 04/05/24 04/09/25 History dutasteride 0.5 mg capsule 0.5 mg PO DAILY #90 caps 10/28/24 04/09/25 Rx tamsulosin 0.4 mg capsule 0.4 mg PO DAILY #90 caps 10/28/24 04/09/25 Rx cephalexin 500 mg capsule 500 mg PO TID 10 days #30 caps 04/05/25 04/09/25 Rx Past Med/Surg History Problem List (Updated 04/09/25 @ 22:31 by Payton Lock MD) Cellulitis of right leg (Acute) Chronic venous insufficiency Venous stasis ulcers Blister of right leg (Acute) Chronic vesicular eczema of both hands Venous ulcer of both lower extremities with varicose veins Abnormal ankle brachial index (DARBY) (Acute) Venous ulcer of right leg (Acute) BPH with obstruction/lower urinary tract symptoms Hypoxia (Acute) Bronchitis SOB (shortness of breath) (Acute) Upper respiratory infection (Acute) Lower extremity edema (Acute) Traumatic open wound of right lower leg (Acute) DVT prophylaxis Left sided numbness (Acute) Hypertension (Acute) Impairment of balance (Acute) CVA (cerebral vascular accident) STEMI (ST elevation myocardial infarction) S/P drug eluting coronary stent placement Steroid long-term use ST elevation (STEMI) myocardial infarction (Acute) CAD (coronary artery disease) Dizziness (Acute) Nausea (Acute) Atrial fibrillation with rapid ventricular response (Acute) Elevated troponin level Ischemic cardiomyopathy Incomplete emptying of bladder HLD (hyperlipidemia) BPH (benign prostatic hyperplasia) (Acute) Hypertension (Chronic) Medical History IBS (irritable bowel syndrome) Ischemic cardiomyopathy STEMI (ST elevation myocardial infarction) PCI with 2 MENDEL to LAD History of restless legs syndrome History of vitamin D deficiency History of chronic rhinitis Hx of spinal stenosis Transient ischemic attack (TIA) 05/2021, went to ER; tingling toes/fingertips; resolved.; f/u dr booker, [facility] [place]; no residual effects History of COVID-19 06/2020, pcr test, not hosp; "mild symptoms" begin 11/2021, pcr test s; paxlovid tx; "Mild symptoms" Glaucoma Disc herniation pt denies Osteoarthritis Surgical History Hx of cataract extraction rt. Hx of tooth extraction H/O hernia repair Family History Father Hypertension Mother Stroke Social History (Updated 04/07/25 @ 09:14 by Madai Salgado, TONI) Smoking Status: Never smoker Tobacco Type: Cigarettes Second Hand Exposure: Yes; Do You Dip or Chew Tobacco: No; Hx Alcohol Use: Yes Alcohol type: wine Alcohol Intake Frequency: Monthly or Less Hx Substance Use: No Preferred Language: Malian Communication Ability: Effective Visual Impairment: Limited Hearing Ability: Normal Safety Sitter Required: No Beliefs That Will Affect Care: None marital status: Unknown Current Living Situation: Family Current Living Situation Comment: lives with Son, Tien. current occupation: Retired Other Information That Helps Us Care for You: No Feels Safe at Home: Yes Safety Concerns: Feels Safe At This Time Diet: ideal protein Diet Comment: Educated to increase protein, patient has meals on wheels during the past year weight has: remained stable Assistive Devices: Cane Review of Systems Review of Systems: All systems reviewed & are unremarkable except as noted in HPI & below Physical Exam Physical Exam: General-Not in distress Head- atraumatic Eyes- PERRL. ENT- oropharynx clear Neck- supple, no JVD. Lungs- clear to auscultation no wheezing or crackles Heart- regular rhythm; no murmur, no gallop. Abdomen- normal bowel sounds, soft, nontender, no distension Extremities- right lower leg superficial wound seen on medial aspect with surrounding erythematous changes. Neuro- alert, oriented PERRL, no facial palsy; no dysarthria; moves extremities Results & Data Results & Data Vital Signs (Past 12 Hours) Vital Signs Temp Pulse Pulse Resp BP BP Pulse Ox 04/09/25 23:00 94 H 16 166/93 H 97 04/09/25 21:03 93 H 16 95 04/09/25 21:03 95 04/09/25 21:03 93 H 16 95 04/09/25 20:28 99 H 04/09/25 20:11 36.5 C 106 H 16 164/103 H 96 O2 Del Method 04/09/25 23:00 Room Air 04/09/25 21:03 Room Air 04/09/25 21:03 Room Air 04/09/25 21:03 Room Air 04/09/25 20:28 04/09/25 20:11 Room Air Diagnostic Findings Laboratory Results WBC 6.13 K/ul (4.8-10.8) 04/09/25 20:54 RBC 4.73 M/uL (4.70-6.10) 04/09/25 20:54 Hgb 15.2 g/dL (14.0-18.0) 04/09/25 20:54 Hct 44.4 % (42.0-52.0) 04/09/25 20:54 MCV 93.9 fL (80.0-100.0) 04/09/25 20:54 MCH 32.1 pg (25.0-34.0) 04/09/25 20:54 MCHC 34.2 g/dL (32.0-36.0) 04/09/25 20:54 RDW Std Deviation 46.2 fL (36.4-46.3) 04/09/25 20:54 RDW Coeff of Efren 13.2 % (11.5-14.5) 04/09/25 20:54 Plt Count 137 K/uL (130-400) 04/09/25 20:54 MPV 10.0 fL (9.4-12.4) 04/09/25 20:54 Immature Gran % (Auto) 0.5 % 04/09/25 20:54 Neut % (Auto) 58.6 % 04/09/25 20:54 Lymph % (Auto) 19.1 % 04/09/25 20:54 [place] % (Auto) 13.9 % 04/09/25 20:54 Eos % (Auto) 6.9 % 04/09/25 20:54 Baso % (Auto) 1.0 % 04/09/25 20:54 Neut # (Auto) 3.60 K/uL (1.40-6.50) 04/09/25 20:54 Lymph # (Auto) 1.17 K/uL (1.20-3.40) L 04/09/25 20:54 [place] # (Auto) 0.85 K/uL (0.11-0.59) H 04/09/25 20:54 Eos # (Auto) 0.42 K/uL (0.00-0.50) 04/09/25 20:54 Baso # (Auto) 0.06 K/uL (0.00-0.20) 04/09/25:54 Immature Gran # (Auto) 0.03 K/uL (0.01-0.20) 04/09/25 20:54 PT 11.1 Seconds (9.0-12.0) 04/09/25:54 INR 1.1 (0.9-1.1) 04/09/25: APTT 34 Seconds (21-31) H 04/09/25 20:54 PTT Ratio 1.3 04/09/25 20:54 Sodium 140 mmol/L (136-145) 04/09/25:54 Potassium 4.2 mmol/L (3.5-5.1) 04/09/25:54 Chloride 109 mmol/L (98-107) H 04/09/25:54 Carbon Dioxide 25 mmol/L (21-32) 04/09/25 20:54 Anion Gap 6 (3-11) 04/09/25 20:54 BUN 28 mg/dl (6-23) H 04/09/25 20:54 Creatinine 1.04 mg/dl (0.6-1.4) 04/09/25 20:54 Est Cr Clr Drug Dosing Not Reportable 04/09/25 20:54 eGFR 69.93 04/09/25 20:54 BUN/Creatinine Ratio 26.9 (10-20) H 04/09/25 20:54 Glucose 121 mg/dl (70-99(Fasting)) H 04/09/25 20:54 Lactate 1.1 mmol/L (0.4-2.0) 04/09/25 20:54 Calcium 9.7 mg/dl (8.6-10.3) 04/09/25 20: Magnesium 2.2 mg/dl (1.7-2.4) 04/09/25 20:54 Total Bilirubin 0.5 mg/dl (0.2-1.0) 04/09/25 20:54 AST 29 U/L (13-39) 04/09/25 20:54 ALT 31 U/L (7-52) 04/09/25 20:54 Alkaline Phosphatase 83 U/L (34-104) 04/09/25 20:54 Troponin I High Sens 9.3 pg/ml (0-20) 04/09/25 20:54 Total Protein 6.8 gm/dl (6.0-8.3) 04/09/25 20:54 Albumin 3.8 gm/dl (3.4-5.0) 04/09/25 20:54 Globulin 3.0 gm/dl (2.5-4.0) 04/09/25 20:54 Albumin/Globulin Ratio 1.3 (0.9-2) 04/09/25 20:54 Procalcitonin 0.06 ng/ml (0-0.5) 04/09/25 20:54 ECG Additional Comments: ECG. Normal sinus rhythm disorder. Nonspecific T wave abnormalities. QTc 405 Code Status & VTE Plan VTE Prophylaxis Plan VTE Prophylaxis will be ordered: Yes
--- NOTE | 2025-04-09 23:44 | XRay Report ---
Exam(s): XR RIGHT TIB/FIB, 2 views EXAM: XR Right Tibia and Fibula, 2 Views CLINICAL HISTORY: Reason for exam: R leg wound; r/o free air. TECHNIQUE: Frontal and lateral views of the right tibia and fibula. COMPARISON: No relevant prior studies available. FINDINGS: Bones/joints: Advanced degenerative arthropathy in the knee with loss of joint space most pronounced in the medial knee compartment. No acute fracture. No dislocation. Soft tissues: Soft tissue irregularity along the medial aspect of the lower calf. No foreign body or soft tissue air. IMPRESSION: Soft tissue irregularity along the medial aspect of the lower calf. No foreign body or soft tissue air. Electronically signed by: Vicente Ward MD 04/09/25 23:43 PM
--- NOTE | 2025-04-10 00:20 | CT Scan Report ---
Exam(s): CT EXTREMITY RIGHT LOWER Without Contrast EXAM: CT Right Lower Extremity Without Intravenous Contrast CLINICAL HISTORY: Reason for exam: right leg wound and pain. TECHNIQUE: Axial computed tomography images of the right lower extremity without intravenous contrast. CTDI is 6.03 mGy and DLP is 328.16 mGy-cm. Automated exposure control was utilized for the study. A dose lowering technique was utilized adhering to the principles of ALARA. COMPARISON: No relevant prior studies available. FINDINGS: Bones/joints: Advanced degenerative arthropathy and on the compartments. No fracture, dislocation or acute bone abnormality. Soft tissues: Marked diffuse fatty atrophy of the posterior calf musculature. No significant defect is seen in the skin or underlying soft tissues. No soft tissue air or foreign body. IMPRESSION: No soft tissue air or foreign body. No acute bone abnormality. Electronically signed by: Vicente Ward MD 04/10/25 00:19 AM
[2025-04-10] MEDS ORDERED: CARBOHYDRATES FOR HYPOGLYCEMIA PO PRN (01:22)
[2025-04-10] MEDS ORDERED: GLUCOSE 10 TAB/TUBE PO PRN (01:22)
[2025-04-10] MEDS ORDERED: GLUCOSE 40% GEL 15 GM TUBE PO PRN (01:22)
[2025-04-10] MEDS ORDERED: GLUCAGON FOR INJ 1 MG VIAL SQ PRN (01:22)
[2025-04-10] MEDS ORDERED: DEXTROSE 50% 50 ML SYRINGE IV PRN (01:22)
[2025-04-10 01:36] LABS: Appearance Urine Clear (Clear); Glucose Urine UA 3+ (Negative)
[2025-04-10] MEDS: diphenhydrAMINE 2%/ZINC 0.1% CREAM 28.4GM TUBE EXT PRN (05:07)
[2025-04-10 06:07] LABS: Hematocrit (blood only) 42.5 % (42.0-52.0); Hemoglobin 14.4 g/dL (14.0-18.0); Immature Granulocytes # (auto) 0.02 K/uL (0.01-0.20); Immature Granulocytes % (auto) 0.4 %; Mean Corpuscular Hemoglobin 31.9 pg (25.0-34.0); Mean Corpuscular Volume 94.2 fL (80.0-100.0); Platelet Count 135 K/uL (130-400); RDW Standard Deviation 46.3 fL (36.4-46.3); Red Blood Count 4.51 M/uL (4.70-6.10); White Blood Count 5.62 K/ul (4.8-10.8)
[2025-04-10 06:20] LABS: Anion Gap 7.0 (3-11); Blood Urea Nitrogen 24.0 mg/dl (6-23); Calcium 9.1 mg/dl (8.6-10.3); Carbon Dioxide 25.0 mmol/L (21-32); Chloride 108.0 mmol/L (98-107); Creatinine Clr Calc Pharmacy 61.7 ml/min; Glucose 107.0 mg/dl (70-99(Fasting)); Magnesium 2.1 mg/dl (1.7-2.4); Potassium 3.9 mmol/L (3.5-5.1); Sodium 140.0 mmol/L (136-145)
[2025-04-10] MEDS: INSULIN ASPART PER UNIT CHARGE SC SCH (07:29)
[2025-04-10 07:44] LABS: Hemoglobin A1C 5.8 % (4.5-5.6)
[2025-04-10] MEDS: FINASTERIDE 5 MG TAB PO SCH (08:25)
[2025-04-10] MEDS: SPIRONOLACTONE 12.5 MG TAB PO SCH (08:25)
[2025-04-10] MEDS: ATORVASTATIN 40 MG TAB PO SCH (08:26)
[2025-04-10] MEDS: TAMSULOSIN HCL 0.4 MG CAP PO SCH (08:26)
[2025-04-10] MEDS: METOPROLOL SUCC 50MG EXT REL TAB PO SCH (08:26)
[2025-04-10] MEDS: CLOPIDOGREL BISULFATE 75 MG TAB PO SCH (08:26)
[2025-04-10] MEDS: MONTELUKAST SODIUM 10 MG TABLET PO SCH (08:27)
[2025-04-10] MEDS: DOCUSATE SODIUM 100 MG CAP PO SCH (08:27)
[2025-04-10] MEDS: EMPAGLIFLOZIN 10 MG TAB PO SCH (08:27)
[2025-04-10] MEDS: APIXABAN 5 MG TABLET PO SCH (08:27)
--- NOTE | 2025-04-10 09:46 | Electrocardiogram Report ---
Test Reason : Blood Pressure : */* mmHG Vent. Rate : 79 BPM Atrial Rate : 79 BPM P-R Int : 182 ms QRS Dur : 104 ms QT Int : 354 ms P-R-T Axes : 12 -22 89 degrees QTcB Int : 405 ms Normal sinus rhythm Nonspecific T wave abnormality Abnormal ECG When compared with ECG of 12-Dec-2024 05:23, Nonspecific T wave abnormality now evident in Anterior leads Confirmed by Raza Paiz ([id number]) on 04/10/2025 9:46:16 AM Referred By: REFERRED SELF Confirmed By: Raza Paiz
--- NOTE | 2025-04-10 12:29 | Hospitalist Progress Note ---
Date of Service April 10, 2025 Assessment & Plan (1) Cellulitis of right leg: Plan: 84-year-old male with past medical history significant for type 2 diabetes, hyperlipidemia, diabetic peripheral neuropathy, diabetic dermatitis, atrial fibrillation, hypertension, chronic systolic CHF, irritable bowel syndrome, BPH, osteoarthritis, restless leg syndrome, mild stage bilateral glaucoma, polyneuropathy, history of CVA, CAD s/p stent, who lives at home with his son and ambulates with a cane and walker comes because of right lower extremity wound and cellulitis. Patient was in the ER on 04/05/2025 for right leg blister. Blister drained in the ER and dressing was placed and discharged on Keflex. Patient followed with wound care on 04/07/2025 advised to complete antibiotic course of Keflex and was dressed with Aquacel Ag changed on daily basis. On the day of admission, patient was having severe pain putting any weight on the right leg and the redness in the leg seem to be progressing downwards which prompted the son to bring the patient to the hospital. Denies any fevers. Hemodynamics are okay. Denies any chest pain or shortness of breath. No cough. No headache. No runny nose or sore throat. No nausea. No abdominal pain. Normal bowel and bladder movements. Cellulitis of right leg Initially started as blister Blister was drained in the ER on 04/05/2025 Currently has a superficial wound on the right lower leg medial aspect Having pain and erythematous changes Continue IV cefazolin wound care consult Chronic systolic CHF Echo on 09/17/2024 shows EF of 45 to 50% On Aldactone and metoprolol succinate Monitor for volume overload History of CAD status post 2 drug-eluting stents to LAD On Plavix, statin and [id number]-[id number] BPH On dutasteride and Flomax Will monitor Diabetes Continue Jardiance Sliding scale Will monitor History of A-fib Metoprolol succinate and Eliquis-conitnue History of TIA/CVA On Plavix and Eliquis and statin-continue Hypertension On metoprolol succinate, Aldactone-continue Will monitor Hyperlipidemia On statin-continue DVT prophylaxis On Eliquis Disposition Medical floor Full code. Please note the above document was generated using voice recognition software. It may contain grammatical, syntax or spelling errors. Any formal questions or concerns about the content, text or information contained within the body of this dictation should be directly addressed to the provider for clarification Admission and Anticipated Discharge Date Admission Date: April 09, 2025 Subjective Patient seen and examined at bedside. He reports some pain in his ankle. No fever or chills. No significant events overnight Review of Systems Review of Systems: All systems reviewed & are unremarkable except as noted in Subjective Physical Exam Physical Exam: General-Not in distress Head- atraumatic Eyes- PERRL. ENT- oropharynx clear Neck- supple, no JVD. Lungs- clear to auscultation no wheezing or crackles Heart- regular rhythm; no murmur, no gallop. Abdomen- normal bowel sounds, soft, nontender, no distension Extremities- right lower leg superficial wound seen on medial aspect with mild erythematous changes. Neuro- alert, oriented PERRL, no facial palsy; no dysarthria; moves extremities Results & Data Results & Data Vital Signs (Past 12 Hours) Vital Signs Temp Pulse Pulse Resp BP BP Pulse Ox 04/10/25 08:30 96 H 149/79 H 04/10/25 07:45 04/10/25 07:26 36.7 C 91 H 18 110/60 95 04/10/25 04:41 150/76 H 04/10/25 01:10 36.3 C L 91 H 18 160/79 H 95 04/10/25 01:01 87 16 143/78 H 95 04/10/25 00:32 84 O2 Del Method 04/10/25 08:30 04/10/25 07:45 Room Air 04/10/25 07:26 Room Air 04/10/25 04:41 04/10/25 01:10 Room Air 04/10/25 01:01 Room Air 04/10/25 00:32
[2025-04-10] MEDS ORDERED: ACETAMINOPHEN 1,000 MG/100 ML VIAL IV PRN (18:22)
[2025-04-10] MEDS: ACETAMINOPHEN 1,000 MG/100 ML VIAL IV STA (18:35)
[2025-04-10] MEDS: MELATONIN 3 MG TAB PO PRN (21:21)
[2025-04-10] MEDS: ACETAMINOPHEN 325 MG TAB PO PRN (22:54)
--- NOTE | 2025-04-11 13:03 | Hospitalist Progress Note ---
Date of Service April 11, 2025 Assessment & Plan (1) Cellulitis of right leg: Plan: 84-year-old male with past medical history significant for type 2 diabetes, hyperlipidemia, diabetic peripheral neuropathy, diabetic dermatitis, atrial fibrillation, hypertension, chronic systolic CHF, irritable bowel syndrome, BPH, osteoarthritis, restless leg syndrome, mild stage bilateral glaucoma, polyneuropathy, history of CVA, CAD s/p stent, who lives at home with his son and ambulates with a cane and walker comes because of right lower extremity wound and cellulitis. Patient was in the ER on 04/05/2025 for right leg blister. Blister drained in the ER and dressing was placed and discharged on Keflex. Patient followed with wound care on 04/07/2025 advised to complete antibiotic course of Keflex and was dressed with Aquacel Ag changed on daily basis. On the day of admission, patient was having severe pain putting any weight on the right leg and the redness in the leg seem to be progressing downwards which prompted the son to bring the patient to the hospital. Denies any fevers. Hemodynamics are okay. Denies any chest pain or shortness of breath. No cough. No headache. No runny nose or sore throat. No nausea. No abdominal pain. Normal bowel and bladder movements. Cellulitis of right leg Initially started as blister Blister was drained in the ER on 04/05/2025 Currently has a superficial wound on the right lower leg medial aspect; Having pain and erythematous changes Continue IV cefazolin; plan to treat for total of 7 days. wound care consult Patient request PT OT evaluation as he lives alone and has significant discomfort while moving. May need rehab versus home health Chronic systolic CHF Echo on 09/17/2024 shows EF of 45 to 50% On Aldactone and metoprolol succinate Monitor for volume overload History of CAD status post 2 drug-eluting stents to LAD On Plavix, statin and tdut-kabibrn-mmopadvi BPH On dutasteride and Flomax Will monitor Diabetes Continue Jardiance Sliding scale Will monitor History of A-fib Metoprolol succinate and Eliquis-conitnue History of TIA/CVA On Plavix and Eliquis and statin-continue Hypertension On metoprolol succinate, Aldactone-continue Will monitor Hyperlipidemia On statin-continue DVT prophylaxis On Eliquis Disposition Medical floor Full code. Please note the above document was generated using voice recognition software. It may contain grammatical, syntax or spelling errors. Any formal questions or concerns about the content, text or information contained within the body of this dictation should be directly addressed to the provider for clarification Admission and Anticipated Discharge Date Admission Date: April 09, 2025 Subjective Patient seen and examined at bedside. He is comfortable lying on the bed; reports the pain was well-controlled last night after he received oxycodone. Review of Systems Review of Systems: All systems reviewed & are unremarkable except as noted in Subjective Physical Exam Physical Exam: General-Not in distress Head- atraumatic Eyes- PERRL. ENT- oropharynx clear Neck- supple, no JVD. Lungs- clear to auscultation no wheezing or crackles Heart- regular rhythm; no murmur, no gallop. Abdomen- normal bowel sounds, soft, nontender, no distension Extremities- right lower leg superficial wound seen on medial aspect with mild erythematous changes. Neuro- alert, oriented PERRL, no facial palsy; no dysarthria; moves extremities Results & Data Results & Data Vital Signs (Past 12 Hours) Vital Signs Temp Pulse Resp BP Pulse Ox O2 Del Method 04/11/25 12:13 36.3 C L 68 16 116/72 95 Room Air 04/11/25 08:01 36.7 C 66 18 115/67 94 Room Air
--- NOTE | 2025-04-12 16:12 | Hospitalist Progress Note ---
Date of Service April 12, 2025 Assessment & Plan (1) Cellulitis of right leg: Plan: 84-year-old male with past medical history significant for type 2 diabetes, hyperlipidemia, diabetic peripheral neuropathy, diabetic dermatitis, atrial fibrillation, hypertension, chronic systolic CHF, irritable bowel syndrome, BPH, osteoarthritis, restless leg syndrome, mild stage bilateral glaucoma, polyneuropathy, history of CVA, CAD s/p stent, who lives at home with his son and ambulates with a cane and walker comes because of right lower extremity wound and cellulitis. Patient was in the ER on 04/05/2025 for right leg blister. Blister drained in the ER and dressing was placed and discharged on Keflex. Patient followed with wound care on 04/07/2025 advised to complete antibiotic course of Keflex and was dressed with Aquacel Ag changed on daily basis. On the day of admission, patient was having severe pain putting any weight on the right leg and the redness in the leg seem to be progressing downwards which prompted the son to bring the patient to the hospital. Denies any fevers. Hemodynamics are okay. Denies any chest pain or shortness of breath. No cough. No headache. No runny nose or sore throat. No nausea. No abdominal pain. Normal bowel and bladder movements. Cellulitis of right leg Initially started as blister Blister was drained in the ER on 04/05/2025 Currently has a superficial wound on the right lower leg medial aspect; Having pain and erythematous changes Continue IV cefazolin; plan to treat for total of 7 days. wound care consult PT/OT, will likely need rehab. Chronic systolic CHF Echo on 09/17/2024 shows EF of 45 to 50% On Aldactone and metoprolol succinate Monitor for volume overload History of CAD status post 2 drug-eluting stents to LAD On Plavix, statin and fspy-mldjhzv-fvmekswo BPH On dutasteride and Flomax Will monitor Diabetes Continue Jardiance Sliding scale Will monitor History of A-fib Metoprolol succinate and Eliquis-conitnue History of TIA/CVA On Plavix and Eliquis and statin-continue Hypertension On metoprolol succinate, Aldactone-continue Will monitor Hyperlipidemia On statin-continue DVT prophylaxis On Eliquis Disposition Medical floor Full code. Please note the above document was generated using voice recognition software. It may contain grammatical, syntax or spelling errors. Any formal questions or concerns about the content, text or information contained within the body of this dictation should be directly addressed to the provider for clarification Admission and Anticipated Discharge Date Admission Date: April 09, 2025 Subjective Patient seen and examined at bedside. He was working with physical therapy. Patient reports overall better pain control lately. Patient denies review of symptoms. Physical Exam Physical Exam: General-Not in distress Head- atraumatic Eyes- PERRL. ENT- oropharynx clear Neck- supple, no JVD. Lungs- clear to auscultation no wheezing or crackles Heart- regular rhythm; no murmur, no gallop. Abdomen- normal bowel sounds, soft, nontender, no distension Extremities- right lower leg superficial wound seen on medial aspect with mild erythematous changes, Picture reviewed. Clean dressing without soakage noted at bedside. Neuro- alert, oriented PERRL, no facial palsy; no dysarthria; moves extremities Results & Data Results & Data Vital Signs (Past 12 Hours) Vital Signs Temp Pulse Resp BP Pulse Ox O2 Del Method 04/12/25 14:40 36.5 C 74 16 129/74 94 Room Air 04/12/25 07:20 36.3 C L 73 16 136/80 93 Room Air
--- NOTE | 2025-04-13 16:00 | Hospitalist Progress Note ---
Date of Service April 13, 2025 Assessment & Plan (1) Cellulitis of right leg: Plan: 84-year-old male with past medical history significant for type 2 diabetes, hyperlipidemia, diabetic peripheral neuropathy, diabetic dermatitis, atrial fibrillation, hypertension, chronic systolic CHF, irritable bowel syndrome, BPH, osteoarthritis, restless leg syndrome, mild stage bilateral glaucoma, polyneuropathy, history of CVA, CAD s/p stent, who lives at home with his son and ambulates with a cane and walker comes because of right lower extremity wound and cellulitis. Patient was in the ER on 04/05/2025 for right leg blister. Blister drained in the ER and dressing was placed and discharged on Keflex. Patient followed with wound care on 04/07/2025 advised to complete antibiotic course of Keflex and was dressed with Aquacel Ag changed on daily basis. On the day of admission, patient was having severe pain putting any weight on the right leg and the redness in the leg seem to be progressing downwards which prompted the son to bring the patient to the hospital. Denies any fevers. Hemodynamics are okay. Denies any chest pain or shortness of breath. No cough. No headache. No runny nose or sore throat. No nausea. No abdominal pain. Normal bowel and bladder movements. Cellulitis of right leg Initially started as blister Blister was drained in the ER on 04/05/2025 Currently has a superficial wound on the right lower leg medial aspect; Having pain and erythematous changes Continue IV cefazolin; plan to treat for total of 7 days. wound care consult PT/OT, will likely need rehab. Chronic systolic CHF Echo on 09/17/2024 shows EF of 45 to 50% On Aldactone and metoprolol succinate Monitor for volume overload History of CAD status post 2 drug-eluting stents to LAD On Plavix, statin and cvzx-ldvwknh-xpmlyhid BPH On dutasteride and Flomax Will monitor Diabetes Continue Jardiance Sliding scale Will monitor History of A-fib Metoprolol succinate and Eliquis-conitnue History of TIA/CVA On Plavix and Eliquis and statin-continue Hypertension On metoprolol succinate, Aldactone-continue Will monitor Hyperlipidemia On statin-continue DVT prophylaxis On Eliquis Disposition Medical floor Full code. Please note the above document was generated using voice recognition software. It may contain grammatical, syntax or spelling errors. Any formal questions or concerns about the content, text or information contained within the body of this dictation should be directly addressed to the provider for clarification Admission and Anticipated Discharge Date Admission Date: April 09, 2025 Subjective Patient seen and examined at bedside. He was working with physical therapy. Patient reports overall better pain control lately. Patient denies review of symptoms. Physical Exam Physical Exam: General-Not in distress Head- atraumatic Eyes- PERRL. ENT- oropharynx clear Neck- supple, no JVD. Lungs- clear to auscultation no wheezing or crackles Heart- regular rhythm; no murmur, no gallop. Abdomen- normal bowel sounds, soft, nontender, no distension Extremities- right lower leg superficial wound seen on medial aspect with mild erythematous changes, Picture reviewed. Clean dressing without soakage noted at bedside. Neuro- alert, oriented PERRL, no facial palsy; no dysarthria; moves extremities Results & Data Results & Data Vital Signs (Past 12 Hours) Vital Signs Temp Pulse Resp BP Pulse Ox O2 Del Method 04/13/25 15:21 36.8 C 66 16 122/63 92 Room Air 04/13/25 07:11 36.8 C 74 17 116/73 95 Room Air
--- NOTE | 2025-04-14 12:26 | Hospitalist Progress Note ---
Date of Service April 14, 2025 Assessment & Plan (1) Cellulitis of right leg: Plan: 84-year-old male with past medical history significant for type 2 diabetes, hyperlipidemia, diabetic peripheral neuropathy, diabetic dermatitis, atrial fibrillation, hypertension, chronic systolic CHF, irritable bowel syndrome, BPH, osteoarthritis, restless leg syndrome, mild stage bilateral glaucoma, polyneuropathy, history of CVA, CAD s/p stent, who lives at home with his son and ambulates with a cane and walker comes because of right lower extremity wound and cellulitis. Patient was in the ER on 04/05/2025 for right leg blister. Blister drained in the ER and dressing was placed and discharged on Keflex. Patient followed with wound care on 04/07/2025 advised to complete antibiotic course of Keflex and was dressed with Aquacel Ag changed on daily basis. On the day of admission, patient was having severe pain putting any weight on the right leg and the redness in the leg seem to be progressing downwards which prompted the son to bring the patient to the hospital. Denies any fevers. Hemodynamics are okay. Denies any chest pain or shortness of breath. No cough. No headache. No runny nose or sore throat. No nausea. No abdominal pain. Normal bowel and bladder movements. Cellulitis of right leg Initially started as blister Blister was drained in the ER on 04/05/2025 Currently has a superficial wound on the right lower leg medial aspect; Having pain and erythematous changes Continue IV cefazolin; plan to treat for total of 7-10 days. wound care consult PT/OT, will likely need rehab. Chronic systolic CHF Echo on 09/17/2024 shows EF of 45 to 50% On Aldactone and metoprolol succinate Monitor for volume overload History of CAD status post 2 drug-eluting stents to LAD On Plavix, statin and sofv-wrdmcnn-mzwzrunp BPH On dutasteride and Flomax Will monitor Diabetes Continue Jardiance Sliding scale Will monitor History of A-fib Metoprolol succinate and Eliquis-conitnue History of TIA/CVA On Plavix and Eliquis and statin-continue Hypertension On metoprolol succinate, Aldactone-continue Will monitor Hyperlipidemia On statin-continue DVT prophylaxis On Eliquis Disposition Medical floor Full code. Please note the above document was generated using voice recognition software. It may contain grammatical, syntax or spelling errors. Any formal questions or concerns about the content, text or information contained within the body of thi s dictation should be directly addressed to the provider for clarification Admission and Anticipated Discharge Date Admission Date: April 09, 2025 Subjective Patient seen and examined at bedside. Pt lying in bed, on RA, NAD, Son at bedside who was also updated on plan of care. Patient denies review of symptoms. Physical Exam Physical Exam: General-Not in distress Head- atraumatic Eyes- PERRL. ENT- oropharynx clear Neck- supple, no JVD. Lungs- clear to auscultation no wheezing or crackles Heart- regular rhythm; no murmur, no gallop. Abdomen- normal bowel sounds, soft, nontender, no distension Extremities- right lower leg superficial wound seen on medial aspect with mild erythematous changes, Picture reviewed. Clean dressing without soakage noted at bedside. Neuro- alert, oriented PERRL, no facial palsy; no dysarthria; moves extremities Results & Data Results & Data Vital Signs (Past 12 Hours) Vital Signs Temp Pulse Resp BP Pulse Ox O2 Del Method 04/14/25 10:14 79 120/72 04/14/25 06:59 36.5 C 65 16 135/64 94 Room Air
--- NOTE | 2025-04-15 15:58 | Hospitalist Progress Note ---
Date of Service April 15, 2025 Assessment & Plan (1) Cellulitis of right leg: Plan: 84-year-old male with past medical history significant for type 2 diabetes, hyperlipidemia, diabetic peripheral neuropathy, diabetic dermatitis, atrial fibrillation, hypertension, chronic systolic CHF, irritable bowel syndrome, BPH, osteoarthritis, restless leg syndrome, mild stage bilateral glaucoma, polyneuropathy, history of CVA, CAD s/p stent, who lives at home with his son and ambulates with a cane and walker comes because of right lower extremity wound and cellulitis. Patient was in the ER on 04/05/2025 for right leg blister. Blister drained in the ER and dressing was placed and discharged on Keflex. Patient followed with wound care on 04/07/2025 advised to complete antibiotic course of Keflex and was dressed with Aquacel Ag changed on daily basis. On the day of admission, patient was having severe pain putting any weight on the right leg and the redness in the leg seem to be progressing downwards which prompted the son to bring the patient to the hospital. Denies any fevers. Hemodynamics are okay. Denies any chest pain or shortness of breath. No cough. No headache. No runny nose or sore throat. No nausea. No abdominal pain. Normal bowel and bladder movements. Cellulitis of right leg Initially started as blister Blister was drained in the ER on 04/05/2025 Currently has a superficial wound on the right lower leg medial aspect; Having pain and erythematous changes Continue IV cefazolin; plan to treat for total of 7-10 days. wound care consult PT/OT, will likely need rehab. Chronic systolic CHF Echo on 09/17/2024 shows EF of 45 to 50% On Aldactone and metoprolol succinate Monitor for volume overload History of CAD status post 2 drug-eluting stents to LAD On Plavix, statin and zhjp-btxdiin-bkqbvosf BPH On dutasteride and Flomax Will monitor Diabetes Continue Jardiance Sliding scale Will monitor History of A-fib Metoprolol succinate and Eliquis-conitnue History of TIA/CVA On Plavix and Eliquis and statin-continue Hypertension On metoprolol succinate, Aldactone-continue Will monitor Hyperlipidemia On statin-continue DVT prophylaxis On Eliquis Disposition Medical floor Full code. Please note the above document was generated using voice recognition software. It may contain grammatical, syntax or spelling errors. Any formal questions or concerns about the content, text or information contained within the body of thi s dictation should be directly addressed to the provider for clarification Admission and Anticipated Discharge Date Admission Date: April 09, 2025 Subjective Patient seen and examined at bedside. Pt lying in bed, on RA, NAD Patient denies review of symptoms. Physical Exam Physical Exam: General-Not in distress Head- atraumatic Eyes- PERRL. ENT- oropharynx clear Neck- supple, no JVD. Lungs- clear to auscultation no wheezing or crackles Heart- regular rhythm; no murmur, no gallop. Abdomen- normal bowel sounds, soft, nontender, no distension Extremities- right lower leg superficial wound seen on medial aspect with mild erythematous changes, Picture reviewed. Clean dressing without soakage noted at bedside. Neuro- alert, oriented PERRL, no facial palsy; no dysarthria; moves extremities Results & Data Results & Data Vital Signs (Past 12 Hours) Vital Signs Temp Pulse Resp BP Pulse Ox O2 Del Method 04/15/25 07:50 36.8 C 71 17 103/62 95 Room Air
--- NOTE | 2025-04-16 14:00 | Hospitalist Progress Note ---
Date of Service April 16, 2025 Assessment & Plan (1) Cellulitis of right leg: Plan: 84-year-old male with past medical history significant for type 2 diabetes, hyperlipidemia, diabetic peripheral neuropathy, diabetic dermatitis, atrial fibrillation, hypertension, chronic systolic CHF, irritable bowel syndrome, BPH, osteoarthritis, restless leg syndrome, mild stage bilateral glaucoma, polyneuropathy, history of CVA, CAD s/p stent, who lives at home with his son and ambulates with a cane and walker comes because of right lower extremity wound and cellulitis. Patient was in the ER on 04/05/2025 for right leg blister. Blister drained in the ER and dressing was placed and discharged on Keflex. Patient followed with wound care on 04/07/2025 advised to complete antibiotic course of Keflex and was dressed with Aquacel Ag changed on daily basis. On the day of admission, patient was having severe pain putting any weight on the right leg and the redness in the leg seem to be progressing downwards which prompted the son to bring the patient to the hospital. Denies any fevers. Hemodynamics are okay. Denies any chest pain or shortness of breath. No cough. No headache. No runny nose or sore throat. No nausea. No abdominal pain. Normal bowel and bladder movements. Cellulitis of right leg Initially started as blister Blister was drained in the ER on 04/05/2025 Currently has a superficial wound on the right lower leg medial aspect; Having pain and erythematous changes Continue IV cefazolin; plan to treat for total of 7-10 days. wound care consult PT/OT, will likely need rehab. Chronic systolic CHF Echo on 09/17/2024 shows EF of 45 to 50% On Aldactone and metoprolol succinate Monitor for volume overload History of CAD status post 2 drug-eluting stents to LAD On Plavix, statin and cpes-rlixyti-afysakih BPH On dutasteride and Flomax Will monitor Diabetes Continue Jardiance Sliding scale Will monitor History of A-fib Metoprolol succinate and Eliquis-conitnue History of TIA/CVA On Plavix and Eliquis and statin-continue Hypertension On metoprolol succinate, Aldactone-continue Will monitor Hyperlipidemia On statin-continue DVT prophylaxis On Eliquis Disposition Medical floor Full code. Please note the above document was generated using voice recognition software. It may contain grammatical, syntax or spelling errors. Any formal questions or concerns about the content, text or information contained within the body of thi s dictation should be directly addressed to the provider for clarification Admission and Anticipated Discharge Date Admission Date: April 09, 2025 Subjective Patient seen and examined at bedside. Pt lying in bed, on RA, NAD Patient denies review of symptoms. Physical Exam Physical Exam: General-Not in distress Head- atraumatic Eyes- PERRL. ENT- oropharynx clear Neck- supple, no JVD. Lungs- clear to auscultation no wheezing or crackles Heart- regular rhythm; no murmur, no gallop. Abdomen- normal bowel sounds, soft, nontender, no distension Extremities- right lower leg superficial wound seen on medial aspect with mild erythematous changes, Picture reviewed. Clean dressing without soakage noted at bedside. Neuro- alert, oriented PERRL, no facial palsy; no dysarthria; moves extremities Results & Data Results & Data Vital Signs (Past 12 Hours) Vital Signs Temp Pulse Resp BP Pulse Ox O2 Del Method 04/16/25 09:32 Room Air 04/16/25 07:31 36.4 C L 70 18 130/74 95 Room Air
[2025-04-17] MEDS: POLYETHYLENE (MIRALAX) 17 GM PACK PO PRN (02:34)
--- NOTE | 2025-04-17 13:52 | Hospitalist Progress Note ---
Date of Service April 17, 2025 Assessment & Plan (1) Cellulitis of right leg: Plan: 84-year-old male with past medical history significant for type 2 diabetes, hyperlipidemia, diabetic peripheral neuropathy, diabetic dermatitis, atrial fibrillation, hypertension, chronic systolic CHF, irritable bowel syndrome, BPH, osteoarthritis, restless leg syndrome, mild stage bilateral glaucoma, polyneuropathy, history of CVA, CAD s/p stent, who lives at home with his son and ambulates with a cane and walker comes because of right lower extremity wound and cellulitis. Patient was in the ER on 04/05/2025 for right leg blister. Blister drained in the ER and dressing was placed and discharged on Keflex. Patient followed with wound care on 04/07/2025 advised to complete antibiotic course of Keflex and was dressed with Aquacel Ag changed on daily basis. On the day of admission, patient was having severe pain putting any weight on the right leg and the redness in the leg seem to be progressing downwards which prompted the son to bring the patient to the hospital. Denies any fevers. Hemodynamics are okay. Denies any chest pain or shortness of breath. No cough. No headache. No runny nose or sore throat. No nausea. No abdominal pain. Normal bowel and bladder movements. Cellulitis of right leg Initially started as blister Blister was drained in the ER on 04/05/2025 Currently has a superficial wound on the right lower leg medial aspect; Having pain and erythematous changes Continue IV cefazolin; plan to treat for total of 7-10 days. wound care consult PT/OT, will likely need rehab. Chronic systolic CHF Echo on 09/17/2024 shows EF of 45 to 50% On Aldactone and metoprolol succinate Monitor for volume overload History of CAD status post 2 drug-eluting stents to LAD On Plavix, statin and btxu-ghyqjmq-fbbcspwx BPH On dutasteride and Flomax Will monitor Diabetes Continue Jardiance Sliding scale Will monitor History of A-fib Metoprolol succinate and Eliquis-conitnue History of TIA/CVA On Plavix and Eliquis and statin-continue Hypertension On metoprolol succinate, Aldactone-continue Will monitor Hyperlipidemia On statin-continue DVT prophylaxis On Eliquis Disposition Medical floor Full code. Please note the above document was generated using voice recognition software. It may contain grammatical, syntax or spelling errors. Any formal questions or concerns about the content, text or information contained within the body of thi s dictation should be directly addressed to the provider for clarification Admission and Anticipated Discharge Date Admission Date: April 09, 2025 Subjective Patient seen and examined at bedside. Pt lying in bed, on RA, NAD Patient denies other review of symptoms. Physical Exam Physical Exam: General-Not in distress Head- atraumatic Eyes- PERRL. ENT- oropharynx clear Neck- supple, no JVD. Lungs- clear to auscultation no wheezing or crackles Heart- regular rhythm; no murmur, no gallop. Abdomen- normal bowel sounds, soft, nontender, no distension Extremities- right lower leg superficial wound seen on medial aspect with mild erythematous changes, Picture reviewed. Clean dressing without soakage noted at bedside. Neuro- alert, oriented PERRL, no facial palsy; no dysarthria; moves extremities Results & Data Results & Data Vital Signs (Past 12 Hours) Vital Signs Temp Pulse Resp BP Pulse Ox O2 Del Method 04/17/25 07:58 Room Air 04/17/25 07:15 36.9 C 72 17 145/78 H 94 Room Air
--- NOTE | 2025-04-18 14:54 | Hospitalist Progress Note ---
Date of Service April 18, 2025 Assessment & Plan (1) Cellulitis of right leg: Plan: 84-year-old male with past medical history significant for type 2 diabetes, hyperlipidemia, diabetic peripheral neuropathy, diabetic dermatitis, atrial fibrillation, hypertension, chronic systolic CHF, irritable bowel syndrome, BPH, osteoarthritis, restless leg syndrome, mild stage bilateral glaucoma, polyneuropathy, history of CVA, CAD s/p stent, who lives at home with his son and ambulates with a cane and walker comes because of right lower extremity wound and cellulitis. Patient was in the ER on 04/05/2025 for right leg blister. Blister drained in the ER and dressing was placed and discharged on Keflex. Patient followed with wound care on 04/07/2025 advised to complete antibiotic course of Keflex and was dressed with Aquacel Ag changed on daily basis. On the day of admission, patient was having severe pain putting any weight on the right leg and the redness in the leg seem to be progressing downwards which prompted the son to bring the patient to the hospital. Denies any fevers. Hemodynamics are okay. Denies any chest pain or shortness of breath. No cough. No headache. No runny nose or sore throat. No nausea. No abdominal pain. Normal bowel and bladder movements. Cellulitis of right leg Initially started as blister Blister was drained in the ER on 04/05/2025 Currently has a superficial wound on the right lower leg medial aspect; Having pain and erythematous changes Continue IV cefazolin; plan to treat for total of 7-10 days. wound care consult PT/OT, will likely need rehab. Chronic systolic CHF Echo on 09/17/2024 shows EF of 45 to 50% On Aldactone and metoprolol succinate Monitor for volume overload History of CAD status post 2 drug-eluting stents to LAD On Plavix, statin and sxin-paozibv-ywhgrfdg BPH On dutasteride and Flomax Will monitor Diabetes Continue Jardiance Sliding scale Will monitor History of A-fib Metoprolol succinate and Eliquis-conitnue History of TIA/CVA On Plavix and Eliquis and statin-continue Hypertension On metoprolol succinate, Aldactone-continue Will monitor Hyperlipidemia On statin-continue DVT prophylaxis On Eliquis Disposition Medical floor Full code. Please note the above document was generated using voice recognition software. It may contain grammatical, syntax or spelling errors. Any formal questions or concerns about the content, text or information contained within the body of thi s dictation should be directly addressed to the provider for clarification Admission and Anticipated Discharge Date Admission Date: April 09, 2025 Subjective Patient seen and examined at bedside. Pt lying in bed, on RA, NAD Patient denies other review of symptoms. Physical Exam Physical Exam: General-Not in distress Head- atraumatic Eyes- PERRL. ENT- oropharynx clear Neck- supple, no JVD. Lungs- clear to auscultation no wheezing or crackles Heart- regular rhythm; no murmur, no gallop. Abdomen- normal bowel sounds, soft, nontender, no distension Extremities- right lower leg superficial wound seen on medial aspect with mild erythematous changes, Picture reviewed. Clean dressing without soakage noted at bedside. Neuro- alert, oriented PERRL, no facial palsy; no dysarthria; moves extremities Results & Data Results & Data Vital Signs (Past 12 Hours) Vital Signs Temp Pulse Resp BP Pulse Ox O2 Del Method 04/18/25 07:35 36.4 C L 63 18 133/73 94 Room Air
[2025-04-19 07:42] VITALS: RESP 18; TEMP 98.1; O2SAT 94
--- NOTE | 2025-04-19 13:03 | Discharge Summary ---
Date of Service April 19, 2025 Admission HPI Per Admitting Provider 84-year-old male with past medical history significant for type 2 diabetes, hyperlipidemia, diabetic peripheral neuropathy, diabetic dermatitis, atrial fibrillation, hypertension, chronic systolic CHF, irritable bowel syndrome, BPH, osteoarthritis, restless leg syndrome, mild stage bilateral glaucoma, polyneuropathy, history of CVA, CAD s/p stent, who lives at home with his son and ambulates with a cane and walker comes because of right lower extremity wound and cellulitis. Patient was in the ER on 04/05/2025 for right leg blister. Blister drained in the ER and dressing was placed and discharged on Keflex. Patient followed with wound care on 04/07/2025 advised to complete antibiotic course of Keflex and was dressed with Aquacel Ag changed on daily basis. But today patient was having severe pain putting any weight on the right leg and the redness in the leg seem to be progressing downwards which prompted the son to bring the patient to the hospital. Denies any fevers. Hemodynamics are okay. Denies any chest pain or shortness of breath. No cough. No headache. No runny nose or sore throat. No nausea. No abdominal pain. Normal bowel and bladder movements. Past medical history. As mentioned above. Past surgical history. Inguinal hernia x 2, m umbilical hernia. Sinus surgery. Social history. Lives with son. No smoking. Alcohol rare wine. No drug use. Family history. Father had heart disorder. Hypertension. Stroke. Son has COPD. Sleep apnea.Son has AIDS per [facility] Admission Exam Per Admitting Provider General-Not in distress Head- atraumatic Eyes- PERRL. ENT- oropharynx clear Neck- supple, no JVD. Lungs- clear to auscultation no wheezing or crackles Heart- regular rhythm; no murmur, no gallop. Abdomen- normal bowel sounds, soft, nontender, no distension Extremities- right lower leg superficial wound seen on medial aspect with surrounding erythematous changes. Neuro- alert, oriented PERRL, no facial palsy; no dysarthria; moves extremities Principal Diagnosis Cellulitis of right leg Discharge Exam General-Not in distress Head- atraumatic Eyes- PERRL. ENT- oropharynx clear Neck- supple, no JVD. Lungs- clear to auscultation no wheezing or crackles Heart- regular rhythm; no murmur, no gallop. Abdomen- normal bowel sounds, soft, nontender, no distension Extremities- right lower leg superficial wound seen on medial aspect with chronic skin changes, erythema has resolved. Clean dressing without soakage noted at bedside which was taken off to inspect wound. Neuro- alert, oriented PERRL, no facial palsy; no dysarthria; moves extremities Discharge Data Allergies Allergy/AdvReac Type Severity Reaction Status Date / Time GLO Inhibitors Allergy Severe ANGIOEDEMA/ Verified 04/09/25 22:09 MYLAGIAS lisinopril Allergy Severe ANGIOEDEMA/ Verified 04/09/25 22:09 MYLAGIAS aspirin AdvReac Intermediate DYSPHAGIA/TROUBLE Verified 04/09/25 22:09 STANDING STRAIGHT UP Consultations 04/09/25 21:52 ED Decision to Admit Stat Ordered Studies 04/09/25 23:12 CT leg [CT tib/fib RT wo con] Routine Hospital Course (1) Cellulitis of right le-year-old male with past medical history significant for type 2 diabetes, hyperlipidemia, diabetic peripheral neuropathy, diabetic dermatitis, atrial fibrillation, hypertension, chronic systolic CHF, irritable bowel syndrome, BPH, osteoarthritis, restless leg syndrome, mild stage bilateral glaucoma, polyneuropathy, history of CVA, CAD s/p stent, who lives at home with his son and ambulates with a cane and walker comes because of right lower extremity wound and cellulitis. Patient was in the ER on 04/05/2025 for right leg blister. Blister drained in the ER and dressing was placed and discharged on Keflex. Patient followed with wound care on 04/07/2025 advised to complete antibiotic course of Keflex and was dressed with Aquacel Ag changed on daily basis. On the day of admission, patient was having severe pain putting any weight on the right leg and the redness in the leg seem to be progressing downwards which prompted the son to bring the patient to the hospital. Denies any fevers. Hemodynamics are okay. Denies any chest pain or shortness of breath. No cough. No headache. No runny nose or sore throat. No nausea. No abdominal pain. Normal bowel and bladder movements. Cellulitis of right leg Initially started as blister Blister was drained in the ER on 04/05/2025 Currently has a superficial wound on the right lower leg medial aspect; Having pain and erythematous changes Continue IV cefazolin; to po atb to complete the course. wound care consult PT/OT, will likely need rehab. Chronic systolic CHF Echo on 09/17/2024 shows EF of 45 to 50% On Aldactone and metoprolol succinate Monitor for volume overload History of CAD status post 2 drug-eluting stents to LAD On Plavix, statin and slir-vyouckp-tvlwkhtf BPH On dutasteride and Flomax Will monitor Diabetes Continue Jardiance Sliding scale Will monitor History of A-fib Metoprolol succinate and Eliquis-conitnue History of TIA/CVA On Plavix and Eliquis and statin-continue Hypertension On metoprolol succinate, Aldactone-continue Will monitor Hyperlipidemia On statin-continue DVT prophylaxis On Eliquis Disposition Medical floor Full code. patient is being discharged to SNF with following instructions at the point of discharge: Follow-up with your primary care physician within a week time and likely you will need labs CBC/CMP/magnesium/phosphorus. You will be discharged on 2 days of oral antibiotic to complete the course for your right leg cellulitis. Recommend that you establish with wound care as an outpatient and continue with daily dressing. Take your medications as prescribed. Please make sure that you are able to get your medications today by calling your pharmacy before you leave the hospital so that your treatment continuity is not broken. Please note the above document was generated using voice recognition software. It may contain grammatical, syntax or spelling errors. Any formal questions or concerns about the content, text or information contained within the body of this dictation should be directly addressed to the provider for clarification Home Health Attestation I certify that this patient is under my care and that I, or a physicians community relations assistant working with me, had a face to-face encounter that meets the home health vwuv-hl-[id number] encounter requirements with this patient. The encounter with the patient was in whole, or in part, for the following medical condition, which is the primary reason for home health care (list medical condition): I certify that, based on my findings, the following services are medically necessary home health services: My clinical findings support the need for the above services because: OT Assess ADL Status and Restore Function w ADLs PT Gait and Balance Training, Strengthening and Safety Skilled Nsg Assessment Further, I certify that my clinical findings support that this patient is homebound (i.e. absences from home require considerable and taxing effort and are for medical reasons or scientologist services or infrequently or of short duration when for other reasons) because: Transportation Assistance/Unable to Leave Home Unassisted Certification for Home Health Services: Based on the above findings, I certify that this patient is confined to the home and needs intermittent senior living care, physical therapy and/or speech therapy or continues to need occupational therapy. The patient is under my care, and I have initiated the establishment of the plan of care. This patient will be followed by a physician who will periodically review the plan of care. Total Time Total Time Spent Total Time Spent (In Minutes): 35 Discharge Plan Discharge Items Patient Disposition: Transfer [facility] Reason For Visit: RIGHT LEG WOUND, CELLULITIS Discharge Diagnosis: Cellulitis of right leg Condition on Discharge: Fair Activity: As commented below Activity Comment: Continue with PT/OT at rehab. Non-emergency contact: Primary Care Provider Call non-emergency contact if: you have any medication questions and your symptoms worsen Follow-up/Referrals: Dino Rajan MD [Primary Care Provider] - () Diet: Carb Consistent or DM2 and Heart Healthy Addtl Attending Provider Instructions: Follow-up with your primary care physician within a week time and likely you will need labs CBC/CMP/magnesium/phosphorus. You will be discharged on 2 days of oral antibiotic to complete the course for your right leg cellulitis. Recommend that you establish with wound care as an outpatient and continue with daily dressing. Take your medications as prescribed. Please make sure that you are able to get your medications today by calling your pharmacy before you leave the hospital so that your treatment continuity is not broken. Pending Studies at Discharge: No Stand-Alone Forms: My [facility] Skilled Items Patient informed of condition?: Yes DNR: No Discharge Level of Care: Skilled Communicable Disease: No Discharge Prognosis: Stable Lines: None Urinary Catheter: No Medications and DC Order Prescriptions: New oxycodone 5 mg Tablet 5 mg PO BID PRN (Reason: pain) 5 Days Qty: 10 0RF Probiotic 3 billion cell capsule 3,000 mmu cells PO DAILY 7 Days Qty: 7 0RF Rx Instructions: administer with a meal Continued Jardiance 10 mg tablet 10 mg PO QAM dutasteride 0.5 mg capsule 0.5 mg PO DAILY Qty: 90 3RF tamsulosin 0.4 mg capsule 0.4 mg PO DAILY Qty: 90 3RF atorvastatin 40 mg Tablet 40 mg PO QAM Qty: 30 0RF pantoprazole 40 mg Tablet,Delayed Release (Dr/Ec) 40 mg PO QAM Qty: 30 0RF Eliquis 5 mg tablet 5 mg PO BID Qty: 60 0RF cephalexin 500 mg capsule 500 mg PO TID 2 Days Qty: 6 0RF spironolactone 25 mg tablet 12.5 mg PO DAILY docusate sodium [Colace] 100 mg Capsule 100 mg PO BID metoprolol succinate 50 mg tablet extended release 24 hr 50 mg PO QAM clopidogrel 75 mg tablet 75 mg PO QAM Rx Instructions: Pt states on their med list, but showing last filled 10/2023 x90 day supply montelukast 10 mg tablet 10 mg PO DAILY Rx Instructions: Pt states on their med list, but showing last filled 10/2023 x90 day supply Discharge Orders: Discharge Order (Routine); Ordered 04/19/25 Ordered By: Hever Bardales/Other Patient Handouts: High Blood Sugar (Hyperglycemia), Hypoglycemia (Low Blood Sugar), Managing Type 2 Diabetes Admission Data Admit Date/Time: 04/09/25 23:10 Attending Provider: Hever Putnam Admit Provider: Benito Paulino Primary Care Provider: Dino Rajan Other Providers: Benito Paulino; [facility]; [place]
[2025-04-19 13:09] VITALS: BP 133/76; PULSE 68
== END 2025-04-19 14:20 | DRG 603 ==
LOC: ED 20:08 → SUATTDRO 23:10 → 3N 23:10